=== PATIENT | female | born 1960 | race Caucasian/White ===

== ENCOUNTER 2023-05-19 09:29 | Outpatient (OUT) | payer MEDICAID, SELFPAY ==
[2023-05-19 10:49] LABS: Free T4 1.01 ng/dL (0.76-1.46)
[2023-05-19 13:00] LABS: Free T3 2.43 pg/mL (2.18-3.98); Thyroid Stimulating Hormone 0.308 uIU/mL (0.358-3.740)
[2023-05-20 04:07] LABS: Thyroid Peroxidase (TPO) Ab <9 IU/mL (0-34)
[2023-05-20 15:08] LABS: Thyroglobulin Antibody <1.0 IU/mL (0.0-0.9)
[2023-05-21 09:12] LABS: Thyrotropin Receptor Ab, Serum <1.10 IU/L (0.00-1.75)
== END 2023-05-19 09:30 | disposition home or self-care (01) ==
LOC: LAB 09:29
PROVIDERS: PCP Family Medicine; Visit Provider Family Medicine
DX: E05.90 Thyrotoxicosis, unspecified without thyrotoxic crisis or storm (principal)
CPT/HCPCS: 36415; 83520; 84439; 84443; 84481; 86376; 86800

== ENCOUNTER 2023-08-11 09:43 | Outpatient (OUT) | payer MEDICAID, SELFPAY ==
--- NOTE | 2023-08-11 09:49 | MM_ITS ---
Patient: LUCAS SON Exam Date: 08/11/2023 : 1960 Gender:F Ordering : DR Bebe Arreguin M.D. Admission #: [id number] Family : Order #: [id number] CLICK HERE TO VIEW EXAM RADIOLOGY REPORT PROCEDURE: MM TOMOSYNTHESIS SCREENING BI COMPARISON: MG MAMM SCREEN LATIA W CAD, 11/13/2019. MG MAMM SCREEN 3D LATIA CAD, 12/26/2021. INDICATIONS: Z12.31 Calculator Name NCI Breast Cancer Risk Assessment Tool 5 Year Breast Cancer Risk 1.30% Lifetime Breast Cancer Risk 5.70% Personal Breast Cancer No Personal Ovarian Cancer No Treatments None Family Cancers Cousin-maternal with breast cancer at age ~35; Cousin-maternal with breast cancer at age ~45; Cousin-maternal with breast cancer at age ~55; Aunt-maternal with ovarian cancer at age ~45; Grandmother-maternal with uterine cancer at age ~49; Uncle-maternal with brain cancer at age ~52. LOCATION: [facility] BREAST COMPOSITION: Scattered areas fibroglandular density. FINDINGS: DIAGNOSTIC CATEGORY 1--NEGATIVE. NO CHANGE FROM COMPARISON ASSESSMENT. Scattered benign-appearing calcifications are present. Scattered benign-appearing lymph nodes are present. RIGHT BREAST: No significant suspicious finding. Stable asymmetry upper outer quadrant LEFT BREAST: No significant suspicious finding. RECOMMENDATIONS: ROUTINE MAMMOGRAM AND CLINICAL EVALUATION IN 12 MONTHS. PLEASE NOTE: A NORMAL MAMMOGRAM DOES NOT EXCLUDE THE POSSIBILITY OF BREAST CANCER. A CLINICALLY SUSPICIOUS PALPABLE LUMP SHOULD BE BIOPSIED. Dictated by: Aydin Jack MD on 08/11/2023 at 13:51 Approved by: Aydin Jack MD on 08/11/2023 at 13:55
== END 2023-08-11 09:44 | disposition home or self-care (01) ==
LOC: MAMMO 09:43
PROVIDERS: PCP Family Medicine; Visit Provider Family Medicine
DX: Z12.31 Encounter for screening mammogram for malignant neoplasm of breast (principal); Z80.3 Family history of malignant neoplasm of breast; Z80.8 Family history of malignant neoplasm of other organs or systems
CPT/HCPCS: 77063; 77067

== ENCOUNTER 2024-01-10 10:33 | Outpatient (OUT) | payer MEDICAID, SELFPAY ==
[2024-01-10 11:02] LABS: Basophils Absolute Auto 0.1 10^3/uL (0.0-0.1); Basophils Percent Auto 0.7 % (0.2-2.0); Eosinophils Absolute Auto 0.2 10^3/uL (0.0-0.7); Eosinophils Percent Auto 1.9 % (0.9-7.0); Hemoglobin 14.2 g/dL (12.0-16.0); Immature Granulocytes Abs Auto 0.04 10^3/uL (0.00-0.03); Immature Granulocytes Pct Auto 0.4 % (0.0-0.5); Lymphocytes Absolute Auto 2.3 10^3/uL (1.2-3.8); Lymphocytes Percent Auto 25.4 % (20.5-60.0); Mean Corpuscular HGB Conc 31.6 g/dL (29.9-35.2); Mean Corpuscular Hemoglobin 29.5 pg (26.7-34.0); Mean Corpuscular Volume 93.6 fL (81.0-99.0); Monocytes Absolute Auto 0.7 10^3/uL (0.3-0.8); Monocytes Percent Auto 8.2 % (1.7-12.0); Neutrophils Absolute Auto 5.6 10^3/uL (1.4-6.5); Neutrophils Percent Auto 63.4 % (43.0-75.0); Platelet Count 236 10^3/uL (150-450); Red Blood Count 4.81 10^6/uL (4.20-5.40); Red Cell Distribution Width 12.8 % (11.0-15.0); White Blood Count 8.9 10^3/uL (4.0-11.0)
[2024-01-10 11:43] LABS: Alanine Aminotransferase 22 U/L (14-59); Albumin Globulin Ratio 0.9; Albumin Level 3.6 g/dL (3.4-5.0); Alkaline Phosphatase 103 U/L (46-116); Anion Gap 16.4; Aspartate Amino Transferase 14 U/L (15-37); BUN Creatinine Ratio 13.6; Bilirubin Total 0.6 mg/dL (0.2-1.0); Calcium 9.5 mg/dL (8.5-10.1); Carbon Dioxide 27.3 mmol/L (21.0-32.0); Chloride 103 mmol/L (98-107); Estimated GFR (African America 46 (>=60); Estimated GFR (Non-African Ame 38 (>=60); Glucose 100 mg/dL (74-106); Potassium 4.7 mmol/L (3.5-5.1); Sodium 142 mmol/L (136-145); Thyroid Stimulating Hormone 0.326 uIU/mL (0.358-3.740); Total Protein 7.6 g/dL (6.4-8.2)
== END 2024-01-10 10:34 | disposition home or self-care (01) ==
LOC: LAB 10:35
PROVIDERS: PCP Family Medicine; Visit Provider Family Medicine
DX: R53.83 Other fatigue (principal); E55.9 Vitamin D deficiency, unspecified
CPT/HCPCS: 36415; 80053; 82306; 84443; 85025

== ENCOUNTER 2024-02-04 13:57 | Outpatient (OUT) | payer MEDICAID, SELFPAY ==
--- NOTE | 2024-02-04 14:01 | MM_ITS ---
Patient Name: LUCAS SON MR#: [id number] : 1960 Exam Date: 02/04/2024 Ordering Doctor: CHERRIE GANDHI RESIDENTIAL COUNSELOR-C cRADIOLOGY REPORT PROCEDURE: MM TOMOSYNTHESIS DIAGNOSTIC BI COMPARISON: MM TOMOSYNTHESIS SCREENING BI, 08/11/2023. MG MAMM SCREEN 3D LATIA CAD, 12/26/2021. INDICATIONS: Rash Of Breast, Left Breast Pain Calculator Name NCI Breast Cancer Risk Assessment Tool 5 Year Breast Cancer Risk 1.40% Lifetime Breast Cancer Risk 5.60% Personal Breast Cancer No Personal Ovarian Cancer No Treatments None Family Cancers Cousin-maternal with breast cancer at age ~35; Cousin-maternal with breast cancer at age ~45; Cousin-maternal with breast cancer at age ~55; Aunt-maternal with ovarian cancer at age ~45; Grandmother-maternal with uterine cancer at age ~49; Uncle-maternal with brain cancer at age ~52. LOCATION: [facility] BREAST COMPOSITION: Scattered areas fibroglandular density. FINDINGS: DIAGNOSTIC CATEGORY 2--BENIGN FINDING: RIGHT BREAST: No significant suspicious finding. Stable asymmetric residual fibroglandular tissue within upper outer quadrant. No significant change has occurred. LEFT BREAST: No significant suspicious finding. Stable residual fibroglandular tissue within upper outer quadrant. No significant change has occurred. RECOMMENDATIONS: ROUTINE MAMMOGRAM AND CLINICAL EVALUATION IN 12 MONTHS. PLEASE NOTE: A NORMAL MAMMOGRAM DOES NOT EXCLUDE THE POSSIBILITY OF BREAST CANCER. A CLINICALLY SUSPICIOUS PALPABLE LUMP SHOULD BE BIOPSIED. Dictated by: Ramon Joe M.D. on 02/04/2024 at 14:43 Approved by: Ramon Joe M.D. on 02/04/2024 at 14:46
--- OUTSIDE RECORDS SUMMARY | 2024-02-04 14:10 | XMS_ITS | CCD ---
Author Organization [facility] Care Team Providers Care Culinary Director Name Role Phone AUBREE JUSTICE Unavailable Unavailable DUSTY MARTINS Unavailable Unavailable Gavino Roman Unavailable Unavailable Mak Collins Unavailable Unavailable None, No PCP Unavailable Unavailable None, No PCP Unavailable Unavailable Unavailable Unavailable Bebe Duncan MD Primary Care Provider UNKNOWN, PCP Referring Unavailable MD ELIJAH WILKINSON Attending Bisi vailable UNKNOWN, PCP Referring Unavailable MD ELIJAH WILKINSON Attending Bisi vailable Bill Orona Attending Unavailable Bill Orona Referring Unavailable Bill Orona Attending Unavailable Bill Orona Attending Unavailable Bebe Duncan Unavailable CORNEL MORALES Admitting Unavailable CORNEL MORALES Attending Unavailable CORNEL MORALES Consulting Unavailable PERLA, DR BEBE Paul Primary Care Unavailable DUNCAN, DR BEBE Paul Admitting Unavailable HARDINSBURG, DR ANGELINA Clemente Consulting Unavailable DUNCAN, DR BEBE Paul Attending Unavailable DUNCAN, DR BEBE Paul Primary Care Unavailable DUNCAN, DR BEBE Paul Consulting Unavailable DUNCAN, DR BEBE Paul Admitting Unavailable DUNCAN, DR BEBE Paul Attending Unavailable DUNCAN, DR BEBE Paul Consulting Unavailable DUNCAN, DR BEBE Paul Primary Care Unavailable TRESSA YU Consulting Unavailable DUNCAN, DR BEBE Paul Attending Unavailable PERLA, DR BEBE Paul Consulting Unavailable DUNCAN, DR BEBE Paul Primary Care Unavailable DUNCAN, DR BEBE Paul Admitting Unavailable DUNCAN, DR BEBE Paul Admitting Unavailable DUNCAN, DR BEBE Paul Attending Unavailable DUNCAN, DR BEBE Paul Primary Care Unavailable DUNCAN, DR BEBE Paul Admitting Unavailable DUNCAN, DR BEBE Paul Attending Unavailable DUNCAN, DR BEBE Paul Primary Care Unavailable WEST, DR ANGELINA Clemente Consulting Unavailable DUNCAN, DR BEBE Paul Consulting Unavailable DUNCAN, DR BEBE Paul Primary Care Unavailable ASHISH WRIGHT Admitting Unavailable HARDINSBURG, DR ANGELINA Clemente Consulting Unavailable ASHISH WRIGHT Attending Unavailable ASHISH WRIGHT Consulting Unavailable Allergies Allergy Classification Reported Allergen(s) Allergy Type Date of Onset Reaction(s) Facility heparin (3 sources) heparin; Translations: [heparin] Drug Allergy [facility] Work Phone: (20 sources) heparin; Translations: [heparin] Drug Allergy 06-08-[address] [facility] Medications Current Medications Medication Drug Class(es) Dates Sig (Normalized) Sig (Original) amoxicillin 875 mg / clavulanate 125 mg oral tablet (3 sources) Penicillin-class Antibacterial Start: 11-25-2022 take 1 tablet by mouth every twelve hours Amoxicillin-Pot Clavulanate 875-125 MG 1 tablet Orally every 12 hrs for 10 day(s) Nov, Active benoxinate hydrochloride 4 mg/ml / fluorescein sodium 2.5 mg/ml ophthalmic solution (1 source) Diagnostic Dye Start: 02-19-2022 End: 02-20-2022 fluorescein-benoxin ate 0.25-0.4 % 1 Drop (FLURESS) cephalexin 500 mg oral capsule (2 sources) Cephalosporin Antibacterial take 1 capsule by mouth every eight hours Cephalexin 500 MG 1 capsule Orally every 8 hrs for 7 days Active phenylephrine hydrochloride 25 mg/ml ophthalmic solution (1 source) alpha-1 Adrenergic Agonist Start: 02-19-2022 End: 02-20-2022 PHENYLephrine 2.5 % 1 Drop (AK-DILATE, JASON-SYNEPHRINE) spironolactone 50 mg oral tablet (12 sources) Aldosterone Antagonist take 1 tablet by mouth every twenty-four hours Spironolactone 50 MG 1 tablet Orally Once a day Active take 1 tablet by mouth once aldo y Spironolactone 25 MG Oral Tablet TAKE 1 TABLET DAILY. Quantity: 0 Refills: 0 Ordered: 01-Apr-2022 DO Active tropicamide 10 mg/ml ophthalmic solution (1 source) Anticholinergic Start: 02-19-2022 End: 02-20-2022 tropicamide 1 % 1 Drop (MYDRIACYL) vitamin B12 (19 sources) Vitamin B12 take 1 tablet by mouth once daily Cyanocobalamin 1000 MCG 1 tablet Orally Once a day for 90 days Active take 1 tablet by mouth once aldo y Cyanocobalamin 1000 MCG 1 tablet Orally Once a day Active Vitamin B-12 100 0 MCG Oral Tablet Quantity: 0 Refills: 0 Ordered: 08-Jan-2021 DO Active take 1 tablet by mouth once aldo y cyanocobalamin (VITAMIN B-12) 1,000 mcg tab Take 1,000 mcg by mouth once daily. 0 Active Comment on above: Take 1,000 mcg by [facility] once daily. Completed/Discontinued Medications Medication Drug Class(es) Dates Sig (Normalized) Sig (Original) acetaminophen 325 mg oral tablet (1 source) Tylenol 325 MG O ral Tablet Refills: 0 Active brexpiprazole 0.5 mg oral tablet (3 sources) Atypical Antipsychotic take 1 tablet by mouth every twenty-four hours Rexulti 0.5 MG 1 tablet Orally Once a day Not-Taking calcium citrate 1500 mg / cholecalciferol 200 unt oral tablet (1 source) Vitamin D Start: 01-25-2019 take 1 tablet by mouth once daily Calcium + D 315-200 MG-UNIT Oral Tablet TAKE 1 TABLET DAILY. Quantity: 90 Refills: 2 Gavino Roman MD Start : 25-Jan-2019 Active carbidopa 25 mg / levodopa 100 mg oral tablet (11 sources) Aromatic Amino Acid Decarboxylation Inhibitor, Aromatic Amino Acid Start: 05-20-2019 take 1 tablet by mouth three times daily carbidopa-levodopa (SINEMET 25-100) 25-100 mg per tablet Take 1 tablet by mouth three times daily. 0 05/20/2019 Active Comment on above: [facility] cholecalciferol 0.05 mg oral tablet (20 sources) Vitamin D Start: 05-20-2019 take 1 tablet by mouth once daily cholecalciferol (VITAMIN D3) 50 mcg (2,000 unit) tablet Take 1 tablet by mouth once daily. 0 05/20/2019 Active take 2 tablets by [facility] every twenty-four hours Vitamin D3 50 MCG (1999) 2 tablet Orally Once a day Active Vitamin D3 50 MC G (1999) Oral Capsule Quantity: 0 Refills: 0 Ordered: 19-Oct-2018 DO Active Comment on above: [facility] citalopram 40 mg oral tablet (20 sources) Serotonin Reuptake Inhibitor Start: 05-20-2019 take 1 tablet by mouth once daily citalopram (CELEXA) 40 mg tablet Take 40 mg by mouth once daily. 0 05/20/2019 Active Citalopram [place] bromide 40 MG Oral Tablet Quantity: 0 Refills: 0 Ordered: 19-Oct-2018 DO Active Comment on above: Take 40 mg by mouth once daily. famotidine 40 mg oral tablet (20 sources) Histamine-2 Receptor Antagonist Start: 06-01-2019 take 1 tablet by mouth every twenty-four hours as needed famotidine (PEPCID) 40 mg tablet Take 40 mg by mouth at bedtime as needed. 0 06/01/2019 Active Comment on above: Take 40 mg by mouth at bedtime as needed. melatonin 3 mg oral tablet (20 sources) Start: 06-01-2019 take 1 tablet by mouth twice daily melatonin 3 mg tablet Take 3 mg by mouth twice daily. 0 06/01/2019 Active take 2 tablets by mo [facility] every twenty-four hours Melatonin 3 MG 2 tablets at bedtime as needed Orally Once a day [facility] Melatonin 3 MG 1 tablet at bedtime as needed Orally Once a day for 90 days Active Comment on above: Take 3 mg by mouth t wice daily. naproxen 500 mg oral tablet (3 sources) Nonsteroidal Anti-inflammatory Drug Start: 1 take 1 tablet by mouth every twelve hours as needed Naproxen 500 MG Oral Tablet TAKE 1 TABLET EVERY 12 HOURS NEEDED. Quantity: 60 Refills: 0 Ordered: 25-Dec-2020 Mak Collins MD Start : 25-Dec-2020 Active predniSONE 10 mg oral tablet (5 sources) Start: 1 predniSONE 10 MG Oral Tablet Please take 2 tablets once a day with meals [id number] (TO October)THEN Take one tablet once a day with meals x 3 weeks (October 23 to )Then Half a tablet x2 weeks (November 14 - Nov 28) THEN STOP Quantity: 180 Refills: 3 Ordered: 01-Oct-2021 Elijah Wilkinson MD Start : 08-Jan-2021 Active Start: 01-08-2021 take 3 tablets by mo ut once daily at mealtime predniSONE 10 MG Oral Tablet Please take 3 tablets daily with meals. Quantity: 180 Refills: 3 Ordered: 28-May-2021 Elijah Wilkinson MD Start : 08-Jan-2021 Active thiamine 100 mg oral tablet (20 sources) Start: 08-31-2019 take 1 tablet by mouth once daily VITAMIN B-1, MONONITRATE, 100 mg tab Take 100 mg by mouth once daily. 0 08/31/2019 Active Vitamin B-1 100 MG Oral Tablet Quantity: 0 Refills: 0 Ordered: 19-Oct-2018 DO Active Comment on above: Take 100 mg by mouth once daily. Tyrvaya 0.03 MG/ACT Nasal Solution (4 sources) Tyrvaya 0.03 MG/ACT Nasal Solution Quantity: 0 Refills: 0 Ordered: 01-Apr-2022 DO Active 24 hr verapamil hydrochloride 120 mg extended release oral capsule (17 sources) Calcium Channel Alvin Start: 03-06-2020 take 3 tablets by mouth once daily Verapamil HCl ER 120 MG Oral Capsule Extended Release 24 Hour TAKE 3 TABLETS ONCE DAILY Quantity: 270 Refills: 3 Ordered: 12-Oct-2022 Adwoa FLANAGAN [facility] Start : 06-Mar-2020 Active Start: 06-01-2019 take 3 tablets by mo uth once daily in the morning verapamil (CALAN, ISOPTIN) 80 mg tablet Take 120 mg by mouth once daily. takes 3 tablets in AM 0 06/01/2019 Active take 1 tablet by emilia th every eight hours Verapamil HCl 120 MG 1 tablet Orally Three times a day Active take 1 tablet by emilia th every eight hours Verapamil HCl 80 MG 1 tablet Orally Three times a day Active Comment on above: Take 120 mg by mouth once daily. 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 of bilateral eyes; Translations: [Other secondary cataract, bilateral] Chronic Diverticulosis and diverticulitis (1 source) Diverticulosis of intestine, part unspecified, without perforation or abscess without bleeding; Translations: [Dvrtclos of intest, part unsp, w/o perf or abscess w/o bleed] Onset: 1 Chronic Encephalitis (except that caused by tuberculosis or sexually transmitted disease) (16 sources) Limbic encephalitis; Translations: [Unspecified causes of encephalitis, myelitis, and encephalomyelitis] Onset: 1 Episodic Esophageal disorders (6 sources) Gastroesophageal reflux disease without esophagitis; Translations: [Gastro-esophageal reflux disease without esophagitis] Chronic Essential hypertension (8 sources) Essential hypertension; Translations: [Essential (primary) hypertension] Chronic Headache; including migraine (12 sources) Migraine; Translations: [Migraine, unspecified, without mention of intractable migraine without mention of status migrainosus] Onset: 2 Chronic Headache; including migraine (19 sources) Headache; Translations: [Headache] Episodic Headache; including migraine (1 source) Headache; including migraine; Translations: [Headache, unspecified] Onset: 2 Malaise and fatigue (20 sources) Fatigue; Translations: [Other malaise and fatigue] Onset: 3 Chronic Malaise and fatigue (1 source) Fatigue; Translations: [Chronic fatigue] Episodic Mood disorders (14 sources) Acute depression; Translations: [Acute depression] Chronic Nutritional deficiencies (8 sources) Vitamin D deficiency; Translations: [Vitamin D deficiency, unspecified] Chronic Nutritional deficiencies (9 sources) Vitamin B deficiency; Translations: [Vitamin B deficiency, unspecified] Episodic Osteoarthritis (1 source) Degenerative joint disease involving multiple joints; 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] Onset: 0 12-15-2019 Chronic Other aftercare (8 sources) Long-term current use of systemic steroid; Translations: [bed bug exterminator (current) use of systemic steroids] Episodic Other circulatory disease (8 sources) Elevated blood-pressure reading without diagnosis of hypertension; Translations: [Elevated blood-pressure reading, without diagnosis of hypertension] Episodic Other connective tissue disease (8 sources) Trochanteric bursitis; Translations: [Trochanteric bursitis, unspecified hip] Episodic Other connective tissue disease (8 sources) Disorder of soft tissue; Translations: [Other specified soft tissue disorders] Episodic Other connective tissue disease (8 sources) Olecranon bursitis; Translations: [Olecranon bursitis, right elbow] Episodic Other connective tissue disease (9 sources) Pain in left foot; Translations: [Pain in left foot] Onset: 2 Episodic Other eye disorders (1 source) Bilateral posterior vitreous detachment; Translations: [Vitreous degeneration, bilateral] Chronic Other eye disorders (11 sources) Unspecified lagophthalmos right eye, unspecified eyelid; Translations: [Lagophthalmos of right eyelid] Episodic Other eye disorders (11 sources) Subconjunctival hemorrhage; Translations: [Conjunctival hemorrhage] Episodic Other eye disorders (11 sources) Chemosis of conjunctiva; Translations: [Conjunctival edema] Episodic Other eye disorders (1 source) Chalazion of lower eyelid of right eye; Translations: [Chalazion right lower eyelid] Episodic Other eye disorders (1 source) Tear film insufficiency of bilateral eyes; Translations: [Dry eye syndrome of bilateral lacrimal glands] Episodic Other gastrointestinal disorders (1 source) Dysphagia, oropharyngeal phase; Translations: [Dysphagia, oropharyngeal phase] Onset: 8 Episodic Other lower respiratory disease (8 sources) Dyspnea on exertion; Translations: [Other forms of dyspnea] Episodic Other nervous system disorders (1 source) Bilateral carpal tunnel syndrome; Translations: [Carpal tunnel syndrome, bilateral upper limbs] Onset: 0 12-15-2019 Chronic Other nervous system disorders (1 source) Chronic pain syndrome; Translations: [Chronic pain syndrome] Onset: 0 12-15-2019 Chronic Other nervous system disorders (1 source) Carpal tunnel syndrome of left wrist; Translations: [Carpal tunnel syndrome, left upper limb] Onset: 0 12-28-2019 Chronic Other nervous system disorders (8 sources) Chronic pain; Translations: [Other chronic pain] Chronic Other nervous system disorders (8 sources) Mononeuropathy of lower limb; Translations: [Unspecified mononeuropathy of left lower limb] Chronic Other nervous system disorders (8 sources) Disorder of brain; Translations: [Encephalopathy, unspecified] Chronic Other nervous system disorders (2 sources) Personal history of infections of the central nervous system; Translations: [Personal history of infections of the central nervous system] Onset: 1 Episodic Other nervous system disorders (8 sources) Personal history of other diseases of the nervous system and sense organs; Translations: [History of encephalopathy] Episodic Other non-traumatic joint disorders (8 sources) Arthralgia of the ankle and/or foot; Translations: [Pain in left ankle and joints of left foot] Episodic Other nutritional; endocrine; and metabolic disorders (8 sources) Obese class II; Translations: [Body mass index (BMI) 37.0-37.9, adult] Chronic Other screening for suspected conditions (not mental disorders or infectious disease) (10 sources) Blood chemistry abnormal; Translations: [Other specified abnormal findings of blood chemistry] Episodic Other skin disorders (12 sources) Localized swelling, mass and lump, right upper limb; Translations: [Mass of right forearm] Onset: 2 Episodic Other skin disorders (1 source) Ingrowing nail Episodic Other upper respiratory infections (8 sources) Bacterial sinusitis; Translations: [Chronic sinusitis, unspecified] Chronic Residual codes; unclassified (5 sources) Obstructive sleep apnea syndrome; Translations: [Obstructive sleep apnea (adult) (pediatric)] Chronic Residual codes; unclassified (5 sources) Dependence on enabling machine or device; Translations: [Dependence on other enabling machines and devices] Chronic Residual codes; unclassified (2 sources) Obstructive sleep apnea (adult) (pediatric) Chronic Residual codes; unclassified (2 sources) Dependence on other enabling machines and devices Chronic Residual codes; unclassified (8 sources) Edema; Translations: [Localized edema] Episodic Residual codes; unclassified (8 sources) Asymptomatic menopausal state; Translations: [Menopause] Episodic Residual codes; unclassified (8 sources) Insomnia; Translations: [Insomnia, unspecified] Episodic Residual codes; unclassified (3 sources) Insomnia, unspecified Episodic Skin and subcutaneous tissue infections (2 sources) Cellulitis of right toe; Translations: [Bullous impetigo] Episodic Spondylosis; intervertebral disc disorders; other back problems (16 sources) Displacement of cervical intervertebral disc; Translations: [Other cervical disc displacement at C5-C6 level] Chronic Spondylosis; intervertebral disc disorders; other back problems (11 sources) Neck pain; Translations: [Cervicalgia] Onset: 0 12-15-2019 Episodic Thyroid disorders (5 sources) Thyrotoxicosis, unspecified without thyrotoxic crisis or storm; Translations: [THYROTOXICOS UNS NO THYROTOX CRISIS] Onset: 2 Chronic Past or Other Problems Problem Classification Problem Date Documented Da te Episodic/Chronic Mood disorders (1 source) Mood disorders Other connective tissue disease (1 source) Pain of bilateral hands; Translations: [Pain in right hand] Onset: 12-15-2019 12-15-2019 Episodic Other connective tissue disease (4 sources) Pain in left foot; Translations: [PAIN IN LEFT FOOT] Onset: 05-14-2022 Episodic Other non-traumatic joint disorders (1 source) Shoulder pain; Translations: [Pain in right shoulder] Onset: 12-15-2019 12-15-2019 Episodic Other non-traumatic joint disorders (1 source) Hip pain; Translations: [Pain in right hip] Onset: 12-15-2019 12-15-2019 Episodic Other non-traumatic joint disorders (2 sources) Pain in left knee; Translations: [PAIN IN LEFT KNEE] Onset: 11-27-2022 Episodic Other non-traumatic joint disorders (4 sources) Pain in left ankle and joints of left foot; Translations: [PAIN IN LEFT ANKLE] Onset: 05-28-2022 Episodic Residual codes; unclassified (4 sources) Localized edema; Translations: [LOCALIZED EDEMA] Onset: 04-24-2022 Episodic Unclassified (5 sources) Age more than 40 years; Translations: [60 to 74 years of age] NEGATED: Highlighted row has not occurred!Residual codes; unclassified (6 sources) Disease Episodic Results Test Name Value Interpretation Reference Range Facility CBC AUTO DIFFon 11-25-2022 BASO # 0.1 103/ul Normal 0.0-0.1 [facility] Comment on above: Performed By: #### C BC #### [facility] [address] [place] [address] Dr. Simone Luna Basophils/100 WBC (Bld) 0.7 % Normal 0.2-2.0 [facility] Comment on above: Performed By: #### C BC #### [facility] [address] [place] [address] Dr. Simone Luna EO # 0.1 103/ul Normal 0.0-0.7 [facility] Comment on above: Performed By: #### C BC #### [facility] [address] [place] [address] Dr. Simone Luna Eosinophils/100 WBC (Bld) 1.7 % Normal 0.9-7.0 [facility] Comment on above: Performed By: #### C BC #### [facility] [address] [place] [address] Dr. Simone Luna Erythrocyte distribution width (RBC) [Ratio] 12.8 % Normal 11.0-15.0 [facility] Comment on above: Performed By: #### C BC #### [facility] [address] [place] [address] Dr. Simone Luna Hematocrit (Bld) [Volume fraction] 43.8 % Normal 36.0-48.0 [facility] Comment on above: Performed By: #### C BC #### [facility] [address] [place] [address] Dr. Simone Luna Hemoglobin (Bld) [Mass/Vol] 14.0 g/dL Normal 12.0-16.0 [facility] Comment on above: Performed By: #### C BC #### [facility] [address] [place] [address] Dr. Simone Luna IG # 0.03 10e3/ul Normal 0.00-0.03 [facility] Comment on above: Performed By: #### C BC #### [facility] [address] [place] [address] Dr. Simone Luna IG % 0.4 % Normal 0.0-0.5 [facility] Comment on above: Performed By: #### C BC #### [facility] [address] [place] [address] Dr. Simone Luna LYMPH # 2.2 103/ul Normal 1.2-3.8 [facility] Comment on above: Performed By: #### C BC #### [facility] [address] [place] [address] Dr. Simone Luna Lymphocytes/100 WBC (Bld) 26.4 % Normal 20.5-60.0 [facility] Comment on above: Performed By: #### C BC #### [facility] [address] [place] [address] Dr. Simone Luna MANUAL DIFF REQ NO Normal [facility] Comment on above: Performed By: #### C BC #### [facility] [address] [place] [address] Dr. Simone Luna MCH (RBC) [Entitic mass] 29.5 pg Normal 26.7-34.0 [facility] Comment on above: Performed By: #### C BC #### [facility] [address] [address] [address] Simone Luna MCHC (RBC) [Mass/Vol] 32.0 g/dL Normal 29.9-35.2 [facility] Comment on above: Performed By: #### C BC #### [facility] [address] [place] [address] Dr. Simone Luna MCV (RBC) [Entitic vol] 92.4 fL Normal 81.0-99.0 [facility] Comment on above: Performed By: #### C BC #### [facility] [address] [place] [address] Dr. Simone Luna MONO # 0.7 103/ul Normal 0.3-0.8 [facility] Comment on above: Performed By: #### C BC #### [facility] [address] [place] [address] Dr. Simone Luna Monocytes/100 WBC (Bld) 8.2 % Normal 1.7-12.0 [facility] Comment on above: Performed By: #### C BC #### [facility] [address] [place] [address] Dr. Simone Luna NEUT # 5.2 103/ul Normal 1.4-6.5 [facility] Comment on above: Performed By: #### C BC #### [facility] [address] [place] [address] Dr. Simone Luna Neutrophils/100 WBC (Bld) 62.6 % Normal 43.0-75.0 [facility] Comment on above: Performed By: #### C BC #### [facility] [address] [place] [address] Dr. Simone Luna Platelet mean volume (Bld) [Entitic vol] 9.6 fL Normal 9.5-13.5 [facility] Comment on above: Performed By: #### C BC #### [facility] [address] [place] [address] Dr. Simone Luna PLT 233 103/ul Normal 150-450 [facility] Comment on above: Performed By: #### C BC #### [facility] [address] [place] [address] Dr. Simone Luna RBC 4.74 106/ul Normal 4.20-5.40 [facility] Comment on above: Performed By: #### C BC #### [facility] [address] [place] [address] Dr. Simone Luna WBC 8.3 103/ul Normal 4.0-11.0 [facility] Comment on above: Performed By: #### C BC #### [facility] [address] [place] [address] Dr. Simone Luna FREE T4on 11-25-2022 Free T4 [Mass/Vol] 1.00 ng/dL Normal 0.76-1.46 [facility] Comment on above: Performed By: #### T HYRABT #### [facility] [address] [place] [address] Dr. Simone Luna PROF CHEM 8 (BAS METB)on Anion gap [Moles/Vol] 15.2 mmol/L Normal [facility] Comment on above: Performed By: #### T SH, BMP #### [facility] [address] [place] [address] Dr. Simone Luna Calcium [Mass/Vol] 9.3 mg/dL Normal 8.5-10.1 [facility] Comment on above: Performed By: #### T SH, BMP #### [facility] [address] [place] [address] Dr. Simone Luna Chloride [Moles/Vol] 105 mmol/L Normal 98-107 [facility] Comment on above: Performed By: #### T SH, BMP #### [facility] [address] [place] [address] Dr. Simone Luna CO2 [Moles/Vol] 23.9 mmol/L Normal 21.0-32.0 [facility] Comment on above: Performed By: #### T SH, BMP #### [facility] [address] [place] [address] Dr. Simone Luna Creatinine [Mass/Vol] 1.35 mg/dL Critically high 0.55-1.02 [facility] Comment on above: Performed By: #### T SH, BMP #### [facility] [address] [place] [address] Dr. Simone Luna EGFR-AF CITIZEN [place] 48 mL/min/1.73m2 Critically low >=60 [facility] Comment on above: Performed By: #### T SH, BMP #### [facility] [address] [place] [address] Dr. Simone Luna EGFR-NON AF CITIZEN OF [place] 40 mL/min/1.73m2 Critically low >=60 [facility] Comment on above: Performed By: #### T STEPHIE, BMP #### [facility] [address] [place] [address] Dr. Simone Luna Glucose [Mass/Vol] 142 mg/dL Critically high 74-106 [facility] Comment on above: Performed By: #### T STEPHIE, BMP #### [facility] [address] [place] [address] Dr. Simone Luna Potassium [Moles/Vol] 4.1 mmol/L Normal 3.5-5.1 [facility] Comment on above: Performed By: #### T STEPHIE, BMP #### [facility] [address] [place] [address] Dr. Simone Luna Sodium [Moles/Vol] 140 mmol/L Normal 136-145 [facility] Comment on above: Performed By: #### T STEPHIE, BMP #### [facility] [address] [place] [address] Dr. Simone Luna Urea nitrogen [Mass/Vol] 25.0 mg/dL Critically high 7.0-18.0 [facility] Comment on above: Performed By: #### T STEPHIE, BMP #### [facility] [address] [place] [address] Dr. Simone Luna Urea nitrogen/Creatini ne [Mass ratio] 18.5 mg/mg Normal [facility] Comment on above: Performed By: #### T SH, BMP #### [facility] [address] [place] [address] Dr. Simone Luna TSHon 11-25-2022 TSH 0.513 uIU/mL Normal 0.358-3.740 [facility] Comment on above: Performed By: #### T , JUWAN #### [facility] [address] [id number] Simone Luna XR KNEE LT 4V or >on 023 XR KNEE LT 4V or > EXAM: XR KNEE LT 4V or > HISTORY: Pain of left knee joint posteriorly for the past week. COMPARISON: None. TECHNIQUE: 4 views of the left knee were obtained. FINDINGS: There is no evidence of an acute fracture or dislocation. There is mild narrowing of the medial compartment. No significant osteophytes or osteochondral injury is identified. There is no subluxation of the patella at the patellofemoral joint. A tiny suprapatellar joint effusion is suggested and may be present. No abnormal soft tissue calcifications are present. IMPRESSION: No acute fracture or dislocation. No significant osseous abnormality is identified. A tiny suprapatellar joint effusion is suggested. Comparison with a previous study may be helpful in determining the chronicity of these findings. 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 She was found to have subclinical central seizures requiring keppra and depakote. She was comatosed for a prolonged period of time and underwent trach and PEG. She improved after ten sessions of PLEX and is now conversant and near baseline (trach and PEG reversed). Extensive workup in the hospital was negative including repeated brain MRIs, cancer screen (CT and PET), infectious workup, and AIE panel from the serum and CSF. Her CSF had high IGG index but negative OCBs and no cells. 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 She has evidence of parkinsonism/tremor on exam but this is likely drug-induced (lithium and depakote). Will repeat EEG and if negative we'll start slow weaning of depakote. I also instructed family to discuss getting off lithium with the patient's PCP. Will complete cancer screening with a mammogram (she has no ovaries) and then will monitor yearly after that with whole body CT and mammograms. Recurrence rate of seronegative AIE is unknown but we will have a low threshold to start equipment operator intermodal yard immunosuppressive therapy if recurrence is suspected. 10/19/2018: Presented to the hospital again in August with brain fog, difficult focusing, motor decline, and episodes of sphincteric dysfunction. No new seizures or AMS. Repeat brain MRI and CSF were unremarkable. EEG showed only generalized slowing. She was treated empirically with PLEX with subsequent improvement. Unclear if this was a true AIE relapse or worsening neurological function related to her drug-induced parkinsonism. She's now off lithium but taking high dose of depakote. We will start slow weaning of prednisone and see how she does. will plan to start a steroid sparing agent if she has a convincting relapse while weaning steroids. We will cut her depakote dose in half then start gradual weaning of depakote after increasing her keppra to 2000 mg BID. Will send valproate level, CMP, and ammonia. Follow up once she's on 10 mg of prednisone. 10/02/2021: doing well. headache improved. parkinsonism resolved after coming off depakote and lithium. Will start weaning her off prednisone and will update cancer screening. No further cancer screening will be required if the next one is negative and she remains relapse-free. 10/12/2022: no neurological symptoms currently. She is off all immunotherapy, seizures meds, and sinemet. last cancer screen in October of 2021 was negative. future follow up should be on as needed basis only. she'll continue verapamil for MEANS ppx. PLAN: Your latest cancer screening in October of 2021 was negative, which is great. Please continue to do standard cancer screening as recommended by your primary care doctor. You are currently no longer on immunotherapy or seizure medications. At this point, you can follow up in the neurology clinic on as needed basis. please report any new neurological symptoms if they happen in the future. The impression and plan were discussed with the patient and their family (if present) in detail and all questions answered. They agreed to the plan as outlined above. I spent 20 minutes with this patient. Greater than 50% of this time was spent in counseling and/or coordination of care. Bill Orona MD, PhD Nuclear Plant Operator of Neurology [facility] [employer] Director of Neuroimmunology and staff neurologist at the Movement Disorder [facility] 10/12/2022 12:13 PM Patient Discussion/Summary Your latest cancer screening in October of 2021 was negative, which is great. Please continue to do standard cancer screening as recommended by your primary care doctor. You are currently no longer on immunotherapy or seizure medications. At this point, you can follow up in the neurology clinic on as needed basis. please report any new neurological symptoms if they happen in the future. Thank you very much for coming to see me today. Bill Orona MD, PhD Nuclear Plant Operator of Neurology [facility] Director of Neuroimmunology and staff neurologist at the Movement Disorder [facility] 10/12/2022 12:02 PM Chief Complaint FUV AIE History of Present Illness Ms. 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 Disease summary: In March 2018 had cognitive decline, gait di (more content not included)... Normal [facility] Tobacco Screening.on 022 Fall risk assessment a) [facility] within the last year [facility] Work Phone: Tobacco use status CP b) No -[facility] [employer] Work Phone: US EXT NON VASC LIMITED RTon 09-16-2022 US EXT NON VASC LIMITED RT EXAMINATION: US EXT NON VASC LIMITED RT HISTORY: Localized swelling of right upper limb COMPARISON: No relevant comparison available. FINDINGS: Ultrasound demonstrates 3 focal areas of subtle hyperechogenicity within the subcutaneous fat just below the skin surface. These are well-circumscribed with smooth rounded borders oval in overall shape. The largest of these in the proximal 4 measures 2.2 x 1.6 x 0.6 cm. IMPRESSION: 3 hyperechogenic lesions in the subcutaneous fat, lipomas are favored Electronically authenticated by: ANGELINA SERVIN Date: 2022-09-16 18:28 Normal [facility] THYROID ANTIBODIESon 022 Thyroglobulin Antibody <1.0 Normal 0.0-0.9 [facility] Comment on above: Result Comment: Thyr oglobulin Antibody measured by [facility] Methodology Performed By: #### T HYRABT #### [facility] [address] [place] [address] Dr. Simone Luna Thyroid Peroxidase (TPO) Ab <8 Normal 0-34 [facility] Comment on above: Performed By: #### T HYRABT #### [facility] [address] [place] [address] Dr. Simone Luna THYROTROPIN RECEPTOR ABon Thyrotropin Receptor Ab, Serum <1.10 Normal 0.00-1.75 [facility] Comment on above: Performed By: #### T HYRABT #### [facility] [address] [place] [address] Dr. Simone Luna FREE T3on 05-28-2022 FREE T3 2.77 pg/mlL Normal 2.18-3.98 [facility] Comment on above: Performed By: #### T HYRABT #### [facility] [address] [place] [address] Dr. Simone Luna FREE T4on 05-28-2022 Free T4 [Mass/Vol] 0.86 ng/dL Normal 0.76-1.46 [facility] Comment on above: Performed By: #### T HYRABT #### [facility] [address] [place] [address] Dr. Simone Luna TSHon 05-28-2022 TSH 0.491 uIU/mL Normal 0.358-3.740 [facility] Comment on above: Performed By: #### T HYRABT #### [facility] [address] [place] [address] Dr. Simone Luna ECHOCARDIO M/2D COMPLETEon 0 04-24-2022 ECHOCARDIO M/2D COMPLETE Patient: ALINA SONStaci Exam Date: 04/24/2022 : 1960 Gender:F Ordering : DR BEBE DUNCAN M.D. Admission #: [id number] Family : Order #: [id number] CLICK HERE TO VIEW EXAM ECHOCARDIOGRAM REPORT PROCEDURE: CARDIO PULMONARY ECHOCARDIO M/2D COMP INDICATIONS: lower extremity edema COMPARISON: None. DESCRIPTION: COMPLETE ECHOCARDIOGRAM Real-time transthoracic echocardiography with 2D, M-mode, spectral and color flow Doppler performed. QUALITY: Technically difficult due to patient's condition. LEFT VENTRICLE: Normal chamber size. Normal left ventricular wall thickness. LV EF: Normal left ventricular ejection fraction, (55%). DIASTOLIC: Normal diastolic function. ATRIAL SEPTUM: Visually appears intact. LEFT ATRIUM: Normal chamber size. RIGHT ATRIUM: Normal chamber size. RIGHT VENTRICLE: Normal chamber size. TRICUSPID VALVE: Normal mobility and thickness. No stenosis with no regurgitation. MITRAL VALVE: Normal mobility and thickness. No evidence of mitral valve stenosis. There is no mitral annular calcification. No mitral regurgitation. AORTIC VALVE: Not well visualized. No evidence of aortic valve stenosis. Trivial aortic regurgitation. AORTIC ROOT: Normal diameter and appearance. PULMONIC VALVE: Normal thickness and mobility. No stenosis. No regurgitation. PERICARDIUM: No evidence of pericardial effusion. IVC: Collapses with inspirations. PLEURA: CONCLUSION: 1. Normal ventricular systolic function. LVEF is 55%. 2. Normal diastolic function. 3. No significant valvular dysfunction. 4. No pericardial effusion. Adult Echocardiography Procedure Report Left Ventricle LVEDD (3.7 - 5.6 cm): 4.48 cm LVESD (2.2 - 4.0 cm): 3.38 cm LVIVS thickness (0.6 - 1.2 cm): 9.21 mm LVPW thickness (0.5 - 1.0 cm): 9.08 mm e': 7.13 cm/s E - e': 10.30 LVOT Area (cm2): 3.46 cm2 LVOT Diameter 2.10 cm Left Ventricular Ejection Fraction: 55 % Left Atrium Left Atrium Systolic Dimension: 3.50 cm Mitral Valve MV E to A Ratio: 1.10 Mitral Valve A-Wave Peak Velocity: 69.60 cm/s Mitral Valve E-Wave Peak Velocity: 73.10 cm/s Deceleration Time: 256 ms Right Ventricle Aorta AO Root Diam: 3.00 cm Aortic Valve AoV Area (Peak Danyel): 2.56 cm2 Peak Velocity(Antegrade Flow): 138.00 cm/s Peak Gradient(Antegrade Flow): 8 mm[Hg] Tricuspid Valve Pulmonic Valve Peak Velocity: 88.70 cm/s Peak Gradient: 3 mm[Hg] Right Atrium Dictated by: Bob Nuñez M.D. on 04/24/2022 at 15:02 Approved by: Bob Nuñez M.D. on 04/24/2022 at 15:04 Normal [facility] Office Visit (Neuro-General) on 04-01-2022 Follow-up visit Provider Impressions Ms. Son is a 61 yo RH woman with seronegative autoimmune encephalitis (in March 2018, followed by Aug 2018 s/p improvement with PLEX). She presents as a follow up today in person for headaches and AIE. Doing well from neurologic stand point with several complaints (weight gain, swelling, SOB/Orthopnea and fatigue). Cognition appears stable and she has no complaints. Her headaches remain significantly improved from prior (some mild worsening over past days/weeks appears in setting of several ongoing issues such as sleep fragmentation from LE swelling discomfort at night and element of refractive error and ? new Dx glaucoma which she is working with opthalmology to manage and anxiety) mostly in morning headaches. Most importantly her headaches had dramatically improved with treatment of MARTY and hence are unlikely related to AIE. She no longer complains of slowness or tremor and will plan to wean off C/L gradually. Plan: -c/w verapamil ER 360 mg daily (reassess taper/wean once off prednisone given good control of headaches) NOT done this visit due to several ongoing confounders including sleep fragmentation and refractive issues and HTN -Wean Sinemet by 1 tab per week (currently on 1 tab TID), given instructions to call back if developes issues - FU PCP for Health screen (namely weight gain, edema and fatigue) recommend consideration of TSH, ECHO and trial lasix if indicated. - Counseled on nonpharmacologic options such as use of compression stalkings, calf stretch exercises during the day and leg elevation when possible throughout the day. These may help with her leg swelling and discomfort. - c/w CPAP for MARTY -RTC in 4-6 months or sooner if needed Patient Discussion/Summary Thank you for your visit you have been seen for Autoimmune - On your PCP follow up please ensure they perform a cardiac echo and assess need for a stronger waterpill i.e Lasix if indicated or you don?t have significant respone to spironolactone - The following medications have been added/changed Levodopa-carbidopa 25-100 DECREASE by one pill every week as follows WEEK #1: Morning take one pill, afternoon skip, evening take one pill, If no issues THEN WEEK#2 Morning skip, afternoon skip, EVENING take one pill, if NO issues THEN WEEK #3: DO NOT TAKE ANY pill - maintain healthy balanced diet and exercise - RTC in 4-6months, sooner if needed Our clinic number is , please call with any questions or concerns Attending Note I saw and evaluated the patient. I personally obtained the palencia and critical portions of the history and physical exam or was physically present for palencia and critical portions performed by the trainee. I reviewed the trainee's documentation and discussed the patient with the trainee. I agree with the trainee's medical decision making, as documented on the trainee's note. Agree with the plan and the discontinuation of Sinemet. Discussed with the patient and explained reasoning and observations she needs to make. H/A management as above, but call if headaches increase. ---ELW Diagnoses/Problems Assessed Headache (784.0) (R51.9) Limbic encephalitis (323.9) (G04.90) Orders Headache, Limbic encephalitis Follow-up visit in 6 months Outpatient Follow-up Status: Hold For - Scheduling Requested for: [id number] Migraine without status migrainosus, not intractable, unspecified migraine type Renew: Verapamil HCl ER 120 MG Oral Capsule Extended Release 24 Hour; TAKE 3 TABLETS ONCE DAILY Chief Complaint FUV AIE and headaches History of Present Illness Ms. 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 Disease summary: In March 2018 had cognitive decline, gait disturbance, subclinical seizures, and abnormal movements. She was admitted at [facility] from 04/01 - 05/10. At her worst she was comatose, not following commands, with frequent L facial clonus, and subclinical seizures. Had 3 MRIs all negative. 3 LPs, and only the 3rd LP showed mildly elevated TP. CSF cell counts were normal on all 3, however IgG index was elevated with normal OCB. Paraneoplastic and AIE panels were negative x2. Prion panel negative x2. Serologic studies including LATANYA, GAD65, anti-TG, NMDA, negative. She had subclinical seizures were controlled on LEV + VPA. She received 10 sessions of PLEX, then had a possible relapse in Aug that was treated with PLEX and again improved. Has since been weaned off prednisone and Keppra by mid-2019. Continues to take Sinemet for parkinsonism (now improved, likely secondary), and notes benefit with anxiety specifically. She is continuing her verapamil 360 mg daily for migraines with improvement. Visit 12/2020 #Trialed naproxen 10mg PRN for the past two weeks. Had some improvement. However, continued feeling fatigue and headaches. No severe migraines since being on verapamil (now 360 mg daily). Given this naproxyn was stopped and she was started on tr (more content not included)... Normal [facility] Tobacco Screening.on Fall risk assessment a) No falls within the last year -Neurology- [facility] Work Phone: Tobacco use status [facility] b) No -Neurology- [facility] Work Phone: Falls Risk Screeningon 12-24 Fall risk assessment a) No falls within the last year -Neurology- [facility] Work Phone: Tobacco use status [facility] b) No -Neurology- [facility] Work Phone: Office Visit (Neuro-General) on 12-24-2021 Follow-up visit Provider Impressions Ms. Son is a 61 yo RH woman with seronegative autoimmune encephalitis (in March 2018, followed by Aug 2018 s/p improvement with PLEX). She presents as a follow up today in person for headaches and AIE. Doing well from neurologic stand point with several complaints (weight gain, swelling, SOB/Orthopnea and fatigue). Cognition appears stable and she has no complaints. Her headaches remain significantly improved from prior (now only morning headaches when CPAP has events ) have dramatically improved with treatment of MARTY and hence are unlikely related to AIE given this will plan taper of prednisone and reassess. She had CT CAP which was negative for malignancy (screen prior was also negative). Exam is stable and will follow up closely. Plan: -c/w verapamil ER 360 mg daily (reassess taper/wean once off prednisone given good control of headaches) NOT done this visit due to several ongoing complaints and HTN -continue Sinemet (reassess weanign once off down the line) - FU PCP for Health screen (namely weight gain, edema and fatigue) recommend TSH and baseline cardiac screen - c/w CPAP for MARTY -RTC in 3 months or sooner if needed Attending Note Trainee role: Resident I saw and evaluated the patient. I personally obtained the palencia and critical portions of the history and physical exam or was physically present for palencia and critical portions performed by the trainee. I reviewed the trainee's documentation and discussed the patient with the trainee. I agree with the trainee's medical decision making, as documented on the trainee's note. 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) Migraine without status migrainosus, not intractable, unspecified migraine type (346.90) (G43.909) Orders Limbic encephalitis Renew: Carbidopa-Levodopa 25-100 MG Oral Tablet; TAKE 1 TABLET 3 TIMES DAILY Limbic encephalitis, Migraine without status migrainosus, not intractable, unspecified migraine type Follow-up visit in 3 months Outpatient Follow-up Status: Hold For - Scheduling Requested for: [id number] Migraine without status migrainosus, not intractable, unspecified migraine type Renew: Verapamil HCl ER 120 MG Oral Capsule Extended Release 24 Hour; TAKE 3 TABLETS ONCE DAILY Chief Complaint FUV AIE/headaches History of Present Illness Ms. 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 Disease summary: In March 2018 had cognitive decline, gait disturbance, subclinical seizures, and abnormal movements. She was admitted at [facility] from 04/01 - 05/10. At her worst she was comatose, not following commands, with frequent L facial clonus, and subclinical seizures. Had 3 MRIs all negative. 3 LPs, and only the 3rd LP showed mildly elevated TP. CSF cell counts were normal on all 3, however IgG index was elevated with normal OCB. Paraneoplastic and AIE panels were negative x2. Prion panel negative x2. Serologic studies including LATANYA, GAD65, anti-TG, NMDA, negative. She had subclinical seizures were controlled on LEV + VPA. She received 10 sessions of PLEX, then had a possible relapse in Oct that was treated with PLEX and again improved. Has since been weaned off prednisone and Keppra by mid-2019. Continues to take Sinemet for parkinsonism (now improved, likely secondary), and notes benefit with anxiety specifically. She is continuing her verapamil 360 mg daily for migraines with improvement. Visit 12/2020 #We started her on naproxen 10mg PRN for the past two weeks. She reports improvement with the naproxen. However, she is continuing to experience the fatigue and headaches. No severe migraines since being on verapamil (now 360 mg daily). No new symptoms. Given this naproxyn was stopped and she was started on trial of prednisone to assess response due to concern this might be related to her AIE. Visit 05/2021 - Had elevated CRP but normal ESR (prior to starting prednisone) - SHe endorses prednisone helped slighlty with her headaches but they remain present daily. And she complains of some side effects incuding weight gain, fatigue, difficulty with sleep occasionally and ?blurring occasionally. - She describes headaches are similar to her old migraines but less intense, they are reportedly present daily and are worse on waking but improve after prednisone and getting to her routine. She states when she has a constant headband/cap pattern pressure like pain which is worse in the morning which improves mid day and returns with increase intensity towards the end of the day particualry with busy days or when her anxiety is bad. SHe describes a sharp/shock like pain over her left hindu/occiputal region that is present only when she wakes up and resolves after prednisone. NO change with sneezing, position or activity. Neither of these radiate anywhere and she denies N/V/D/SOB/CP/F/C/Diplopia/ dysphagia/focal weakness/tingling/BB/LOC/v ertigo/photo or phonophobi (more content not included)... Normal [facility] BD CT CHEST ABDOMEN PELVIS W IV CONTRASTon 11-12-[address] CHEST ABDOMEN PELVIS W IV CONTRAST Patient Name: ALINA SON STUDY: CT CHEST ABDOMEN PELVIS W IV CONTRAST; 11/12/2021 11:13 am INDICATION: Cancer screen (Hx of autoimmune encephalitis) G04.90: Limbic encephalitis. 60-year-old female seronegative autoimmune encephalitis (March 2018 and August 2018) with initial chest abdomen pelvis negative for malignancy. Follow-up scan screening for underlying malignancy. COMPARISON: 06/29/2019 ACCESSION NUMBER(S): [id number] ORDERING CLINICIAN: ELIAJH WILKINSON TECHNIQUE: CT of the chest, abdomen, and pelvis was performed. Contiguous axial images were obtained at 3 mm slice thickness through the chest, abdomen and pelvis. Coronal and sagittal reconstructions at 3 mm slice thickness were performed. 90 ml of contrast Omnipaque 350 were administered intravenously without immediate complication. FINDINGS: CHEST: LUNG/PLEURA/LARGE AIRWAYS: Trachea and central airways are clear. No interval bronchial lesion. No lung masses, pulmonary nodules or consolidations are present. Mild bibasilar atelectasis. There is no pleural effusion or pneumothorax. VESSELS: Aorta and pulmonary arteries are normal caliber. No atherosclerotic changes of the aorta are identified. Mild coronary artery calcifications are present. HEART: Normal size. No pericardial effusion MEDIASTINUM AND ABELARDO: No mediastinal, hilar or axillary lymphadenopathy is present. Small hiatal hernia. CHEST WALL AND LOWER NECK: The soft tissues of the chest wall demonstrate no gross abnormality. The visualized thyroid gland appears within normal limits. ABDOMEN: LIVER: The liver is normal in size. There is redemonstration of calcification of the segment 8 of the liver that is unchanged from the prior scan. Again seen is a subtle hypodense lesion within segment 5 of the liver (series 2, image 89 of 210) that is much less conspicuous than the prior scan but appears overall stable in size, measuring 1.4 cm compared to 1.5 cm. No new focal liver lesions. BILE DUCTS: The intrahepatic and extrahepatic ducts are not dilated. GALLBLADDER: The gallbladder is surgically absent. PANCREAS: The pancreas appears unremarkable without evidence of ductal dilatation or masses. SPLEEN: The spleen is normal in size without focal lesions. ADRENAL GLANDS: Bilateral adrenal glands appear normal. KIDNEYS AND URETERS: The kidneys are normal in size and enhance symmetrically. Left anterior mid renal pole cyst is again seen, measuring 1.4 cm compared to 2.5 cm on the prior study. 0.7 cm left medial superior pole hypodensity is again seen, stable when compared to 2019. Redemonstration of multiple calcifications in the right kidney cortex that are overall stable in size and extent, suggestive of dystrophic calcification versus granulomatous disease. No hydroureteronephrosis or nephroureterolithiasis is identified. PELVIS: BLADDER: The urinary bladder appears normal without abnormal wall thickening. REPRODUCTIVE ORGANS: The uterus is surgically absent. No pelvic masses. BOWEL: The stomach is unremarkable. The small bowel is not abnormally dilated. The large bowel demonstrates multiple diverticula without inflammation. Interval resolution of previously seen diverticulitis. The appendix is surgically absent. VESSELS: There is no aneurysmal dilatation of the abdominal aorta. The IVC appears normal. PERITONEUM/RETROPERITONEUM /LYMPH NODES: There is no free or loculated fluid collection, no free intraperitoneal air. The retroperitoneum appears normal. Multiple retroperitoneal calcifications favored to represent phleboliths. No abdominopelvic lymphadenopathy is present. BONE AND SOFT TISSUE: No suspicious osseous lesions are identified. The abdominal wall soft tissues appear normal. IMPRESSION: CHEST: 1. No evidence of malignancy in the chest. ABDOMEN-PELVIS: 1. No evidence of malignancy in the abdomen or pelvis. 2. Diverticulosis without CT evidence of diverticulitis. I personally reviewed the images/study and I agree with the findings as stated. This study was interpreted at [place], [place]. Electronically signed by: HOLLY LOPEZ MD Normal [facility] COMPREHENSIVE PANELon 2020 Albumin [Mass/Vol] 3.8 g/dL Normal 3.4 - 5.0 [facility] Comment on above: Performed By: #### C MP #### [facility] [address] [place] [address] ALP [Catalytic activity/Vol] 66 U/L Normal 33 - 136 [facility] Comment on above: Performed By: #### C MP #### [facility] [address] [place] [address] ALT [Catalytic activity/Vol] 7 U/L Normal 7 - 45 [facility] Comment on above: Result Comment: Josefina ents treated with Sulfasalazine may generate falsely decreased results for ALT. Performed By: #### C MP #### [facility] [address] [place] [address] Anion gap [Moles/Vol] 15 mmol/L Normal 10 - 20 [facility] Comment on above: Performed By: #### C MP #### [facility] [address] [place] [address] AST [Catalytic activity/Vol] 15 U/L Normal 9 - 39 [facility] Comment on above: Performed By: #### C MP #### [facility] [address] [place] [address] Bilirubin [Mass/Vol] 0.6 mg/dL Normal 0.0 - 1.2 [facility] Comment on above: Performed By: #### C MP #### [facility] [address] [place] [address] Calcium [Mass/Vol] 9.7 mg/dL Normal 8.6 - 10.6 [facility] Comment on above: Performed By: #### C MP #### [facility] [address] [place] [address] Chloride [Moles/Vol] 105 mmol/L Normal 98 - 107 [facility] Comment on above: Performed By: #### C MP #### [facility] [address] [place] [address] Creatinine [Mass/Vol] 0.95 mg/dL Normal 0.50 - 1.05 [facility] Comment on above: Performed By: #### C MP #### [facility] [address] [place] [address] GFR- AM. 73 mL/min/1.73m2 Normal >60 [facility] Comment on above: Result Comment: CALC ULATIONS OF ESTIMATED GFR ARE PERFORMED USING THE MDRD STUDY EQUATION FOR THE IDMS-TRACEABLE CREATININE METHODS. CLIN CHEM 2007;53:766-72 Performed By: #### C MP #### [facility] [address] [place] [address] GFR-NON AM. 60 mL/min/1.73m2 Abnormal >60 [facility] Comment on above: Performed By: #### C MP #### [facility] [address] [place] [address] Glucose [Mass/Vol] 94 mg/dL Normal 74 - 99 [facility] Comment on above: Performed By: #### C MP #### [facility] [address] [place] [address] HCO3 (Bld) [Moles/Vol] 31 mmol/L Normal 21 - 32 [facility] Comment on above: Performed By: #### C MP #### [facility] [address] [place] [address] Potassium [Moles/Vol] 4.0 mmol/L Normal 3.5 - 5.3 [facility] Comment on above: Performed By: #### C MP #### [facility] [address] [place] [address] Protein [Mass/Vol] 5.7 g/dL Low 6.4 - 8.2 [facility] Comment on above: Performed By: #### C MP #### [facility] [address] [place] [address] Sodium [Moles/Vol] 147 mmol/L High 136 - 145 [facility] Comment on above: Performed By: #### C MP #### [facility] [address] [place] [address] Urea nitrogen [Mass/Vol] 18 mg/dL Normal 6 - 23 [facility] Comment on above: Performed By: #### C MP #### [facility] [address] [place] [address] FL MODIFIED BARIUM SWALLOW W VIDEOon 05-30-2018 [place] MODIFIED BARIUM SWALLOW W VIDEO REPORT: Modified barium swallow examination with cine/video radiography.INDICATION: Oropharyngeal dysphagia.FINDINGS: A modified barium swallow examination was performed under the direction of speech pathology. Cine fluoroscopy and video radiography was performed. The patient was given varying consistencies of contrast, including nectar consistency contrast, thin barium, applesauce with contrast, banana with contrast, and lj cracker coated with contrast. There was early entry of contrast into the hypopharynx, extending into the valleculae. This cleared with the swallow. There was an otherwise normal swallowing mechanism. There was no laryngeal penetration or tracheal aspiration with any of the consistencies of contrast. There was no retention of contrast within the valleculae or pyriform sinuses.8 sets of cine fluoroscopy/video radiography were obtained. 1.2 minutes of fluoroscopy time were utilized. The radiation dosage measured 2.26 mGy.Final report electronically signed by Roderick Fine on 05/30/2018 4:05 PMIMPRESSION: EARLY ENTRY OF CONTRAST INTO THE HYPOPHARYNX WITH ALL CONSISTENCIES OF CONTRAST. OTHERWISE NORMAL STUDY. NO LARYNGEAL PENETRATION OR TRACHEAL ASPIRATION WITH ANY OF THE CONSISTENCIES OF CONTRAST.Interpreted by:JOHN Camaraigned by:Roderick Fine MD05/30/18Edited Result - FINAL Normal [facility] Procedureon 05-30-2018 HIM IP Note OR Public Health Normal [facility] No Panel Information [facility] Vital Signs Date Time Vital Sign Value Performing Clinician Facility 12-27-2023 10:00-0500 Body height 154.94 cm Bebe [facility] 12-27-2023 10:00-0500 Body mass index (BMI) [Ratio] 35.75 kg/m2 [facility] 12-27-2023 10:00-0500 Body weight 85.82 kg Bebe Duncan [facility] 12-27-2023 10:00-0500 Diastolic blood pressure 78 mm[Hg] Bebe [facility] 12-27-2023 10:00-0500 Systolic blood pressure 126 mm[Hg] Bebe [facility] 12-14-2023 10:15-0500 Body height 154.94 cm Bebe Duncan [facility] 12-14-2023 10:15-0500 Body mass index (BMI) [Ratio] 35.71 kg/m2 Bebe [facility] 12-14-2023 10:15-0500 Body weight 85.73 kg Bebe Duncan [facility] 12-14-2023 10:15-0500 Diastolic blood pressure 77 mm[Hg] Bebe [facility] 12-14-2023 10:15-0500 Systolic blood pressure 125 mm[Hg] Bebe [facility] 07-27-2023 10:00-0400 Body height 154.94 cm Bebe Duncan [facility] 07-27-2023 10:00-0400 Body mass index (BMI) [Ratio] 36.2 kg/m2 Bebe [facility] 07-27-2023 10:00-0400 Body weight 86.91 kg Bebe Duncan [facility] 07-27-2023 10:00-0400 Diastolic blood pressure 74 mm[Hg] Bebe [facility] 07-27-2023 10:00-0400 Respiratory rate 12 /min Bebe Duncan [facility] 07-27-2023 10:00-0400 Systolic blood pressure 119 mm[Hg] Bebe [facility] 03-25-2023 09:30-0400 Body height 154.94 cm Bebe Duncan [facility] 03-25-2023 09:30-0400 Body mass index (BMI) [Ratio] 36.27 kg/m2 [facility] 03-25-2023 09:30-0400 Body weight 87.09 kg Bebe [facility] 03-25-2023 09:30-0400 Diastolic blood pressure 62 mm[Hg] Bebe [facility] 03-25-2023 09:30-0400 SaO2% (BldA) [Mass fraction] 97 % [facility]be [facility] 03-25-2023 09:30-0400 Systolic blood pressure 124 mm[Hg] Bebe [facility] 11-25-2022 12:30-0500 Body height 154.94 cm Bebe Duncan [facility] 11-25-2022 12:30-0500 Body mass index (BMI) [Ratio] 35.71 kg/m2 [facility] 11-25-2022 12:30-0500 Body weight 85.73 kg Bebe Duncan [facility] 11-25-2022 12:30-0500 Diastolic blood pressure 86 mm[Hg] Bebe [facility] 11-25-2022 12:30-0500 SaO2% (BldA) [Mass fraction] 97 % [facility]be [facility] 11-25-2022 12:30-0500 Systolic blood pressure 128 mm[Hg] [facility]be [facility] 10-12-2022 11:16-0500 Body height 154.94 cm No PCP None [place] [address] Work Phone: 10-12-2022 11:16-0500 Body mass index (BMI) [Ratio] 36.09 kg/m2 No PCP None HN-Igczrzxoc-BTDHS [facility] Work Phone: 10-12-2022 11:16-0500 Body surface area Derived from formula 1.85 m2 No PCP None MQ-Zurwkcurd-KELAM [facility] Work Phone: 10-12-2022 11:16-0500 Body weight 86.64 kg No PCP None KS-Tczlrnqxa-HWF MC [facility] Work Phone: 10-12-2022 11:16-0500 Diastolic blood pressure 71 mm[Hg] No PCP None XI-Hzcycumrf-UUAES [facility] Work Phone: 10-12-2022 11:16-0500 Heart rate 76 /min No PCP None FM-Kkykxppcu-HIW [facility] Work Phone: 10-12-2022 11:16-0500 Respiratory rate 18 /min No PCP None [place]kioawese[place] [id number] Work Phone: 10-12-2022 11:16-0500 Systolic blood pressure 135 mm[Hg] No PCP None BH-Drfwhuksq-TQJHI [facility] Work Phone: 10-12-2022 11:16-0500 0 1 No PCP None OE-Jsnwyfvze-TTD [facility] [facility] Work Phone: Comment on above: [employer] 04-01-2022 13:42-0400 Body height 154.94 cm No PCP None QK-Sosnwkjcr-Yng in [facility] Work Phone: 04-01-2022 13:42-0400 Body mass index (BMI) [Ratio] 36.85 kg/m2 No PCP None IG-Ruwaakbqo-Hcktc [facility] Work Phone: 04-01-2022 13:42-0400 Body surface area Derived from formula 1.87 m2 No PCP None QX-Ovaiyqwmb-Dvmpx [facility] Work Phone: 04-01-2022 13:42-0400 Body weight 88.45 kg No PCP None TK-Yqunqdtui-Hww in [facility] Work Phone: 04-01-2022 13:42-0400 Diastolic blood pressure 76 mm[Hg] No PCP None VL-Rpxdqeras-Sznwc [facility] Work Phone: 04-01-2022 13:42-0400 Heart rate 73 /min No PCP None JZ-Kuynhnczs-Ceo in [facility] Work Phone: 04-01-2022 13:42-0400 Respiratory rate 18 /min No PCP None YY-Tuzvmogfl-Tj min [facility] Work Phone: 04-01-2022 13:42-0400 Systolic blood pressure 147 mm[Hg] No PCP None PQ-Iufvgckkb-Kynew [facility] Work Phone: 04-01-2022 13:42-0400 4 1 No PCP None PO-Effaslkcv-Dpd in [facility] Work Phone: Comment on above: [employer] 12-24-2021 13:33-0500 Body height 154.94 cm No PCP None ML-Vnwkhdeoa-Ath in [facility] Work Phone: 12-24-2021 13:33-0500 Body mass index (BMI) [Ratio] 37.6 kg/m2 No PCP None WA-Blattqxal-Bkoqw [facility] Work Phone: 12-24-2021 13:33-0500 Body surface area Derived from formula 1.89 m2 No PCP None HB-Vzoywigmn-Kzmvb [facility] Work Phone: 12-24-2021 13:33-0500 Body weight 90.27 kg No PCP None VV-Wnyrkkhwu-Qzh in [facility] Work Phone: 12-24-2021 13:33-0500 Diastolic blood pressure 74 mm[Hg] No PCP None NB-Zxrxjymkw-Iwpip [facility] Work Phone: 12-24-2021 13:33-0500 Heart rate 83 /min No PCP None VH-Yxqnowljo-Hvc in [facility] Work Phone: 12-24-2021 13:33-0500 Respiratory rate 18 /min No PCP None RH-Mcrxthmvv-Cr min [facility] Work Phone: 12-24-2021 13:33-0500 Systolic blood pressure 149 mm[Hg] No PCP None AE-Rnxieciuf-Obybo [facility] Work Phone: 10-01-2021 14:11-0500 Body height 154.94 cm No PCP None MG-Lfsuscuda-Oez in [facility] Work Phone: 10-01-2021 14:11-0500 Body mass index (BMI) [Ratio] 36.09 kg/m2 No PCP None IX-Effumkixm-Zuhso [facility] Work Phone: 10-01-2021 14:11-0500 Body surface area Derived from formula 1.85 m2 No PCP None SH-Ezolmcryn-Lnmrz [facility] Work Phone: 10-01-2021 14:11-0500 Body weight 86.64 kg No PCP None FW-Wphyrcxjy-Etb in [facility] Work Phone: 10-01-2021 14:11-0500 Diastolic blood pressure 78 mm[Hg] No PCP None TG-Wyivkhwvs-Cstji [facility] Work Phone: 10-01-2021 14:11-0500 Heart rate 80 /min No PCP None LU-Bhynzwstu-Pox in [facility] Work Phone: 10-01-2021 14:11-0500 Respiratory rate 16 /min No PCP None ZR-Gtunfjjmk-Sr min [facility] Work Phone: 10-01-2021 14:11-0500 Systolic blood pressure 136 mm[Hg] No PCP None MT-Pisxmuppj-Evmkk [facility] Work Phone: 05-28-2021 13:57-0400 Body height 154.94 cm No PCP None HT-Xoysfhcha-Ccp in [facility] Work Phone: 05-28-2021 13:57-0400 Body mass index (BMI) [Ratio] 36.09 kg/m2 No PCP None RG-Rycxcesmn-Inytn [facility] Work Phone: 05-28-2021 13:57-0400 Body surface area Derived from formula 1.85 m2 No PCP None IK-Fwvmcgxxm-Cywaj [facility] Work Phone: 05-28-2021 13:57-0400 Body weight 86.64 kg No PCP None NN-Uxxgpxbqc-Aje in [facility] Work Phone: 05-28-2021 13:57-0400 Diastolic blood pressure 85 mm[Hg] No PCP None KG-Sbplykrql-Xcwab [facility] Work Phone: 05-28-2021 13:57-0400 Heart rate 94 /min No PCP None SI-Mvehvnvrw-Ycw in [facility] Work Phone: 05-28-2021 13:57-0400 Respiratory rate 16 /min No PCP None IH-Ldghlwryg-Md min [facility] Work Phone: 05-28-2021 13:57-0400 Systolic blood pressure 145 mm[Hg] No PCP None BL-Nkugosksw-Tqhbi [facility] Work Phone: Encounters Encounter Date Encounter Type Care Provider Facility Start: 12-27-2023 End: 12-27-2023 ambulatory [facility] Start: 12-27-2023 Office outpatient vi sit 15 minutes Bebe Duncan [facility] Start: 12-20-2023 End: 12-20-2023 ambulatory [facility] Start: 12-20-2023 Telephone encounter Bebe Duncan [facility] Start: 12-14-2023 End: 12-14-2023 ambulatory [facility] Start: 12-14-2023 Office outpatient vi sit 15 minutes Bebe Duncan [facility] Start: 07-27-2023 End: 07-27-2023 ambulatory [facility] Start: 07-27-2023 Office outpatient vi sit 25 minutes Bebe Duncan [facility] Start: 04-06-[address] BEBE DUNCAN Facil ity:[facility]1 Start: 03-25-2023 End: 03-25-2023 ambulatory [facility] Start: 03-25-2023 Office outpatient vi sit 25 minutes Bebe Duncan [facility] Start: 12-15-2022 End: 12-15-2022 ambulatory [facility] Start: 12-15-2022 Telephone encounter Bebe Duncan [facility] Start: 12-01-2022 End: 12-01-2022 ambulatory [facility]be [facility] Start: 12-01-2022 Telephone encounter Bebe Duncan [facility] Start: 11-25-2022 End: 11-26-[address] BEBE DUNCAN [facility] [employer] Other Start: 11-25-2022 Office outpatient vi sit 25 minutes Bebe Duncan [facility] Start: 11-23-2022 Annual wellness visit Bebe lazar [facility] Start: 10-12-2022 Office outpatient vi sit 15 minutes No PCP None JU-Czzbhbidj-RUJLI [facility] Work Phone: Start: 10-12-2022 ambulatory Bill [place] Facility: [facility] Start: 10-05-2022 ambulatory Bill [place] Facility: [facility] Start: 09-16-2022 End: 09-17-[address] BEBE DUNCAN Facility:[facility] Start: 05-28-2022 End: 05-29-2022 ambulatory CORNEL MORALES Facility:[facility] Start: 05-20-2022 AUDIT No PCP None MG-Neurolo gy-Admin [facility] Work Phone: Start: 05-11-2022 End: 05-12-[address] BEBE DUNCAN Facility:[facility] Start: 04-24-2022 End: 04-25-[address] BEBE DUNCAN Facility: Start: 04-01-2022 Office consultation new/estab patient 60 min No PCP None YN-Qadpcmsqr-FPURV [facility] Work Phone: Start: 04-01-2022 Patient encounter procedure No PCP None CC-Jfraiohiv-Krjuq [facility] Work Phone: Start: 04-01-2022 ambulatory PCP UNKNOWN Facility:[facility] Start: 02-19-2022 End: 02-19-2022 Patient encounter procedure Osiris Dorado MD Work Phone: Ophthalmology Comment on above: PCO (posterior capsu lar opacification), bilateral (Primary Dx); Pseudophakia, both eyes; Chalazion of right lower eyelid; Insufficiency of tear film of both eyes; PVD (posterior vitreous detachment), bilateral; Myopia with astigmatism and presbyopia, bilateral Start: 12-24-2021 Office outpatient vi sit 25 minutes No PCP None ZW-Mabduxhzu-Iebyr [facility] Work Phone: Start: 12-24-2021 ambulatory PCP UNKNOWN Facility:[facility] Start: 11-12-2021 ambulatory Bill [place]ron[place] Facility: [facility] Start: 10-01-2021 Office outpatient vi sit 25 minutes No PCP None WJ-Flvpwrbvt-CXPRT [facility] Work Phone: Start: 10-01-2021 Patient encounter procedure No PCP None UC-Enwucjkfv-Kfscs [facility] Work Phone: Start: 05-28-2021 Office outpatient vi sit 25 minutes No PCP None OZ-Bbdlanwqr-Hfmiy [facility] Work Phone: Start: 05-23-2021 Chart Update No PCP None MG-Neurolo gy-[facility] Work Phone: Start: 04-24-2021 AUDIT No PCP None MG-Neurolo gy-[facility] Work Phone: Start: 05-01-2020 Patient encounter procedure Gavino Roman XE-Nfbzqnupt-Ofvxp [facility] Work Phone: Start: 03-06-2020 Patient encounter procedure Gavino Roman WJ-Dnhqbocgm-Qnksq [facility] Work Phone: Start: 08-23-2019 Patient encounter procedure Gavino Roman OZ-Hngpmstka-Dzxij [facility] Work Phone: Start: 06-28-2019 Patient encounter procedure Gavino Roman PW-Tkdsbetma-Znscs [facility] Work Phone: Start: 05-03-2019 Patient encounter procedure Gavino Roman BF-Srmqlcpsk-Moptp [facility] Work Phone: Start: 01-25-2019 Patient encounter procedure Gavino Roman XK-Lsaerkzui-Zvsvu [facility] Work Phone: Start: 05-30-2018 End: 06-02-2018 Patient encounter [facility] l Procedures Date Procedure Procedure Detail Performing Clinician Start: 12-15-2019 Adult depression scr eening assessment Osiris Clemente MD Work Phone: Start: 05-30-2018 Swallowing funcj w/cineradiograpy/vidradiog [facility] Screening mammography Bebe Duncan Other Plan of Treatment Date Care Activity Detail Author Start: 12-15-2022 DIABETES SCREEN DIABETES SCREEN [facility] [place] [facility] Start: 07-16-2022 Influenza vaccination INFLUENZ A (Season Ended) [facility] Start: 04-01-2022 FUVPRE, Provider: Elijah Wilkinson, Status: Pen, Time: 2:00 PM FUVPRE, Provider: Elijah Wilkinson, Status: Pen, Time: 2:00 PM [facility] Work Phone: Start: 12-24-2021 FUVPRE, Provider: Elijah Wilkinson, Status: Pen, Time: 2:00 PM FUVPRE, Provider: Elijah Wilkinson, Status: Pen, Time: 2:00 PM DG-Fsiklvgmc-Imula [facility] Work Phone: Start: 12-15-2020 Adult depression screening assessment DEPRESSION SCREENING [facility] Start: 2009 SHINGRIX VACCINE (1 of 2) SHINGRIX VACCINE (1 of 2) [facility] Start: 2004 COLOGUARD (FIT-DNA) COLOGUARD (FIT-D NA) [facility] Start: [address] [facility] Start: 2004 COLORECTAL CANCER SCREENING COLORECTAL CANCER SCREENING [facility] Start: [address] COLONOGRAPHY [facility] [place] [facility] Start: 2004 FECAL OCCULT BLOOD FECAL OCCULT BLOO D [facility] Start: 2004 LIPID SCREEN LIPID SCREEN [facility] Start: 2004 SIGMOIDOSCOPY SIGMOIDOSCOPY [facility] Start: [address] [facility] Start: 1989 HPV TESTING HPV TESTING [facility] Start: 1980 PAP TESTING PAP TESTING [facility] Start: 1978 Urine microalbumin profile DTAP,TDAP,TD (1 - Tdap) [facility] Start: 1977 HIV SCREENING HIV SCREENING [facility] Start: 1964 COVID-19 VACCINE (1) COVID-19 VACCIN E (1) [facility] YM-Mchyjywsh-Df min [facility] Work Phone: NEGATED: Highlighted row has been ruled out! Planned Goals not documented CW-Dufqnbqrv-Jqfgv [facility] Work Phone: Immunizations Immunization Date Immunization Notes Care Provider Eliseo miller 09-16-2022 COVID-19 Pfizer (Pediatric) Bebe [facility] 04-02-2022 COVID-19 Vaccine Pfi zer - Documentation Purposes Only [facility] 12-26-2021 influenza virus vaccine, split virus (incl. purified surface antigen) [facility] 10-16-2021 COVID-19 Vaccine Pfi zer - Documentation Purposes Only [facility] 07-30-2020 influenza virus vaccine, split virus (incl. purified surface antigen) [facility] Other Payers Date Payer Category Payer Unknown [id number] 2021 Medicaid [employer] [id number] 2021-Present [phone] [address] [place] [address] Medicaid [id number] 2014 Unknown [id number] 1959 Unknown [id number] 1959 Unknown [id number] 1959 Unknown [id number] 1959 Unknown [id number] [id number] 1959 Unknown [id number] [id number] 1959 Unknown [id number] [id number] 1959 Unknown [id number] [id number] 1959 Unknown [id number] [id number] 1959 Unknown [id number] [id number] 1959 Unknown [id number] [id number] 1959 Unknown [id number] [id number] 1959 Unknown [id number] [id number] 1959 Unknown [id number] Unknown Social History Date Type Detail Facility Assertion Tobacco smoking consumption unknown (finding) II-Vaddylpzr-Fweol [facility] Work Phone: Start: 12-15-2019 Tobacco smoking status NHIS Never smoked tobacco [facility] Start: 12-15-2019 Tobacco use and exposure Smokeless tobacco non-user [facility] Start: 1960 Sex Assigned At Not on file C [facility] Sex Assigned At Sex Assigned At Bir th 4th aspect Other Functional Status Date Assessment Result Facility NEGATED: Highlighted row Functional performance Functional status health issues are not documented Disease [facility] Work Phone: Mental Status Date Assessment Result Facility NEGATED: Highlighted row Cognitive function [Interpretation] Cognitive status health issues are not documented Disease [facility] Work Phone: Clinical Notes 03-15-2018 to 12-27-2023 Note Date & Type Note Facility 12-27-2023 Evaluation note Encounter Date Diagnosis Assessment Notes Dec, Insomnia (ICD-10 - G47.00) Pt states melatonin is helping her sleep schedule and she is stable on present med. Dec, Essential (primary) hypertension (ICD-10 - I10) Blood pressure remains well controlled at this time. Denies cardiac symptoms. Shows no signs or symptoms or poor control. Patient to continue with above medication and we will continue to monitor. Advised to pay attention to body and symptoms. Any developing patterns. Stay well hydrated. 4th aspect Other 01-30-2024 Evaluation note* Encounter Date Diagnosis Assessment Notes Treatment Notes Treatment Clinical Notes Nov, Bullous impetigo (ICD-10 - L01.03) Take antibiotic as directed. If develop wheezing, chest tightness, itching, bad cough, blue skin color, seizures, swelling of face, lips, tongue, or throat report to ED. 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 Will increase melatonin to 2 tabs Jul, Essential (primary) hypertension (ICD-10 - I10) Blood pressure remains well controlled at this time. Denies cardiac symptoms. Shows no signs or symptoms or poor control. Patient to continue with above medication and we will continue to monitor. Advised to pay attention to body and symptoms. Any developing patterns. Stay well hydrated. 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 March, Insomnia (ICD-10 - G47.00) Requests refill. Encouraged wearing her CPAP. March, Vitamin B deficiency (ICD-10 - E53.9) Due for refill - check lab in March, Essential (primary) hypertension (ICD-10 - I10) Stable on present med - recheck lab in March, GERD without esophagitis (ICD-10 - K21.9) Requests refill. states it is adequately controlled. March, Cancer screening (ICD-10 - Z12.9) Reviewed CT from - pt requests us to order yearly CT. 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 Continue tylenol for pain. Nov, Cellulitis of right toe (ICD-10 - L03.031) new problem - start antibiotic Nov, Ingrowing nail (ICD-10 - L60.0) Nov, Chronic fatigue (ICD-10 - R53.82) Nov, Acute depression (ICD-10 - F32.A) Notes worsening - will assess labs first and consider med changes after that. 4th aspect Other 07-14-2022 NotePROCEDURE: XR FOOT LT MIN 3 VIEWS, XR ANKLE LT MIN 3 V COMPARISON: 05/11/2022 HISTORY: Pain in left foot FINDINGS: BONES:No fracture, acute abnormality, or significant arthropathy. Mild enthesopathic spurring of the calcaneus. Mild degenerative changes most significant at the first metatarsal-phalangeal joint. SOFT TISSUES:Negative. No visible soft tissue swelling. EFFUSION:None visible. OTHER: Negative. IMPRESSION: No acute abnormality of the foot or ankle Electronically authenticated by: ANGELINA SERVIN Date: 2022-05-28 18:49[facility]07-14-2022 NotePROCEDURE: XR FOOT LT MIN 3 VIEWS, XR ANKLE LT MIN 3 V COMPARISON: 05/11/2022 HISTORY: Pain in left foot FINDINGS: BONES:No fracture, acute abnormality, or significant arthropathy. Mild enthesopathic spurring of the calcaneus. Mild degenerative changes most significant at the first metatarsal-phalangeal joint. SOFT TISSUES:Negative. No visible soft tissue swelling. EFFUSION:None visible. OTHER: Negative. IMPRESSION: No acute abnormality of the foot or ankle Electronically authenticated by: ANGELINA SERVIN Date: 2022-05-28 18:49[facility]06-28-2022 NotePROCEDURE: XR FOOT LT MIN 3 VIEWS COMPARISON: None. HISTORY: Pain in left foot FINDINGS: BONES:No acute fracture or dislocation. Mild enthesopathic spurring of the calcaneus. SOFT TISSUES:Negative. No visible soft tissue swelling. EFFUSION:None visible. OTHER: Negative. IMPRESSION: No acute abnormality Electronically authenticated by: ANGELINA MALATHI Date: 2022-05-12 07:14[facility]04-07-2022 NoteHNO ID: [id number] Author: Osiris Dorado V, MD Service: ? Author Type: Physician Type: Progress Notes Filed: 02/19/2022 3:14 PM Note Text: The documentation for this note was completed by TIANA Plaza acting as a scribe for Osiris DORADO MD. 02/19/2022 3:09 PM. ASSESSMENT / PLAN: 1. Posterior capsular opacity Both eyes -YAG capsulotomy Both eyes today (-54 modifier - surgical care only) -Patient educated on posterior capsular opacity following cataract surgery. The risks, benefits, alternatives, personnel, and possible complications related to yttrium aluminum garnet (YAG) capsulotomy discussed with patient. Explained that risks include but are not limited to: increase in intraocular pressure, retinal tears/detachment, dislocation of the intraocular lens, and/or need for further procedures. Patient expresses understanding and elects to proceed with YAG capsulotomy of Both eyes performed by Dr. Dorado. Informed consent form signed by physician and patient. Literature regarding signs and symptoms of retinal detachment offered. -The patient was offered a surgery/procedure at a [facility] facility. The surgeon/proceduralist and patient have discussed in detail the risk of exposure to and/or potential harm posed by the COVID-19 virus with having a surgery/procedure at this time versus the risk of delaying the surgery/procedure. It is not possible to know either the risk of delaying the surgery or procedure or chance of getting an infection with perfect accuracy, but a joint decision was made between the patient and the surgeon/proceduralist to proceed at this time with the scheduled surgery/procedure as indicated on the consent form. -F/U [address] Carballo ([facility]) 2. Posterior chamber intraocular lens Both eyes The documentation recorded by the scribe accurately reflects the service I personally performed and the decisions made by me. I have confirmed and edited as necessary the relevant ophthalmic history, ROS, and the exam findings as obtained by others. I have seen and examined Alina Mar Santamariain. I also have reviewed and agree with the assessment and plan as stated above and agree with all of its relevant components. Osiris DORADO MD February 19, 2022 3:09 [facility]04-07-2022 NoteHNO ID: [id number] Author: Amalia Franklin OD Service: ? Author Type: VIDEO PRODUCTION COORDINATOR Type: Progress Notes Filed: 02/19/2022 3:14 PM Note Text: ASSESSMENT/PLAN: 1. PCO (posterior capsular opacification), bilateral - ICD9: 366.50, ICD10: H26.493 (primary diagnosis) Pt educated. Ref by Dr. Carballo. Eval with today. 2. Pseudophakia, both eyes - ICD9: V43.1, ICD10: Z96.1 PCIOL 2018 OU. 3. Chalazion of right lower eyelid - ICD9: 373.2, ICD10: H00.12 Improving per pt. Continue HC BID x 1 week. 4. Insufficiency of tear film of both eyes - ICD9: 375.15, ICD10: H04.123 ATs prn. 5. PVD (posterior vitreous detachment), bilateral - ICD9: 379.21, ICD10: H43.813 Longstanding and stable symptoms. 6. Myopia with astigmatism and presbyopia, bilateral - ICD9: 367.1, 367.20, 367.4, ICD10: H52.13, H52.203, H52.4 Amalia Franklin, OD I have confirmed and edited as necessary the relevant ophthalmic history, ROS, and the exam findings as obtained by others. I have seen and examined this patient. I have discussed the case and the management of this patient's care with the resident or fellow as appropriate. I also have reviewed and agree with the assessment and plan as stated above and agree with all of its relevant components. Amalia Franklin, OD February 19, 2022 2:49 [facility]04-07-2022 Instructions* Patient Instructions* Osiris Dorado V, MD - 02/19/2022 3:12 PM EDT YAG LASER POSTERIOR CAPSULOTOMY Cataract surgery is a commonly performed procedure to remove a clouded human lens and replace it with a clear lens implant known as an intra-ocular lens. During this surgery, after the clouded lens is removed, a thin portion of the lens called the capsule is left in place. This membrane, which is similar in consistency to a sandwich bag, is left in place in order to give additional support for the lens implant. Over time, this clear membrane may become cloudy or hazy, similar to a cataract, before it was removed. If this occurs, images may become blurred again or glare may be created in the vision. Common complaints when this happens are decreased vision, increased glare, or an increase in the amount of light needed to read. Although this condition will not harm the health of the eye if left untreated, i t can prove to be a nuisance. Not all patients will develop a clouded capsule, but if this occurs, the problem can be corrected with a simple, non-invasive procedure known as a YAG laser capsulotomy. If you elect to have this procedure, dilating drops are given to open the pupil. You will be asked to sit in a machine similar tothe one that is used to check you eye pressure in an eye exam. The doctor then shines a red, aiminglaser beam that can be seen by our eyes. The invisible laser light would then be activated to make a small opening in the cloudy capsule to restore a clear image to the retina. While this is being performed, the doctor will instruct you where to look and when to blink. You will hear a series of clicks when the doctor is performing the laser procedure. You should not feel any discomfort. In most cases, if the health of the eye is normal, you should see an improvement in your vision within 24 hours. Immediately afterward, you will be blurry until the dilating drops wear off, so we recommend you come with a catering truck driver. You will then be scheduled for a follow up in approximately one week. If you notice any of the following symptoms of retinal detachment, please call our office at : - Flashes of light - Increased number of floaters or large floaters - Curtains, veils, or spider web pattern over vision [facility] History of Present illness Narrative* Osiris Dorado V, MD - 02/19/2022 3:09 PM EDT The documentation for this note was completed by Norma Flowers, COA acting as a scribe for Osiris DORADO MD. 02/19/2022 3:09 PM. ASSESSMENT / PLAN: 1. Posterior capsular opacity Both eyes -YAG capsulotomy Both eyes today (-54 modifier - surgical care only) -Patient educated on posterior capsular opacity following cataract surgery. The risks, benefits, alternatives, personnel, and possible complications related to yttrium aluminum garnet (YAG) capsulotomy discussed with patient. Explained that risks include but are not limited to: increase in intraocular pressure, retinal tears/detachment, dislocation of the intraocular lens,and/or need for further procedures. Patient expresses understanding and elects to proceed with YAG capsulotomy of Both eyes performed by Dr. Dorado. Informed consent form signed by physician and patient. Literature regarding signs and symptoms of retinal detachment offered. -The patient was offered a surgery/procedure at a [facility] facility. The surgeon/proceduralist and patient have discussed in detail the risk of exposure to and/or potential harm posed by the COVID-19 virus with having a surgery/procedure at this time versus the risk of delaying the surgery/p rocedure. It is not possible to know either the risk of delaying the surgery or procedure or chanceof getting an infection with perfect accuracy, but a joint decision was made between the patient and the surgeon/proceduralist to proceed at this time with the scheduled surgery/procedure as indicated on the consent form. -F/U [address] Carballo ([facility]) 2. Posterior chamber intraocular lens Both eyes The documentation recorded by the scribe accurately reflects the service I personally performed andthe decisions made by me. I have confirmed and edited as necessary the relevant ophthalmic history,ROS, and the exam findings as obtained by others. I have seen and examined Alina Mar Santamariain. I also have reviewed and agree with the assessment and plan as stated above and agree with all of its relevant components. Osiris DORADO MD February 19, 2022 3:09 PM * Amalia Franklin, OD - 02/19/2022 2:49 PM EDT ASSESSMENT/PLAN: 1. PCO (posterior capsular opacification), bilateral - ICD9: 366.50, ICD10: H26.493 (primary diagnosis) Pt educated. Ref by Dr. Carballo. Eval with today. 2. Pseudophakia, both eyes - ICD9: V43.1, ICD10: Z96.1 PCIOL 2018 OU. 3. Chalazion of right lower eyelid - ICD9: 373.2, ICD10: H00.12 Improving per pt. Continue HC BID x 1 week. 4. Insufficiency of tear film of both eyes - ICD9: 375.15, ICD10: H04.123 ATs prn. 5. PVD (posterior vitreous detachment), bilateral - ICD9: 379.21, ICD10: H43.813 Longstanding and stable symptoms. 6. Myopia with astigmatism and presbyopia, bilateral - ICD9: 367.1, 367.20, 367.4, ICD10: H52.13, H52.203, H52.4 Amalia Franklin, OD I have confirmed and edited as necessary the relevant ophthalmic history, ROS, and the exam findings as obtained by others. I have seen and examined this patient. I have discussed the case and the management of this patient's care with the resident or fellow as appropriate. I also have reviewed andagree with the assessment and plan as stated above and agree with all of its relevant components. Amalia Franklin, JAGDISH February 19, 2022 2:49 PM documented in [facility]St[facility] History of Present illness Narrative* Ms. 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 * Visit 12/2020 * #We started her on naproxen 10mg PRN for the past two weeks. She reports improvement with the naproxen. However, she is continuing to experience the fatigue and headaches. No severe migraines since being on verapamil (now 360 mg daily). No new symptoms. * Given this naproxyn was stopped and she was started on trial of prednisone to assess response due to concern this might be related to her AIE. * Interval Hx: * - Had elevated CRP but normal ESR (prior to starting prednisone) * - SHe endorses prednisone helped slighlty with her headaches but they remain present daily. And shecomplains of some side effects incuding weight gain, fatigue, difficulty with sleep occasionally and ?blurring occasionally. * - She describes headaches are similar to her old migraines but less intense, they are reportedly present daily and are worse on waking but improve after prednisone and getting to her routine. She states when she has a constant headband/cap pattern pressure like pain which is worse in the morning which improves mid day and returns with increase intensity towards the end of the day particualry withbusy days or when her anxiety is bad. SHe describes a sharp/shock like pain over her left hindu/occiputal region that is present only when she wakes up and resolves after prednisone. NO change with sneezing, position or activity. Neither of these radiate anywhere and she denies N/V/D/SOB/CP/F/C/Diplopia/dysphagia/focal weakness/tingling/BB/LOC/vertigo/photo or phonophobia/aura/runny jm or teari ng/flushing with these headaches. * - SHe notes she has diagnosed MARTY was prescribed CPAP machine prior to her initial presentation with AIE but it was not followed through after her acute illness and she hasn t used the machine since 2018. She describes feeling contantly fatigue, knows she snores, wakes up feeling unrested (sometimes feels better sleep when she sleeps in her recliner and headaches do improve somewhat. * - SHe reports long standing left sided slight weakness mainly shoulder and hip/knee which is partially pain limited. * - SHe endorses over past 1-2 months has had some watery eyes occasionally and blurring with far vision that is associated with this. She does reprot seasonal allergies but also prescription needs an update. * - L>R tremor stable * - Worse anxiety due to headaches which in turn she feels worsens them more. * Medications; * - Prednisone 30 mg daily * - Verapmil 360mg ER * - sinnemet 25-100 TID * - Citalopram * Disease summary: * In March 2018 had cognitive decline, gait disturbance, subclinical seizures, and abnormal movements.She was admitted at [facility] from 04/01 - 05/10. At her worst she was comatose, not following commands, with frequent L facial clonus, and subclinical seizures. Had 3 MRIs all negative. 3 LPs, and only the 3rd LP showed mildly elevated TP. CSF cell counts were normal on all 3, however IgG index was elevated with normal OCB. Paraneoplastic and AIE panels were negative x2. Prion panel negative x2. Serologic studies including LATANYA, GAD65, anti-TG, NMDA, negative. She had subclinical seizures were controlled on LEV + VPA. She received 10 sessions of PLEX, then had a possible relapse in Oct that was treated with PLEX and again improved. Has since been weaned off prednisone and Keppra by mid-2019. Continues to take Sinemet for parkinsonism (now improved, likely secondary), and notes benefit with anxiety specifically. She is continuing her verapamil 360 mg daily for migraines with improvement. [id number] Work Phone: [phone]) 476-991705-01-2018 History of Present illness Narrative* Ms. 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 * Disease summary: * In March 2018 had cognitive decline, gait disturbance, subclinical seizures, and abnormal movements.She was admitted at [facility] from 04/01 - 05/10. At her worst she was comatose, not following commands, with frequent L facial clonus, and subclinical seizures. Had 3 MRIs all negative. 3 LPs, and only the 3rd LP showed mildly elevated TP. CSF cell counts were normal on all 3, however IgG index was elevated with normal OCB. Paraneoplastic and AIE panels were negative x2. Prion panel negative x2. Serologic studies including LATANYA, GAD65, anti-TG, NMDA, negative. She had subclinical seizures were controlled on LEV + VPA. She received 10 sessions of PLEX, then had a possible relapse in Oct that was treated with PLEX and again improved. Has since been weaned off prednisone and Keppra by mid-2019. Continues to take Sinemet for parkinsonism (now improved, likely secondary), and notes benefit with anxiety specifically. She is continuing her verapamil 360 mg daily for migraines with improvement. * Visit 12/2020 * #We started her on naproxen 10mg PRN for the past two weeks. She reports improvement with the naproxen. However, she is continuing to experience the fatigue and headaches. No severe migraines since being on verapamil (now 360 mg daily). No new symptoms. * Given this naproxyn was stopped and she was started on trial of prednisone to assess response due to concern this might be related to her AIE. * Visit 05/2021 * - Had elevated CRP but normal ESR (prior to starting prednisone) * - SHe endorses prednisone helped slighlty with her headaches but they remain present daily. And shecomplains of some side effects incuding weight gain, fatigue, difficulty with sleep occasionally and ?blurring occasionally. * - She describes headaches are similar to her old migraines but less intense, they are reportedly present daily and are worse on waking but improve after prednisone and getting to her routine. She states when she has a constant headband/cap pattern pressure like pain which is worse in the morning which improves mid day and returns with increase intensity towards the end of the day particualry withbusy days or when her anxiety is bad. SHe describes a sharp/shock like pain over her left hindu/occiputal region that is present only when she wakes up and resolves after prednisone. NO change with sneezing, position or activity. Neither of these radiate anywhere and she denies N/V/D/SOB/CP/F/C/Diplopia/dysphagia/focal weakness/tingling/BB/LOC/vertigo/photo or phonophobia/aura/runny jm or teari ng/flushing with these headaches. * - SHe notes she has diagnosed MARTY was prescribed CPAP machine prior to her initial presentation with AIE but it was not followed through after her acute illness and she hasn t used the machine since 2018. She describes feeling contantly fatigue, knows she snores, wakes up feeling unrested (sometimes feels better sleep when she sleeps in her recliner and headaches do improve somewhat. * - SHe reports long standing left sided slight weakness mainly shoulder and hip/knee which is partially pain limited. * - SHe endorses over past 1-2 months has had some watery eyes occasionally and blurring with far vision that is associated with this. She does reprot seasonal allergies but also prescription needs an update. * - L>R tremor stable * - Worse anxiety due to headaches which in turn she feels worsens them more. * Interval Hx: * - Completed sleep study and got fitted with new CPAP in late July. Since using the machine shereports dramatic improvement and essentially NO headaches (last headache around beginning of Aug). She feels well rested and energized and excited to do things again. * - Endorses dry eyes and occasional blurry vision (scheduled apt with opthalmology) * - No seizures or other new concerns or focal deficits. Tremors are much improved and now only with stress or exhaustion if she over exerts her self. * - Does endorse rarely feels slow before CL dose and rarely foggy for a few seconds (<1/month) * - DOES state some fraustration regarding weight gain with prednision. * Medications; * - Prednisone 30 mg daily * - Verapmil 360mg ER * - sinnemet 25-100 TID * - Citalopram [id number] [facility] Work Phone: [phone]) 585-763005-01-2018 History of Present illness Narrative* Ms. 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 * Disease summary: * In March 2018 had cognitive decline, gait disturbance, subclinical seizures, and abnormal movements.She was admitted at [facility] from 04/01 - 05/10. At her worst she was comatose, not following commands, with frequent L facial clonus, and subclinical seizures. Had 3 MRIs all negative. 3 LPs, and only the 3rd LP showed mildly elevated TP. CSF cell counts were normal on all 3, however IgG index was elevated with normal OCB. Paraneoplastic and AIE panels were negative x2. Prion panel negative x2. Serologic studies including LATANYA, GAD65, anti-TG, NMDA, negative. She had subclinical seizures were controlled on LEV + VPA. She received 10 sessions of PLEX, then had a possible relapse in Aug that was treated with PLEX and again improved. Has since been weaned off prednisone and Keppra by mid-2019. Continues to take Sinemet for parkinsonism (now improved, likely secondary), and notes benefit with anxiety specifically. She is continuing her verapamil 360 mg daily for migraines with improvement. * Visit 12/2020 * #We started her on naproxen 10mg PRN for the past two weeks. She reports improvement with the naproxen. However, she is continuing to experience the fatigue and headaches. No severe migraines since being on verapamil (now 360 mg daily). No new symptoms. * Given this naproxyn was stopped and she was started on trial of prednisone to assess response due to concern this might be related to her AIE. * Visit 05/2021 * - Had elevated CRP but normal ESR (prior to starting prednisone) * - SHe endorses prednisone helped slighlty with her headaches but they remain present daily. And shecomplains of some side effects incuding weight gain, fatigue, difficulty with sleep occasionally and ?blurring occasionally. * - She describes headaches are similar to her old migraines but less intense, they are reportedly present daily and are worse on waking but improve after prednisone and getting to her routine. She states when she has a constant headband/cap pattern pressure like pain which is worse in the morning which improves mid day and returns with increase intensity towards the end of the day particualry withbusy days or when her anxiety is bad. SHe describes a sharp/shock like pain over her left hindu/occiputal region that is present only when she wakes up and resolves after prednisone. NO change with sneezing, position or activity. Neither of these radiate anywhere and she denies N/V/D/SOB/CP/F/C/Diplopia/dysphagia/focal weakness/tingling/BB/LOC/vertigo/photo or phonophobia/aura/runny jm or teari ng/flushing with these headaches. * - SHe notes she has diagnosed MARTY was prescribed CPAP machine prior to her initial presentation with AIE but it was not followed through after her acute illness and she hasn t used the machine since 2018. She describes feeling contantly fatigue, knows she snores, wakes up feeling unrested (sometimes feels better sleep when she sleeps in her recliner and headaches do improve somewhat. * - SHe reports long standing left sided slight weakness mainly shoulder and hip/knee which is partially pain limited. * - SHe endorses over past 1-2 months has had some watery eyes occasionally and blurring with far vision that is associated with this. She does reprot seasonal allergies but also prescription needs an update. * - L>R tremor stable * - Worse anxiety due to headaches which in turn she feels worsens them more. * Interval Hx: * - Completed sleep study and got fitted with new CPAP in late July. Since using the machine shereports dramatic improvement and essentially NO headaches (last headache around beginning of Aug). She feels well rested and energized and excited to do things again. * - Endorses dry eyes and occasional blurry vision (scheduled apt with opthalmology) * - No seizures or other new concerns or focal deficits. Tremors are much improved and now only with stress or exhaustion if she over exerts her self. * - Does endorse rarely feels slow before CL dose and rarely foggy for a few seconds (<1/month) * - DOES state some fraustration regarding weight gain with prednision. * Medications; * - Prednisone 30 mg daily * - Verapmil 360mg ER * - sinnemet 25-100 TID * - Citalopram [id number] [facility] Work Phone: [phone] History of Present illness Narrative* Ms. 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 * Disease summary: * In March 2018 had cognitive decline, gait disturbance, subclinical seizures, and abnormal movements.She was admitted at [facility] from 04/01 - 05/10. At her worst she was comatose, not following commands, with frequent L facial clonus, and subclinical seizures. Had 3 MRIs all negative. 3 LPs, and only the 3rd LP showed mildly elevated TP. CSF cell counts were normal on all 3, however IgG index was elevated with normal OCB. Paraneoplastic and AIE panels were negative x2. Prion panel negative x2. Serologic studies including LATANYA, GAD65, anti-TG, NMDA, negative. She had subclinical seizures were controlled on LEV + VPA. She received 10 sessions of PLEX, then had a possible relapse in Aug that was treated with PLEX and again improved. Has since been weaned off prednisone and Keppra by mid-2018. Continues to take Sinemet for parkinsonism (now improved, likely secondary), and notes benefit with anxiety specifically. She is continuing her verapamil 360 mg daily for migraines with improvement. * Visit 12/2020 * #We started her on naproxen 10mg PRN for the past two weeks. She reports improvement with the naproxen. However, she is continuing to experience the fatigue and headaches. No severe migraines since being on verapamil (now 360 mg daily). No new symptoms. * Given this naproxyn was stopped and she was started on trial of prednisone to assess response due to concern this might be related to her AIE. * Visit 05/2021 * - Had elevated CRP but normal ESR (prior to starting prednisone) * - SHe endorses prednisone helped slighlty with her headaches but they remain present daily. And shecomplains of some side effects incuding weight gain, fatigue, difficulty with sleep occasionally and ?blurring occasionally. * - She describes headaches are similar to her old migraines but less intense, they are reportedly present daily and are worse on waking but improve after prednisone and getting to her routine. She states when she has a constant headband/cap pattern pressure like pain which is worse in the morning which improves mid day and returns with increase intensity towards the end of the day particualry withbusy days or when her anxiety is bad. SHe describes a sharp/shock like pain over her left hindu/occiputal region that is present only when she wakes up and resolves after prednisone. NO change with sneezing, position or activity. Neither of these radiate anywhere and she denies N/V/D/SOB/CP/F/C/Diplopia/dysphagia/focal weakness/tingling/BB/LOC/vertigo/photo or phonophobia/aura/runny jm or teari ng/flushing with these headaches. * - SHe notes she has diagnosed MARTY was prescribed CPAP machine prior to her initial presentation with AIE but it was not followed through after her acute illness and she hasn t used the machine since 2018. She describes feeling contantly fatigue, knows she snores, wakes up feeling unrested (sometimes feels better sleep when she sleeps in her recliner and headaches do improve somewhat. * - SHe reports long standing left sided slight weakness mainly shoulder and hip/knee which is partially pain limited. * - SHe endorses over past 1-2 months has had some watery eyes occasionally and blurring with far vision that is associated with this. She does reprot seasonal allergies but also prescription needs an update. * - L>R tremor stable * - Worse anxiety due to headaches which in turn she feels worsens them more. * Visit 09/2021 * - Completed sleep study and got fitted with new CPAP in late July. Since using the machine shereports dramatic improvement and essentially NO headaches (last headache around beginning of Aug). She feels well rested and energized and excited to do things again. * - Endorses dry eyes and occasional blurry vision (scheduled apt with opthalmology) * - No seizures or other new concerns or focal deficits. Tremors are much improved and now only with stress or exhaustion if she over exerts her self. * - Does endorse rarely feels slow before CL dose and rarely foggy for a few seconds (<1/month) * - DOES state some fraustration regarding weight gain with prednision. * Interval Hx: * - CT CAP (11/12/2021) negative for malignancy * - Mammogram Not done * - Off prednisone 11/28 , states low energy and gen fatigue * - Endorses weight gain clothes tighter * 9 pounds since october. Reprots B/L LE edema worse end of the day to below knees relieved by elevation and lying flat. Mild orthopnea and exertional dyspnea unsure of distance or how many flights, Denied chest pain, palpitions, LOC, syncope/presyncope, tunnel vision, lightheadedness, vertigo, weakness or vertigo or tingling, no dysphagia, denied recent illness, F/C/SN/V/D * - No seizures * - ENdorses occasional has had * 4 since October only brief random times but when CPAP machine has more events has a worse mornign headache * - Sleeping sangita more CPAP events * - Not noticing tremor or slowness anymore (mostly complains of fatigue and swelling/SOB occasionally) * Medications; * - Verapmil 360mg ER * - sinnemet 25-100 TID * - Citalopram [id number]-Csmkf [facility] Work Phone: [phone] History of Present illness Narrative* Ms. 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 * Disease summary: * In March 2018 had cognitive decline, gait disturbance, subclinical seizures, and abnormal movements.She was admitted at [facility] from 04/01 - 05/10. At her worst she was comatose, not following commands, with frequent L facial clonus, and subclinical seizures. Had 3 MRIs all negative. 3 LPs, and only the 3rd LP showed mildly elevated TP. CSF cell counts were normal on all 3, however IgG index was elevated with normal OCB. Paraneoplastic and AIE panels were negative x2. Prion panel negative x2. Serologic studies including LATANYA, GAD65, anti-TG, NMDA, negative. She had subclinical seizures were controlled on LEV + VPA. She received 10 sessions of PLEX, then had a possible relapse in Aug that was treated with PLEX and again improved. Has since been weaned off prednisone and Keppra by mid-2019. Continues to take Sinemet for parkinsonism (now improved, likely secondary), and notes benefit with anxiety specifically. She is continuing her verapamil 360 mg daily for migraines with improvement. * Visit 12/2020 * #Trialed naproxen 10mg PRN for the past two weeks. Had some improvement. However, continued feelingfatigue and headaches. No severe migraines since being on verapamil (now 360 mg daily). Given this naproxyn was stopped and she was started on trial of prednisone to assess response due to concern this might be related to her AIE. * #Prior to prednisone had high CRP but normal ESR * Visit 05/2021 * - Endorsed slight improvement with prednisone but headaches remained daily. Complained of side effects (weight gain, fatigue, difficulty with sleep occasionally and ?blurring occasionally.) * - She describes headaches are similar to her old migraines but less intense, present daily and are worse on waking but improve after prednisone and getting to her routine. She describes two types: * 1) constant pressure, in a headband/cap pattern worse in the morning improves mid-day &returns with increase intensity towards the end of the day more on busy days or when her anxiety is bad. * 2)A sharp/shock like pain over her left hindu/occiputal region that is present only when she wakesup and resolves after prednisone. NO change with sneezing, position or activity. Neither of these radiate anywhere and she denies N/V/D/SOB/CP/F/C/Diplopia/dysphagia/focal weakness/tingling/BB/LOC/anne tigo/photo or phonophobia/aura/runny jm or tearing/flushing with these headaches. * - SHe notes she has diagnosed MARTY was prescribed CPAP machine prior to her initial presentation with AIE but it was not followed through after her acute illness and she hasn t used the machine since 2018. She describes feeling contantly fatigue, knows she snores, wakes up feeling unrested (sometimes feels better sleep when she sleeps in her recliner and headaches do improve somewhat. * - SHe reports long standing left sided slight weakness mainly shoulder and hip/knee which is partially pain limited. * - SHe endorses over past 1-2 months has had some watery eyes occasionally and blurring with far vision that is associated with this. She does reprot seasonal allergies but also prescription needs an update. * - L>R tremor stable * - Worse anxiety due to headaches which in turn she feels worsens them more. * Visit 09/2021 * - Completed sleep study and got fitted with new CPAP in late July. Since using the machine shereports dramatic improvement and essentially NO headaches (last headache around beginning of Aug). She feels well rested and energized and excited to do things again. * - Endorses dry eyes and occasional blurry vision (scheduled apt with opthalmology) * - No seizures or other new concerns or focal deficits. * - Tremors are much improved and now only with stress or exhaustion if she over exerts her self. * - Does endorse rarely feels slow before CL dose and rarely foggy for a few seconds (<1/month) * - DOES state some fraustration regarding weight gain with prednision. * Visit 12/2021 * - CT CAP (11/12/2021) negative for malignancy * - Off prednisone 11/28 , states low energy and gen fatigue * - Endorses weight gain clothes tighter * 9 pounds since October. * - No seizures * - ENdorses occasional has had * 4 since October only brief random times but when CPAP machine has more events has a worse morning headache * - Sleeping sangita more CPAP events * - Not noticing tremor or slowness anymore (mostly complains of fatigue and swelling/SOB occasionally) * Interval Hx * - Mammogram done: NO report but she endorse was told is normal * - Dexa scan moderate fracture risk 2/2 osteopenia * - Seen by opthalmology for old cataracts had some laser for buildup , had difficulty finding appropriate refraction and now possible glaucoma changes OS>OD from her descriptions this was inferredfrom OCT like image but her IOP was normal. Is starting eye drops and following soon. Unclear as this is per her report and no documentation available. * - Referred to endocrine for thyroid and DM concerns (pending PCP notes be sent for details). * - MEANS: were ok but recently whenever she goes to sleep her swollen feet continue to ache which wakesher up frequently and sleep has been fragmented and not as crisp compliance with CPAP. * - Fatigue/Energy: Stable, continues to feel low energy, denied SI/HI/Low mood or depression * - Movement: Smooth, NO freezing or slowness. Pre or post C/L * - Tremor: Not noticing it at all * - Sz: none * - Weight: Complains of gain but weight has been stable actuallly lower than last visit but up from early 2019 * 10lb. Does state hasn t been moving or exercising too much due to low energy. * - Continued to endorse B/L LE edema worse end of the day to below knees relieved by elevation and lying flat. Mild orthopnea. Underwent Duplex which was negative for DVTs, CXR without congestion and was started on spironolactone. * Denied chest pain, palpitions, LOC, syncope/presyncope, tunnel vision, lightheadedness, vertigo, weakness or vertigo or tingling, no dysphagia, denied recent illness, F/C/SN/V/D * Medications; * - Verapmil 360mg ER * - sinnemet 25-100 TID * - Citalopram [id number]-Tnvfaiuca-Rllri [facility] Work Phone: [phone] History of Present illness Narrative* Ms. 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 * Disease summary: * In March 2018 had cognitive decline, gait disturbance, subclinical seizures, and abnormal movements.She was admitted at [facility] from 04/01 - 05/10. At her worst she was comatose, not following commands, with frequent L facial clonus, and subclinical seizures. Had 3 MRIs all negative. 3 LPs, and only the 3rd LP showed mildly elevated TP. CSF cell counts were normal on all 3, however IgG index was elevated with normal OCB. Paraneoplastic and AIE panels were negative x2. Prion panel negative x2. Serologic studies including LATANYA, GAD65, anti-TG, NMDA, negative. She had subclinical seizures were controlled on LEV + VPA. She received 10 sessions of PLEX, then had a possible relapse in Oct that was treated with PLEX and again improved. Has since been weaned off prednisone and Keppra by mid-2019. Continues to take Sinemet for parkinsonism (now improved, likely secondary), and notes benefit with anxiety specifically. She is continuing her verapamil 360 mg daily for migraines with improvement. * Visit 12/2020 * #Trialed naproxen 10mg PRN for the past two weeks. Had some improvement. However, continued feelingfatigue and headaches. No severe migraines since being on verapamil (now 360 mg daily). Given this naproxyn was stopped and she was started on trial of prednisone to assess response due to concern this might be related to her AIE. * #Prior to prednisone had high CRP but normal ESR * Visit 05/2021 * - Endorsed slight improvement with prednisone but headaches remained daily. Complained of side effects (weight gain, fatigue, difficulty with sleep occasionally and ?blurring occasionally.) * - She describes headaches are similar to her old migraines but less intense, present daily and are worse on waking but improve after prednisone and getting to her routine. She describes two types: * 1) constant pressure, in a headband/cap pattern worse in the morning improves mid-day &returns with increase intensity towards the end of the day more on busy days or when her anxiety is bad. * 2)A sharp/shock like pain over her left hindu/occiputal region that is present only when she wakesup and resolves after prednisone. NO change with sneezing, position or activity. Neither of these radiate anywhere and she denies N/V/D/SOB/CP/F/C/Diplopia/dysphagia/focal weakness/tingling/BB/LOC/anne tigo/photo or phonophobia/aura/runny jm or tearing/flushing with these headaches. * - SHe notes she has diagnosed MARTY was prescribed CPAP machine prior to her initial presentation with AIE but it was not followed through after her acute illness and she hasn t used the machine since 2018. She describes feeling contantly fatigue, knows she snores, wakes up feeling unrested (sometimes feels better sleep when she sleeps in her recliner and headaches do improve somewhat. * - SHe reports long standing left sided slight weakness mainly shoulder and hip/knee which is partially pain limited. * - SHe endorses over past 1-2 months has had some watery eyes occasionally and blurring with far vision that is associated with this. She does reprot seasonal allergies but also prescription needs an update. * - L>R tremor stable * - Worse anxiety due to headaches which in turn she feels worsens them more. * Visit 09/2021 * - Completed sleep study and got fitted with new CPAP in late July. Since using the machine shereports dramatic improvement and essentially NO headaches (last headache around beginning of Aug). She feels well rested and energized and excited to do things again. * - Endorses dry eyes and occasional blurry vision (scheduled apt with opthalmology) * - No seizures or other new concerns or focal deficits. * - Tremors are much improved and now only with stress or exhaustion if she over exerts her self. * - Does endorse rarely feels slow before CL dose and rarely foggy for a few seconds (<1/month) * - DOES state some fraustration regarding weight gain with prednision. * Visit 12/2021 * - CT CAP (11/12/2021) negative for malignancy * - Off prednisone 11/28 , states low energy and gen fatigue * - Endorses weight gain clothes tighter * 9 pounds since October. * - No seizures * - ENdorses occasional has had * 4 since October only brief random times but when CPAP machine has more events has a worse morning headache * - Sleeping sangita more CPAP events * - Not noticing tremor or slowness anymore (mostly complains of fatigue and swelling/SOB occasionally) * Interval Hx * - Mammogram done: NO report but she endorse was told is normal * - Dexa scan moderate fracture risk 2/2 osteopenia * - Seen by opthalmology for old cataracts had some laser for buildup , had difficulty finding appropriate refraction and now possible glaucoma changes OS>OD from her descriptions this was inferredfrom OCT like image but her IOP was normal. Is starting eye drops and following soon. Unclear as this is per her report and no documentation available. * - Referred to endocrine for thyroid and DM concerns (pending PCP notes be sent for details). * - MEANS: were ok but recently whenever she goes to sleep her swollen feet continue to ache which wakesher up frequently and sleep has been fragmented and not as crisp compliance with CPAP. * - Fatigue/Energy: Stable, continues to feel low energy, denied SI/HI/Low mood or depression * - Movement: Smooth, NO freezing or slowness. Pre or post C/L * - Tremor: Not noticing it at all * - Sz: none * - Weight: Complains of gain but weight has been stable actuallly lower than last visit but up from early 2019 * 10lb. Does state hasn t been moving or exercising too much due to low energy. * - Continued to endorse B/L LE edema worse end of the day to below knees relieved by elevation and lying flat. Mild orthopnea. Underwent Duplex which was negative for DVTs, CXR without congestion and was started on spironolactone. * Denied chest pain, palpitions, LOC, syncope/presyncope, tunnel vision, lightheadedness, vertigo, weakness or vertigo or tingling, no dysphagia, denied recent illness, F/C/SN/V/D * Medications; * - Verapmil 360mg ER * - sinnemet 25-100 TID * - Citalopram [id number] [facility] Work Phone: [phone] History of Present illness Narrative* Ms. 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 * Disease summary: * In March 2018 had cognitive decline, gait disturbance, subclinical seizures, and abnormal movements.She was admitted at [facility] from 04/01 - 05/10. At her worst she was comatose, not following commands, with frequent L facial clonus, and subclinical seizures. Had 3 MRIs all negative. 3 LPs, and only the 3rd LP showed mildly elevated TP. CSF cell counts were normal on all 3, however IgG index was elevated with normal OCB. Paraneoplastic and AIE panels were negative x2. Prion panel negative x2. Serologic studies including LATANYA, GAD65, anti-TG, NMDA, negative. She had subclinical seizures were controlled on LEV + VPA. She received 10 sessions of PLEX, then had a possible relapse in Aug that was treated with PLEX and again improved. Has since been weaned off prednisone and Keppra by mid-2019. Continues to take Sinemet for parkinsonism (now improved, likely secondary), and notes benefit with anxiety specifically. She is continuing her verapamil 360 mg daily for migraines with improvement. * Interval hx: * no neurological symptoms currently. She is off all immunotherapy, seizures meds, and sinemet. last cancer screen in October of 2021 was negative. future follow up should be on as needed basis only. she'll continue verapamil for MEANS ppx. [id number] [facility] Work Phone: Evaluation note* Diagnosis PCO (posterior capsular opacification), bilateral- Primary After-cataract, unspecified Pseudophakia, both eyes Lens replaced by other means Chalazion of right lower eyelid Chalazion Insufficiency of tear film of both eyes PVD (posterior vitreous detachment), bilateral Myopia with astigmatism and presbyopia, bilateral [facility] noteNo InformationNortHeritage [facility] System [employer] Other [employer] general Narrative - Reported* Type Description Date Medical History BMI 37.0-37.9, adult Medical History History of encephalopathy Medical History Mass of right forearm Medical History Acute depression Medical History Lower extremity edema Medical History Encephalopathy Medical History Bacterial sinusitis Medical History Lumbar radiculopathy Medical History Neuropathy of left lower extremi ty Medical History Left ankle pain Medical History Left foot pain Medical History Decreased thyroid stimulating ho rmone (TSH) level Medical History Left leg swelling Medical History Blood pressure increase diastoli c Medical History Encounter for wellness examinati on Medical History Current chronic use of systemic steroids Medical History Dyspnea on exertion Medical History Menopause Medical History Insomnia Medical History Vitamin B deficiency Medical History Screening mammogram, encounter f or Medical History Olecranon bursitis, right elbow Medical History Vitamin D deficiency Surgical History hysterectomy Surgical History gullbladder Surgical History lithotripsy Surgical History tube in kidney [facility] [employer] Other Hisrdue general Narrative - Reported* Type Description Date Medical History BMI 37.0-37.9, adult Medical History History of encephalopathy Medical History Mass of right forearm Medical History Acute depression Medical History Lower extremity edema Medical History Encephalopathy Medical History Bacterial sinusitis Medical History Lumbar radiculopathy Medical History Neuropathy of left lower extremi ty Medical History Left ankle pain Medical History Left foot pain Medical History Decreased thyroid stimulating ho rmone (TSH) level Medical History Left leg swelling Medical History Blood pressure increase diastoli c Medical History Encounter for wellness examinati on Medical History Current chronic use of systemic steroids Medical History Dyspnea on exertion Medical History Menopause Medical History Insomnia Medical History Vitamin B deficiency Medical History Screening mammogram, encounter f or Medical History Olecranon bursitis, right elbow Medical History Vitamin D deficiency Surgical History hysterectomy Surgical History gullbladder Surgical History lithotripsy Surgical History tube in kidney Hospitalization History see surgical hx 4th aspect Other Summary Purpose Family History Mother Name Dates Details No pertinent family history( V49.89, Z78.9) Status:Active Unknown Family Member Name Dates Details No pertinent family history: Mother(V49.89, Z78.9) Status:Active Unknown Family Member Name Dates Details No pertinent family history: Mother(V49.89, Z78.9) Status:Active Unknown Family Member Name Dates Details No pertinent family history: Mother(V49.89, Z78.9) Status:Active Unknown Family Member Name Dates Details No pertinent family history: Mother(V49.89, Z78.9) Status:Active Unknown Family Member Name Dates Details No pertinent family history: Mother(V49.89, Z78.9) Status:Active Unknown Family Member Name Dates Details No pertinent family history: Mother(V49.89, Z78.9) Status:Active Unknown Family Member Name Dates Details No pertinent family history: Mother(V49.89, Z78.9) Status:Active Unknown Family Member Name Dates Details No pertinent family history: Mother(V49.89, Z78.9) Status:Active Unknown Family Member Name Dates Details No pertinent family history: Mother(V49.89, Z78.9) Status:Active Unknown Family Member Name Dates Details No pertinent family history: Mother(V49.89, Z78.9) Status:Active Advance Directives No Advanced Directives Records FoundNo Advanced Directives Records FoundNo Advanced Directives Records FoundNo Advanced Directives Records FoundNo Advanced Directives Records Found Chief Complaint FUV AIE and HAFUV AIEFUV AIEFUV AIE/headachesFUV AIE and headachesFUV AIE and headachesFUV AIE Medications Administered Section Active Administered Medications - up to 3 most recent administrations Medication Order MAR Action Action Date Dose Rate Site fluorescein-benoxinate 0.25-0.4 % 1 Drop (FLURESS) 1 Drop, BOTH EYES, DIRECTED, Starting on Wed02/19/22 at 1400, Until Wed02/20/22 at 0159, Administer for applanation tonometry. In the event of a Fluress shortage, administer 1 drop of [place]-Fluor into both eyes as directed for applanation tonometry., OPHT CLINIC MED ORDERS Given 02/19/2022 2:00 PM EDT 1 Drop PHENYLephrine 2.5 % 1 Drop (AK-DILATE, JASON-SYNEPHRINE) 1 Drop, BOTH EYES, DIRECTED, Starting on Isabel 02/19/22 at 1400, Until Wed02/20/22 at 0159, Administer for dilation PROTECT FROM LIGHT, OPHT CLINIC MED ORDERS Given 02/19/2022 2:00 PM EDT 1 Drop tropicamide 1 % 1 Drop (MYDRIACYL) 1 Drop, BOTH EYES, DIRECTED, Starting on Isabel 02/19/22 at 1400, Until Wed02/20/22 at 0159, Administer for dilation, OPHT CLINIC MED ORDERS Given 02/19/2022 2:00 PM EDT 1 Drop Reason for Referral Reason 12/01/22 Shattuck foot/ankle with Kasey Wright [employer]PLICATIONS DEVELOPER Diagnosis 1 Ingrowing nail (L60. 0) [facility] Referring Provider First Name Bebe Referring Provider Last Name Perla Referring Provider Specialty [facility] Referred Organization [facility] Referred Provider ASHISH WRIGHT Referred Address [address], [place],[address] Referred Provider Specialty Podiatry - S urgical Chiropody Referral Priority Routine Referral Appointment Date 2022-12-01 General Notes Dayna Bonilla 03:13:43 PM >received today, notes locked, ins card attached and referral faxed Dayna Bonilla 12/02/2022 09:06:31 AM >faxed first attempt letter Dayna Bonilla 12/03/2022 02:57:18 PM >received fax with appt date. sent fax for consult notes Dayna Bonilla 12/07/2022 07:13:28 AM >received note and sent to Dr. Bebe Duncan for review. Closing referral at this time. Clinical Notes P: [id number] F: [id number] Additional Source Comments INFORMATION SOURCE (unrecogn ized section and content) DATE CREATED AUTHOR 06/03/2018 Milagros garnett DATE CREATED AUTHOR AUTHOR'S MANIZ ATION 02/22/2022 [facility] DATE CREATED AUTHOR AUTHOR'S ORGANIZ ATION 10/13/2022 [facility] DATE CREATED AUTHOR AUTHOR'S ORGANIZ ATION 10/14/2022 [facility] DATE CREATED AUTHOR AUTHOR'S ORGANIZ ATION 03/31/2023 [facility] Source Comments (unrecognize d section and content) In the event this informatio n is protected by the Federal Confidentiality of Alcohol and Drug Abuse Patient Records regulations: The Federal rules restrict any use of the information to criminally investigate or prosecute any alcohol or drug abuse patient.[facility] Reason for Visit (unrecogniz ed section and content) 5 month Follow up Reason Comments Posterior Capsule Opacification Evaluati on Care Teams (unrecognized sec tion and content) Culinary Director Relationship Specialty Start Date End Date Bebe Duncan MD [address] [place] [id number] PCP - General Family Practice 12/15/19 FOR RECORDS PERTAINING TO PATIENTS WHO ARE OR HAVE BEEN ENROLLED IN A CHEMICAL DEPENDENCY/SUBSTANCEABUSE PROGRAM, SOME INFORMATION MAY BE OMITTED. This clinical summary was aggregated from multiple sources. Caution should be exercised in using it in the provision of clinical care. This summary normalizes information from multiple sources, and as a consequence, information in this document may materially change the coding, format and clinical context of patient data. In addition, data may be omitted in some cases. CLINICAL DECISIONS SHOULD BE BASED ON THE PRIMARY CLINICAL RECORDS. [employer] provides no warranty or guarantee of the accuracy or completeness of information in this document.
== END 2024-02-04 13:58 | disposition home or self-care (01) ==
LOC: MAMMO 13:58
PROVIDERS: PCP Family Medicine; Visit Provider Nurse Practitioner Family
DX: R21 Rash and other nonspecific skin eruption (principal); N64.4 Mastodynia; Z80.3 Family history of malignant neoplasm of breast; Z80.41 Family history of malignant neoplasm of ovary; Z80.8 Family history of malignant neoplasm of other organs or systems
CPT/HCPCS: 77066; G0279

== ENCOUNTER 2024-07-04 11:07 | Outpatient (OUT) | payer MEDICAID, SELFPAY ==
--- OUTSIDE RECORDS SUMMARY | 2024-07-04 11:17 | XMS_ITS | CCD ---
Author Organization [facility] [place] Clini[facility]in Care Team Providers Care Plumbing And Heating Contractor Name Role Phone AUBREE JUSTICE Rhys Unavailable Unavailable DUSTY MARTINS Unavailable Unavailable Gavino Roman Unavailable Unavailable Mak Collins Unavailable Unavailable None, No PCP Unavailable Unavailable None, No PCP Unavailable Unavailable Unavailable Unavailable Bebe Duncan MD Primary Care Provider UNKNOWN, PCP Referring Unavailable MD ELIJAH WILKINSON Attending Bisi vailable UNKNOWN, PCP Referring Unavailable MD ELIJAH WILKINSON Attending Bisi vailable Blil Orona Attending Unavailable Bill Orona Referring Unavailable Bill Orona Attending Unavailable Bill Orona Attending Unavailable Bebe Duncan Unavailable CORNEL MORALES Admitting Unavailable CORNEL MORALES Attending Unavailable CORNEL MORALES Consulting Unavailable PERLA, DR BEBE Paul Primary Care Unavailable DUNCAN, DR BEBE Paul Admitting Unavailable NERINX, DR ANGELINA Clemente Consulting Unavailable DUNCAN, DR BEBE Paul Attending Unavailable DUNCAN, DR BEBE Paul Primary Care Unavailable DUNCAN, DR BEBE Paul Consulting Unavailable PERLA, DR BEBE Paul Admitting Unavailable DUNCAN, DR BEBE Paul Attending Unavailable DUNCAN, DR BEBE Paul Consulting Unavailable DUNCAN, DR BEBE Paul Primary Care Unavailable TRESSA YU Consulting Unavailable DUNCAN, DR BEBE Paul Attending Unavailable DUNCAN, DR BEBE Paul Consulting Unavailable PERLA, DR BEBE Paul Primary Care Unavailable DUNCAN, DR BEBE Paul Admitting Unavailable DUNCAN, DR BEBE Paul Admitting Unavailable DUNCAN, DR BEBE Paul Attending Unavailable DUNCAN, DR BEBE Paul Primary Care Unavailable DUNCAN, DR BEBE Paul Admitting Unavailable DUNCAN, DR BEBE Paul Attending Unavailable DUNCAN, DR BEBE Paul Primary Care Unavailable NERINX, DR ANGELINA Clemente Consulting Unavailable PERLA, DR BEBE Paul Consulting Unavailable DUNCAN, DR BEBE Paul Primary Care Unavailable ASHISH WRIGHT Admitting Unavailable DR ANGELINA SERVIN V Consulting Unavailable ASHISH WRIGHT Attending Unavailable ASHISH WRIGHT Consulting Unavailable Bebe Duncan MD Primary Care Provider [phone] AMALIA JORGENSEN Referring Unavailable AMALIA JORGENSEN Attending Unavailable BEBE DUNCAN Primary Care Unavailable Allergies Allergy Classification Reported Allergen(s) Allergy Type Date of Onset Reaction(s) Facility heparin (3 sources) heparin; Translations: [heparin] Drug Allergy [id number] [employer] Work Phone: (20 sources) heparin; Translations: [heparin] Drug Allergy 06-08-2019 Intolerance [facility] Medications Current Medications Medication Drug Class(es) Dates Sig (Normalized) Sig (Original) amoxicillin 875 mg / clavulanate 125 mg oral tablet (3 sources) Penicillin-class Antibacterial Start: 11-25-2022 take 1 tablet by mouth every twelve hours Amoxicillin-Pot Clavulanate 875-125 MG 1 tablet Orally every 12 hrs for 10 day(s) Nov, Active carbidopa 25 mg / levodopa 100 mg oral tablet (12 sources) Aromatic Amino Acid Decarboxylation Inhibitor, Aromatic Amino Acid Start: 05-20-2019 take 1 tablet by mouth three times daily carbidopa-levodopa (SINEMET 25-100) 25-100 mg per tablet Take 1 tablet by mouth three times daily. 0 05/20/2019 Active Comment on above: Take 1 tablet by emilia th three times daily. cephalexin 500 mg oral capsule (2 sources) Cephalosporin Antibacterial take 1 capsule by mouth every eight hours Cephalexin 500 MG 1 capsule Orally every 8 hrs for 7 days Active cholecalciferol 0.05 mg oral tablet (20 sources) Vitamin D Start: 05-20-2019 take 1 tablet by mouth once daily cholecalciferol (VITAMIN D3) 50 mcg (2,000 unit) tablet Take 1 tablet by mouth once daily. 0 05/20/2019 Active take 2 tablets by mo ut every twenty-four hours Vitamin D3 50 MCG (1999 UT) 2 tablet Orally Once a day Active Vitamin D3 50 MC G (1999 UT) Oral Capsule Quantity: 0 Refills: 0 Ordered: 19-Oct-2018 DO Active Comment on above: Take 1 tablet by emilia once daily. citalopram 40 mg oral tablet (20 sources) Serotonin Reuptake Inhibitor Start: 05-20-2019 take 1 tablet by mouth once daily citalopram (CELEXA) 40 mg tablet Take 40 mg by mouth once daily. 0 05/20/2019 Active Citalopram Carmichael bromide 40 MG Oral Tablet Quantity: 0 [...] 06/01/2019 Active take [address] [facility] every twenty-four hours Melatonin 3 MG 2 tablets at bedtime as needed Orally Once a day Active take 1 tablet by emilia every twenty-four hours Melatonin 3 MG 1 tablet at bedtime as needed Orally Once a day for 90 days Active Comment on above: Take 3 mg by mouth t wice daily. spironolactone 50 mg oral tablet (12 sources) Aldosterone Antagonist take 1 tablet by mouth every twenty-four hours Spironolactone 50 MG 1 tablet Orally Once a day Active take 1 tablet by mouth once aldo y Spironolactone 25 MG Oral Tablet TAKE 1 TABLET DAILY. Quantity: 0 Refills: 0 Ordered: 01-Apr-2022 DO Active thiamine 100 mg oral tablet (20 sources) Start: 08-31-2019 take 1 tablet by mouth once daily VITAMIN B-1, MONONITRATE, 100 mg tab Take 100 mg by mouth once daily. 0 08/31/2019 Active Vitamin B-1 100 MG Oral Tablet Quantity: 0 Refills: 0 Ordered: 19-Oct-2018 DO Active Comment on above: Take 100 mg by mouth once daily. vitamin b12 1 mg oral tablet (20 sources) Vitamin B12 take 1 tablet by mouth once daily cyanocobalamin (VITAMIN B-12) 1,000 mcg tab Take 1,000 mcg by mouth once daily. 0 Active take 1 tablet by mouth once aldo y Cyanocobalamin 1000 MCG 1 tablet Orally Once a day for 90 days Active take 1 tablet by mouth once aldo y Cyanocobalamin 1000 MCG 1 tablet Orally Once a day Active Vitamin B-12 100 0 MCG Oral Tablet Quantity: 0 Refills: 0 Ordered: 08-Jan-2021 DO Active Comment on above: Take 1,000 mcg by [facility] once daily. Completed/Discontinued Medications Medication Drug Class(es) Dates Sig (Normalized) Sig (Original) acetaminophen 325 mg oral tablet (1 source) Tylenol 325 MG Oral Tablet Refills: 0 Active benoxinate hydrochloride 4 mg/ml / fluorescein sodium 3 mg/ml ophthalmic solution (3 sources) Diagnostic Dye Start: 04-05-2024 End: 04-05-2024 fluorescein-benoxi cristian 0.3-0.4 % 1 Drop (FLURESS) Start: 02-19-2022 End: 02-20-2022 fluorescein-benoxinate 0.25- 0.4 % 1 Drop (FLURESS) brexpiprazole 0.5 mg oral tablet (3 sources) Atypical Antipsychotic take 1 tablet by mouth every twenty-four hours Rexulti 0.5 MG 1 tablet Orally Once a day Not-Taking calcium citrate 1500 mg / cholecalciferol 200 unt oral tablet (1 source) Vitamin D Start: 019 take 1 tablet by mouth once daily Calcium + D 315-200 MG-UNIT Oral Tablet TAKE 1 TABLET DAILY. Quantity: 90 Refills: 2 Gavino Roman MD Start : 25-Jan-2019 Active naproxen 500 mg oral tablet (3 sources) Nonsteroidal Anti-inflammatory Drug Start: 021 take 1 tablet by mouth every twelve hours as needed Naproxen 500 MG Oral Tablet TAKE 1 TABLET EVERY 12 HOURS NEEDED. Quantity: 60 Refills: 0 Ordered: 25-Dec-2020 Mak Collins MD Start : 25-Dec-2020 Active phenylephrine hydrochloride 25 mg/ml ophthalmic solution (3 sources) alpha-1 Adrenergic Agonist Start: End: 024 PHENYLephrine 2.5 % 1 Drop (AK-DILATE, JASON-SYNEPHRINE) Start: 02-19-2022 End: 02-20-2022 PHENYLephrine 2.5 % 1 Drop ( AK-DILATE, JASON-SYNEPHRINE) predniSONE 10 mg oral tablet (5 sources) Start: 01-08-2021 predniSONE 10 MG Oral Tablet Please take 2 tablets once a day with meals [id number] (TO October)THEN Take one tablet once a day with meals x 3 weeks (October 23 to )Then Half a tablet x2 weeks (November 14 - Nov 28) THEN STOP Quantity: 180 Refills: 3 Ordered: 01-Oct-2021 Elijah Wilkinson MD Start : 08-Jan-2021 Active Start: 01-08-2021 take 3 tablets by [facility] once daily at mealtime predniSONE 10 MG Oral Tablet Please take 3 tablets daily with meals. Quantity: 180 Refills: 3 Ordered: 28-May-2021 Elijah Wilkinson MD Start : 08-Jan-2021 Active proparacaine hydrochloride 5 mg/ml ophthalmic solution (1 source) Local Anesthetic Start: 04-05-2024 End: 04-05-2024 proparacaine 0.5 % 1 Drop (ALCAINE) tropicamide 10 mg/ml ophthalmic solution (3 sources) Anticholinergic Start: 04-05-2024 End: 04-05-2024 tropicamide 1 % 1 Drop (MYDRIACYL) Start: 02-19-2022 End: 02-20-2022 tropicamide 1 % 1 Drop (MYDR IACYL) Tyrvaya 0.03 MG/ACT Nasal Solution (4 sources) Tyrvaya 0.03 MG/ ACT Nasal Solution Quantity: 0 Refills: 0 Ordered: 01-Apr-2022 DO Active 24 hr verapamil hydrochloride 120 mg extended release oral capsule (18 sources) Calcium Channel Alvin Start: 0 take 3 tablets by mouth once daily Verapamil HCl ER 120 MG Oral Capsule Extended Release 24 Hour TAKE 3 TABLETS ONCE DAILY Quantity: 270 Refills: 3 Ordered: 12-Oct-2022 Bill Orona MD Start : 06-Mar-2020 Active Start: 06-01-2019 take 3 tablets by [facility] once daily in the morning verapamil (CALAN, ISOPTIN) 80 mg tablet Take 120 mg by mouth once daily. takes 3 tablets in AM 0 06/01/2019 Active take 1 tablet by emilia every eight hours Verapamil HCl 120 MG 1 tablet Orally Three times a day Active take 1 tablet by emilia every eight hours Verapamil HCl 80 MG 1 tablet Orally Three times a day Active Comment on above: Take 120 mg by mouth once daily. 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] Onset: 0 12-15-2019 Chronic Other aftercare (8 sources) Long-term current use of systemic steroid; Translations: [assisted (current) use of systemic steroids] Episodic Other [...] foot] Onset: 2 Episodic Other eye disorders (2 sources) Bilateral posterior vitreous detachment; Translations: [Vitreous degeneration, [...] right lower eyelid] Episodic Other eye disorders (2 sources) Tear film insufficiency of bilateral eyes; Translations: [Dry eye syndrome of bilateral lacrimal glands] Episodic Other eye disorders (1 source) Dermatochalasis of right upper eyelid; Translations: [Dermatochalasis] 04-05-2024 Episodic Other gastrointestinal disorders (1 source) Dysphagia, oropharyngeal phase; Translations: [Dysphagia, oropharyngeal phase] Onset: 8 Episodic Other lower respiratory disease (8 sources) Dyspnea on exertion; Translations: [Other forms of dyspnea] Episodic Other nervous system disorders (2 sources) Bilateral carpal tunnel syndrome; Translations: [Carpal tunnel syndrome, bilateral upper limbs] Onset: 0 12-15-2019 Chronic Other nervous system disorders (2 sources) Chronic pain syndrome; Translations: [Chronic pain syndrome] Onset: 0 12-15-2019 Chronic Other nervous system disorders (2 sources) Carpal tunnel syndrome of left wrist; Translations: [...] cervical disc displacement at C5-C6 level] Chronic Thyroid disorders (5 sources) Thyrotoxicosis, unspecified without thyrotoxic crisis or storm; Translations: [THYROTOXICOS UNS NO THYROTOX CRISIS] Onset: 2 Chronic Past or Other Problems Problem Classification Problem Date Documented Da te Episodic/Chronic Mood disorders (1 source) Mood disorders Other connective tissue disease (2 sources) Pain of bilateral hands; Translations: [Pain in right hand] Onset: 12-15-2019 12-15-2019 Episodic Other connective tissue disease (4 sources) Pain in left foot; Translations: [PAIN IN LEFT FOOT] Onset: 05-14-2022 Episodic Other non-traumatic joint disorders (1 source) Shoulder pain; Translations: [Pain in right shoulder] Onset: 12-15-2019 12-15-2019 Episodic Other non-traumatic joint disorders (2 sources) Hip pain; Translations: [Pain in right hip] Onset: 12-15-2019 12-15-2019 Episodic Other non-traumatic joint disorders (2 sources) Pain in left knee; Translations: [PAIN IN LEFT KNEE] Onset: 11-27-2022 Episodic Other non-traumatic joint disorders (4 sources) Pain in left ankle and joints of left foot; Translations: [PAIN IN LEFT ANKLE] Onset: 05-28-2022 Episodic Other non-traumatic joint disorders (1 source) Bilateral chronic pain of upper limbs; Translations: [Pain in right shoulder] Onset: 12-15-2019 12-15-2019 Episodic Residual codes; unclassified (4 sources) Localized edema; Translations: [LOCALIZED EDEMA] Onset: 04-24-2022 Episodic Spondylosis; intervertebral disc disorders; other back problems (14 sources) Neck pain; Translations: [Cervicalgia] Onset: 12-15-2019 12-15-2019 Episodic Unclassified (5 sources) Age more than 40 years; Translations: [60 to 74 years of age] NEGATED: Highlighted row has not occurred!Residual codes; unclassified (6 sources) Disease Episodic Results Test Name Value Interpretation Reference Range Facility CBC AUTO DIFFon 11-25-2022 BASO # 0.1 103/ul Normal 0.0-0.1 [facility] Comment on above: Performed By: #### C BC #### [facility] [address] [place] [address] Dr. Simone Luna Basophils/100 WBC (Bld) 0.7 % Normal 0.2-2.0 [facility] Comment on above: Performed By: #### C BC #### [facility] [address] [place] [address] Dr. Simone Luna EO # 0.1 103/ul Normal 0.0-0.7 [facility] Comment on above: Performed By: #### C BC #### [facility] [address] [place] [address] Dr. Simone Luna Eosinophils/100 WBC (Bld) 1.7 % Normal 0.9-7.0 [facility] Comment on above: Performed By: #### C BC #### [facility] [address] [place] [address] Dr. Simone Luna Erythrocyte distribution width (RBC) [Ratio] 12.8 % Normal 11.0-15.0 [facility] Comment on above: Performed By: #### C BC #### [facility] [address] [place] [address] Dr. Simone Luna Hematocrit (Bld) [Volume fraction] 43.8 % Normal 36.0-48.0 [facility] Comment on above: Performed By: #### C BC #### [facility] [address] [place] [address] Dr. Simone Luna Hemoglobin (Bld) [Mass/Vol] 14.0 g/dL Normal 12.0-16.0 [facility] Comment on above: Performed By: #### C BC #### [facility] [address] [place] [address] Dr. Simone Luna IG # 0.03 10e3/ul Normal 0.00-0.03 [facility] Comment on above: Performed By: #### C BC #### [facility] [address] [place] [address] Dr. Simone Luna IG % 0.4 % Normal 0.0-0.5 [facility] Comment on above: Performed By: #### C BC #### [facility] [address] [place] [address] Dr. Simone Luna LYMPH # 2.2 103/ul Normal 1.2-3.8 [facility] Comment on above: Performed By: #### C BC #### [facility] [address] [place] [address] Dr. Simone Luna Lymphocytes/100 WBC (Bld) 26.4 % Normal 20.5-60.0 [facility] Comment on above: Performed By: #### C BC #### [facility] [address] [place] [address] Dr. Simone Luna MANUAL DIFF REQ NO Normal [facility] Comment on above: Performed By: #### C BC #### [facility] [address] [place] [address] Dr. Simone Luna MCH (RBC) [Entitic mass] 29.5 pg Normal 26.7-34.0 [facility] Comment on above: Performed By: #### C BC #### [facility] [address] [place] [address] Dr. Simone Luna MCHC (RBC) [Mass/Vol] 32.0 g/dL Normal 29.9-35.2 [facility] Comment on above: Performed By: #### C BC #### [facility] [address] [place] [address] Dr. Simone Luna MCV (RBC) [Entitic vol] 92.4 fL Normal 81.0-99.0 [facility] Comment on above: Performed By: #### C BC #### [facility] [address] [place] [address] Dr. Simone Luna MONO # 0.7 103/ul Normal 0.3-0.8 [facility] Comment on above: Performed By: #### C BC #### [facility] [address] [place] [address] Dr. Simone Luna Monocytes/100 WBC (Bld) 8.2 % Normal 1.7-12.0 [facility] Comment on above: Performed By: #### C BC #### [facility] [address] [place] [address] Dr. Simone Luna NEUT # 5.2 103/ul Normal 1.4-6.5 [facility] Comment on above: Performed By: #### C BC #### [facility] [address] [place] [address] Dr. Simone Luna Neutrophils/100 WBC (Bld) 62.6 % Normal 43.0-75.0 [facility] Comment on above: Performed By: #### C BC #### [facility] [address] [place] [address] Dr. Simone Luna Platelet mean volume (Bld) [Entitic vol] 9.6 fL Normal 9.5-13.5 [facility] Comment on above: Performed By: #### C BC #### [facility] [address] [place] [address] Dr. Simone Luna PLT 233 103/ul Normal 150-450 [facility] Comment on above: Performed By: #### C BC #### [facility] [address] [place] [address] Dr. Simone Luna RBC 4.74 106/ul Normal 4.20-5.40 [facility] Comment on above: Performed By: #### C BC #### [facility] [address] [place] [address] Dr. Simone Luna WBC 8.3 103/ul Normal 4.0-11.0 [facility] Comment on above: Performed By: #### C BC #### [facility] [address] [place] [address] Dr. Simone Luna FREE T4on 11-25-2022 Free T4 [Mass/Vol] 1.00 ng/dL Normal 0.76-1.46 [facility] Comment on above: Performed By: #### T HYRABT #### [facility] [address] [place] [address] Dr. Simone Luna PROF CHEM 8 (BAS METB)on Anion gap [Moles/Vol] 15.2 mmol/L Normal [facility] Comment on above: Performed By: #### T SH, BMP #### [facility] [address] [place] [address] Dr. Simone Luna Calcium [Mass/Vol] 9.3 mg/dL Normal 8.5-10.1 [facility] Comment on above: Performed By: #### T SH, BMP #### [facility] [address] [place] [address] Dr. Simone Luna Chloride [Moles/Vol] 105 mmol/L Normal 98-107 [facility] Comment on above: Performed By: #### T SH, BMP #### [facility] [address] [place] [address] Dr. Simone Luna CO2 [Moles/Vol] 23.9 mmol/L Normal 21.0-32.0 [facility] Comment on above: Performed By: #### T SH, BMP #### [facility] [address] [place] [address] Dr. Simone Luna Creatinine [Mass/Vol] 1.35 mg/dL Critically high 0.55-1.02 [facility] Comment on above: Performed By: #### T SH, BMP #### [facility] [address] [place] [address] Dr. Simone Luna EGFR-AF THAI 48 mL/min/1.73m2 Critically low >=60 [facility] Comment on above: Performed By: #### T SH, BMP #### [facility] [address] [place] [address] Dr. Simone Luna EGFR-NON AF THAI 40 mL/min/1.73m2 Critically low >=60 [facility] Comment on above: Performed By: #### T SH, BMP #### [facility] [address] [place] [address] Dr. Simone Luna Glucose [Mass/Vol] 142 mg/dL Critically high 74-106 [facility] Comment on above: Performed By: #### T SH, BMP #### [facility] [address] [place] [address] Dr. Simone Luna Potassium [Moles/Vol] 4.1 mmol/L Normal 3.5-5.1 [facility] Comment on above: Performed By: #### T STEPHIE, BMP #### [facility] [address] [place] [address] Dr. Simone Luna Sodium [Moles/Vol] 140 mmol/L Normal 136-145 [facility] Comment on above: Performed By: #### T STEPHIE, BMP #### [facility] [address] [place] [address] Dr. Simone Luna Urea nitrogen [Mass/Vol] 25.0 mg/dL Critically high 7.0-18.0 [facility] Comment on above: Performed By: #### T STEPHIE, BMP #### [facility] [address] [place] [address] Dr. Simone Luna Urea nitrogen/Creatini ne [Mass ratio] 18.5 mg/mg Normal [facility] Comment on above: Performed By: #### T STEPHIE, BMP #### [facility] [address] [place] [address] Dr. Simone Luna TSHon 11-25-2022 TSH 0.513 uIU/mL Normal 0.358-3.740 [facility] Comment on above: Performed By: #### T STEPHIE, BMP #### [facility] [address] [place] [address] Dr. Simone Luna XR KNEE LT 4V [...] TRESSA YU Date: 2022-11-25 13:18 Normal [facility] Office Visit (Neuro - Immuno logy)on 10-12-2022 [...] will have a low threshold to start nursing home immunosuppressive therapy if recurrence is suspected. 10/19/2018: [...] coordination of care. Bill Orona MD, PhD [employer] Officer of Neurology [facility] Director of Neuroimmunology and staff neurologist at the Movement Disorder [facility] 10/12/2022 12:13 PM Patient Discussion/Summary Your latest [...] see me today. Bill Orona MD, PhD [employer] Officer of Neurology [facility] Director of Neuroimmunology and staff neurologist at the Movement Disorder [facility] 10/12/2022 12:02 PM Chief Complaint FUV AIE History of Present Illness Ms. 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 Disease summary: In March 2018 had cognitive decline, gait di (more content not included)... Normal [facility] Tobacco Screening.on Fall risk assessment a) No falls within the last year -Neurology- [facility] [employer] Work Phone: Tobacco use status [facility] b) [facility] [employer] Work Phone: US EXT NON VASC LIMITED [...] ANGELINA SERVIN Date: 2022-09-16 18:28 Normal [facility] THYROID ANTIBODIESon Thyroglobulin Antibody <1.0 Normal 0.0-0.9 [facility] Comment on above: Result Comment: Thyr oglobulin Antibody measured by beatlab Methodology Performed By: #### T HYRABT #### [facility] [address] [place] [address] Dr. Simone Luna Thyroid Peroxidase (TPO) Ab <8 Normal 0-34 [facility] Comment on above: Performed By: #### T HYRABT #### [facility] [address] [address] [address] Simone Luna THYROTROPIN RECEPTOR ABon Thyrotropin Receptor Ab, Serum <1.10 Normal 0.00-1.75 [facility] Comment on above: Performed By: #### T HYRABT #### [facility] [address] [address] [address] Simone Luna FREE T3on 05-28-2022 FREE T3 2.77 pg/mlL Normal 2.18-3.98 [facility] Comment on above: Performed By: #### T HYRABT #### [facility] [address] [place] [address] Dr. Simone Luna FREE T4on 05-28-2022 Free T4 [Mass/Vol] 0.86 ng/dL Normal 0.76-1.46 [facility] Comment on above: Performed By: #### T HYRABT #### [facility] [address] [place] [address] Dr. Simone Luna TSHon 05-28-2022 TSH 0.491 uIU/mL Normal 0.358-3.740 [facility] Comment on above: Performed By: #### T HYRABT #### [facility] [address] [place] [address] Dr. Simone Luna ECHOCARDIO M/2D COMPLETEon 0 04-24-2022 ECHOCARDIO M/2D COMPLETE Patient: ALINA SON Exam Date: 04/24/2022 : 1960 Gender:F Ordering : DR BEBE DUNCAN M.D. Admission #: [id number] Family : Order #: [id number] CLICK HERE TO VIEW EXAM ECHOCARDIOGRAM REPORT [...] M.D. on 04/24/2022 at 15:04 Normal [facility] [place] Office Visit (Neuro-General) on 04-01-2022 Follow-up visit [...] as above, but call if headaches increase. 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 She was admitted at [facility] from 04/01 - 05/10. At her worst [...] on tr (more content not included)... Normal [facility] Tobacco Screening.on 022 Fall risk assessment a) No falls within the last year MG-Neurology- Admin [facility] Work Phone: Tobacco use status [facility] b) No -Neurology- Admin [facility] Work Phone: Falls Risk Screeningon 12-24 Fall risk assessment a) No falls within the last year MG-Neurology- Admin [facility] Work Phone: Tobacco use status [facility] b) No -Neurology- Admin [facility] Work Phone: Office Visit (Neuro-General) on 12-24-2021 [...] Status: Hold For - Scheduling Requested for: [id number] Migraine without status migrainosus, not intractable, unspecified [...] and abnormal movements. She was admitted at [facility] from 04/01 - 05/10. At her worst [...] a sharp/shock like pain over her left islam/occiputal region that is present only when she wakes up and resolves after prednisone. NO change with sneezing, position or activity. Neither of these radiate anywhere and she denies N/V/D/SOB/CP/F/C/Diplopia/ dysphagia/focal weakness/tingling/BB/LOC/v ertigo/photo or phonophobi (more content not included)... Normal [facility] BD CT CHEST ABDOMEN PELVIS W IV [...] for underlying malignancy. COMPARISON: 06/29/2019 ACCESSION NUMBER(S): [id number] ORDERING CLINICIAN: ELIJAH WILKINSON TECHNIQUE: CT of the chest, abdomen, [...] as stated. This study was interpreted at [facility], [place], [place]. Electronically signed by: HOLLY LOPEZ MD [facility] COMPREHENSIVE PANELon 2020 Albumin [Mass/Vol] 3.8 g/dL Normal 3.4 - 5.0 [facility] Comment on above: Performed By: #### C MP #### [facility] [address] [place] [address] ALP [Catalytic activity/Vol] 66 U/L Normal 33 - 136 [facility] Comment on above: Performed By: #### C MP #### [facility] [address] [place] [address] ALT [Catalytic activity/Vol] 7 U/L Normal 7 - 45 [facility] Comment on above: Result Comment: Josefina ents treated with Sulfasalazine may generate falsely decreased results for ALT. Performed By: #### C MP #### [facility] [address] [place] [address] Anion gap [Moles/Vol] 15 mmol/L Normal 10 - 20 [facility] Comment on above: Performed By: #### C MP #### [facility] [address] [place] [address] AST [Catalytic activity/Vol] 15 U/L Normal 9 - 39 [facility] Comment on above: Performed By: #### C MP #### [facility] [address] [place] [address] Bilirubin [Mass/Vol] 0.6 mg/dL Normal 0.0 - 1.2 [facility] Comment on above: Performed By: #### C MP #### [facility] [address] [place] [address] Calcium [Mass/Vol] 9.7 mg/dL Normal 8.6 - 10.6 [facility] Comment on above: Performed By: #### C MP #### [facility] [address] [place] [address] Chloride [Moles/Vol] 105 mmol/L Normal 98 - 107 [facility] Comment on above: Performed By: #### C MP #### [facility] [address] [place] [address] Creatinine [Mass/Vol] 0.95 mg/dL Normal 0.50 - 1.05 [facility] Comment on above: Performed By: #### C MP #### [facility] [address] [place] [address] GFR- AM. 73 mL/min/1.73m2 Normal >60 [facility] Comment on above: Result Comment: CALC ULATIONS OF ESTIMATED GFR ARE PERFORMED USING THE MDRD STUDY EQUATION FOR THE IDMS-TRACEABLE CREATININE METHODS. CLIN CHEM 2007;53:766-72 Performed By: #### C MP #### [facility] [address] [place] [address] GFR-NON AM. 60 mL/min/1.73m2 Abnormal >60 [facility] Comment on above: Performed By: #### C MP #### [facility] [address] [place] [address] Glucose [Mass/Vol] 94 mg/dL Normal 74 - 99 [facility] Comment on above: Performed By: #### C MP #### [facility] [address] [place] [address] HCO3 (Bld) [Moles/Vol] 31 mmol/L Normal 21 - 32 [facility] Comment on above: Performed By: #### C MP #### [facility] [address] [place] [address] Potassium [Moles/Vol] 4.0 mmol/L Normal 3.5 - 5.3 [facility] Comment on above: Performed By: #### C MP #### [facility] [address] [place] [address] Protein [Mass/Vol] 5.7 g/dL Low 6.4 - 8.2 [facility] Comment on above: Performed By: #### C MP #### [facility] [address] [place] [address] Sodium [Moles/Vol] 147 mmol/L High 136 - 145 [facility] Comment on above: Performed By: #### C MP #### [facility] [address] [place] [address] Urea nitrogen [Mass/Vol] 18 mg/dL Normal 6 - 23 [facility] Comment on above: Performed By: #### C MP #### [facility] [address] [place] [address] [place] MODIFIED BARIUM SWALLOW W VIDEOon 05-30-2018 [...] by:Roderick Fine MD05/30/18Edited Result - FINAL Normal [facility] Procedureon 05-30-2018 HIM IP Note OR [employer] Normal [facility] No Panel Information [facility] Vital Signs Date Time Vital Sign Value Performing Clinician Facility 12-27-2023 10:00-0500 Body height 154.94 cm Bebe Duncan Other [facility] Other 12-27-2023 10:00-0500 Body mass index (BMI) [Ratio] 35.75 kg/m2 Bebe Duncan Other [facility] Other 12-27-2023 10:00-0500 Body weight 85.82 kg Bebe Duncan Other [facility] Other 12-27-2023 10:00-0500 Diastolic blood pressure 78 mm[Hg] Bebe Duncan Other [facility] Other 12-27-2023 10:00-0500 Systolic blood pressure 126 mm[Hg] Bebe Duncan Other [facility] Other 12-14-2023 10:15-0500 Body height 154.94 cm Bebe Duncan Other [facility] Other 12-14-2023 10:15-0500 Body mass index (BMI) [Ratio] 35.71 kg/m2 Bebe Duncan Other [facility] Other 12-14-2023 10:15-0500 Body weight 85.73 kg Bebe Duncan Other [facility] Other 12-14-2023 10:15-0500 Diastolic blood pressure 77 mm[Hg] Bebe Duncan Other [facility] Other 12-14-2023 10:15-0500 Systolic blood pressure 125 mm[Hg] Bebe Duncan Other [facility] Other 07-27-2023 10:00-0400 Body height 154.94 cm Bebe Duncan Other [facility] Other 07-27-2023 10:00-0400 Body mass index (BMI) [Ratio] 36.2 kg/m2 Bebe Duncan Other [facility] Other 07-27-2023 10:00-0400 Body weight 86.91 kg Bebe Duncan Other [facility] Other 07-27-2023 10:00-0400 Diastolic blood pressure 74 mm[Hg] Bebe Duncan Other [facility] Other 07-27-2023 10:00-0400 Respiratory rate 12 /min Bebe Duncan Other [facility] Other 07-27-2023 10:00-0400 Systolic blood pressure 119 mm[Hg] Bebe Duncan Other [facility] Other 03-25-2023 09:30-0400 Body height 154.94 cm Bebe Duncan Other [facility] Other 03-25-2023 09:30-0400 Body mass index (BMI) [Ratio] 36.27 kg/m2 Bebe Duncan Other [facility] Other 03-25-2023 09:30-0400 Body weight 87.09 kg Bebe Duncan Other [facility] Other 03-25-2023 09:30-0400 Diastolic blood pressure 62 mm[Hg] Bebe Duncan Other [facility] Other 03-25-2023 09:30-0400 SaO2% (BldA) [Mass fraction] 97 % Bebe Duncan Other [facility] Other 03-25-2023 09:30-0400 Systolic blood pressure 124 mm[Hg] Bebe Duncan Other [facility] Other 11-25-2022 12:30-0500 Body height 154.94 cm Bebe Duncan Other [facility] Other 11-25-2022 12:30-0500 Body mass index (BMI) [Ratio] 35.71 kg/m2 Bebe Duncan Other [facility] Other 11-25-2022 12:30-0500 Body weight 85.73 kg Bebe Duncan Other [facility] Other 11-25-2022 12:30-0500 Diastolic blood pressure 86 mm[Hg] Bebe Duncan Other [facility] Other 11-25-2022 12:30-0500 SaO2% (BldA) [Mass fraction] 97 % Bebe Duncan Other [facility] Other 11-25-2022 12:30-0500 Systolic blood pressure 128 mm[Hg] Bebe Duncan Other [facility] Other 10-12-2022 11:16-0500 Body height 154.94 cm No PCP None JS-Mjgjjainh-PFH [facility] Work Phone: 10-12-2022 11:16-0500 Body mass index (BMI) [Ratio] 36.09 kg/m2 No PCP None PS-Cmgvqnrfj-YBVJM [facility] Work Phone: 10-12-2022 11:16-0500 Body surface area Derived from formula 1.85 m2 No PCP None RC-Vcvexfjfl-JTRMO [facility] Work Phone: 10-12-2022 11:16-0500 Body weight 86.64 kg No PCP None FO-Qjisgqqmp-RSD [facility] Work Phone: 10-12-2022 11:16-0500 Diastolic blood pressure 71 mm[Hg] No PCP None UR-Xxtwejnsj-LBIPP [facility] Work Phone: 10-12-2022 11:16-0500 Heart rate 76 /min No PCP None AP-Giljdbfpd-KEL [facility] Work Phone: 10-12-2022 11:16-0500 Respiratory rate 18 /min No PCP None ID-Cghhlpyeg-BD [facility] Work Phone: 10-12-2022 11:16-0500 Systolic blood pressure 135 mm[Hg] No PCP None LF-Yzewexnqd-YFHPR [facility] Work Phone: 10-12-2022 11:16-0500 0 1 No PCP None EE-Lsstdvvcs-GEY [facility] Work Phone: Comment on above: [employer] 04-01-2022 13:42-0400 Body height 154.94 cm No PCP None JD-Zowqhplru-Iom in [facility] Work Phone: 04-01-2022 13:42-0400 Body mass index (BMI) [Ratio] 36.85 kg/m2 No PCP None PS-Csrkuociy-Krlrw [facility] Work Phone: 04-01-2022 13:42-0400 Body surface area Derived from formula 1.87 m2 No PCP None OZ-Egtbxpnop-Oztqq [facility] Work Phone: 04-01-2022 13:42-0400 Body weight 88.45 kg No PCP None YQ-Wglnzwbxq-Avx in [facility] Work Phone: 04-01-2022 13:42-0400 Diastolic blood pressure 76 mm[Hg] No PCP None KW-Hvezbdqcj-Ypeax [facility] Work Phone: 04-01-2022 13:42-0400 Heart rate 73 /min No PCP None IX-Sxllnbpuo-Ncm in [facility] Work Phone: 04-01-2022 13:42-0400 Respiratory rate 18 /min No PCP None ON-Xtqbyutby-Pq min [facility] Work Phone: 04-01-2022 13:42-0400 Systolic blood pressure 147 mm[Hg] No PCP None NA-Pmimfnuju-Bmmrw [facility] Work Phone: 04-01-2022 13:42-0400 4 1 No PCP None NX-Tepezjfzd-Mfy in [facility] Work Phone: Comment on above: [employer] 12-24-2021 13:33-0500 Body height 154.94 cm No PCP None XL-Iaypdrroy-Eyr in [facility] Work Phone: 12-24-2021 13:33-0500 Body mass index (BMI) [Ratio] 37.6 kg/m2 No PCP None UX-Krhnfnmxl-Seymd [facility] Work Phone: 12-24-2021 13:33-0500 Body surface area Derived from formula 1.89 m2 No PCP None YT-Psqqleyxp-Wuvku [facility] Work Phone: 12-24-2021 13:33-0500 Body weight 90.27 kg No PCP None CY-Oxdstqvnq-Utg in [facility] Work Phone: 12-24-2021 13:33-0500 Diastolic blood pressure 74 mm[Hg] No PCP None TA-Jlhsqrkwo-Ydxlm [facility] Work Phone: 12-24-2021 13:33-0500 Heart rate 83 /min No PCP None NN-Msauohuxg-Aqj in [facility] Work Phone: 12-24-2021 13:33-0500 Respiratory rate 18 /min No PCP None ES-Ekkiocojg-Ps min [facility] Work Phone: 12-24-2021 13:33-0500 Systolic blood pressure 149 mm[Hg] No PCP None IQ-Jayghxbjj-Rnjey [facility] Work Phone: 10-01-2021 14:11-0500 Body height 154.94 cm No PCP None AL-Bwiubxnud-Yvy in [facility] Work Phone: 10-01-2021 14:11-0500 Body mass index (BMI) [Ratio] 36.09 kg/m2 No PCP None VG-Vcdcyuypf-Iadho [facility] Work Phone: 10-01-2021 14:11-0500 Body surface area Derived from formula 1.85 m2 No PCP None DS-Rekwmrmfq-Vvxot [facility] Work Phone: 10-01-2021 14:11-0500 Body weight 86.64 kg No PCP None UP-Boqciizys-Kkv in [facility] Work Phone: 10-01-2021 14:11-0500 Diastolic blood pressure 78 mm[Hg] No PCP None IY-Bdzdhasqw-Tvllt [facility] Work Phone: 10-01-2021 14:11-0500 Heart rate 80 /min No PCP None UI-Znaziwvss-Cjz in [facility] Work Phone: 10-01-2021 14:11-0500 Respiratory rate 16 /min No PCP None HO-Filacfumc-Dx min [facility] Work Phone: 10-01-2021 14:11-0500 Systolic blood pressure 136 mm[Hg] No PCP None JT-Kzxtrvwfu-Hlhub [facility] Work Phone: 05-28-2021 13:57-0400 Body height 154.94 cm No PCP None VB-Imjouktmh-Sqs in [facility] Work Phone: 05-28-2021 13:57-0400 Body mass index (BMI) [Ratio] 36.09 kg/m2 No PCP None LG-Lgmipcutv-Wrozn [facility] Work Phone: 05-28-2021 13:57-0400 Body surface area Derived from formula 1.85 m2 No PCP None AI-Uyowfbfpf-Puyxi [facility] Work Phone: 05-28-2021 13:57-0400 Body weight 86.64 kg No PCP None QM-Xsdbopqel-Gae in [facility] Work Phone: 05-28-2021 13:57-0400 Diastolic blood pressure 85 mm[Hg] No PCP None AH-Qxbqwubcq-Oxpkg [facility] Work Phone: 05-28-2021 13:57-0400 Heart rate 94 /min No PCP None SD-Qkqzjalpc-Fhs in [facility] Work Phone: 05-28-2021 13:57-0400 Respiratory rate 16 /min No PCP None MB-Zerbnnjrk-Kg min [facility] Work Phone: 05-28-2021 13:57-0400 Systolic blood pressure 145 mm[Hg] No PCP None SC-Zyfxmnxqy-Kijrw [facility] Work Phone: Encounters Encounter Date Encounter Type Care Provider Facility Start: 04-05-2024 End: 04-05-2024 ambulatory AMALIA JORGENSEN Facility:[facility] Start: 04-05-2024 End: 04-05-2024 Patient encounter procedure Amalia Jorgensen OD Work Phone: Ophthalmology Comment on above: Pseudophakia, both e yes (Primary Dx); Insufficiency of tear film of both eyes; PVD (posterior vitreous detachment), bilateral; Dermatochalasis of both upper eyelids; Myopia with astigmatism and presbyopia, bilateral Start: 12-27-2023 End: 12-27-2023 ambulatory Bebe Duncan Other [facility] Other Start: 12-27-2023 Office outpatient vi sit 15 minutes Bebe Duncan [facility] Start: 12-20-2023 End: 12-20-2023 ambulatory Bebe Duncan Other [facility] Other Start: 12-20-2023 Telephone encounter Bebe Duncan [facility] Start: 12-14-2023 End: 12-14-2023 ambulatory Bebe Duncan Other [facility] Other Start: 12-14-2023 Office outpatient vi sit 15 minutes Bebe Duncan [facility] Start: 07-27-2023 End: 07-27-2023 ambulatory Bebe Duncan Other [facility] Other Start: 07-27-2023 Office outpatient vi sit 25 minutes Bebe Duncan [facility] Start: 04-06-[address] BEBE DUNCAN Facil ity:[facility]1 Start: 03-25-2023 End: 03-25-2023 ambulatory Bebe Duncan Other [facility] Other Start: 03-25-2023 Office outpatient vi sit 25 minutes Bebe Duncan [facility] Start: 12-15-2022 End: 12-15-2022 ambulatory Bebe Duncan Other [facility] Other Start: 12-15-2022 Telephone encounter Bebe Duncan [facility] Start: 12-01-2022 End: 12-01-2022 ambulatory Bebe Duncan Other [facility] Other Start: 12-01-2022 Telephone encounter Bebe Duncan [facility] Start: 11-25-2022 End: 11-26-[address] BEBE DUNCAN [facility] [employer] Other Start: 11-25-2022 Office outpatient vi sit 25 minutes Bebe Duncan [facility] Start: 11-23-2022 Annual wellness visit Bebe lazar Other [facility] Other Start: 10-12-2022 Office outpatient vi sit 15 minutes No PCP None IE-Mwhwjpudn-JPBSU [facility] Work Phone: Start: 10-12-2022 ambulatory Bill Orona Facility: [facility] Start: 10-05-2022 ambulatory Bill Orona Facility: [facility] Start: 09-16-2022 End: 09-17-[address] BEBE DUNCAN Facility: Start: 05-28-2022 End: 05-29-2022 ambulatory CORNEL MORALES Facility: Start: 05-20-2022 AUDIT No PCP None MG-Neurolo gy-Admin [facility] Work Phone: Start: 05-11-2022 End: 05-12-[address] BEBE DUNCAN Facility: Start: 04-24-2022 End: 04-25-[address] BEBE DUNCAN Facility: Start: 04-01-2022 Office consultation new/estab patient 60 min No PCP None MB-Uxpmusrav-NIYKZ [facility] Work Phone: Start: 04-01-2022 Patient encounter procedure No PCP None TF-Ycsgzewxr-Mzahx [facility] Work Phone: Start: 04-01-2022 ambulatory PCP UNKNOWN Facility:[facility] Start: 02-19-2022 End: 02-19-2022 Patient encounter procedure Osiris Dorado MD Work Phone: Ophthalmology Comment on above: PCO (posterior capsu lar opacification), bilateral (Primary Dx); Pseudophakia, both eyes; Chalazion of right lower eyelid; Insufficiency of tear film of both eyes; PVD (posterior vitreous detachment), bilateral; Myopia with astigmatism and presbyopia, bilateral Start: 12-24-2021 Office outpatient vi sit 25 minutes No PCP None DM-Opocgmhlv-Eequp [facility] Work Phone: Start: 12-24-2021 ambulatory PCP UNKNOWN Facility:[facility] Start: 11-12-2021 ambulatory Bill Adwoa Facility: [facility] Start: 10-01-2021 Office outpatient vi sit 25 minutes No PCP None MP-Gyblblfni-PWSXC [facility] Work Phone: Start: 10-01-2021 Patient encounter procedure No PCP None LC-Otauszgir-Ysnzf [facility] Work Phone: Start: 05-28-2021 Office outpatient vi sit 25 minutes No PCP None GX-Eejjuqrjn-Rpvuk [facility] Work Phone: Start: 05-23-2021 Chart Update No PCP None MG-Neurolo gy-[facility] Work Phone: Start: 04-24-2021 AUDIT No PCP None MG-Neurolo gy-[facility] Work Phone: Start: 05-01-2020 Patient encounter procedure Gavino Roman WD-Uhsjbuavm-Fvroz [facility] Work Phone: Start: 03-06-2020 Patient encounter procedure Gavino Roman BC-Whvnlifoy-Bcoga [facility] Work Phone: Start: 08-23-2019 Patient encounter procedure Gavino Roman BB-Eumpidrsj-Faimi [facility] Work Phone: Start: 06-28-2019 Patient encounter procedure Gavino Roman RD-Ylnzqafkc-Opujw [facility] Work Phone: Start: 05-03-2019 Patient encounter procedure Gavino Roman UT-Nskfjsfkt-Yhbmd [facility] Work Phone: Start: 01-25-2019 Patient encounter procedure Gavino Roman DO-Soxkmydxd-Xsqog [facility] Work Phone: Start: 05-30-2018 End: 06-02-2018 Patient encounter [facility] [employer] Procedures Date Procedure Procedure Detail Performing Clinician Start: 12-15-2019 Adult depression scr eening assessment Osiris Clemente MD Work Phone: Start: 05-30-2018 Swallowing funcj w/cineradiograpy/vidradiog [employer] Screening mammography Bebe Duncan Other Plan of Treatment Date Care Activity Detail Author Start: 04-11-2025 End: 04-11-2025 Patient encounter procedure 04/11/2025 10:15 AM EDT Office Visit [facility] Ophthalmology [address] [place], [place] [id number] Amalia Jorgensen, OD [address] [place] [address] 1 year full exam Ophthalmology Comment on above: 1 year full exam Start: 11-06-2024 Diabetes Screening Diabetes Screenin g [facility] Start: 11-15-2023 Behavioral Health Screening Behavioral Health Screening [facility] Start: 12-15-2022 DIABETES SCREEN DIABETES SCREEN [facility] Start: 07-16-2022 Influenza vaccination INFLUENZ A (Season Ended) [facility] Start: 04-01-2022 FUVPRE, Provider: Elijah Wilkinson, Status: Pen, Time: 2:00 PM FUVPRE, Provider: Elijah Wilkinson, Status: Pen, Time: 2:00 PM FO-Yfjvevlpo-Xllay [facility] Work Phone: Start: 12-24-2021 FUVPRE, Provider: Elijah Wilkinson, Status: Pen, Time: 2:00 PM FUVPRE, Provider: Elijah Wilkinson, Status: Pen, Time: 2:00 PM NK-Yznqcchnl-Ngmpu [facility] Work Phone: Start: 12-15-2020 Adult depression screening assessment DEPRESSION SCREENING [facility] Start: 2019 RSV Vaccine (1 - 1-dose 60+ series) RSV Vaccine (1 - 1-dose 60+ series) [facility] Start: 2009 SHINGRIX VACCINE (1 of 2) SHINGRIX VACCINE (1 of 2) [facility] Start: 2004 COLOGUARD (FIT-DNA) COLOGUARD (FIT-D NA) [facility] Start: 2004 Colonoscopy COLONOSCOPY [facility] Start: 2004 COLORECTAL CANCER SCREENING COLORECTAL CANCER SCREENING [facility] Start: [address] COLONOGRAPHY [facility] Start: 2004 FECAL OCCULT BLOOD FECAL OCCULT BLOO D [facility] Start: 2004 Lipid panel Lipid Screening [facility] Start: 2004 LIPID SCREEN LIPID SCREEN [facility] Start: 2004 Screening for malignant neoplasm of colon [facility] Start: 2004 SIGMOIDOSCOPY SIGMOIDOSCOPY [facility] Start: 1999 Mammography MAMMOGRAM [facility] Start: 1999 Screening for malignant neoplasm of breast Mammogram Screening [facility] Start: 1989 HPV TESTING HPV TESTING [facility] Start: 1989 Screening for malignant neoplasm of cervix HPV Testing [facility] Start: 1980 PAP TESTING PAP TESTING [facility] Start: 1980 Screening for malignant neoplasm of cervix Pap Testing [facility] Start: 1978 Urine microalbumin profile [facility] Start: 1977 HIV SCREENING HIV SCREENING [facility] Start: 1977 HIV screening HIV Screening [facility] Start: 1964 COVID-19 VACCINE (1) COVID-19 VACCIN E (1) [facility] QG-Zphfiseua-Lf min [facility] Work Phone: NEGATED: Highlighted row has been ruled out! Planned Goals not documented JC-Hvdnlnakx-Anywc [facility] Work Phone: Immunizations Immunization Date Immunization Notes Care Provider Fa cilithanh 09-16-2022 COVID-19 Pfizer (Pediatric) Bebe Duncan Other [facility] Other 04-02-2022 COVID-19 Vaccine Pfi zer - Documentation Purposes Only Bebe Duncan Other [facility] Other 12-26-2021 influenza virus vaccine, split virus (incl. purified surface antigen) Bebe Duncan Other [facility] Other 10-16-2021 COVID-19 Vaccine Pfi zer - Documentation Purposes Only Bebe Duncan Other [facility] Other 07-30-2020 influenza virus vaccine, split virus (incl. purified surface antigen) Bebe Duncan Other [facility] Other Payers Date Payer Category Payer Medicaid ANTH MEDICAID [employer] [employer] [place] [id number] 2022-Present [phone] [address] [place] [address] Medicaid [id number] 2022 Unknown [id number] 2021 Medicaid [employer] MEDICAID [id number] 2021-Present [phone] [address] [place] [address] Medicaid [id number] 2014 Unknown [id number] 1959 Unknown [id number] 1959 Unknown [id number] 1959 Unknown [id number] 1959 Unknown [id number] 1959 Unknown [id number] 1959 Unknown [id number] 1959 Unknown [id number] 1960 Unknown [id number] 1960 Unknown [id number] 1960 Unknown [id number] 1960 Unknown [id number] 1960 Unknown [id number] 1960 Unknown [id number] Unknown Social History Date Type Detail Facility Assertion Tobacco smoking consumption unknown (finding) [facility] Work Phone: Start: 12-15-2019 End: 04-05-2024 Tobacco smoking status NHIS Never smoked tobacco [facility] Start: 12-15-2019 End: 04-05-2024 Tobacco use and exposure Smokeless tobacco non-user [facility] Start: 1960 Sex Assigned At Not on file [facility] Start: 02-19-2022 End: 04-05-2024 Sex Assigned At [facility] Start: 02-19-2022 End: 04-05-2024 History of Social function [facility] Adult Depression Screening Assessment 0 [facility] Functional Status Date Assessment Result Facility NEGATED: Highlighted row Functional performance Functional status health issues are not documented Disease [facility] Work Phone: Mental Status Date Assessment Result Facility NEGATED: Highlighted row Cognitive function [Interpretation] Cognitive status health issues are not documented Disease BL-Jhbpieeby-Uatrp [facility] Work Phone: Clinical Notes 03-15-2018 to 04-05-2024 Patient InstructionsAmalia Jorgensen OD - 04/05/2024 10:00 AM EDT Note Date & Type Note Facility 04-05-2024 Note HNO ID: [id number] Author: AMALIA JORGENSEN OD Service: ? Author Type: CONSULTING PRACTICE MANAGER Type: Progress Notes Filed: 04/05/2024 10:02 Note Text: ASSESSMENT/PLAN: 1. Pseudophakia, both eyes - ICD9: V43.1, ICD10: Z96.1 (primary diagnosis) S/p yag OU. Doing well. 2. Insufficiency of tear film of both eyes - ICD9: 375.15, ICD10: H04.123 Pt ed. ATs prn - list of pref brands given 3. PVD (posterior vitreous detachment), bilateral - ICD9: 379.21, ICD10: H43.813 Longstanding and stable. 4. Dermatochalasis of both upper eyelids - ICD9: 374.87, ICD10: H02.831, H02.834 Pt ed. Observe at this time. Oculoplastics consult if worse. 5. Myopia with astigmatism and presbyopia, bilateral - ICD9: 367.1, 367.20, 367.4, ICD10: H52.13, H52.203, H52.4 Happy with current specs. Minimal Rx change, NC optional update. Amalia Jorgensen, JAGDISH I have confirmed and edited as necessary [...] with all of its relevant components. Amalia Jorgensen OD April 05, 2024 10:00 AM [facility] 04-05-2024 Instructions Amalia Jorgensen OD - 04/05/2024 10:14 AM EDT Refresh Tears Refresh Relieva Systane Balance Systane Complete Thera Tears Genteal documented in this encounter [facility] 04-05-2024 History of Presen t illness Narrative ASSESSMENT/PLAN: 1. Pseudophakia, both eyes - ICD9: V43.1, ICD10: Z96.1 (primary diagnosis) S/p yag OU. Doing well. 2. Insufficiency of tear film of both eyes - ICD9: 375.15, ICD10: H04.123 Pt ed. ATs prn - list of pref brands given 3. PVD (posterior vitreous detachment), bilateral - ICD9: 379.21, ICD10: H43.813 Longstanding and stable. 4. Dermatochalasis of both upper eyelids - ICD9: 374.87, ICD10: H02.831, H02.834 Pt ed. Observe at this time. Oculoplastics consult if worse. 5. Myopia with astigmatism and presbyopia, bilateral - ICD9: 367.1, 367.20, 367.4, ICD10: H52.13, H52.203, H52.4 Happy with current specs. Minimal Rx change, NC optional update. Amalia Jorgensen, JAGDISH I have confirmed and edited as necessary [...] with all of its relevant components. Amalia Jorgensen OD April 05, 2024 10:00 AM documented in this encounter [facility] 12-27-2023 Evaluation note Encounter Date Diagnosis Assessment [...] symptoms. Any developing patterns. Stay well hydrated. [facility] Other 01-30-2024 Evaluation note* Encounter Date Diagnosis Assessment Notes Treatment Notes Treatment Clinical Notes Nov, Bullous impetigo (ICD-10 - L01.03) Take antibiotic as directed. If develop wheezing, chest tightness, itching, bad cough, blue skin color, seizures, swelling of face, lips, tongue, or throat report to ED. Nov, Other staphylococcus as the cause of diseases classified elsewhere (ICD-10 - B95.7) [facility] Other 09-12-2023 Evaluation note* Encounter Date Diagnosis [...] mammogram for breast cancer (ICD-10 - Z12.31) [facility] Other 05-11-2023 Evaluation note* Encounter Date Diagnosis [...] enabling machines and devices (ICD-10 - Z99.89) [facility] Other 01-11-2023 Evaluation note* Encounter Date Diagnosis [...] first and consider med changes after that. [facility] Other 07-14-2022 NotePROCEDURE: XR FOOT LT MIN [...] Electronically authenticated by: ANGELINA SERVIN Date: 2022-05-28 18:49[facility]07-14-2022 NotePROCEDURE: XR FOOT LT MIN 3 [...] Electronically authenticated by: ANGELINA SERVIN Date: 2022-05-28 18:49[facility]06-28-2022 NotePROCEDURE: XR FOOT LT MIN 3 VIEWS COMPARISON: None. HISTORY: Pain in left foot FINDINGS: BONES:No acute fracture or dislocation. Mild enthesopathic spurring of the calcaneus. SOFT TISSUES:Negative. No visible soft tissue swelling. EFFUSION:None visible. OTHER: Negative. IMPRESSION: No acute abnormality Electronically authenticated by: ANGELINA SERVIN Date: 2022-05-12 07:14[facility]04-07-2022 Instructions* Patient Instructions* Osiris Dorado V, [...] so we recommend you come with a motor bus driver. You will then be scheduled for a follow up in approximately one week. If you notice any of the following symptoms of retinal detachment, please call our office at : - Flashes of light - Increased number of floaters or large floaters - Curtains, veils, or spider web pattern over vision [facility] History of Present illness Narrative* Osiris [...] patient was offered a surgery/procedure at a [facility] facility. The surgeon/proceduralist and patient have [...] form. -F/U [address] Carballo ([facility]) 2. Posterior chamber intraocular lens Both eyes The documentation recorded by the scribe accurately reflects the service I personally performed andthe decisions made by me. I have confirmed and edited as necessary the relevant ophthalmic history,ROS, and the exam findings as obtained by others. I have seen and examined Alina Son. I also have reviewed and agree with the assessment and plan as stated above and agree with all of its relevant components. Osiris DORADO MD February 19, 2022 3:09 PM * Amalia Jorgensen, JAGDISH - 02/19/2022 2:49 PM EDT ASSESSMENT/PLAN: 1. [...] 367.20, 367.4, ICD10: H52.13, H52.203, H52.4 Amalia Jorgensen, OD I have confirmed and edited as [...] with all of its relevant components. Amalia Jorgensen OD February 19, 2022 2:49 PM [facility] History of Present illness Narrative* Ms. [...] a sharp/shock like pain over her left islam/occiputal region that is present only when she [...] seizures, and abnormal movements.She was admitted at [facility] from 04/01 - 05/10. At her worst [...] 360 mg daily for migraines with improvement. XU-Kpktyxfmx-Kdclo [facility] Work Phone: 1(577) 747-911705-01-2018 History of Present illness Narrative* Ms. 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 * Disease summary: * In March 2018 had cognitive decline, gait disturbance, subclinical seizures, and abnormal movements.She was admitted at [facility] from 04/01 - 05/10. At her worst [...] a sharp/shock like pain over her left islam/occiputal region that is present only when she [...] - sinnemet 25-100 TID * - Citalopram TU-Josswyzlx-Mottr [facility] Work Phone: 1(508) 934-748405-01-2018 History of Present illness Narrative* Ms. 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 * Disease summary: * In March 2018 had cognitive decline, gait disturbance, subclinical seizures, and abnormal movements.She was admitted at [facility] from 04/01 - 05/10. At her worst [...] a sharp/shock like pain over her left islam/occiputal region that is present only when she [...] - sinnemet 25-100 TID * - Citalopram SD-Mnhtcualb-[facility] Work Phone: 1(150) 235-972905-01-2018 History of Present illness Narrative* Ms. 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 * Disease summary: * In March 2018 had cognitive decline, gait disturbance, subclinical seizures, and abnormal movements.She was admitted at [facility] from 04/01 - 6/26. At her worst she was comatose, not [...] a sharp/shock like pain over her left islam/occiputal region that is present only when she [...] - sinnemet 25-100 TID * - Citalopram JI-Hphevrjdd-Zwppu [facility] Work Phone: 1([phone]) 985-895405-01-2018 History of Present illness Narrative* Ms. 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 * Disease summary: * In March 2018 had cognitive decline, gait disturbance, subclinical seizures, and abnormal movements.She was admitted at [facility] from 04/01 - 05/10. At her worst [...] 2)A sharp/shock like pain over her left islam/occiputal region that is present only when she [...] - sinnemet 25-100 TID * - Citalopram TF-Fysjowjui-Zdcfi [facility] Work Phone: 1([phone]) [phone] History of Present illness Narrative* Ms. 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 * Disease summary: * In March 2018 had cognitive decline, gait disturbance, subclinical seizures, and abnormal movements.She was admitted at [facility] from 04/01 - 05/10. At her worst [...] 2)A sharp/shock like pain over her left islam/occiputal region that is present only when she [...] than last visit but up from early 2018 * 10lb. Does state hasn t been [...] - sinnemet 25-100 TID * - Citalopram ZX-Nmbyrylym-CUZFK [facility] Work Phone: [phone] 327-891405-01-2018 History of Present illness Narrative* Ms. 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 * Disease summary: * In March 2018 had cognitive decline, gait disturbance, subclinical seizures, and abnormal movements.She was admitted at [facility] from 04/01 - 05/10. At her worst [...] only. she'll continue verapamil for MEANS ppx. XY-Qeblgprzo-YRTLC [facility] Work Phone: Evaluation note* Diagnosis PCO (posterior capsular opacification), bilateral- Primary After-cataract, unspecified Pseudophakia, both eyes Lens replaced by other means Chalazion of right lower eyelid Chalazion Insufficiency of tear film of both eyes PVD (posterior vitreous detachment), bilateral Myopia with astigmatism and presbyopia, bilateral documented in this encounter [facility] noteNo Eversnap[facility]ist Other Evaluation note* Diagnosis Pseudophakia, both eyes- Primary Lens replaced by other means Insufficiency of tear film of both eyes PVD (posterior vitreous detachment), bilateral Dermatochalasis of both upper eyelids Myopia with astigmatism and presbyopia, bilateral [facility] - [facility]orted* Type Description Date [...] History lithotripsy Surgical History tube in kidney [facility] Other History general Narrative - Reported* Type Description Date [...] in kidney Hospitalization History see surgical hx [facility] Other Summary Purpose Family History No Family History Records Found Mother Name Dates Details No pertinent family [...] a Fluress shortage, administer 1 drop of Maggie-Fluor into both eyes as directed for applanation [...] 1 Drop Reason for Referral Reason 12/01/22 Berna foot/ankle with Kasey Wright S[employer]IOR J[employer] ARCHITECT Diagnosis 1 Ingrowing nail (L60. 0) [facility] Referring Provider First Name Bebe Referring Provider Last Name Perla Referring Provider Specialty Family [facility] Referred Organization [facility] Referred Provider LILIA,ASHISH Referred Address [address] [place], [place],[address] Referred Provider Specialty Podiatry - S urgical [...] referral at this time. Clinical Notes P: [id number] F: [id number] Additional Source Comments INFORMATION SOURCE (unrecogn ized section and content) DATE CREATED AUTHOR 06/03/2018 [facility] DATE CREATED AUTHOR AUTHOR'S ORGANIZ ATION 10/13/2022 [employer] DATE CREATED AUTHOR AUTHOR'S ORGANIZ ATION 10/14/2022 [facility] DATE CREATED AUTHOR AUTHOR'S ORGANIZ ATION 03/31/2023 [facility] DATE CREATED AUTHOR AUTHOR'S ORGANIZ ATION 04/07/2024 [facility] Source Comments (unrecognize d section and content) In the event this informatio n is protected by the Federal Confidentiality of Alcohol and Drug Abuse Patient Records regulations: The Federal rules restrict any use of the information to criminally investigate or prosecute any alcohol or drug abuse patient.[facility] the event this information is protected by the Federal Confidentiality of Alcohol and Drug Abuse Patient Records regulations: The Federal rules restrict any use of the information to criminally investigate or prosecute any alcohol or drug abuse patient.[facility] Reason for Visit (unrecogniz ed section and content) Reason Comments Posterior Capsule Opacification Evaluati on Reason Comments Yearly Exam Care Teams (unrecognized sec tion and content) [employer] Relationship Specialty Start Date End Date Bebe Duncan MD [address] [place] [id number] PCP - General Family Practice 12/15/19 [employer] Relationship Specialty Start Date End Date Bebe Duncan MD [address] [place] [id number] PCP - General Family Medicine 12/15/19 FOR RECORDS PERTAINING TO PATIENTS WHO [...] BE BASED ON THE PRIMARY CLINICAL RECORDS. [facility]. provides no warranty or guarantee of the accuracy or completeness of information in this document.
[2024-07-04 11:30] LABS: Basophils Percent Auto 0.6 % (0.2-2.0); Eosinophils Absolute Auto 0.1 10^3/uL (0.0-0.7); Eosinophils Percent Auto 1.8 % (0.9-7.0); Hematocrit 39.8 % (36.0-48.0); Hemoglobin 13.1 g/dL (12.0-16.0); Immature Granulocytes Abs Auto 0.03 10^3/uL (0.00-0.03); Immature Granulocytes Pct Auto 0.4 % (0.0-0.5); Lymphocytes Percent Auto 29.1 % (20.5-60.0); Mean Corpuscular HGB Conc 32.9 g/dL (29.9-35.2); Mean Corpuscular Hemoglobin 30.5 pg (26.7-34.0); Mean Corpuscular Volume 92.6 fL (81.0-99.0); Mean Platelet Volume 10.1 fL (9.5-13.5); Monocytes Absolute Auto 0.6 10^3/uL (0.3-0.8); Monocytes Percent Auto 8.2 % (1.7-12.0); Neutrophils Percent Auto 59.9 % (43.0-75.0); Platelet Count 214 10^3/uL (150-450); Red Cell Distribution Width 13.2 % (11.0-15.0); White Blood Count 6.7 10^3/uL (4.0-11.0)
[2024-07-04 12:19] LABS: Anion Gap 15.6; BUN Creatinine Ratio 11.9; Calcium 9.3 mg/dL (8.5-10.1); Chloride 104 mmol/L (98-107); Estimated GFR (African America 52 (>=60); Estimated GFR (Non-African Ame 43 (>=60); Glucose 91 mg/dL (74-106); Potassium 4.6 mmol/L (3.5-5.1); Sodium 141 mmol/L (136-145); Thyroid Stimulating Hormone 0.511 uIU/mL (0.358-3.740)
[2024-07-04 13:10] LABS: Free T4 0.95 ng/dL (0.76-1.46)
== END 2024-07-04 11:08 | disposition home or self-care (01) ==
LOC: LAB 11:09
PROVIDERS: PCP Family Medicine; Visit Provider Family Medicine
DX: R53.83 Other fatigue (principal); I10 Essential (primary) hypertension; R79.89 Other specified abnormal findings of blood chemistry
CPT/HCPCS: 36415; 80048; 82607; 82746; 84439; 84443; 85025

== ENCOUNTER 2025-01-18 10:44 | Outpatient (OUT) | payer MEDICARE, SELFPAY ==
--- NOTE | 2025-01-18 10:50 | MM_ITS ---
Patient Name: LUCAS SON MR#: [id number] : 1960 Exam Date: 01/18/2025 Ordering Doctor: DR Bebe Arreguin M.D. RADIOLOGY REPORT PROCEDURE: MM TOMOSYNTHESIS SCREENING BI COMPARISON: MM TOMOSYNTHESIS DIAGNOSTIC BI, 02/04/2024. MM TOMOSYNTHESIS SCREENING BI, 08/11/2023. MG MAMM SCREEN 3D LATIA CAD, 12/26/2021. MG MAMM LATIA SCRN W CAD DIG, 01/11/2015. INDICATIONS: Screening Calculator Name NCI Breast Cancer Risk Assessment Tool 5 Year Breast Cancer Risk 1.40% Lifetime Breast Cancer Risk 5.40% Personal Breast Cancer No Personal Ovarian Cancer No Treatments None Family Cancers Cousin-maternal with breast cancer at age ~35; Cousin-maternal with breast cancer at age ~45; Cousin-maternal with breast cancer at age ~55; Aunt-maternal with ovarian cancer at age ~45; Grandmother-maternal with uterine cancer at age ~49; Uncle-maternal with brain cancer at age ~52. LOCATION: [facility] BREAST COMPOSITION: There are scattered areas of fibroglandular density. FINDINGS: DIAGNOSTIC CATEGORY 1--NEGATIVE. RIGHT BREAST: No significant suspicious finding. LEFT BREAST: No significant suspicious finding. RECOMMENDATIONS: ROUTINE MAMMOGRAM AND CLINICAL EVALUATION IN 12 MONTHS. PLEASE NOTE: A NORMAL MAMMOGRAM DOES NOT EXCLUDE THE POSSIBILITY OF BREAST CANCER. A CLINICALLY SUSPICIOUS PALPABLE LUMP SHOULD BE BIOPSIED. Dictated by: Moise Adkins DO on 01/18/2025 at 15:59 Approved by: Moise Adkins DO on 01/18/2025 at 16:01
--- OUTSIDE RECORDS SUMMARY | 2025-01-18 11:06 | XMS_ITS | CCD ---
Author Organization [facility] CliniSyct Care Team Providers Care Felled Seam Operator Name Role Phone AUBREE JUSTICE Rhys Unavailable Unavailable DUSTY MARTINS Unavailable Unavailable Gavino Roman Unavailable Unavailable Mak Collins Unavailable Unavailable None, No PCP Unavailable Unavailable None, No PCP Unavailable Unavailable Unavailable Unavailable Bebe Duncan MD Primary Care Provider [phone] UNKNOWN, PCP Referring Unavailable MD ELIJAH WILKINSON Attending Bisi vailable UNKNOWN, PCP Referring Unavailable MD ELIJAH WILKINSON Attending Bisi vailable Bill Orona Attending Unavailable Bill Orona Referring Unavailable Bill Orona Attending Unavailable Bill Orona Attending Unavailable Bebe Duncan Unavailable CORNEL MORALES Admitting Unavailable CORNEL MORALES Attending Unavailable CORNEL MORALES Consulting Unavailable DUNCAN, DR BEBE Paul Primary Care Unavailable DUNCAN, DR BEBE Paul Admitting Unavailable WEST, DR ANGELINA Clemente Consulting Unavailable [...] Primary Care Unavailable ASHISH WRIGHT Admitting Unavailable WEST, DR ANGELINA V Consulting Unavailable ASHISH WRIGHT Attending Unavailable ASHISH WRIGHT Consulting Unavailable Bebe Duncan MD Primary Care Provider AMALIA JORGENSEN Referring Unavailable AMALIA JORGENSEN Attending Unavailable BEBE DUNCAN Primary Care Unavailable MD Ricardo Deng Attending Provider Ricardo Deng Attending Unavailable Ricardo Deng Admitting Unavailable Allergies Allergy Classification Reported Allergen(s) Allergy Type Date of Onset Reaction(s) Facility heparin (3 sources) heparin; Translations: [heparin] Drug Allergy [id number] [employer] Work Phone: (20 sources) heparin; Translations: [heparin] Drug Allergy 06-08-2019 Intolerance [facility] Comment on above: low PLT, HIT positiv e (3 sources) heparin Drug Allergy 01-10-2024 [facility] Medications Current Medications Medication Drug Class(es) Dates Sig (Normalized) Sig (Original) amoxicillin 875 mg / clavulanate 125 mg oral tablet (3 sources) Penicillin-class Antibacterial Start: 11-25-2022 take 1 tablet by mouth every twelve hours Amoxicillin-Pot Clavulanate 875-125 MG 1 tablet Orally every 12 hrs for 10 day(s) Nov, Active cholecalciferol 0.05 mg oral tablet (20 sources) Vitamin D Start: 03-20-2024 End: 01-16-2025 take 2 tablets by mouth once daily Cholecalciferol (Vitamin D3) (Vitamin D3) 50 mcg (2,000 unit) tablet Active 0 .ROUTE .COMPLEX 180 90 January 16, 2025 9:58am TAKE 2 TABLETS BY MOUTH EVERY DAY Start: 01-13-2024 End: 03-20-2024 take 1 tablet by mouth once daily Cholecalciferol (Vitamin D3) (Vitamin D3) 25 mcg (1,000 unit) tablet Discontinued 2000 UNIT PO Daily January 13, 2024 9:54am March 20, 2024 2:18pm Start: 05-20-2019 take 1 tablet by emilia th once daily cholecalciferol (VITAMIN D3) 50 mcg (2,000 unit) tablet Take 1 tablet by mouth once daily. 0 05/20/2019 Active Start: 09-27-2018 End: 01-13-2024 take 2 tablets by mouth once daily Cholecalciferol (Vitamin D3) (Vitamin D3) 1,000 unit Tablet Discontinued 2000 UNIT PO DAILY@0900 30 September 27, 2018 12:00am January 13, 2024 9:54am Start: 09-07-2018 End: 09-27-2018 take 1 tablet by mouth once daily Cholecalciferol (Vitamin D3) (Vitamin D3) 2,000 unit Tablet Discontinued 2000 UNIT PO DAILY@0900 September 06, 2018 11:00pm September 27, 2018 2:30pm take 2 tablets by mo ut every twenty-four hours Vitamin D3 50 MCG (1999) 2 tablet Orally Once a day Active Vitamin D3 50 MC G (1999) Oral Capsule Quantity: 0 Refills: 0 Ordered: 19-Oct-2018 DO Active Comment on above: Take 1 tablet by emilia th once daily. citalopram 40 mg oral tablet (20 sources) Serotonin Reuptake Inhibitor Start: 05-09-2024 End: 01-16-2025 take 1 tablet by mouth once daily Citalopram 40 mg tablet Active 0 .ROUTE .COMPLEX January 16, 2025 9:59am TAKE 1 TABLET BY MOUTH EVERY DAY FOR 90 DAYS Start: 12-28-2017 End: 05-09-2024 take 1 tablet by mouth once daily Citalopram 40 mg tablet Discontinued 40 MG PO Daily January 13, 2024 9:52am May 09, 2024 7:33am Citalopram Ol[place] bromide 40 MG Oral Tablet Quantity: 0 Refills: 0 Ordered: 19-Oct-2018 DO Active Comment on above: Take 40 mg by mouth once daily. famotidine 40 mg oral tablet (20 sources) Histamine-2 Receptor Antagonist Start: 03-20-2024 End: 01-16-2025 take 1 tablet by mouth once daily at bedtime Famotidine 40 mg tablet Active 0 .ROUTE .COMPLEX January 16, 2025 9:59am TAKE 1 TABLET BY MOUTH EVERY DAY AT BEDTIME FOR 90 DAYS Start: 06-01-2019 End: 03-20-2024 take 1 tablet by mouth once daily at bedtime Famotidine 40 mg tablet Discontinued 40 MG PO Daily at bedtime January 13, 2024 12:00am May 6th, 2024 2:02pm Start: 09-27-2018 End: 01-13-2024 take 2 tablets by mouth once daily at bedtime Famotidine 20 mg Tablet Discontinued 40 MG PO Daily at bedtime 60 September 27, 2018 12:00am January 13, 2024 9:53am Start: 09-27-2018 End: 01-13-2024 take 40 mg by mouth once daily at bedtime Famotidine Discontinued 40 MG PO Daily at bedtime 60 September 27, 2018 1:00am January 13, 2024 10:53am Start: 09-07-2018 End: 09-27-2018 take 1 tablet by mouth once daily at bedtime Famotidine 40 mg Tablet Discontinued 40 MG PO Daily at bedtime September 06, 2018 11:00pm September 27, 2018 2:31pm Comment on above: Take 40 mg by mouth at bedtime as needed. melatonin 3 mg oral tablet (20 sources) Start: 01-13-2024 End: 01-16-2025 take 2 tablets by mouth once daily at bedtime Melatonin 3 mg tablet Active 6 MG PO Daily at bedtime 180 90 January 16, 2025 9:59am Start: 01-13-2024 End: 07-04-2024 take 6 mg by mouth once daily at bedtime Melatonin Active 6 MG PO Daily at bedtime 60 July 04, 2024 10:39am Start: 06-01-2019 take 1 tablet by emilia th twice daily melatonin 3 mg tablet Take 3 mg by mouth twice daily. 0 06/01/2019 Active Start: 09-07-2018 End: 09-27-2018 take 2 tablets by mouth at bedtime as needed for sleep Melatonin 3 mg Tablet Discontinued 6 MG PO Bedtime as needed for Sleep September 06, 2018 11:00pm September 27, 2018 2:30pm Start: 09-07-2018 End: 09-27-2018 take 6 mg by mouth at bedtime Melatonin Discontinued 6 MG PO Bedtime September 07, 2018 12:00am September 27, 2018 3:30pm take 1 tablet by emilia th every twenty-four hours Melatonin 3 MG 1 tablet at bedtime as needed Orally Once a day for 90 days Active Comment on above: Take 3 mg by mouth t wice daily. nystatin 117951 unt/ml topical cream (3 sources) Polyene Antifungal Start: 01-10-20 Nystatin 100,000 unit/gram cream Active 1 APPLIC TOPICAL Twice daily January 10, 2024 12:00am spironolactone 50 mg oral tablet (20 sources) Aldosterone Antagonist Start: 05-09-20 End: 07-04-20 take 1 tablet by mouth once daily Spironolactone 50 mg tablet Active 0 .ROUTE .COMPLEX July 04, 2024 9:39am TAKE 1 TABLET BY MOUTH EVERY DAY FOR 90 DAYS Start: 01-13-2024 End: 05-09-2024 take 1 tablet by mouth once daily Spironolactone 50 mg tablet Discontinued 50 MG PO Daily January 13, 2024 12:00am May 09, 2024 7:33am take 1 tablet by emilia th every twenty-four hours Spironolactone 50 MG 1 tablet Orally Once a day Active take 1 tablet by emilia th once daily Spironolactone 25 MG Oral Tablet TAKE 1 TABLET DAILY. Quantity: 0 Refills: 0 Ordered: 01-Apr-2022 DO Active thiamine 100 mg oral tablet (20 sources) Start: 05-09-2024 take 1 tablet by mouth once daily Thiamine Mononitrate (Vit B1) (Vitamin B-1 (Mononitrate)) 100 mg tablet Active 0 .ROUTE .COMPLEX May 09, 2024 7:33am TAKE 1 TABLET BY MOUTH EVERY DAY FOR 90 DAYS Start: 09-21-2018 End: 05-09-2024 take 1 tablet by mouth once daily Thiamine Hcl (Vitamin B1) 100 mg Tablet Discontinued 100 MG PO Daily September 27, 2018 12:00am May 09, 2024 7:33am Vitamin B-1 100 MG Oral Tablet Quantity: 0 Refills: 0 Ordered: 19-Oct-2018 DO Active Comment on above: Take 100 mg by mouth once daily. verapamil hydrochloride 120 mg extended release oral tablet (20 sources) Calcium Channel Alvin Start: 07-14-2024 take 3 tablets by mouth once daily Verapamil 120 mg tablet extended release Active 360 MG PO Daily July 13, 2024 11:00pm Start: 07-14-2024 take 360 mg by mouth once aldo y Verapamil Active 360 MG PO Daily July 14, 2024 12:00am Start: 01-13-2024 End: 07-14-2024 take 1 tablet by mouth three times daily Verapamil 120 mg tablet Discontinued 120 MG PO Three times daily 270 July 04, 2024 9:38am July 14, 2024 9:20pm Start: 03-06-2020 take 3 tablets by mo [facility] once daily Verapamil HCl ER 120 MG Oral Capsule Extended Release 24 Hour TAKE 3 TABLETS ONCE DAILY Quantity: 270 Refills: 3 Ordered: 12-Oct-2022 Bill Orona MD Start : 06-Mar-2020 Active Start: 06-01-2019 take 3 tablets by mo [facility] once daily in the morning verapamil (CALAN, [...] once daily. takes 3 tablets in AM vitamin b12 1 mg oral tablet (20 sources) Vitamin B12 Start: 03-20-2024 take 1 tablet by mouth once daily Cyanocobalamin (Vitamin B-12) 1,000 mcg tablet Active 0 .ROUTE .COMPLEX 90 March 20, 2024 2:02pm TAKE 1 TABLET BY MOUTH EVERY DAY FOR 90 DAYS Start: 01-13-2024 End: 03-20-2024 take 1 tablet by mouth once daily Cyanocobalamin (Vitamin B-12) 1,000 mcg tablet Discontinued 1000 MCG PO Daily January 13, 2024 12:00am March 20, 2024 2:02pm take 1 tablet by emilia once daily Cyanocobalamin 1000 MCG 1 tablet Orally Once a day for 90 days Active take 1 tablet by emilia once daily Cyanocobalamin 1000 MCG 1 tablet Orally Once a day Active Vitamin B-12 100 0 MCG Oral Tablet Quantity: 0 Refills: 0 Ordered: 08-Jan-2021 DO Active Comment on above: Take 1,000 mcg by mo [facility] once daily. Completed/Discontinued Medications Medication Drug Class(es) Dates Sig (Normalized) Sig (Original) acetaminophen 325 mg oral tablet (4 sources) Start: 09-27-2018 End: 01-10-2024 take 2 tablets by mouth every four hours as needed for pain Acetaminophen 325 mg Tablet Discontinued 650 MG PO Q4H as needed for Pain 0 September 27, 2018 12:00am January 10, 2024 10:16am Start: 09-27-2018 End: 01-10-2024 take 650 mg by mouth every four hours Acetaminophen Discontinued 650 MG PO Q4H 0 September 27, 2018 1:00am January 10, 2024 11:16am Tylenol 325 MG O ral Tablet Refills: 0 Active benoxinate hydrochloride 4 mg/ml / fluorescein sodium 3 mg/ml ophthalmic solution (3 sources) Diagnostic Dye Start: 04-05-2024 End: 04-05-2024 fluorescein-benoxinate 0.3-0.4 % 1 Drop (FLURESS) Start: 02-19-2022 End: 02-20-2022 fluorescein-benoxinate 0.25- 0.4 % 1 Drop (FLURESS) benzonatate 200 mg oral capsule (1 source) Non-narcotic Antitussive Start: 11-09-2024 End: 01-16-2025 Benzonatate 200 mg capsule Discontinued 200 MG PO 2-3 TIMES PER DAY as needed for cough November 09, 2024 12:00am January 16, 2025 9:37am betamethasone 0.5 mg/ml / clotrimazole 10 mg/ml topical cream (3 sources) Azole Antifungal, Corticosteroid Start: 01-21-2024 End: 01-16-2025 Clotrimazole-Beta methasone 1-0.05 % cream Discontinued 1 APPLIC TOPICAL Twice daily 45 14 January 21, 2024 12:00am January 16, 2025 10:00am biotin 10 mg oral capsule (3 sources) Start: 01-27-2018 End: 09-07-2018 take 1 capsule by mouth twice daily Biotin 10,000 mcg capsule Discontinued 46061 MCG PO Twice daily January 26, 2018 11:00pm September 07, 2018 10:15am brexpiprazole 0.5 mg oral tablet (3 sources) Atypical Antipsychotic take 1 tablet by mouth every twenty-four hours Rexulti 0.5 MG 1 tablet Orally Once a day Not-Taking buPROPion hydrochloride 100 mg oral tablet (6 sources) Aminoketone Start: 03-23-2018 End: 09-07-2018 take 2 tablets by mouth twice daily Bupropion Hcl 100 mg tablet Discontinued 200 MG PO Twice daily March 22, 2018 11:00pm September 07, 2018 10:15am Start: 03-23-2018 End: 09-07-2018 take 200 mg by mouth twice daily Bupropion Hcl Discontinued 200 MG PO Twice daily March 23, 2018 12:00am September 07, 2018 11:15am Start: 12-28-2017 End: 03-23-2018 take 3 tablets by mouth once daily Bupropion Hcl 100 mg tablet Discontinued 300 MG PO Daily December 28, 2017 12:00am March 23, 2018 10:35am Start: 12-28-2017 End: 03-23-2018 take 300 mg by mouth once daily Bupropion Hcl Disconti nued 300 MG PO Daily December 28, 2017 1:00am March 23, 2018 11:35am calcium citrate 1500 mg / cholecalciferol 200 unt oral tablet (1 source) Vitamin D Start: 01-25-2019 take 1 tablet by mouth once daily Calcium + D 315-200 MG-UNIT Oral Tablet TAKE 1 TABLET DAILY. Quantity: 90 Refills: 2 Gavino Roman MD Start : 25-Jan-2019 Active carbidopa 25 mg / levodopa 100 mg oral tablet (20 sources) Aromatic Amino Acid Decarboxylation Inhibitor, Aromatic Amino Acid Start: 09-07-2018 End: 01-10-2024 take 1 tablet by mouth three times daily Carbidopa-Levodop a 25-100 mg Tablet Discontinued 1 TAB PO TID@0600,1400,220 0 90 30 September 27, 2018 12:00am January 10, 2024 10:17am Start: 03-23-2018 End: 09-07-2018 take 0.5 tablet by mouth three times daily Carbidopa-Levodopa 10-100 mg tablet Discontinued 0.5 TAB PO Three times daily March 22, 2018 11:00pm September 07, 2018 10:15am Start: 03-22-2018 End: 03-23-2018 Carbidopa-Levodopa 10-100 mg tablet Discontinued 0 .ROUTE .COMPLEX March 21, 2018 11:00pm March 23, 2018 10:38am 1/2 tab TID Comment on above: Take 1 tablet by emilia th three times daily. cefdinir 300 mg oral capsule (1 source) Cephalosporin Antibacterial Start: End: take 1 capsule by mouth twice daily Cefdinir 300 mg capsule Discontinued 300 MG PO Twice daily November 09, 2024 12:00am January 16, 2025 9:38am cephalexin 500 mg oral capsule (5 sources) Cephalosporin Antibacterial Start: 4 End: 4 take 1 capsule by mouth every eight hours Cephalexin 500 mg capsule Discontinued 500 MG PO Every 8 hours December 30, 2023 12:00am January 10, 2024 10:18am take 1 capsule by mo ut every eight hours Cephalexin 500 MG 1 capsule Orally every 8 hrs for 7 days Active clonazePAM 1 mg oral tablet (6 sources) Benzodiazepine Start: 03-23-2018 End: 09-07-2018 take 1 tablet by mouth once daily at bedtime Clonazepam 1 mg tablet Discontinued 1 MG PO Daily at bedtime March 22, 2018 11:00pm September 07, 2018 10:15am Start: 12-28-2017 End: 03-23-2018 take 1 tablet by mouth once daily at bedtime Clonazepam 0.5 mg tablet Discontinued 0.5 MG PO Daily at bedtime December 28, 2017 12:00am March 23, 2018 10:34am 0.5 ml fondaparinux sodium 5 mg/ml prefilled syringe (3 sources) Factor Xa Inhibitor Start: 09-21-2018 End: 09-27-2018 Fondaparinux 2.5 mg/0.5 mL Syringe Discontinued 2.5 MG SUBCUT DAILY@2100 September 21, 2018 12:00am September 27, 2018 2:31pm levETIRAcetam 1000 mg oral tablet (6 sources) Start: 09-27-2018 End: 10-27-2018 Levetiracetam 1,000 mg tablet Discontinued 1500 MG PO Twice daily September 27, 2018 12:00am October 26, 2018 12:00am October 27, 2018 12:02am Start: 09-27-2018 End: 10-27-2018 take 1500 mg by mouth twice daily Levetiracetam Discontinued 1500 MG PO Twice daily September 27, 2018 1:00am October 27, 2018 1:02am Start: 09-07-2018 End: 09-27-2018 take 3 tablets by mouth twice daily Levetiracetam 500 mg Tablet Discontinued 1500 MG PO Twice daily September 06, 2018 11:00pm September 27, 2018 2:31pm Start: 09-07-2018 End: 09-27-2018 take 1500 mg by mouth twice daily Levetiracetam Discontinued 1500 MG PO Twice daily September 07, 2018 12:00am September 27, 2018 3:31pm lisinopril 2.5 mg oral tablet (6 sources) Angiotensin Converting Enzyme Inhibitor Start: 09-27-2018 End: 01-10-2024 take 1 tablet by mouth once daily Lisinopril 2.5 mg Tablet Discontinued 2.5 MG PO DAILY@0900 30 September 27, 2018 12:00am January 10, 2024 10:18am Start: 12-28-2017 End: 09-27-2018 take 2.5 mg by mouth once daily Lisinopril 10 mg tablet Discontinued 2.5 MG PO DAILY@09December 28, 2017 12:00am September 27, 2018 2:32pm Start: 12-28-2017 End: 09-27-2018 take 2.5 mg by mouth once daily Lisinopril Discontinued 2.5 MG PO DAILY@09December 28, 2017 1:00am September 27, 2018 3:32pm lithium carbonate 300 mg oral tablet (3 sources) Start: 12-28-2017 End: 09-27-2018 take 1 tablet by mouth twice daily [place] Carbonate 300 mg tablet Discontinued 300 MG PO Twice daily December 28, 2017 12:00am September 27, 2018 2:30pm methylPREDNISolone 4 mg oral tablet (3 sources) Corticosteroid Start: 01-13-2024 End: 01-21-2024 take 1 tablet by mouth once Methylprednisolone (Medrol (Gui)) 4 mg tablets,dose pack Discontinued 0 PO per package directions 21 January 13, 2024 12:00am January 21, 2024 11:14am PO PER PKG DIR Multivitamin preparation (2 sources) Start: 12-28-2017 End: 09-07-2018 take 1 tablet by mouth once daily Multivitamin Discontinued 1 TAB PO Daily December 28, 2017 1:00am September 07, 2018 11:16am Multivitamin tablet (1 source) Start: 12-28-2017 End: 09-07-2018 take 1 tablet by mouth once daily Multivitamin tablet Discontinued 1 TAB PO Daily December 28, 2017 12:00am September 07, 2018 10:16am naproxen 500 mg oral tablet (3 sources) Nonsteroidal Anti-inflammator y Drug Start: 02-10-2021 take 1 tablet by mouth every twelve hours as needed Naproxen 500 MG Oral Tablet TAKE 1 TABLET EVERY 12 HOURS NEEDED. Quantity: 60 Refills: 0 Ordered: 25-Dec-2020 Mak Collins MD Start : 25-Dec-2020 Active omeprazole 40 mg delayed release oral capsule (3 sources) Proton Pump Inhibitor Start: 12-28-2017 End: 09-07-2018 take 1 capsule by mouth once daily as needed for gastroesophageal reflux disease Omeprazole 40 mg capsule,delayed release(DR/EC) Discontinued 40 MG PO Daily as needed for GERD December 28, 2017 12:00am September 07, 2018 10:16am phenylephrine hydrochloride 25 mg/ml ophthalmic solution (3 sources) alpha-1 Adrenergic Agonist Start: 04-05-2024 End: 04-05-2024 PHENYLephrine 2.5 % 1 Drop (AK-DILATE, JASON-SYNEPHRINE) Start: 02-19-2022 End: 02-20-2022 PHENYLephrine 2.5 % 1 Drop ( AK-DILATE, JASON-SYNEPHRINE) predniSONE 10 mg oral tablet (11 sources) Start: 01-08-2021 predniSONE 10 MG Oral Tablet Please take 2 tablets once a day with meals [id number] (TO October)THEN Take one tablet once a day with meals x 3 weeks (October 23 to )Then Half a tablet x2 weeks (November 14 - Nov 28) THEN STOP Quantity: 180 Refills: 3 Ordered: 01-Oct-2021 Elijah Wilkinson MD Start : 08-Jan-2021 Active Start: 01-08-2021 take 3 tablets by [facility] once daily at mealtime predniSONE 10 MG Oral Tablet Please take 3 tablets daily with meals. Quantity: 180 Refills: 3 Ordered: 28-May-2021 Elijah Wilkinson MD Start : 08-Jan-2021 Active Start: 09-21-2018 End: 01-10-2024 take 3 tablets by mouth once daily Prednisone 20 mg Tablet Discontinued 60 MG PO DAILY@0900 120 September 27, 2018 12:00am January 10, 2024 10:15am Start: 09-21-2018 End: 01-10-2024 take 60 mg by mouth once daily Prednisone Discontinued 60 MG PO DAILY@0900 120 September 27, 2018 1:00January 10, 2024 11:15am proparacaine hydrochloride 5 mg/ml ophthalmic solution (1 source) Local Anesthetic Start: 04-05-2024 End: 04-05-2024 proparacaine 0.5 % 1 Drop (ALCAINE) sulfamethoxazole 800 mg / trimethoprim 160 mg oral tablet (3 sources) Dihydrofolate Reductase Inhibitor Antibacterial, Sulfonamide Antimicrobial Start: 01-13-2024 End: 01-21-2024 take 1 tablet by mouth twice daily Sulfamethoxazole- Trimethoprim (Bactrim Ds) 800-160 mg tablet Discontinued 1 TAB PO Twice daily 20 January 13, 2024 12:00am January 21, 2024 11:14am tropicamide 10 mg/ml ophthalmic solution (3 sources) Anticholinergic Start: 04-05-2024 End: 04-05-2024 tropicamide 1 % 1 Drop (MYDRIACYL) Start: 02-19-2022 End: 02-20-2022 tropicamide 1 % 1 Drop (MYDR IACYL) Tyrvaya 0.03 MG/ACT Nasal Solution (4 sources) Tyrvaya 0.03 MG/ ACT Nasal Solution Quantity: 0 Refills: 0 Ordered: 01-Apr-2022 DO Active valproic acid 250 mg oral capsule (3 sources) Mood Stabilizer, Anti-epileptic Agent Start: 09-07-2018 End: 09-27-2018 take 2 capsules by mouth every six hours Valproic Acid 250 mg Capsule Discontinued 500 MG PO Q6H September 06, 2018 11:00pm September 27, 2018 2:30pm Start: 09-07-2018 End: 09-27-2018 take 500 mg by mouth every six hours Valproic Acid Discontinued 500 MG PO Q6H September 07, 2018 12:00am September 27, 2018 3:30pm Valproic Acid Capule (3 sources) Start: 09-27-2018 End: 01-10-2024 take 500 mg by mouth every six hours Valproic Acid Capule Discontinued 500 MG PO Every 6 hours 120 September 27, 2018 12:00am January 10, 2024 10:17am Start: 09-27-2018 End: 01-10-2024 take 500 mg by mouth every six hours Valproic Acid Capule Discontinued 500 MG PO Every 6 hours 120 September 27, 2018 1:00am January 10, 2024 11:17am Problems Active Problems Problem Classification Problem Date Documented Da te Episodic/Chronic Acute and unspecified renal failure (3 sources) Acute renal failure syndrome; Translations: [Acute kidney failure, unspecified] 10-27-2023 Episodic Comment on above: Problem List clean-u p per request of Phys. EHR Cmte Administrative/social admission (3 sources) Other reduced mobility; Translations: [Impaired mobility and activities of daily living] 10-27-2023 Episodic Comment on above: Problem List clean-u p per request of Phys. EHR Cmte Bacterial infection; unspecified site (1 source) Other staphylococcus as the cause of diseases classified elsewhere Episodic Blindness and vision defects (2 sources) Bilateral myopia of eyes; Translations: [Myopia, bilateral] Episodic Cataract (3 sources) After-cataract of bilateral eyes; Translations: [Other secondary cataract, bilateral] Chronic Chronic obstructive pulmonary disease and bronchiectasis (2 sources) Bronchitis; Translations: [Bronchitis, not specified as acute or chronic] 11-09-2024 Episodic Conduction disorders (3 sources) Long QT syndrome; Translations: [Long QT syndrome] 10-27-2023 Chronic Comment on above: Problem List clean-u p per request of Phys. EHR Cmte Diabetes mellitus without complication (3 sources) Hyperglycemia; Translations: [Hyperglycemia, unspecified] 10-27-2023 Episodic Comment on above: Problem List clean-u p per request of Phys. EHR Cmte Diverticulosis and diverticulitis (1 source) Diverticulosis of intestine, part unspecified, without perforation or abscess without bleeding; Translations: [Dvrtclos of intest, part unsp, w/o perf or abscess w/o bleed] Onset: 1 Chronic Encephalitis (except that caused by tuberculosis or sexually transmitted disease) (19 sources) Limbic encephalitis; Translations: [Unspecified causes of encephalitis, myelitis, and encephalomyelitis] Onset: 1 Episodic Comment on above: Problem List clean-u p per request of Phys. EHR Cmte Epilepsy; convulsions (3 sources) Seizure; Translations: [Epilepsy, unspecified, intractable, without status epilepticus] 10-27-2023 Chronic Comment on above: Problem List clean-u p per request of Phys. EHR Cmte Epilepsy; convulsions (3 sources) Seizure; Translations: [Unspecified convulsions] 09-22-2018 Episodic Esophageal disorders (12 sources) Gastroesophageal reflux disease without esophagitis; Translations: [Gastro-esophageal reflux disease without esophagitis] Chronic Essential hypertension (16 sources) Essential hypertension; Translations: [Essential (primary) hypertension] Chronic Fluid and electrolyte disorders (3 sources) Dehydration; Translations: [Dehydration] 10-27-2023 Episodic Comment on above: Problem List clean-u p per request of Phys. EHR Cmte Headache; including migraine (12 sources) Migraine; Translations: [Migraine, unspecified, without mention of intractable migraine without mention of status migrainosus] Onset: 2 Chronic Headache; including migraine (19 sources) Headache; Translations: [Headache] Episodic Headache; including migraine (1 source) Headache; including migraine; Translations: [Headache, unspecified] Onset: 2 Malaise and fatigue (20 sources) Fatigue; Translations: [Other malaise and fatigue] Onset: 3 Chronic Malaise and fatigue (6 sources) Fatigue; Translations: [Other fatigue] 01-10-2024 Episodic Mood disorders (20 sources) Acute depression; Translations: [Acute depression] Chronic Mycoses (3 sources) Candidiasis of skin; Translations: [Candidiasis of skin and nail] 01-10-2024 Episodic Nonmalignant breast conditions (6 sources) Mastodynia; Translations: [Pain of left breast] 01-21-2024 Episodic Nutritional deficiencies (14 sources) Vitamin D deficiency; Translations: [Vitamin D deficiency, unspecified] 10-27-2023 Chronic Comment on above: Problem List clean-u p per request of Phys. EHR [facility] [facility] Nutritional deficiencies (12 sources) Vitamin B deficiency; Translations: [Vitamin B deficiency, unspecified] Episodic Comment on above: Problem List clean-u p per request of Phys. 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] Onset: 0 12-15-2019 Chronic Other aftercare (8 sources) Long-term current use of systemic steroid; Translations: [long term care phlebotomist (current) use of systemic steroids] Episodic Other aftercare (3 sources) On lithium; Translations: [Other group home (current) drug therapy] 09-22-2018 Episodic Other circulatory disease (8 sources) Elevated [...] [Dysphagia, oropharyngeal phase] Onset: 8 Episodic Other injuries and conditions due to external causes (3 sources) Aspiration into respiratory tract; Translations: [Unspecified foreign body in respiratory tract, part unspecified causing other injury, initial encounter] 10-27-2023 Episodic Comment on above: Problem List clean-u p per request of Phys. EHR Cmte Other lower respiratory disease (8 sources) Dyspnea [...] 0 12-28-2019 Chronic Other nervous system disorders (11 sources) Chronic pain; Translations: [Other chronic pain] 01-13-2024 Chronic Other nervous system disorders (8 sources) Mononeuropathy of lower limb; Translations: [Unspecified mononeuropathy of left lower limb] Chronic Other nervous system disorders (8 sources) Disorder of brain; Translations: [Encephalopathy, unspecified] Chronic Other nervous system disorders (3 sources) Metabolic encephalopathy; Translations: [Metabolic encephalopathy] 10-27-2023 Chronic Comment on above: Problem List clean-u p per request of Phys. EHR Cmte Other nervous system disorders (2 sources) Personal [...] mass index (BMI) 37.0-37.9, adult] Chronic Other nutritional; endocrine; and metabolic disorders (3 sources) Hypomagnesemia; Translations: [Hypomagnesemia] 10-27-2023 Chronic Comment on above: Problem List clean-u p per request of Phys. EHR Cmte Other screening for suspected conditions (not mental disorders or infectious disease) (20 sources) Blood chemistry abnormal; Translations: [Other specified abnormal findings of blood chemistry] Episodic Comment on above: Problem List clean-u p per request of Phys. EHR Cmte Other skin disorders (12 sources) Localized swelling, mass and lump, right upper limb; Translations: [Mass of right forearm] Onset: 2 Episodic Other skin disorders (1 source) Ingrowing nail Episodic Other skin disorders (3 sources) Eruption; Translations: [Rash and other nonspecific skin eruption] 03-08-2024 Episodic Other upper respiratory infections (8 sources) Bacterial sinusitis; Translations: [Chronic sinusitis, unspecified] Chronic Residual codes; unclassified (8 sources) Obstructive sleep apnea syndrome; Translations: [Obstructive sleep apnea (adult) (pediatric)] 01-13-2024 Chronic Residual codes; unclassified (5 sources) Dependence [...] state; Translations: [Menopause] Episodic Residual codes; unclassified (11 sources) Insomnia; Translations: [Insomnia, unspecified] 01-13-2024 Episodic Residual codes; unclassified (3 sources) Insomnia, unspecified Episodic Residual codes; unclassified (3 sources) Patient encounter status; Translations: [Encounter for prophylactic measures, unspecified] 10-27-2023 Episodic Comment on above: Problem List clean-u p per request of Phys. EHR Cmte Respiratory failure; insufficiency; arrest (adult) (3 sources) Respiratory failure; Translations: [Respiratory failure, unspecified, unspecified whether with hypoxia or hypercapnia] 10-27-2023 Episodic Comment on above: Problem List clean-u p per request of Phys. EHR Cmte Skin and subcutaneous tissue infections (2 sources) Cellulitis of right toe; Translations: [Bullous impetigo] Episodic Spondylosis; intervertebral disc disorders; other back problems (16 sources) Displacement of cervical intervertebral disc; Translations: [Other cervical disc displacement at C5-C6 level] Chronic Thyroid disorders (5 sources) Thyrotoxicosis, unspecified without thyrotoxic crisis or storm; Translations: [THYROTOXICOS UNS NO THYROTOX CRISIS] Onset: 2 Chronic Unclassified (3 sources) Parkinsonism; Translations: [Parkinsonism] 09-22-2018 Chronic Past or Other Problems Problem Classification [...] Test Name Value Interpretation Reference Range Facility Superficial Wound Cultureon 07-27-2024 Superficial Wound Culture RIGHT VENTRAL DISTAL FOREARM ORGANISM: Methicillin Resis Staph Aureus (O:MRSA) Quantity of Growth Heavy Growth Aerobic CASANDRA Charge (PCMIC38) SUSCEPTIBILITY ORGANISM: O:MRSA ANTIBIOTIC INTERPRETATION CASANDRA Azithromycin R >4 Ceftaroline S <0.5 Clindamycin S <0.25 Daptomycin S 1 Linezolid S 2 Oxacillin R >2 Penicillin R >2 Tetracycline S <4 Trimethoprim/Sulfamethoxa zole S <0.5 Vancomycin S 1 S = SUSCEPTIBLE I = INTERMEDIATE R = RESISTANT BLANK = DATA NOT AVAILABLE, OR DRUG NOT ADVISABLE OR TESTED R* = RESISTANCE DUE TO EXTENDED SPECTRUM BETA-LACTAMASES ESBL = EXTENDED SPECTRUM BETA-LACTAMASE TFG = THYMIDINE-DEPENDENT STRAIN UMANG = BETA-LACTAMASE POSITIVE IB = INDUCIBLE BETA-LACTAMASE. APPEARS IN PLACE OF 'S' WITH SPECIES KNOWN TO POSSESS INDUCIBLE BETA-LACTAMASES. POTENTIALLY THEY MAY BECOME RESISTANT TO ALL B-LACTAM DRUGS. PERFORMED BY: [facility] [address] [place] [address] PATHOLOGIST 3RD GR[employer] READING TEACHER NANDO MCKEON M.D. Normal [facility] Comment on above: Performed By: #### C USUP #### [facility] [address] Basophils Auto (Bld) [#/Vol] on 07-04-2024 Basophils (Bld) [#/Vol] 0.0 10 3/uL 0.0-0.1 [facility] Basophils/100 WBC Auto (Bld) on 07-04-2024 Basophils/100 WBC (Bld) 0.6 % 0.2-2.0 [facility] Eosinophils/100 WBC Auto (Bl d)on 07-04-2024 Eosinophils/100 WBC (Bld) 1.8 % 0.9-7.0 [facility] Erythrocyte distribution wid th Auto (RBC) [Ratio]on 07-04-2024 Erythrocyte distribution width (RBC) [Ratio] 13.2 % 11.0-15.0 [facility] Estimated glomerular filtrat ion rate (GFR) non- Americanon 07-04-2024 GFR/1.73 sq M.predicted among non-blacks MDRD (S/P/Bld) [Vol rate/Area] 43 mL/min/{1.73_m2} Low >=60 [facility] Hematocrit Auto (Bld) [Volum e fraction]on 07-04-2024 Hematocrit (Bld) [Volume fraction] 39.8 % 36.0-48.0 [facility] Hemoglobin [Mass/volume] in Bloodon 07-04-2024 Hemoglobin (Bld) [Mass/Vol] 13.1 g/dL 12.0-16.0 [facility] Laboratory - Chemistry and C hemistry - challengeon 07-04-2024 Calcium [Mass/Vol] 9.3 mg/dL 8.5-10.1 [facility] Chloride [Moles/Vol] 104 mmol/L 98-107 [facility] CO2 [Moles/Vol] 26.0 mmol/L 21.0-32.0 [facility] Cobalamin (Vitamin B12) [Mass/Vol] 1469.0 pg/mL High 193.0-986.0 [facility] Creatinine [Mass/Vol] 1.26 mg/dL High 0.55-1.02 [facility] Free T4 [Mass/Vol] 0.95 ng/dL 0.76-1.46 [facility] GFR/1.73 sq M.predicted MDRD (S/P/Bld) [Vol rate/Area] 52 mL/min/{1.73_m2} Low >=60 [facility] Glucose [Mass/Vol] 91 mg/dL 74-106 [facility] Potassium [Moles/Vol] 4.6 mmol/L 3.5-5.1 [facility] Sodium [Moles/Vol] 141 mmol/L 136-145 [facility] TSH Qn 0.511 m[IU]/L 0.358-3.740 [facility] Urea nitrogen [Mass/Vol] 15.0 mg/dL 7.0-18.0 [facility] Urea nitrogen/Creatinine [Mass ratio] 11.9 mg/mg [facility] Laboratory - Hematology and Cell countson 07-04-2024 Immature granulocytes/100 WBC (Bld) 0.4 % 0.0-0.5 [facility] Leukocytes [#/volume] correc cierra for nucleated erythrocytes in Blood by Automated counon 07-04-2024 WBC corrected for nucl RBC Auto (Bld) [#/Vol] 6.7 10 3/uL 4.0-11.0 [facility] Lymphocytes Auto (Bld) [#/Vo l]on 07-04-2024 Lymphocytes (Bld) [#/Vol] 2.0 10 3/uL 1.2-3.8 [facility] Lymphocytes/100 WBC Auto (Bl d)on 07-04-2024 Lymphocytes/100 WBC (Bld) 29.1 % 20.5-60.0 [facility] MCH Auto (RBC) [Entitic mass ]on 07-04-2024 MCH (RBC) [Entitic mass] 30.5 pg 26.7-34.0 [facility] MCHC Auto (RBC) [Mass/Vol]on 07-04-2024 MCHC (RBC) [Mass/Vol] 32.9 g/dL 29.9-35.2 [facility] MCV Auto (RBC) [Entitic vol] on 07-04-2024 MCV (RBC) [Entitic vol] 92.6 fL 81.0-99.0 [facility] Monocytes Auto (Bld) [#/Vol] on 07-04-2024 Monocytes (Bld) [#/Vol] 0.6 10 3/uL 0.3-0.8 [facility] Monocytes/100 WBC Auto (Bld) on 07-04-2024 Monocytes/100 WBC (Bld) 8.2 % 1.7-12.0 [facility] Neutrophils Auto (Bld) [#/Vo l]on 07-04-2024 Neutrophils (Bld) [#/Vol] 4.0 10 3/uL 1.4-6.5 [facility] Neutrophils/100 WBC Auto (Bl d)on 07-04-2024 Neutrophils/100 WBC (Bld) 59.9 % 43.0-75.0 [facility] No Panel Informationon 07-04 Eosinophils # (Auto) 0.1 10 3/uL 0.0-0.7 [facility] Folate 15.90 ng/mL 8.60-58.90 [facility] Immature Granulocyte # (Auto) 0.03 10 3/uL 0.00-0.03 [facility] Platelet mean volume Auto (B ld) [Entitic vol]on 07-04-2024 Platelet mean volume (Bld) [Entitic vol] 10.1 fL 9.5-13.5 [facility] Platelets Auto (Bld) [#/Vol] on 07-04-2024 Platelets (Bld) [#/Vol] 214 10 3/uL 150-450 [facility] RBC Auto (Bld) [#/Vol]on RBC (Bld) [#/Vol] 4.30 10 6/uL 4.20-5.40 [facility] Serum or plasma anion gap de terminationon 07-04-2024 Anion gap [Moles/Vol] 15.6 mmol/L [facility] CBC AUTO DIFFon 11-25-2022 BASO # 0.1 103/ul Normal 0.0-0.1 [facility] Comment on above: Performed By: #### C BC #### [facility] [address] [address] [address] Simone Luna Basophils/100 WBC (Bld) 0.7 % Normal 0.2-2.0 [facility] Comment on above: Performed By: #### C BC #### [facility] [address] [place] [address] Dr. Simone Luna EO # 0.1 103/ul Normal 0.0-0.7 [facility] Comment on above: Performed By: #### C BC #### [facility] [address] [place] [address] Dr. Simone Luna Eosinophils/100 WBC (Bld) 1.7 % Normal 0.9-7.0 [facility] Comment on above: Performed By: #### C BC #### [facility] [address] [place] [address] Dr. Simone Luna Erythrocyte distribution width (RBC) [Ratio] 12.8 % Normal 11.0-15.0 [facility] Comment on above: Performed By: #### C BC #### [facility] [address] [place] [address] Dr. Simone Luna Hematocrit (Bld) [Volume fraction] 43.8 % Normal 36.0-48.0 [facility] Comment on above: Performed By: #### C BC #### [facility] [address] [place] [address] Dr. Simone Luna Hemoglobin (Bld) [Mass/Vol] 14.0 g/dL Normal 12.0-16.0 [facility] Comment on above: Performed By: #### C BC #### [facility] [address] [place] [address] Dr. Simone Luna IG # 0.03 10e3/ul Normal 0.00-0.03 [facility] Comment on above: Performed By: #### C BC #### [facility] [address] [place] [address] Dr. Simone Luna IG % 0.4 % Normal 0.0-0.5 [facility] Comment on above: Performed By: #### C BC #### [facility] [address] [place] [address] Dr. Simone Luna LYMPH # 2.2 103/ul Normal 1.2-3.8 [facility] Comment on above: Performed By: #### C BC #### [facility] [address] [place] [address] Dr. Simone Luna Lymphocytes/100 WBC (Bld) 26.4 % Normal 20.5-60.0 [facility] Comment on above: Performed By: #### C BC #### [facility] [address] [place] [address] Dr. Simone Luna MANUAL DIFF REQ NO Normal [facility] Comment on above: Performed By: #### C BC #### [facility] [address] [place] [address] Dr. Simone Luna MCH (RBC) [Entitic mass] 29.5 pg Normal 26.7-34.0 [facility] Comment on above: Performed By: #### C BC #### [facility] [address] [place] [address] Dr. Simone Luna MCHC (RBC) [Mass/Vol] 32.0 g/dL Normal 29.9-35.2 [facility] Comment on above: Performed By: #### C BC #### [facility] [address] [place] [address] Dr. Simone Luna MCV (RBC) [Entitic vol] 92.4 fL Normal 81.0-99.0 [facility] Comment on above: Performed By: #### C BC #### [facility] [address] [place] [address] Dr. Simone Luna MONO # 0.7 103/ul Normal 0.3-0.8 [facility] Comment on above: Performed By: #### C BC #### [facility] [address] [place] [address] Dr. Simone Luna Monocytes/100 WBC (Bld) 8.2 % Normal 1.7-12.0 [facility] Comment on above: Performed By: #### C BC #### [facility] [address] [place] [address] Dr. Simone Luna NEUT # 5.2 103/ul Normal 1.4-6.5 [facility] Comment on above: Performed By: #### C BC #### [facility] [address] [place] [address] Dr. Simone Luna Neutrophils/100 WBC (Bld) 62.6 % Normal 43.0-75.0 [facility] Comment on above: Performed By: #### C BC #### [facility] [address] [place] [address] Dr. Simone Luna Platelet mean volume (Bld) [Entitic vol] 9.6 fL Normal 9.5-13.5 [facility] Comment on above: Performed By: #### C BC #### [facility] [address] [place] [address] Dr. Simone Luna PLT 233 103/ul Normal 150-450 [facility] Comment on above: Performed By: #### C BC #### [facility] [address] [place] [address] Dr. Simone Luna RBC 4.74 106/ul Normal 4.20-5.40 [facility] Comment on above: Performed By: #### C BC #### [facility] [address] [place] [address] Dr. Simone Luan WBC 8.3 103/ul Normal 4.0-11.0 [facility] Comment on above: Performed By: #### C BC #### [facility] [address] [place] [address] Dr. Simone Luna FREE T4on 11-25-2022 Free T4 [Mass/Vol] 1.00 ng/dL Normal 0.76-1.46 [facility] Comment on above: Performed By: #### T HYRABT #### [facility] [address] [place] [address] Dr. Simone Luna PROF CHEM 8 (BAS METB)on Anion gap [Moles/Vol] 15.2 mmol/L Normal [facility] Comment on above: Performed By: #### T SH, BMP #### [facility] [address] [place] [address] Dr. Simone Luna Calcium [Mass/Vol] 9.3 mg/dL Normal 8.5-10.1 [facility] Comment on above: Performed By: #### T SH, BMP #### [facility] [address] [place] [address] Dr. Simone Luna Chloride [Moles/Vol] 105 mmol/L Normal 98-107 [facility] Comment on above: Performed By: #### T SH, BMP #### [facility] [address] [place] [address] Dr. Simone Luna CO2 [Moles/Vol] 23.9 mmol/L Normal 21.0-32.0 [facility] Comment on above: Performed By: #### T SH, BMP #### [facility] [address] [place] [address] Dr. Simone Luna Creatinine [Mass/Vol] 1.35 mg/dL Critically high 0.55-1.02 [facility] Comment on above: Performed By: #### T SH, BMP #### [facility] [address] [place] [address] Dr. Simone Luna EGFR-AF PALAUAN 48 mL/min/1.73m2 Critically low >=60 [facility] Comment on above: Performed By: #### T SH, BMP #### [facility] [address] [place] [address] Dr. Simone Luna EGFR-NON AF PALAUAN 40 mL/min/1.73m2 Critically low >=60 [facility] Comment on above: Performed By: #### T SH, BMP #### [facility] [address] [address] [address] Simone Luna Glucose [Mass/Vol] 142 mg/dL Critically high 74-106 [facility] Comment on above: Performed By: #### T SH, BMP #### [facility] [address] [place] [address] Dr. Simone Luna Potassium [Moles/Vol] 4.1 mmol/L Normal 3.5-5.1 [facility] Comment on above: Performed By: #### T SH, BMP #### [facility] [address] [place] [address] Dr. Simone Luna Sodium [Moles/Vol] 140 mmol/L Normal 136-145 [facility] Comment on above: Performed By: #### T STEPHIE, BMP #### [facility] [address] [place] [address] Dr. Simone Luna Urea nitrogen [Mass/Vol] 25.0 mg/dL Critically high 7.0-18.0 [facility] Comment on above: Performed By: #### T STEPHIE, BMP #### [facility] [address] [place] [address] Dr. Simone Luna Urea nitrogen/Creatinine [Mass ratio] 18.5 mg/mg Normal [facility] Comment on above: Performed By: #### T SH, BMP #### [facility] [address] [place] [address] Dr. Simone Luna TSHon 11-25-2022 TSH 0.513 uIU/mL Normal 0.358-3.740 [facility] Comment on above: Performed By: #### T STEPHIE, BMP #### [facility] [address] [place] [address] Dr. Simone Luna XR KNEE LT 4V [...] TRESSA YU Date: 2022-11-25 13:18 Normal The [facility] Office Visit (Neuro - Immuno logy)on 10-12-2022 [...] will have a low threshold to start buttermaker immunosuppressive therapy if recurrence is suspected. 10/19/2018: [...] coordination of care. Bill Orona MD, PhD Supervisor [employer] of Neurology [facility] [employer] Director of Neuroimmunology and staff neurologist at the [facility] 10/12/2022 12:13 PM Patient Discussion/Summary [...] see me today. Bill Orona MD, PhD Supervisor Plate Pasting of Neurology [facility] [employer] Director of Neuroimmunology and staff neurologist at the [facility] 10/12/2022 12:02 PM Chief Complaint FUV AIE History of Present Illness Ms. 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 Disease summary: In March 2018 had cognitive decline, gait di (more content not included)... Normal [employer] Tobacco Screening.on Fall risk assessment a) No falls within the last year [facility] [employer] Work Phone: Tobacco use status [facility] b) No -[facility] [employer] Work Phone: US EXT NON VASC LIMITED [...] by: ANGELINA SERVIN Date: 2022-09-16 18:28 Normal [facility] THYROID ANTIBODIESon 022 Thyroglobulin Antibody <1.0 Normal 0.0-0.9 [facility] Comment on above: Result Comment: Thyr oglobulin Antibody measured by [employer] Methodology Performed By: #### T HYRABT #### [facility] [address] [address] [address] Simone Luna Thyroid Peroxidase (TPO) Ab <8 Normal 0-34 [facility] Comment on above: Performed By: #### T HYRABT #### [facility] [address] [address] [address] Simone Luna THYROTROPIN RECEPTOR ABon Thyrotropin Receptor Ab, Serum <1.10 Normal 0.00-1.75 [facility] Comment on above: Performed By: #### T HYRABT #### [facility] [address] [place] [address] Dr. Simone Luna FREE T3on 05-28-2022 FREE T3 2.77 pg/mlL Normal 2.18-3.98 [facility] Comment on above: Performed By: #### T HYRABT #### [facility] [address] [address] [address] Simone Luna FREE T4on 05-28-2022 Free T4 [Mass/Vol] 0.86 ng/dL Normal 0.76-1.46 [facility] Comment on above: Performed By: #### T HYRABT #### [facility] [address] [place] [address] Dr. Simone Luna TSHon 05-28-2022 TSH 0.491 uIU/mL Normal 0.358-3.740 [facility] Comment on above: Performed By: #### T HYRABT #### [facility] [address] [place] [address] Dr. Simone Luna ECHOCARDIO M/2D COMPLETEon 0 04-24-2022 ECHOCARDIO M/2D COMPLETE Patient: ALINA SON Exam Date: 04/24/2022 : 1960 Gender:F Ordering : DR BEBE DUNCAN M.D. Admission #: [id number] Family : Order #: [id number] CLICK HERE TO VIEW EXAM ECHOCARDIOGRAM REPORT [...] M.D. on 04/24/2022 at 15:04 Normal [facility] Office Visit (Neuro-General) on 04-01-2022 Follow-up visit [...] and abnormal movements. She was admitted at [facility] from 04/01 - 05/10. At her [...] on tr (more content not included)... Normal [facility] Tobacco Screening.on 022 Fall risk assessment a) No falls within the last year [facility]-Neurology- Admin [facility] Work Phone: Tobacco use status [facility] b) No [facility]-Neurology- Admin [facility] Work Phone: Falls Risk Screeningon 12-24 Fall risk assessment a) No falls within the last year [facility]Neurology- Admin [facility] Work Phone: Tobacco use status [facility] b) No [facility]-Neurology- Admin [facility] Work Phone: Office Visit (Neuro-General) on [...] Status: Hold For - Scheduling Requested for: [id number] Migraine without status migrainosus, not intractable, unspecified [...] and abnormal movements. She was admitted at [facility] from 04/01 - 05/10. At her [...] of these radiate anywhere and she denies N/V/D/SOB/CP/F/C/Diplopia /dysphagia/focal weakness/tingling/BB/LOC/ vertigo/photo or phonophobi (more content not included)... Normal [employer] BD CT CHEST ABDOMEN PELVIS W IV [...] for underlying malignancy. COMPARISON: 06/29/2019 ACCESSION NUMBER(S): [id number] ORDERING CLINICIAN: ELIJAH WILKINSON TECHNIQUE: CT of [...] the abdominal aorta. The IVC appears normal. PERITONEUM/RETROPERITONEU M/LYMPH NODES: There is no free or loculated [...] as stated. This study was interpreted at [facility], [place], [place]. Electronically signed by: HOLLY LOPEZ MD Normal [facility] COMPREHENSIVE PANELon 2020 Albumin [Mass/Vol] 3.8 g/dL Normal 3.4 - 5.0 [facility] Comment on above: Performed By: #### C MP #### [facility] [address] [place] [address] ALP [Catalytic activity/Vol] 66 U/L Normal 33 - 136 [facility] Comment on above: Performed By: #### C MP #### [facility] [address] [place] [address] ALT [Catalytic activity/Vol] 7 U/L Normal 7 - 45 [facility] Comment on above: Result Comment: Josefina ents treated with Sulfasalazine may generate falsely decreased results for ALT. Performed By: #### C MP #### [facility] [address] [place] [address] Anion gap [Moles/Vol] 15 mmol/L Normal 10 - 20 [facility] Comment on above: Performed By: #### C MP #### [facility] [address] [place] [address] AST [Catalytic activity/Vol] 15 U/L Normal 9 - 39 [facility] Comment on above: Performed By: #### C MP #### [facility] [address] [place] [address] Bilirubin [Mass/Vol] 0.6 mg/dL Normal 0.0 - 1.2 [facility] Comment on above: Performed By: #### C MP #### [facility] [address] [place] [address] Calcium [Mass/Vol] 9.7 mg/dL Normal 8.6 - 10.6 [facility] Comment on above: Performed By: #### C MP #### [facility] [address] [place] [address] Chloride [Moles/Vol] 105 mmol/L Normal 98 - 107 [facility] Comment on above: Performed By: #### C MP #### [facility] [address] [place] [address] Creatinine [Mass/Vol] 0.95 mg/dL Normal 0.50 - 1.05 [facility] Comment on above: Performed By: #### C MP #### [facility] [address] [place] [address] GFR- AM. 73 mL/min/1.73m2 Normal >60 [facility] Comment on above: Result Comment: CALC ULATIONS OF ESTIMATED GFR ARE PERFORMED USING THE MDRD STUDY EQUATION FOR THE IDMS-TRACEABLE CREATININE METHODS. CLIN CHEM 2007;53:766-72 Performed By: #### C MP #### [facility] [address] [place] [address] GFR-NON AM. 60 mL/min/1.73m2 Abnormal >60 [facility] Comment on above: Performed By: #### C MP #### [facility] [address] [place] [address] Glucose [Mass/Vol] 94 mg/dL Normal 74 - 99 [facility] Comment on above: Performed By: #### C MP #### [facility] [address] [place] [address] HCO3 (Bld) [Moles/Vol] 31 mmol/L Normal 21 - 32 [facility] Comment on above: Performed By: #### C MP #### [facility] [address] [place] [address] Potassium [Moles/Vol] 4.0 mmol/L Normal 3.5 - 5.3 [facility] Comment on above: Performed By: #### C MP #### [facility] [address] [place] [address] Protein [Mass/Vol] 5.7 g/dL Low 6.4 - 8.2 [facility] Comment on above: Performed By: #### C MP #### [facility] [address] [place] [address] Sodium [Moles/Vol] 147 mmol/L High 136 - 145 [facility] Comment on above: Performed By: #### C MP #### [facility] [address] [place] [address] Urea nitrogen [Mass/Vol] 18 mg/dL Normal 6 - 23 [facility] Comment on above: Performed By: #### C MP #### [facility] [address] [place] [address] FL MODIFIED BARIUM SWALLOW W VIDEOon 05-30-2018 [...] by:Roderick Fine MD05/30/18Edited Result - FINAL Normal [facility] Procedureon 05-30-2018 HIM IP Note OR Laser Engraver Normal [facility] No Panel Information [facility] Vital Signs Date Time Vital Sign Value Performing Clinician Facility 01-16-2025 09:32-0500 Body height 154.94 cm [facility] 01-16-2025 09:32-0500 Body mass index (BMI) [Ratio] 35.3 kg/m2 [facility] 01-16-2025 09:32-0500 Body weight 84.82 kg [facility] 01-16-2025 09:32-0500 Diastolic blood pressure 81 mm[Hg] [facility] 01-16-2025 09:32-0500 Heart rate 90 /min [facility] 01-16-2025 09:32-0500 Systolic blood pressure 115 mm[Hg] [facility] 11-09-2024 11:46-0500 Body height 154.94 cm [facility] 11-09-2024 11:46-0500 Body mass index (BMI) [Ratio] 34.9 kg/m2 [facility] 11-09-2024 11:46-0500 Body temperature 100.6 [degF] [facility] 11-09-2024 11:46-0500 Body weight 83.91 kg [facility] 11-09-2024 11:46-0500 Diastolic blood pressure 66 mm[Hg] [facility] 11-09-2024 11:46-0500 Heart rate 85 /min [facility] 11-09-2024 11:46-0500 SaO2% (BldA) [Mass fraction] 95 % [facility] 11-09-2024 11:46-0500 Systolic blood pressure 107 mm[Hg] [facility] 07-04-2024 10:04-0400 Body height 154.94 cm [facility] 07-04-2024 10:04-0400 Body mass index (BMI) [Ratio] 35.6 kg/m2 [facility] 07-04-2024 10:04-0400 Body weight 85.72 kg [facility] 07-04-2024 10:04-0400 Diastolic blood pressure 71 mm[Hg] [facility] 07-04-2024 10:04-0400 Heart rate 67 /min [facility] 07-04-2024 10:04-0400 Systolic blood pressure 120 mm[Hg] [facility] 12-27-2023 10:00-0500 Body height 154.94 cm Bebe Duncan Other [facility] Other 12-27-2023 10:00-0500 Body mass index (BMI) [Ratio] 35.75 kg/m2 Bebe Duncan Other [facility] Other 12-27-2023 10:00-0500 Body weight 85.82 kg Bebe Duncan Other [facility] Other 12-27-2023 10:00-0500 Diastolic blood pressure 78 mm[Hg] Bebe Duncan Other [facility] Other 12-27-2023 10:00-0500 Systolic blood pressure 126 mm[Hg] Bebe Duncan Other [facility] Other 12-14-2023 10:15-0500 Body height 154.94 cm Bebe Duncan Other [facility] Other 12-14-2023 10:15-0500 Body mass index (BMI) [Ratio] 35.71 kg/m2 Bebe Duncan Other [facility] Other 12-14-2023 10:15-0500 Body weight 85.73 kg Bebe Duncan Other [facility] Other 12-14-2023 10:15-0500 Diastolic blood pressure 77 mm[Hg] Bebe Duncan Other [facility] Other 12-14-2023 10:15-0500 Systolic blood pressure 125 mm[Hg] Bebe Duncan Other [facility] Other 07-27-2023 10:00-0400 Body height 154.94 cm Bebe Duncan Other [facility] Other 07-27-2023 10:00-0400 Body mass index (BMI) [Ratio] 36.2 kg/m2 Bebe Duncan Other [facility] Other 07-27-2023 10:00-0400 Body weight 86.91 kg Bebe Duncan Other [facility] Other 07-27-2023 10:00-0400 Diastolic blood pressure 74 mm[Hg] Bebe Duncan Other [facility] Other 07-27-2023 10:00-0400 Respiratory rate 12 /min Bebe Duncan Other [facility] Other 07-27-2023 10:00-0400 Systolic blood pressure 119 mm[Hg] Bebe Duncan Other [facility] Other 03-25-2023 09:30-0400 Body height 154.94 cm Bebe Duncan Other [facility] Other 03-25-2023 09:30-0400 Body mass index (BMI) [Ratio] 36.27 kg/m2 Bebe Duncan Other [facility] Other 03-25-2023 09:30-0400 Body weight 87.09 kg Bebe Duncna Other [facility] Other 03-25-2023 09:30-0400 Diastolic blood pressure 62 mm[Hg] Bebe Duncan Other [facility] Other 03-25-2023 09:30-0400 SaO2% (BldA) [Mass fraction] 97 % Bebe Duncan Other [facility] Other 03-25-2023 09:30-0400 Systolic blood pressure 124 mm[Hg] Bebe Duncan Other [facility] Other 11-25-2022 12:30-0500 Body height 154.94 cm Bebe Duncan Other [facility] Other 11-25-2022 12:30-0500 Body mass index (BMI) [Ratio] 35.71 kg/m2 Bebe Duncan Other [facility] Other 11-25-2022 12:30-0500 Body weight 85.73 kg Bebe Duncan Other [facility] Other 11-25-2022 12:30-0500 Diastolic blood pressure 86 mm[Hg] Bebe Duncan Other [facility] Other 11-25-2022 12:30-0500 SaO2% (BldA) [Mass fraction] 97 % Bebe Duncan Other [facility] Other 11-25-2022 12:30-0500 Systolic blood pressure 128 mm[Hg] Bebe Duncan Other [facility] Other 10-12-2022 11:16-0500 Body height 154.94 cm No PCP None HL-Hxascuzvc-NSN [facility] Work Phone: 10-12-2022 11:16-0500 Body mass index (BMI) [Ratio] 36.09 kg/m2 No PCP None QA-Xknhsdkaa-JUPLR [facility] Work Phone: 10-12-2022 11:16-0500 Body surface area Derived from formula 1.85 m2 No PCP None BN-Jlxgiajzy-QDXZF [facility] Work Phone: 10-12-2022 11:16-0500 Body weight 86.64 kg No PCP None FH-Mrsqrrkup-IMW [facility] Work Phone: 10-12-2022 11:16-0500 Diastolic blood pressure 71 mm[Hg] No PCP None JP-Qaqddammj-AGYLL [facility] Work Phone: 10-12-2022 11:16-0500 Heart rate 76 /min No PCP None QI-Jgqmxoqmd-KWZ [facility] Work Phone: 10-12-2022 11:16-0500 Respiratory rate 18 /min No PCP None PA-Bdlfyqpbg-FH [facility] Work Phone: 10-12-2022 11:16-0500 Systolic blood pressure 135 mm[Hg] No PCP None YN-Ndwngasho-HCQDR [facility] Work Phone: 10-12-2022 11:16-0500 0 1 No PCP None PI-Neglfsqgn-VCR [facility] Work Phone: Comment on above: [facility] 04-01-2022 13:42-0400 Body height 154.94 cm No PCP None SS-Dnuueublk-Zhd in [facility] Work Phone: 04-01-2022 13:42-0400 Body mass index (BMI) [Ratio] 36.85 kg/m2 No PCP None BV-Tlosewgum-Pqfpr [facility] Work Phone: 04-01-2022 13:42-0400 Body surface area Derived from formula 1.87 m2 No PCP None YB-Fpcrfnnhh-Minus [facility] Work Phone: 04-01-2022 13:42-0400 Body weight 88.45 kg No PCP None CI-Ebsdvewiy-Tgl in [facility] Work Phone: 04-01-2022 13:42-0400 Diastolic blood pressure 76 mm[Hg] No PCP None EL-Rwqfuapcd-Dfxuy [facility] Work Phone: 04-01-2022 13:42-0400 Heart rate 73 /min No PCP None IO-Onpjgcuwv-Ezm in [facility] Work Phone: 04-01-2022 13:42-0400 Respiratory rate 18 /min No PCP None YY-Mmharytje-Od min [facility] Work Phone: 04-01-2022 13:42-0400 Systolic blood pressure 147 mm[Hg] No PCP None YQ-Ifgbizptn-Wsuft [facility] Work Phone: 04-01-2022 13:42-0400 4 1 No PCP None HF-Dzyiwvxog-Ovl in [facility] Work Phone: Comment on above: [employer] 12-24-2021 13:33-0500 Body height 154.94 cm No PCP None JD-Nntsegyon-Slc in [facility] Work Phone: 12-24-2021 13:33-0500 Body mass index (BMI) [Ratio] 37.6 kg/m2 No PCP None AR-Vyvtnanmm-Yuxtd [facility] Work Phone: 12-24-2021 13:33-0500 Body surface area Derived from formula 1.89 m2 No PCP None HJ-Sjoahrsxq-Hvyxv [facility] Work Phone: 12-24-2021 13:33-0500 Body weight 90.27 kg No PCP None YP-Bznrtuygy-Iqz in [facility] Work Phone: 12-24-2021 13:33-0500 Diastolic blood pressure 74 mm[Hg] No PCP None YP-Lpxqtdiid-Dwxye [facility] Work Phone: 12-24-2021 13:33-0500 Heart rate 83 /min No PCP None RT-Wnjsqkucy-Spi in [facility] Work Phone: 12-24-2021 13:33-0500 Respiratory rate 18 /min No PCP None VT-Iisiqqoln-Qo min [facility] Work Phone: 12-24-2021 13:33-0500 Systolic blood pressure 149 mm[Hg] No PCP None CY-Ildioqxbp-Okjnt [facility] Work Phone: 10-01-2021 14:11-0500 Body height 154.94 cm No PCP None ZY-Zpxspcjdr-Obq in [facility] Work Phone: 10-01-2021 14:11-0500 Body mass index (BMI) [Ratio] 36.09 kg/m2 No PCP None TG-Rzewswyay-Lwuzq [facility] Work Phone: 10-01-2021 14:11-0500 Body surface area Derived from formula 1.85 m2 No PCP None GG-Ypeugvczx-Vnixx [facility] Work Phone: 10-01-2021 14:11-0500 Body weight 86.64 kg No PCP None GT-Vaonnfjbi-Ury in [facility] Work Phone: 10-01-2021 14:11-0500 Diastolic blood pressure 78 mm[Hg] No PCP None HN-Pzuojzdqy-Pvjeb [facility] Work Phone: 10-01-2021 14:11-0500 Heart rate 80 /min No PCP None PW-Sqroewzwq-Ehn in [facility] Work Phone: 10-01-2021 14:11-0500 Respiratory rate 16 /min No PCP None QF-Krcmbzfud-Qd min [facility] Work Phone: 10-01-2021 14:11-0500 Systolic blood pressure 136 mm[Hg] No PCP None FN-Ombkznqgy-Gbwct [facility] Work Phone: 05-28-2021 13:57-0400 Body height 154.94 cm No PCP None HF-Iwkyikqzo-Hfp in [facility] Work Phone: 05-28-2021 13:57-0400 Body mass index (BMI) [Ratio] 36.09 kg/m2 No PCP None FK-Gqbbxwlgn-Elzzj [facility] Work Phone: 05-28-2021 13:57-0400 Body surface area Derived from formula 1.85 m2 No PCP None MH-Hrpsurlmf-Orlzp [facility] Work Phone: 05-28-2021 13:57-0400 Body weight 86.64 kg No PCP None JT-Ltejnijly-Rka in [facility] Work Phone: 05-28-2021 13:57-0400 Diastolic blood pressure 85 mm[Hg] No PCP None WM-Qinceciso-Dudpi [facility] Work Phone: 05-28-2021 13:57-0400 Heart rate 94 /min No PCP None IX-Btczokocz-Tnf in [facility] Work Phone: 05-28-2021 13:57-0400 Respiratory rate 16 /min No PCP None IB-Yqhgaihxh-Tn min [facility] Work Phone: 05-28-2021 13:57-0400 Systolic blood pressure 145 mm[Hg] No PCP None RL-Dqourrncn-Awcvm [facility] Work Phone: Encounters Encounter Date Encounter Type Care Provider Facility Start: 01-16-2025 End: 01-16-2025 ambulatory [facility] Work Phone: Start: 01-16-2025 End: 01-16-2025 Patient encounter procedure [facility] Work Phone: Start: 11-09-2024 End: 11-09-2024 Patient encounter procedure [facility] Work Phone: Start: 07-27-2024 End: 07-27-2024 ambulatory Ricardo Deng [facility] Work Phone: Start: 07-27-2024 End: 07-27-2024 Departed Referred MD Ricardo Deng Work Phone: [facility] [place] Work Phone: Start: 07-04-2024 End: 07-04-2024 ambulatory [facility] Work Phone: Start: 07-04-2024 End: 07-04-2024 Patient encounter procedure [facility] Work Phone: Start: 04-05-2024 End: 04-05-2024 ambulatory AMALIA JORGENSEN Facility:[facility] Start: 04-05-2024 End: 04-05-2024 Patient encounter procedure Amalia Jorgensen OD Work Phone: Ophthalmology Comment on above: Pseudophakia, both e yes (Primary Dx); Insufficiency of tear film of both eyes; PVD (posterior vitreous detachment), bilateral; Dermatochalasis of both upper eyelids; Myopia with astigmatism and presbyopia, bilateral Start: 12-27-2023 End: 12-27-2023 ambulatory Bebe Duncan Other [facility] Other Start: 12-27-2023 Office outpatient vi sit 15 minutes Bebe Duncan [facility] Start: 12-20-2023 End: 12-20-2023 ambulatory Bebe Duncan Other [facility] Other Start: 12-20-2023 Telephone encounter Bebe Duncan [facility] Start: 12-14-2023 End: 12-14-2023 ambulatory Bebe Duncan Other [facility] Other Start: 12-14-2023 Office outpatient vi sit 15 minutes Bebe Duncan [facility] Start: 07-27-2023 End: 07-27-2023 ambulatory Bebe Duncan Other [facility] Other Start: 07-27-2023 Office outpatient vi sit 25 minutes Bebe Duncan [facility] Start: 04-06-[address] BEBE DUNCAN Facil ity:[facility] Start: 03-25-2023 End: 03-25-2023 ambulatory Bebe Duncan Other [facility] Other Start: 03-25-2023 Office outpatient vi sit 25 minutes Bebe Duncan [facility] Start: 12-15-2022 End: 12-15-2022 ambulatory Bebe Duncan Other [facility] Other Start: 12-15-2022 Telephone encounter Bebe Duncan [facility] Start: 12-01-2022 End: 12-01-2022 ambulatory Bebe Duncan Other [facility] Other Start: 12-01-2022 Telephone encounter Bebe Duncan [facility] Start: 11-25-2022 End: 11-26-[address] BEBE DUNCAN [facility] [employer] Other Start: 11-25-2022 Office outpatient vi sit 25 minutes Bebe Duncan [facility] Start: 11-23-2022 Annual wellness visit Bebe lazar Other [facility] Other Start: 10-12-2022 Office outpatient vi sit 15 minutes No PCP None VP-Ycoaqmjxt-DDLNF [facility] Work Phone: Start: 10-12-2022 ambulatory Billcintia Orona Facility: [facility] Start: 10-05-2022 ambulatory Bill [place] Facility: [facility] Start: 09-16-2022 End: 09-17-[address] BEBE DUNCAN Facility:[facility] Start: 05-28-2022 End: 05-29-2022 ambulatory CORNEL MORALES Facility: Start: 05-20-2022 AUDIT No PCP None MG-Neurolo gy-Admin [facility] Work Phone: Start: 05-11-2022 End: 05-12-[address] BEBE DUNCAN Facility:[facility] Start: 04-24-2022 End: 04-25-[address] BEBE DUNCAN Facility: Start: 04-01-2022 Office consultation new/estab patient 60 min No PCP None RB-Euhvuneza-PZHWN [facility] Work Phone: Start: 04-01-2022 Patient encounter procedure No PCP None OI-Xvlzdmtzg-Wcbpm [facility] Work Phone: Start: 04-01-2022 ambulatory PCP UNKNOWN Facility:[facility] Start: 02-19-2022 End: 02-19-2022 Patient encounter procedure Osiris Dorado MD Work Phone: Ophthalmology Comment on above: PCO (posterior capsu lar opacification), bilateral (Primary Dx); Pseudophakia, both eyes; Chalazion of right lower eyelid; Insufficiency of tear film of both eyes; PVD (posterior vitreous detachment), bilateral; Myopia with astigmatism and presbyopia, bilateral Start: 12-24-2021 Office outpatient vi sit 25 minutes No PCP None OY-Rcnzsexem-Ydqmz [facility] Work Phone: Start: 12-24-2021 ambulatory PCP UNKNOWN Facility:[facility] Start: 11-12-2021 ambulatory Bill Adwoa Facility: [facility] Start: 10-01-2021 Office outpatient vi sit 25 minutes No PCP None BU-Vzwclnwbd-ISUMS [facility] Work Phone: Start: 10-01-2021 Patient encounter procedure No PCP None AE-Vstqujkhe-Fqcbv [facility] Work Phone: Start: 05-28-2021 Office outpatient vi sit 25 minutes No PCP None ZX-Pffphisfs-Hnqea [facility] Work Phone: Start: 05-23-2021 Chart Update No PCP None MG-Neurolo gy-[facility] Work Phone: Start: 04-24-2021 AUDIT No PCP None MG-Neurolo gy-[facility] Work Phone: Start: 05-01-2020 Patient encounter procedure Gavino Roman RC-Mkqubikcf-Jpewe [facility] Work Phone: Start: 03-06-2020 Patient encounter procedure Gavino Roman LM-Fniajjjts-Ujipb [facility] Work Phone: Start: 08-23-2019 Patient encounter procedure Gavino Roman YT-Zwrrhkirn-Hvufu [facility] Work Phone: Start: 06-28-2019 Patient encounter procedure Gavino Roman TA-Uamgonlcy-Pjgob [facility] Work Phone: Start: 05-03-2019 Patient encounter procedure Gavino Roman CK-Qytxleiqb-Jhswu [facility] Work Phone: Start: 01-25-2019 Patient encounter procedure Gavino Roman OR-Tcxfgcqyx-Hgyrg [facility] Work Phone: Start: 05-30-2018 End: 06-02-2018 Patient encounter [facility] Procedures Date Procedure Procedure Detail Performing Clinician Start: 12-15-2019 Adult depression scr eening assessment Osiris Clemente MD Work Phone: Start: 05-30-2018 Swallowing funcj w/cineradiograpy/vidradiog [facility] Screening mammography Bebe Duncan Other Plan of Treatment Date Care Activity Detail Author Start: 04-11-2025 End: 04-11-2025 Patient encounter procedure 04/11/2025 10:15 AM EDT Office Visit [facility] [address] [place], [place] [id number] RigobertoAmalia nolen Gael, OD [address] [place], [place] [id number] 1 year full exam Ophthalmology Comment on above: 1 year full exam Start: 11-06-2024 Diabetes Screening Diabetes Screenin g [facility] Start: 07-27-2024 Superficial Wound Culture Superficial Wound Culture [facility] Start: 11-15-2023 Behavioral Health Screening Behavioral Health Screening [facility] Start: 12-15-2022 DIABETES SCREEN DIABETES SCREEN [facility] Start: 07-16-2022 Influenza vaccination INFLUENZ A (Season Ended) [facility] Start: 04-01-2022 FUVPRE, Provider: Elijah Wilkinson, Status: Pen, Time: 2:00 PM FUVPRE, Provider: Elijah Wilkinson, Status: Pen, Time: 2:00 PM EQ-Ygkxltgtr-Zsafl [facility] Work Phone: Start: 12-24-2021 FUVPRE, Provider: Elijah Wilkinson, Status: Pen, Time: 2:00 PM FUVPRE, Provider: Elijah Wilkinson, Status: Pen, Time: 2:00 PM HS-Fucqzdnww-Gwswx [facility] Work Phone: Start: 12-15-2020 Adult depression screening assessment DEPRESSION SCREENING [facility] Start: 2019 RSV Vaccine (1 - 1-dose 60+ series) RSV Vaccine (1 - 1-dose 60+ series) [facility] Start: 2009 SHINGRIX VACCINE (1 of 2) SHINGRIX VACCINE (1 of 2) [facility] Start: 2004 COLOGUARD (FIT-DNA) COLOGUARD (FIT-D NA) [facility] Start: 2004 Colonoscopy COLONOSCOPY [facility] Start: 2004 COLORECTAL CANCER SCREENING COLORECTAL CANCER SCREENING [facility] Start: [address] COLONOGRAPHY [facility] Start: 2004 FECAL OCCULT BLOOD FECAL OCCULT BLOO D [facility] Start: 2004 Lipid panel Lipid Screening [facility] Start: 2004 LIPID SCREEN LIPID SCREEN [facility] Start: 2004 Screening for malignant neoplasm of colon [facility] Start: 2004 SIGMOIDOSCOPY SIGMOIDOSCOPY [facility] Start: 1999 Mammography MAMMOGRAM [facility] Start: 1999 Screening for malignant neoplasm of breast Mammogram Screening [facility] Start: 1989 HPV TESTING HPV TESTING [facility] Start: 1989 Screening for malignant neoplasm of cervix HPV Testing [facility] Start: 1980 PAP TESTING PAP TESTING [facility] Start: 1980 Screening for malignant neoplasm of cervix Pap Testing [facility] Start: 1978 Urine microalbumin profile [facility] Start: 1977 HIV SCREENING HIV SCREENING [facility] Start: 1977 HIV screening HIV Screening [facility] Start: 1964 COVID-19 VACCINE (1) COVID-19 VACCIN E (1) [facility] Bacteria identified in Unspecified specimen by Aerobe culture [facility] MG Breast - bilatera l Screening [facility] OG-Eptcitmfg-Hm min [facility] Work Phone: [facility] NEGATED: Highlighted row has been ruled out! Planned Goals not documented JB-Hqmmxqsoj-Qjqmv [facility] Work Phone: Immunizations Immunization Date Immunization Notes Care Provider Fa cility 09-16-2022 COVID-19 Pfizer (Pediatric) Bebe Duncan Other [facility] 04-02-2022 COVID-19 Vaccine Pfi zer - Documentation Purposes Only Bebe Duncan Other [facility] 12-26-2021 influenza virus vaccine, split virus (incl. purified surface antigen) Bebe Duncan Other [facility] Other 12-26-2021 influenza virus vaccine, unspecified formulation [facility] 10-16-2021 COVID-19 Vaccine Pfi zer - Documentation Purposes Only Bebe Duncan Other [facility] 07-30-2020 influenza virus vaccine, split virus (incl. purified surface antigen) Bebe Duncan Other [facility] Other 07-30-2020 influenza virus vaccine, unspecified formulation [facility] Payers Date Payer Category Payer Medicaid [employer] MEDICAID AN[employer] [employer] [place] [id number] 2022-Present [phone] [address] [place] [address] Medicaid [id number] 2022 Unknown [id number] 2021 Medicaid [employer] [id number] 2021-Present [phone] [address] [place] [address] Medicaid [id number] 2014 Unknown [id number] 1959 Unknown [id number] 1959 Unknown [id number] 1959 Unknown [id number] 1959 Unknown [id number] 1959 Unknown [id number] 1959 Unknown [id number] 1959 Unknown [id number] 1959 Unknown [id number] 1959 Unknown [id number] 1959 Unknown [id number] 1960 Unknown [id number] 1960 Unknown [id number] 1960 Unknown [id number] Medicare Medicare [id number] Self-pay Self Pay [id number] Unknown Social History Date Type Detail Facility Assertion Tobacco smoking consumption unknown (finding) SL-Gorxhzkdq-Lpuzr [facility] Work Phone: Start: 12-15-2019 End: 01-21-2024 Tobacco smoking status NHIS Never smoked tobacco [facility] Start: 12-15-2019 End: 04-05-2024 Tobacco use and exposure Smokeless tobacco non-user [facility] Start: 1960 Sex Assigned At Not on file [facility] Start: 02-19-2022 End: 04-05-2024 Sex Assigned At [facility] Start: 02-19-2022 End: 04-05-2024 History of Social function [facility] Adult Depression Screening Assessment 0 [facility] Start: 1960 Sex Assigned At Female F [facility] Start: 01-16-2025 Sex Female (finding) [facility] Medical Equipment Procedure Code Equipment Code Equipment Original Text Equipment Identifier Dates Phacoemulsification of cataract with intraocular lens implantation LENS ACRYSOF IOL [id number] FDA Start: 12-30-2017 Phacoemulsification of cataract with intraocular lens implantation LENS ACRYSOF IOL [id number] FDA Start: 01-27-2018 Phacoemulsification of cataract with intraocular lens implantation LENS ACRYSOF IOL [id number] FDA Start: 12-30-2017 Phacoemulsification of cataract with intraocular lens implantation LENS ACRYSOF IOL [id number] FDA Start: 01-27-2018 Phacoemulsification of cataract with intraocular lens implantation LENS ACRYSOF IOL [id number] FDA Start: 12-30-2017 Phacoemulsification of cataract with intraocular lens implantation LENS ACRYSOF IOL [id number] FDA Start: 01-27-2018 Functional Status Date Assessment Result Facility NEGATED: Highlighted row Functional performance Functional status health issues are not documented Disease NE-Nschljviq-Cfxat [facility] Work Phone: Mental Status Date Assessment Result Facility NEGATED: Highlighted row Cognitive function [Interpretation] Cognitive status health issues are not documented Disease YY-Hmquhvhxd-Ycght [facility] Work Phone: Clinical Notes 03-15-2018 to 11-09-2024 Note Date & Type Note Facility 11-09-2024 Evaluation note Diagnosis Onset Date Resolution Bronchitis acute November 09, 2024 11:43am Screening mammogram for breast cancer acute January 16 9:29am [facility] Work Phone: 1(361) 355-268805-22-2024 NoteHNO ID: [id number] Author: AMALIA JORGENSEN OD Service: ? Author Type: TRAVELIFT OPERATOR Type: Progress Notes Filed: 04/05/2024 10:02 Note [...] Rx change, NC optional update. Amalia Jorgensen, OD I have confirmed and [...] with all of its relevant components. Amalia Jorgensen, JAGDISH April 05, 2024 10:00 [facility]05-22-2024 Instructions* Patient Instructions* Amalia Jorgensen OD - 04/05/2024 10:14 AM EDT Refresh Tears Refresh Relieva Systane Balance Systane Complete Thera Tears Genteal [facility] History of Present illness Narrative* Amalia Jorgensen OD - 04/05/2024 10:00 AM EDT ASSESSMENT/PLAN: 1. Pseudophakia, both eyes - ICD9: [...] 05, 2024 10:00 AM [facility] Evaluation note* Encounter Date Diagnosis Assessment Notes Treatment Notes Treatment Clinical Notes Dec, Insomnia (ICD-10 - G47.00) Pt [...] symptoms. Any developing patterns. Stay well hydrated. [facility] Other 01-30-2024 Evaluation note* Encounter Date Diagnosis Assessment Notes Treatment Notes Treatment Clinical Notes Nov, Bullous impetigo (ICD-10 - L01.03) Take antibiotic as directed. If develop wheezing, chest tightness, itching, bad cough, blue skin color, seizures, swelling of face, lips, tongue, or throat report to ED. Nov, Other staphylococcus as the cause of diseases classified elsewhere (ICD-10 - B95.7) [facility] Other 09-12-2023 Evaluation note* Encounter Date Diagnosis [...] mammogram for breast cancer (ICD-10 - Z12.31) [facility] Other 05-11-2023 Evaluation note* Encounter Date Diagnosis [...] enabling machines and devices (ICD-10 - Z99.89) [facility] Other 01-11-2023 Evaluation note* Encounter Date Diagnosis [...] first and consider med changes after that. [facility] Other 07-14-2022 NotePROCEDURE: XR FOOT LT MIN [...] Electronically authenticated by: ANGELINA SERVIN Date: 2022-05-28 18:49[facility]07-14-2022 NotePROCEDURE: XR FOOT LT MIN 3 VIEWS, [...] Electronically authenticated by: ANGELINA SERVIN Date: 2022-05-28 18:49[facility]06-28-2022 NotePROCEDURE: XR FOOT LT MIN 3 VIEWS COMPARISON: None. HISTORY: Pain in left foot FINDINGS: BONES:No acute fracture or dislocation. Mild enthesopathic spurring of the calcaneus. SOFT TISSUES:Negative. No visible soft tissue swelling. EFFUSION:None visible. OTHER: Negative. IMPRESSION: No acute abnormality Electronically authenticated by: ANGELINA SERVIN Date: 2022-05-12 07:14[facility]04-07-2022 Instructions* Patient Instructions* Osiris Dorado V, MD [...] so we recommend you come with a special education bus driver. You will then be scheduled for a follow up in approximately one week. If you notice any of the following symptoms of retinal detachment, please call our office at : - Flashes of light - Increased number of floaters or large floaters - Curtains, veils, or spider web pattern over vision documented [place] encounterJohn [place] [address]491-07-2022 History of Present illness Narrative* Osiris Dorado [...] patient was offered a surgery/procedure at a [facility] facility. The surgeon/proceduralist and patient have discussed [...] form. -F/U [address] Carballo ([facility]) 2. Posterior chamber intraocular lens Both [...] 367.4, ICD10: H52.13, H52.203, H52.4 Amalia Jorgensen, JAGDISH I have confirmed and [...] 19, 2022 2:49 PM documented in this encounterK[facility]02-[facility]21 History of Present illness Narrative* Ms. Son [...] seizures, and abnormal movements.She was admitted at [facility] from 04/01 - 05/10. At her [...] 360 mg daily for migraines with improvement. DC-Nyowndzji-Jxopz [facility] Work Phone: 1(492) 396-440605-01-2018 History of Present illness Narrative* Ms. 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 * Disease summary: * In March 2018 had cognitive decline, gait disturbance, subclinical seizures, and abnormal movements.She was admitted at [facility] from 04/01 - 05/10. At her [...] - sinnemet 25-100 TID * - Citalopram DU-Bpfajsutb-Xrbtu [facility] Work Phone: [phone]) 899-991605-01-2018 History of Present illness Narrative* Ms. 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 * Disease summary: * In March 2018 had cognitive decline, gait disturbance, subclinical seizures, and abnormal movements.She was admitted at [facility] from 04/01 - 05/10. At her [...] - sinnemet 25-100 TID * - Citalopram IL-Yyajbuegf-SOLEG [facility] Work Phone: 1([phone]) 185-196605-01-2018 History of Present illness Narrative* Ms. 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 * Disease summary: * In March 2018 had cognitive decline, gait disturbance, subclinical seizures, and abnormal movements.She was admitted at [facility] from 04/01 - 05/10. At her [...] - sinnemet 25-100 TID * - Citalopram FY-Tgdjkpmdi-Xlmaa [facility] Work Phone: [phone]) 329-749205-01-2018 History of Present illness Narrative* Ms. 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 * Disease summary: * In March 2018 had cognitive decline, gait disturbance, subclinical seizures, and abnormal movements.She was admitted at [facility] from 04/01 - 05/10. At her [...] machine prior to her initial presentation with CHIQUI but it was not followed through after [...] - sinnemet 25-100 TID * - Citalopram MB-Bipxfbfsx-Qhpno [facility] Work Phone: 1(230) 541-994205-01-2018 History of Present illness Narrative* Ms. 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 * Disease summary: * In March 2018 had cognitive decline, gait disturbance, subclinical seizures, and abnormal movements.She was admitted at [facility] from 04/01 - 05/10. At her [...] - sinnemet 25-100 TID * - Citalopram DR-Frqhaqzpx-XTPGF [facility] Work Phone: 1([phone]) 868-896205-01-2018 History of Present illness Narrative* Ms. 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 * Disease summary: * In March 2018 had cognitive decline, gait disturbance, subclinical seizures, and abnormal movements.She was admitted at [facility] from 04/01 - 05/10. At her [...] only. she'll continue verapamil for MEANS ppx. FW-Wbuhrnlsi-PVOBG [facility] Work Phone: Evaluation note* Diagnosis PCO (posterior capsular opacification), bilateral- Primary After-cataract, unspecified Pseudophakia, both eyes Lens replaced by other means Chalazion of right lower eyelid Chalazion Insufficiency of tear film of both eyes PVD (posterior vitreous detachment), bilateral Myopia with astigmatism and presbyopia, bilateral [facility] this encounter [facility] Add2paperNoPokitDok Other Evaluation note* Diagnosis Pseudophakia, both eyes- Primary Lens replaced by other means Insufficiency of tear film of both eyes PVD (posterior vitreous detachment), bilateral Dermatochalasis of both upper eyelids Myopia with astigmatism and presbyopia, bilateral documented in this encounter [facility]* Diagnosis Onset Date Resolution Status Abnormal TSH acute Essential (primary) hypertension acute Fatigue acute [facility] Work Phone: History general Narrative - Reported* Type Description [...] History lithotripsy Surgical History tube in kidney [facility] Other History general Narrative - Reported* Type [...] in kidney Hospitalization History see surgical hx [facility] Other Summary Purpose Family History Mother Name [...] No pertinent family history: Mother(V49.89, Z78.9) Status:Active Relationship Condition Age at Onset Recorded Date/T leslie father Hypertension Unknown mother Heart disease Unknown Diabetes mellitus Unknown son Multiple sclerosis Unknown Advance Directives Advance Directive Response Recorded Date/ Time Advance Directives No December 23, 2017 9:47am Advance Directive Response Recorded Date/ Time Advance Directives No December 23, 2017 8:47am Chief Complaint FUV AIE and HAFUV AIEFUV [...] a Fluress shortage, administer 1 drop of Medanales-Fluor into both eyes as directed for applanation [...] 1 Drop Reason for Referral Reason 12/01/22 [place] foot/ankle with Kasey Wright TOOTH CUTTER Diagnosis 1 Ingrowing nail (L60. 0) Referral Organization [facility] Jovanny back Referring Provider First Name Bebe Referring Provider Last Name Rodríguez Referring Provider Specialty [facility] Referred Organization [facility] Referred Provider ASHISH WRIGHT Referred Address [address] [place], [place],[address] Referred Provider Specialty Podiatry - S urgical [...] referral at this time. Clinical Notes P: [id number] F: [id number] Chief Complaint and Reason for Visit Chief Complaint 6 MONTH CHECK UP Reason for Visit Abnormal TSH Essential (primary) hypertension Fatigue Chief Complaint Admit Date sore throat, headache, sinus congestion November 09, 2024 11:43am 6 month f/u January 16, 2025 9:29 am Reason for Visit Admit Date [facility] November 09, 2024 11:43am Screening mammogram for breast cancer [facility] 2024 9:29am Additional Source Comments INFORMATION SOURCE (unrecogn ized section and content) DATE CREATED AUTHOR 06/03/2018 [facility] DATE CREATED AUTHOR AUTHOR'S ORGANIZ ATION 10/13/2022 [facility] DATE CREATED AUTHOR AUTHOR'S ORGANIZ ATION 10/14/2022 [facility] DATE CREATED AUTHOR AUTHOR'S ORGANIZ ATION 03/31/2023 [facility] DATE CREATED AUTHOR AUTHOR'S ORGANIZ ATION 04/07/2024 [facility] DATE CREATED AUTHOR AUTHOR'S ORGANIZ ATION 07/30/2024 [facility] Source Comments (unrecognize d section and content) In the event this informatio n is protected by the Federal Confidentiality of Alcohol and Drug Abuse Patient Records regulations: The Federal rules restrict any use of the information to criminally investigate or prosecute any alcohol or drug abuse patient.[facility] the event this information is protected by the Federal Confidentiality of Alcohol and Drug Abuse Patient Records regulations: The Federal rules restrict any use of the information to criminally investigate or prosecute any alcohol or drug abuse patient.[facility] Reason for Visit (unrecogniz ed section and content) Reason Comments Posterior Capsule Opacification Evaluati on Reason Comments Yearly Exam Care Teams (unrecognized sec tion and content) Felled Seam Operator Relationship Specialty Start Date End Date Bebe Duncan MD [address] [place] [address] PCP - General Family Practice 12/15/19 Felled Seam Operator Relationship Specialty Start Date End Date Bebe Duncan MD [address] [place] [address] PCP - General Family Medicine 12/15/19 Team Status: Active Member Role Status Dates PHYSICIAN NO FAMILY Primary Care Provider Active Team Status: Inactive Member Role Status Dates PHYSICIAN NO FAMILY Primary Care Provider Active Start: July 04, 2024 End: July 04, 2024 Bebe Duncan MD Attending Provider Active St art: July 04, 2024 End: July 04, 2024 Team Status: Inactive Member Role Status Dates Ricardo Deng MD Attending Provider Active Start: July 27, 2024 End: July 27, 2024 Team Status: Active Member Role Status Dates Bebe Duncan MD Primary Care Provider Active Team Status: Inactive Member Role Status Dates Bebe Duncan MD Primary Care Provide r, Attending Provider Active Start: November 09, 2024 End: November 09, 2024 Team Status: Inactive Member Role Status Dates Bebe Duncan MD Primary Care Provide r, Attending Provider Active Start: January 16, 2025 End: January 16, 2025 Goals (unrecognized section and content) Goals may be documented in a n alternate section FOR RECORDS PERTAINING TO PATIENTS WHO ARE [...] BE BASED ON THE PRIMARY CLINICAL RECORDS. [facility] [employer] [facility]. provides no warranty or guarantee of the accuracy or completeness of information in this document.
== END 2025-01-18 10:45 | disposition home or self-care (01) ==
LOC: MAMMO 10:46
PROVIDERS: PCP Family Medicine; Visit Provider Family Medicine
DX: Z12.31 Encounter for screening mammogram for malignant neoplasm of breast (principal); Z80.3 Family history of malignant neoplasm of breast; Z80.41 Family history of malignant neoplasm of ovary; Z80.8 Family history of malignant neoplasm of other organs or systems
CPT/HCPCS: 77063; 77067

== ENCOUNTER 2025-08-17 09:02 | Outpatient (OUT) | payer MEDICARE, SELFPAY ==
--- OUTSIDE RECORDS SUMMARY | 2025-08-17 09:12 | XMS_ITS | Clinical Summary ---
Author Organization [facility] Address [address] [place] [address] Phone Care Team Providers Care Cost Controller Name Role Phone Unavailable Primary Care Provider Unavailabl e Medications verapamil ER (Veralan PM) 120 mg 24 hr capsuleIndicatio ns:Migraine, unspecified, not intractable, without status migrainosus TAKE 3 CAPSULES BY MOUTH EVERY DAY 270 capsule 3 4 Active Social History Tobacco Use Types Packs/Day Years Used Date Smoking Tobacco: Never Assessed Comments Unknown Sex and Gender Information Value Date Recorded Sex Assigned at Not on file Legal Sex Female 1:29 PM EST Gender Identity Not on file Sexual Orientation Not on file Last Filed Vital Signs Vital Sign Reading Time Taken Comments Blood Pressure 135/71 10/12/2022 11:16 AM EST Pulse 76 10/12/2022 11:16 AM EST Temperature - - Respiratory Rate 18 10/12/2022 11:16 AM EST Oxygen Saturation - - Inhaled Oxygen Concentration - - Weight 86.6 kg (191 lb) 10/12/2022 11:16 AM EST Height 154.9 cm (5' 1 ) 10/12/2022 11:16 AM EST Body Mass Index 36.09 10/12/2022 11:16 AM EST Plan of Treatment Health Maintenance Due Date Last Done Comments CT Colonography 1959 Colonoscopy 1959 Colorectal Cancer Screening 1959 FIT-DNA (Cologuard) 1959 FIT 1959 Lipid Panel 1959 Sigmoidoscopy 1959 Yearly Adult Physical 1959 MMR Vaccines (1 of 1 - Standard series) 1960 Hepatitis C Screening 1977 Cervical Cancer Screening 1980 HPV/Cotest 1980 Pap Smear 1980 DTaP/Tdap/Td Vaccines (1 - Tdap) 1981 Mammogram 1999 Pneumococcal Vaccine (1 of 1 - PCV) 2009 Zoster Vaccines (1 of 2) 2009 Bone Density Scan 2024 COVID-19 Vaccine (3 - 2024-2 6 season) 2025 02/26/2021, 02/04/2021 Influenza Vaccine (#1) 2025 09/09/2018 RSV High Risk: (Elderly (60+ ) or Population) (1 - 1-dose 75+ series) 2034 Irritable Bowel Syndrome Discontinued 018, 04/15/2018 HIB Vaccines Aged Out No longer eligi ble based on patient's age to complete this topic HPV Vaccines Aged Out No longer eligi ble based on patient's age to complete this topic Hepatitis A Vaccines Aged Out No long er eligible based on patient's age to complete this topic Hepatitis B Vaccines Aged Out No long er eligible based on patient's age to complete this topic IPV Vaccines Aged Out No longer eligi ble based on patient's age to complete this topic Meningococcal Vaccine Aged Out No kacie amanda eligible based on patient's age to complete this topic Rotavirus Vaccines Aged Out No longer eligible based on patient's age to complete this topic Procedures Procedure Name Priority Date/Time Associated Diagnosis Comments EGD Routine 04/21/2018 4:19 PM EDT from Last 3 Months or Most Recently Relevant to Health Maintenance Results * Esophagogastroduodenoscopy (EGD) (04/21/2018 4:19 PM EDT) Anatomical Region Laterality Modality Endoscopy 04/21/2018 4:19 PM EDT Narrative 11/02/2022 10:52 AM EST Patient Name: Alina Mendes Procedure Date: 04/21/2018 4:19 PM Date of : 1960 Admit Type: Inpatient Site: Travel Ethnicity: Not or Race: White Attending MD: Ryan Hernandez DO, [id number] Procedure: Upper GI endoscopy Indications: altered mental status Comorbidities: neurological disorder NOS Patient Profile: This is a 57 year old female. Providers: Ryan Hernandez DO (Doctor), Juanita Hodgson RN (Nurse), Althea Baumann MD (Fellow) Referring: Izaiah Reyes MD Medicines: Sedation per ICU team Complications: No immediate complications. Procedure: Pre-Anesthesia Assessment: - Prior to the procedure, a History and Physical was performed, and patient medications and allergies were reviewed. The patient is unable to give consent secondary to the patient's altered mental status. The risks and benefits of the procedure and the sedation options and risks were discussed with the patient's spouse. All questions were answered and informed consent was obtained. Patient identification and proposed procedure were verified by the physician and the nurse ICU. Mental Status Examination: altered. Airway Examination: normal oropharyngeal airway and neck mobility. Respiratory Examination: clear to auscultation. CV Examination: normal. Prophylactic Antibiotics: The patient requires prophylactic antibiotics for planned PEG placement. The patient received antibiotic therapy today, before the procedure started. Prior Anticoagulants: The patient has taken no previous anticoagulant or antiplatelet agents. ASA Grade Assessment: IV - A patient with severe systemic disease that is a constant threat to life. After reviewing the risks and benefits, the patient was deemed in satisfactory condition to undergo the procedure. The anesthesia plan was to use monitored anesthesia care (MAC). Immediately prior to administration of medications, the patient was re-assessed for adequacy to receive sedatives. The heart rate, respiratory rate, oxygen saturations, blood pressure, adequacy of pulmonary ventilation, and response to care were monitored throughout the procedure. The physical status of the patient was re-assessed after the procedure. After obtaining informed consent, the endoscope was passed under direct vision. Throughout the procedure, the patient's blood pressure, pulse, and oxygen saturations were monitored continuously. The endoscope was introduced through the mouth, and advanced to the second part of duodenum. The upper GI endoscopy was accomplished without difficulty. The patient tolerated the procedure well. Findings: The examined esophagus was normal. One small non-bleeding superficial gastric ulcer was found on the lesser curvature of the stomach. A few fundic gland polyps were found in the stomach. The duodenal bulb and second portion of the duodenum were normal. The patient was placed in the supine position for PEG placement. The stomach was insufflated to appose gastric and abdominal johnson. A site was located in the body of the stomach with excellent transillumination for placement. The abdominal wall was marked and prepped in a sterile manner. The area was anesthetized with 5 mL of 0.5% lidocaine. The trocar needle was introduced through the abdominal wall and into the stomach under direct endoscopic view. A snare was introduced through the endoscope and opened in the gastric lumen. The guide wire was passed through the trocar and into the open snare. The snare was closed around the guide wire. The endoscope and snare were removed, pulling the wire out through the mouth. A skin incision was made at the site of needle insertion. The externally removable 20 Fr EndoVive Safety gastrostomy tube was lubricated. The G-tube was passed over the guide wire through the mouth, and into the stomach. The trocar needle was removed, and the gastrostomy tube was pulled out from the stomach through the skin. The guide wire was removed, and the external bumper attached to the gastrostomy tube. The feeding tube was then cut to an appropriate length. The final position of the gastrostomy tube was confirmed by relook endoscopy, and skin marking noted to be 3 cm at the external bumper. The final tension and compression of the abdominal wall by the PEG tube and external bumper were checked and revealed that the bumper was loose and lightly touching the skin. The feeding tube was capped, and the tube site was cleaned and dressed. Moderate Sedation: N/A Impression: - Normal esophagus. - Non-bleeding gastric ulcer. - A few gastric polyps. - Normal duodenal bulb and second portion of the duodenum. - An externally removable PEG placement was successfully completed. - No specimens collected. Estimated Blood Loss: Estimated blood loss: none. Recommendation: - Return patient to ICU for ongoing care. - Please follow the post-PEG recommendations including: may use PEG today for meds and water and may use PEG tomorrow for feedings after PEG check by team. Procedure Code(s): --- Professional --- 98512, Esophagogastroduodenoscopy, flexible, transoral; with directed placement of percutaneous gastrostomy tube Diagnosis Code(s): --- Professional --- K25.9, Gastric ulcer, unspecified as acute or chronic, without hemorrhage or perforation K31.7, Polyp of stomach and duodenum CPT copyright 2021 [employer]. All rights reserved. The codes documented in this report are preliminary and upon washer operator review may be revised to meet current compliance requirements. Attending Participation: I personally performed the entire procedure. Ryan Hernandez DO 10/31/2018 9:04:26 AM This report has been signed electronically. Althea Carpenter MD Number of Addenda: 0 Note Initiated On: 04/21/2018 4:19 PM Total Procedure Duration Time 0 hours 11 minutes 49 seconds Procedure Note Ryan Hernandez DO - 05/07/2025 Patient Name: Alina Mendes Procedure Date: 04/21/2018 4:19 PM Date of : 1960 Admit Type: Inpatient Site: Travel Ethnicity: Not or Race: White Attending MD: Ryan Hernandez DO, [id number] Procedure: Upper GI endoscopy Indications: altered mental status Comorbidities: neurological disorder NOS Patient Profile: This is a 57 year old female. Providers: Ryan Hernandez DO (Doctor), Juanita Hodgson RN (Nurse), Althea Baumann MD (Fellow) Referring: Izaiah Reyes MD Medicines: Sedation per ICU team Complications: No immediate complications. Procedure: Pre-Anesthesia Assessment: - Prior to the procedure, a History and Physicalwas performed, and patient medications and allergieswere reviewed. The patient is unable to give consent secondary to the patient's altered mental status.The risks and benefits of the procedure and thesedation options and risks were discussed with the patient's spouse. All questions were answered and informed consent was obtained. Patient identification and proposed procedure were verified by the physicianand the nurse ICU. Mental Status Examination: altered. Airway Examination: normal oropharyngeal airway and neck mobility. Respiratory Examination: clear to auscultation. CV Examination: normal. Prophylactic Antibiotics: The patient requires prophylactic antibiotics for planned PEG placement. The patient received antibiotic therapy today, before the procedure started. Prior Anticoagulants: Thepatient has taken no previous anticoagulant or antiplatelet agents. ASA Grade Assessment: IV - A patient with severe systemic disease that is a constant threatto life. After reviewing the risks and benefits, the patient was deemed in satisfactory condition to undergo the procedure. The anesthesia plan was touse monitored anesthesia care (MAC). Immediately priorto administration of medications, the patient was re-assessed for adequacy to receive sedatives. The heart rate, respiratory rate, oxygen saturations, blood pressure, adequacy of pulmonary ventilation,and response to care were monitored throughout the procedure. The physical status of the patient was re-assessed after the procedure. After obtaining informed consent, the endoscope was passed under direct vision. Throughout theprocedure, the patient's blood pressure, pulse, and oxygen saturations were monitored continuously. Theendoscope was introduced through the mouth, and advanced tothe second part of duodenum. The upper GI endoscopy was accomplished without difficulty. The patienttolerated the procedure well. Findings: The examined esophagus was normal. One small non-bleeding superficial gastric ulcer was found on thelesser curvature of the stomach. A few fundic gland polyps were found in the stomach. The duodenal bulb and second portion of the duodenum were normal. The patient was placed in the supine position for PEG placement. The stomach was insufflated to appose gastric and abdominal johnson. A site was located in the body of the stomach with excellenttransillumination for placement. The abdominal wall was marked and prepped in a sterile manner. The area was anesthetized with 5 mL of 0.5% lidocaine. The trocar needle was introduced through the abdominal wall and into the stomach under direct endoscopic view. A snare was introduced throughthe endoscope and opened in the gastric lumen. The guide wire was passed through the trocar and into the open snare. The snare was closedaround the guide wire. The endoscope and snare were removed, pulling thewire out through the mouth. A skin incision was made at the site of needle insertion. The externally removable 20 Fr EndoVive Safety gastrostomy tube was lubricated. The G-tube was passed over the guide wirethrough the mouth, and into the stomach. The trocar needle was removed, andthe gastrostomy tube was pulled out from the stomach through the skin.The guide wire was removed, and the external bumper attached to the gastrostomy tube. The feeding tube was then cut to an appropriate length. The final position of the gastrostomy tube was confirmed by relook endoscopy, and skin marking noted to be 3 cm at the external bumper. The final tension and compression of the abdominal wall bythe PEG tube and external bumper were checked and revealed that thebumper was loose and lightly touching the skin. The feeding tube was capped, and the tube site was cleaned and dressed. Moderate Sedation: N/A Impression: - Normal esophagus. - Non-bleeding gastric ulcer. - A few gastric polyps. - Normal duodenal bulb and second portion of the duodenum. - An externally removable PEG placement was successfully completed. - No specimens collected. Estimated Blood Loss: Estimated blood loss: none. Recommendation: - Return patient to ICU for ongoing care. - Please follow the post-PEG recommendations including: may use PEG today for meds and water and may use PEG tomorrow for feedings after PEG checkby team. Procedure Code(s): --- Professional --- 37668, Esophagogastroduodenoscopy, flexible, transoral; with directed placement of percutaneous gastrostomy tube Diagnosis Code(s): --- Professional --- K25.9, Gastric ulcer, unspecified as acute orchronic, without hemorrhage or perforation K31.7, Polyp of stomach and duodenum CPT copyright 2021 [employer]. All rights reserved. The codes documented in this report are preliminary and upon washer operator reviewmay be revised to meet current compliance requirements. Attending Participation: I personally performed the entire procedure. Ryan Hernandez DO 10/31/2018 9:04:26 AM This report has been signed electronically. Althea Carpenter MD Number of Addenda: 0 Note Initiated On: 04/21/2018 4:19 PM Total Procedure Duration Time 0 hours 11 minutes 49 seconds us Izaiah Reyes MD ENDOSCOPY PROCEDURE ORDE GAVIN Edited Result - Final from Last 3 Months or Most Recently Relevant to Health Maintenance
--- OUTSIDE RECORDS SUMMARY | 2025-08-17 09:12 | XMS_ITS | Encounter Summary ---
Author Organization [facility] Address [address] [place] [address] Phone Care Team Providers Care Booster Assembler Name Role Phone Unavailable Primary Care Provider Unavailabl e Encounter Details Date Type Department Care Team (Late st Contact Info) Description 08/25/2023 Scanned Document [facility] [address] [place] [address] Conversion, Onbase Social History Tobacco Use Types Packs/Day Years Used Date Smoking Tobacco: Never Assessed Comments Unknown Sex and Gender Information Value Date Recorded Sex Assigned at Not on file Legal Sex Female 1:29 PM EST Gender Identity Not on file Sexual Orientation Not on file documented as of this encounter Plan of Treatment Not on file documented as of this encounter Visit Diagnoses Not on filedocumented in this encounter
--- OUTSIDE RECORDS SUMMARY | 2025-08-17 09:12 | XMS_ITS | Clinical Summary ---
Author Organization [facility] Address [id number] [address] [place] [address] Care Team Providers Care Lead Project Engineer Name Role Phone Bebe Arreguin MD Primary Care Provider [phone] Allergies Active Allergy Reactions Criticality Noted Date Comments Heparin 06/08/2019 Medications carbidopa-levodo pa (SINEMET) 25-100 mg per tablet Take 1 tablet by mouth 3 (three) times a day. 3 05/20/2019 Active lisinopril (PRINIVIL,ZESTRI L) 2.5 mg tablet Take 2.5 mg by mouth daily. 3 05/20/2019 Active citalopram (CeleXA) 40 mg tablet Take 40 mg by mouth daily. 3 05/20/2019 Active verapamil (CALAN) 80 mg tablet Take 1 tablet by mouth 3 (three) times a day. 2 06/01/2019 Active calcium citrate-vitamin D3 (CITRACAL MAXIMUM) 315-250 mg-units per tablet Take 1 tablet by mouth daily. 2 03/07/2019 Active cholecalciferol, vitamin D3, 2,000 units tablet Take 1 tablet by mouth daily. 2 05/20/2019 Active VITAMIN B-1 100 MG tablet Take 100 mg by mouth daily. 3 03/05/2019 Active melatonin (CIRCADIN) tablet Take 6 mg by mouth nightly. 3 06/01/2019 Active famotidine (PEPCID) 40 mg tablet Take 40 mg by mouth nightly. 1 06/01/2019 Active Social History Tobacco Use Types Packs/Day Years Used Date Smoking Tobacco: Never Smokeless Tobacco: Never Alcohol Use Standard Drinks/Week Comments Defer 0 (1 standard drink = 0.6 oz pur e alcohol) Childcare Answer Date Recorded Childcare Unknown 04/26/2019 Employment Answer Date Recorded Employment Unknown 04/26/2019 Purpose - Life Answer Date Recorded Purpose and direction in life Unknown Comments Unknown Sex and Gender Information Value Date Recorded Sex Assigned at Not on file Legal Sex Female 12:01 PM EDT Gender Identity Not on file Sexual Orientation Not on file Last Filed Vital Signs Vital Sign Reading Time Taken Comments Blood Pressure 138/78 11/23/2019 9:53 AM EST Pulse 88 11/23/2019 9:53 AM EST Temperature - - Respiratory Rate - - Oxygen Saturation - - Inhaled Oxygen Concentration - - Weight 85.5 kg (188 lb 9.6 oz) 11/23/2019 9:53 A M EST Height 156.2 cm (5' 1.5 ) 11/23/2019 9:53 AM EST Body Mass Index 35.06 11/23/2019 9:53 AM EST Plan of Treatment Health Maintenance Due Date Last Done Comments Depression Screening 1971 Tobacco Screening 1971 Adult BMI Screening 1977 DTaP,Tdap and Td Vaccines (1 - Tdap) 1978 Zoster (Shingles) Vaccine (1 of 2) 2009 Fall Risk Screening 2024 Influenza Vaccine 07/16/2025 Medical Devices Not on file Insurance [facility] MEDICAID Care Teams Lead Project Engineer Relationship Specialty Start Date End Date Bebe Arreguin MD [address] [place], [place] [id number] PCP - General Family Medicine 06/08/19
--- OUTSIDE RECORDS SUMMARY | 2025-08-17 09:12 | XMS_ITS | Clinical Summary ---
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 Active Immunizations Immunization Administration Dates Next Due Influenza, seasonal, injectable, preservative fr ee 10/27/2017 Family History Medical History Relation Name Comments Hypertension Father Kidney disease Father Diabetes Mother Heart disease Mother Relation Name Status Comments Father Mother Social History Tobacco Use Types Packs/Day Years Used Date Smoking Tobacco: Never Tobacco Cessation:Counseling Given: Not Answered Alcohol Use Standard Drinks/Week Comments Not Currently 0 (1 standard drink = 0.6 oz pur e alcohol) Comments Unknown Sex and Gender Information Value Date Recorded Sex Assigned at Not on file Legal Sex Female 6:38 PM EDT Gender Identity Not on file Sexual Orientation Not on file Last Filed Vital Signs Vital Sign Reading Time Taken Comments Blood Pressure 122/64 05/26/2023 11:15 AM EDT Pulse 65 05/26/2023 11:15 AM EDT Temperature - - Respiratory Rate 16 05/26/2023 11:15 AM EDT Oxygen Saturation - - Inhaled Oxygen Concentration - - Weight 87.1 kg (192 lb) 05/26/2023 11:15 AM EDT Height 152.4 cm (5') 05/26/2023 11:15 AM EDT Body Mass Index 37.5 05/26/2023 11:15 AM EDT Plan of Treatment Not on file
--- OUTSIDE RECORDS SUMMARY | 2025-08-17 09:13 | XMS_ITS | Clinical Summary ---
Author Organization [facility] Address [address] [place] [address] Care Team Providers Care Client Relationship Consultant Name Role Phone Bebe Arreguin MD Primary Care Provider [phone] Allergies Active Allergy Reactions Criticality Noted Date Comments Heparin Intolerance 06/08/2019 Medications carbidopa-levod opa (SINEMET 25-100) 25-100 mg per tablet Take 1 tablet by mouth three times daily. 05/20/2019 Active cholecalciferol (VITAMIN D3) 50 mcg (2,000 unit) tablet Take 1 tablet by mouth once daily. 05/20/2019 Active citalopram (CELEXA) 40 mg tablet Take 40 mg by mouth once daily. 05/20/2019 Active verapamil (CALAN, ISOPTIN) 80 mg tablet Take 120 mg by mouth once daily. takes 3 tablets in AM 06/01/2019 Active VITAMIN B-1, MONONITRATE, 100 mg tab Take 100 mg by mouth once daily. 08/31/2019 Active melatonin 3 mg tablet Take 3 mg by mouth twice daily. 06/01/2019 Active famotidine (PEPCID) 40 mg tablet Take 40 mg by mouth at bedtime as needed. 06/01/2019 Active cyanocobalamin (VITAMIN B-12) 1,000 mcg tab Take 1,000 mcg by mouth once daily. Active spironolactone (ALDACTONE) 50 mg tablet Take 50 mg by mouth once daily. Active pyridoxine, vitamin B6, (VITAMIN B-6) 100 mg tablet Take 100 mg by mouth once daily. Taking 2x 100 mg Active Active Problems Problem Noted Date Diagnosed Date Lumbar radiculopathy 12/28/2019 Carpal tunnel syndrome of left wrist 12/28/2019 Cervicalgia 12/15/2019 Chronic pain of both shoulders 12/15/2019 Chronic hip pain, bilateral 12/15/2019 Chronic bilateral low back pain without sciatica 12/15/2019 Secondary osteoarthritis of multiple sites 12/15 Bilateral hand pain 12/15/2019 Bilateral carpal tunnel syndrome 12/15/2019 Chronic pain syndrome 12/15/2019 Family History Medical History Relation Comments Cataract Father Cataract Mother Diabetes Mother Glaucoma Mother Relation Status Comments Father Mother Social History Tobacco Use Types Packs/Day Years Used Date Smoking Tobacco: Never Smokeless Tobacco: Never Tobacco Cessation:Counseling Given: Not Answered PHQ-2 Answer Date Recorded PHQ-2 score 0 12/15/2019 Area Deprivation Index Answer Date Yoni rded National Score (1-100), lower number is lower ri sk 87 04/05/2024 State Score (1-10), lower number is lower risk 8 04/05/2024 Data from: https://www.neighborhoodatlas.medicine.[facility].edu/. Last address used for calculation [address] [place] [address] [address] 04/05/2024 Comments No Sex and Gender Information Value Date Recorded Sex Assigned at Not on file Legal Sex Female 1:20 PM EDT Gender Identity Not on file Sexual Orientation Not on file Last Filed Vital Signs Vital Sign Reading Time Taken Comments Blood Pressure 146/85 06/10/2020 1:01 PM EDT Pulse 74 06/10/2020 1:01 PM EDT Temperature - - Respiratory Rate - - Oxygen Saturation - - Inhaled Oxygen Concentration - - Weight 84.4 kg (186 lb) 06/10/2020 1:01 PM EDT Height 152.4 cm (5') 12/15/2019 10:30 AM EST Body Mass Index 36.33 12/15/2019 10:30 AM EST Plan of Treatment Upcoming Encounters Date Type Department Care Team (Late st Contact Info) Description 04/12/2026 10:45 AM EDT Office Visit [facility] Ophthalmology [address] [place] [address] Amalia Franklin OD [address] [place] [address] 1 year full exam Health Maintenance Due Date Last Done Comments Anxiety Screening 1977 Depression Screening 1977 HIV Screening 1977 DTaP,Tdap,Td Vaccine (1 - Tdap) [address] Colonography 2004 Cologuard (FIT-DNA) 2004 Colonoscopy 2004 Colorectal Cancer Screening 2004 Fecal Occult Blood 2004 Lipid Screening 2004 Sigmoidoscopy 2004 Pneumococcal Vaccine: 50+ (1 of 1 - PCV) 2009 Shingrix Vaccine (1 of 2) 2009 Diabetes Screening 11/06/2024 11/06/2021, 0 01/08/2021, 12/15/2019, Additional history exists Advance Directive Discussion 2024 Bone Density Screening 2024 Covid-19 Vaccine (2024-2 6 season) 2025 10/23/2024, 10/11/2023, 09/16/2022, Additional history exists Influenza Vaccine (#1) 2025 , 10/11/2023, 12/26/2021, Additional history exists RSV Vaccine (1 - 1-dose 75+ series) 2034 Hepatitis C Screening Completed 12/15/2019 Procedures Procedure Name Priority Date/Time Associated Diagnosis Comments *HEP C AB Routine 12/15/2019 12:42 PM EST Elevated LFTs COMPREHENSIVE METABOLIC PANEL Routine 12/15/2019 12:42 PM EST Elevated LFTs from Last 3 Months or Most Recently Relevant to Health Maintenance Results * HEP REMOTE PANEL BL (12/15/2019 12:42 PM EST) Hep B Core Ab, Total Negative Negative 12/16/2019 7:21 PM EST [facility] Hep C Antibody IA Negative Negative 12/16/2019 7:22 PM EST [facility] HBsAg Negative Negative 12/16/2019 7:21 PM EST [facility] Hep B Surface Ab, Qual Negative Negative 12/16/2019 7:21 PM EST [facility] Comment:NEGATIVE Blood specimen (specimen) BLOOD SPECIMEN / Unknown 12/15/2019 12:42 PM EST 12/15/2019 12:44 PM EST Heaven Lemon MD LABORATORY Final Result [facility] [address] [place] [address] [facility] [address] [place] [address] * (ABNORMAL) COMP METABOLIC PANEL (12/15/2019 12:42 PM EST) Pathologist [facility] Protein, Total 6.6 6.3 - 8.0 g/dL 12/15/2019 8:47 PM EST [facility] Albumin 4.2 3.9 - 4.9 g/dL 12/15/2019 8:47 PM EST [facility] Calcium 9.5 8.5 - 10.2 mg/dL 12/15/2019 8:47 PM EST [facility] Bilirubin, Total 0.3 0.2 - 1.3 mg/dL 12/15/2019 8:47 PM EST [facility] Alkaline Phosphatase 145(H) 34 - 123 U/L 12/15/2019 8:47 PM EST [facility] AST 16 13 - 35 U/L 12/15/2019 8:47 PM EST [facility] Glucose 102(H) 74 - 99 mg/dL 12/15/2019 8:47 PM EST [facility] Comment: The [place] [employer] (ADA) provides guidance for cutoff values for fasting glucose and random glucose. The ADA defines fasting as no caloric intake for at least 8 hours. Fasting plasma glucose results between 100 to 125 mg/dL indicate increased risk for diabetes (prediabetes). Fasting plasma glucose results greater than or equal to 126 mg/dL meet the criteria for diagnosis of diabetes. In the absence of unequivocal hyperglycemia, results should be confirmed by repeat testing. In a patient with classic symptoms of hyperglycemia or hyperglycemic crisis, random plasma glucose results greater than or equal to 200 mg/dL meet the criteria for diagnosis of diabetes. Reference: Standards of Medical Care in Diabetes 2016, [place] [employer]. Diabetes Care. 2016.39(Suppl 1). BUN 18 7 - 21 mg/dL 12/15/2019 8:47 PM EST [facility] Creatinine 1.02(H) 0.58 - 0.96 mg/dL 12/15/2019 8:47 PM [facility] Sodium 144 136 - 144 mmol/L 12/15/2019 8:47 PM EST [facility] Potassium 4.4 3.7 - 5.1 mmol/L 12/15/2019 8:47 PM [facility] Chloride 104 97 - 105 mmol/L 12/15/2019 8:47 PM [facility] CO2 27 22 - 30 mmol/L 12/15/2019 8:47 PM [facility] Anion Gap 13 9 - 18 mmol/L 12/15/2019 8:47 PM [facility] ALT <5(L) 7 - 38 U/L 12/15/2019 8:47 PM [facility] Comment:Result rechecked. eGFR- >60 12/15/2019 8:47 PM [facility] eGFR-All Other Races 55 . 12/15/2019 8:47 PM [facility] Comment: eGFR (Estimated GFR) Units of measure: mL/min/1.73 meters squared eGFR is derived from the reexpressed MDRD Study equation using the following parameters: serum creatinine, age, gender and race. The creatinine assay has been calibrated to be traceable to IDMS. An eGFR <60 mL/min/1.73m2 for >3 months is consistent with chronic kidney disease. Refer to KDOQI guidelines for clinical interpretation. In patients with unstable renal function, e.g. those with acute kidney injury, the eGFR may not accurately reflect actual GFR. Blood specimen (specimen) BLOOD SPECIMEN / Unknown 12/15/2019 12:42 PM EST 12/15/2019 12:44 PM EST Heaven Lemon MD LABORATORY Final Result [facility] [address] [place] [address] [facility] [address] [place] [address] from Last 3 Months or Most Recently Relevant to Health Maintenance Insurance [address] [place] [id number] [facility] MEDICARE ADVANTAGE HMO MEDICAID [place] Care Teams Client Relationship Consultant Relationship Specialty Start Date End Date Bebe Arreguin MD [address] [place] [id number] PCP - General Family Medicine 12/15/19
--- OUTSIDE RECORDS SUMMARY | 2025-08-17 09:16 | XMS_ITS | CCD ---
Author Organization [facility] CliniSyar Care Team Providers Care Eap Specialist Name Role Phone AUBREE JUSTICE Rhys Unavailable [...] Primary Care Unavailable TRESSA YU Consulting Unavailable UDNCAN, DR BEBE Paul Attending Unavailable DUNCAN, DR [...] Care Unavailable ASHISH WRIGHT Admitting Unavailable WEST, ANGELINA V Consulting Unavailable ASHISH WRIGHT Attending Unavailable ASHISH WRIGHT Consulting Unavailable Bebe Duncan MD Primary Care Provider MD Ricardo Deng Attending Provider Ricardo Deng Attending Unavailable Ricardo Deng Admitting Unavailable AMALIA JORGENSEN Attending Unavailable AMALIA JORGENSEN Referring Unavailable BEBE DUNCAN Primary Care Unavailable Bebe Duncan MD Primary Care Provider [phone] Bebe Duncan MD Attending Provider Allergies Allergy Classification Reported Allergen(s) Allergy Type Date of Onset Reaction(s) Facility heparin (3 sources) heparin; Translations: [heparin] Drug Allergy [id number] Work Phone: (20 sources) heparin; Translations: [heparin] Drug Allergy 06-08-2019 Intolerance [facility] Comment on above: low PLT, HIT positiv e (4 sources) heparin Drug Allergy 01-10-2024 [facility] Medications Current Medications Medication Drug Class(es) Dates Sig (Normalized) Sig (Original) amoxicillin 875 mg / clavulanate 125 mg oral tablet (3 sources) Penicillin-class Antibacterial Start: 11-25-2022 take 1 tablet by mouth every twelve hours Amoxicillin-Pot Clavulanate 875-125 MG 1 tablet Orally every 12 hrs for 10 day(s) Nov, Active benoxinate hydrochloride 4 mg/ml / fluorescein sodium 3 mg/ml ophthalmic solution (5 sources) Diagnostic Dye Start: 04-11-2025 End: 04-11-2025 fluorescein-benox inate 0.3-0.4 % 1 drop (FLURESS) Start: 04-05-2024 End: 04-05-2024 fluorescein-benoxinate 0.3-0 .4 % 1 Drop (FLURESS) Start: 02-19-2022 End: 02-20-2022 fluorescein-benoxinate 0.25- 0.4 % 1 Drop (FLURESS) citalopram 40 mg oral tablet (20 sources) Serotonin Reuptake Inhibitor Start: 05-09-2024 End: 03-04-2025 take 1 tablet by mouth once daily Citalopram 40 mg tablet Active 0 .ROUTE .COMPLEX January 16, 2025 10:59am TAKE 1 TABLET BY MOUTH EVERY DAY FOR 90 DAYS Complies with drug therapy Start: 12-28-2017 End: 05-09-2024 take 1 tablet by mouth once daily Citalopram 40 mg tablet Discontinued 40 MG PO Daily January 13, 2024 10:52am May 09, 2024 8:33am Citalopram [place] bromide 40 MG Oral Tablet Quantity: 0 Refills: 0 Ordered: 19-Oct-2018 DO Active Comment on above: Take 40 mg by mouth once daily. famotidine 40 mg oral tablet (20 sources) Histamine-2 Receptor Antagonist Start: 03-20-2024 End: 01-16-2025 take 1 tablet by mouth once daily at bedtime Famotidine 40 mg tablet Active 0 .ROUTE .COMPLEX January 16, 2025 10:59am TAKE 1 TABLET BY MOUTH EVERY DAY AT BEDTIME FOR 90 DAYS Complies with drug therapy Start: 06-01-2019 End: 03-20-2024 take 1 tablet by mouth once daily at bedtime Famotidine 40 mg tablet Discontinued 40 MG PO Daily at bedtime January 13, 2024 1:00am March 20, 2024 3:02pm Start: 09-27-2018 End: 01-13-2024 take 2 tablets by mouth once daily at bedtime Famotidine 20 mg Tablet Discontinued 40 MG PO Daily at bedtime 60 September 27, 2018 1:00am January 13, 2024 10:53am Start: 09-27-2018 End: 01-13-2024 take 40 mg by mouth once daily at bedtime Famotidine Discontinued 40 MG PO Daily at bedtime 60 September 27, 2018 1:00am January 13, 2024 10:53am Start: 09-07-2018 End: 09-27-2018 take 1 tablet by mouth once daily at bedtime Famotidine 40 mg Tablet Discontinued 40 MG PO Daily at bedtime September 07, 2018 12:00am September 27, 2018 3:31pm Comment on above: Take 40 mg by mouth at bedtime as needed. nystatin [id number] unt/ml topical cream (4 sources) Polyene Antifungal Start: 01-10-2024 Nystatin 100,000 unit/gram cream Active 1 APPLIC TOPICAL Twice daily January 10, 2024 1:00am Complies with drug therapy phenylephrine hydrochloride 25 mg/ml ophthalmic solution (6 sources) alpha-1 Adrenergic Agonist Start: 04-11-2025 End: 04-11-2025 1 drop, BOTH EYES, DIRECTED, Starting on Wed04/11/25 at 1100, Until Wed04/11/25 at 2259, Administer for dilation PROTECT FROM LIGHT Start: 04-11-2025 End: 04-11-2025 PHENYLephrine 2.5 % 1 drop ( AK-DILATE, JASON-SYNEPHRINE) Start: 04-05-2024 End: 04-05-2024 PHENYLephrine 2.5 % 1 Drop ( AK-DILATE, JASON-SYNEPHRINE) Start: 02-19-2022 End: 02-20-2022 PHENYLephrine 2.5 % 1 Drop ( AK-DILATE, JASON-SYNEPHRINE) proparacaine hydrochloride 5 mg/ml ophthalmic solution (3 sources) Local Anesthetic Start: 04-11-2025 End: 04-11-2025 proparacaine 0.5 % 1 drop (ALCAINE) Start: 04-05-2024 End: 04-05-2024 proparacaine 0.5 % 1 Drop (A LCAINE) spironolactone 50 mg oral tablet (20 sources) Aldosterone Antagonist Start: 05-09-2024 End: 08-09-2025 take 1 tablet by mouth once daily Spironolactone 50 mg tablet Active 0 .ROUTE .COMPLEX August 09, 2025 10:11am TAKE 1 TABLET BY MOUTH EVERY DAY FOR 90 DAYS Complies with drug therapy Start: 01-13-2024 End: 05-09-2024 take 1 tablet by mouth once daily Spironolactone 50 mg tablet Discontinued 50 MG PO Daily January 13, 2024 1:00am May 09, 2024 8:33am take 1 tablet by emilia th once daily Spironolactone 25 MG Oral Tablet TAKE 1 TABLET DAILY. Quantity: 0 Refills: 0 Ordered: 01-Apr-2022 DO Active thiamine 100 mg oral tablet (20 sources) Start: 05-09-2024 take 1 tablet by mouth once daily Thiamine Mononitrate (Vit B1) (Vitamin B-1 (Mononitrate)) 100 mg tablet Active 0 .ROUTE .COMPLEX May 09, 2024 8:33am TAKE 1 TABLET BY MOUTH EVERY DAY FOR 90 DAYS Complies with drug therapy Start: 09-21-2018 End: 05-09-2024 take 1 tablet by mouth once daily Thiamine Hcl (Vitamin B1) 100 mg Tablet Discontinued 100 MG PO Daily September 27, 2018 1:00am May 09, 2024 8:33am Vitamin B-1 100 MG Oral Tablet Quantity: 0 Refills: 0 Ordered: 19-Oct-2018 DO Active Comment on above: Take 100 mg by mouth once daily. tropicamide 10 mg/ml ophthalmic solution (6 sources) Anticholinergic Start: 04-11-2025 End: 04-11-2025 1 drop, BOTH EYES, DIRECTED, Starting on Wed04/11/25 at 1100, Until Wed04/11/25 at 2259, Administer for dilation Start: 04-11-2025 End: 04-11-2025 tropicamide 1 % 1 drop (MYDR IACYL) Start: 04-05-2024 End: 04-05-2024 tropicamide 1 % 1 Drop (MYDR IACYL) Start: 02-19-2022 End: 02-20-2022 tropicamide 1 % 1 Drop (MYDR IACYL) 24 hr verapamil hydrochloride 120 mg extended release oral capsule (20 sources) Calcium Channel Alvin Start: 08-09-2025 End: 08-09-2025 take 1 capsule by mouth once daily Verapamil 120 mg capsule,ext rel. pellets 24 hr Active 360 MG PO daily August 09, 2025 10:11am Complies with drug therapy Start: 07-14-2024 End: 08-09-2025 take 3 tablets by mouth once daily Verapamil 120 mg tablet extended release Discontinued 360 MG PO Daily July 14, 2024 12:00am August 09, 2025 9:27am Start: 07-14-2024 take 360 mg by mouth once aldo y Verapamil Active 360 MG PO Daily July 14, 2024 12:00am Start: 01-13-2024 End: 07-14-2024 take 1 tablet by mouth three times daily Verapamil 120 mg tablet Discontinued 120 MG PO Three times daily July 04, 2024 10:38am July 14, 2024 10:20pm Start: 03-06-2020 take 3 tablets by mo [facility] once daily Verapamil HCl ER 120 MG Oral Capsule Extended Release 24 Hour TAKE 3 TABLETS ONCE DAILY Quantity: 270 Refills: 3 Ordered: 12-Oct-2022 Bill Orona MD Start : 06-Mar-2020 Active Start: 06-01-2019 take 3 tablets by [facility] once daily in the morning verapamil (CALAN, ISOPTIN) 80 mg tablet Take 120 mg by mouth once daily. takes 3 tablets in AM 06/01/2019 Active take 1 tablet by emilia [...] 1,000 mcg tablet Active 0 .ROUTE .COMPLEX March 20, 2024 3:02pm TAKE 1 TABLET BY MOUTH EVERY DAY FOR 90 DAYS Complies with drug therapy Start: 01-13-2024 End: 03-20-2024 take 1 tablet by mouth once daily Cyanocobalamin (Vitamin B-12) 1,000 mcg tablet Discontinued 1000 MCG PO Daily January 13, 2024 1:00am March 20, 2024 3:02pm take 1 tablet by emilia once daily Cyanocobalamin 1000 MCG 1 tablet Orally Once a day for 90 days Active take 1 tablet by emilia once daily Cyanocobalamin 1000 MCG 1 tablet Orally Once a day Active Vitamin B-12 100 0 MCG Oral Tablet Quantity: 0 Refills: 0 Ordered: 08-Jan-2021 DO Active Comment on above: Take 1,000 mcg by [facility] once daily. vitamin b6 100 mg oral tablet (1 source) take 1 tablet by mouth once daily pyridoxine, vitamin B6, (VITAMIN B-6) 100 mg tablet Take 100 mg by mouth once daily. Taking 2x 100 mg Active Completed/Discontinued Medications Medication Drug Class(es) Dates Sig (Normalized) Sig (Original) acetaminophen 325 mg oral tablet (5 sources) Start: 09-27-2018 End: 01-10-2024 take 2 tablets by mouth every four hours as needed for pain Acetaminophen 325 mg Tablet Discontinued 650 MG PO Q4H as needed for Pain 0 September 27, 2018 1:00am January 10, 2024 11:16am Start: 09-27-2018 End: 01-10-2024 take 650 mg by mouth every four hours Acetaminophen Discontinued 650 MG PO Q4H 0 September 27, 2018 1:00am January 10, 2024 11:16am Tylenol 325 MG O ral Tablet Refills: 0 Active benzonatate 200 mg oral capsule (2 sources) Non-narcotic Antitussive Start: 11-09-2024 End: 01-16-2025 Benzonatate 200 mg capsule Discontinued 200 MG PO 2-3 TIMES PER DAY as needed for cough November 09, 2024 1:00am January 16, 2025 10:37am betamethasone 0.5 mg/ml / clotrimazole 10 mg/ml topical cream (4 sources) Azole Antifungal, Corticosteroid Start: 01-21-2024 End: 01-16-2025 Clotrimazole-Beta methasone 1-0.05 % cream Discontinued 1 APPLIC TOPICAL Twice daily 45 January 21, 2024 1:00am January 16, 2025 11:00am biotin 10 mg oral capsule (4 sources) Start: 01-27-2018 End: 09-07-2018 take 1 capsule by mouth twice daily Biotin 10,000 mcg capsule Discontinued 44933 MCG PO Twice daily January 27, 2018 12:00am September 07, 2018 11:15am brexpiprazole 0.5 mg oral tablet (3 sources) Atypical Antipsychotic take 1 tablet by mouth every twenty-four hours Rexulti 0.5 MG 1 tablet Orally Once a day Not-Taking buPROPion hydrochloride 100 mg oral tablet (8 sources) Aminoketone Start: 03-23-2018 End: 09-07-2018 take 2 tablets by mouth twice daily Bupropion Hcl 100 mg tablet Discontinued 200 MG PO Twice daily March 23, 2018 12:00am September 07, 2018 11:15am Start: 03-23-2018 End: 09-07-2018 take 200 mg by mouth twice daily Bupropion Hcl Discontinued 200 MG PO Twice daily March 23, 2018 12:00am September 07, 2018 11:15am Start: 12-28-2017 End: 03-23-2018 take 3 tablets by mouth once daily Bupropion Hcl 100 mg tablet Discontinued 300 MG PO Daily December 28, 2017 1:00am March 23, 2018 11:35am Start: 12-28-2017 End: 03-23-2018 take 300 mg [...] TID@0600,1400,220 0 90 30 September 27, 2018 1:00am January 10, 2024 11:17am Start: 03-23-2018 End: 09-07-2018 take 0.5 tablet by mouth three times daily Carbidopa-Levodopa 10-100 mg tablet Discontinued 0.5 TAB PO Three times daily March 23, 2018 12:00am September 07, 2018 11:15am Start: 03-22-2018 End: 03-23-2018 Carbidopa-Levodopa 10-100 mg tablet Discontinued 0 .ROUTE .COMPLEX March 22, 2018 12:00am March 23, 2018 11:38am 1/2 tab TID Comment on above: Take 1 tablet by emilia three times daily. cefdinir 300 mg oral capsule (2 sources) Cephalosporin Antibacterial Start: 4 End: 5 take 1 capsule by mouth twice daily Cefdinir 300 mg capsule Discontinued 300 MG PO Twice daily November 09, 2024 1:00am January 16, 2025 10:38am cephalexin 500 mg oral capsule (6 sources) Cephalosporin Antibacterial Start: 4 End: 4 take 1 capsule by mouth every eight hours Cephalexin 500 mg capsule Discontinued 500 MG PO Every 8 hours December 30, 2023 1:00am January 10, 2024 11:18am take 1 capsule by mo [facility] every eight hours Cephalexin 500 MG 1 capsule Orally every 8 hrs for 7 days Active cholecalciferol 0.05 mg oral tablet (20 sources) Vitamin D Start: 03-20-2024 End: 01-16-2025 take 2 tablets by mouth once daily Cholecalciferol (Vitamin D3) (Vitamin D3) 50 mcg (2,000 unit) tablet Discontinued 0 .ROUTE .COMPLEX 60 October 05, 2024 9:15am January 16, 2025 11:00am TAKE 2 TABLETS BY MOUTH EVERY DAY Start: 01-13-2024 End: 03-20-2024 take 1 tablet by mouth once daily Cholecalciferol (Vitamin D3) (Vitamin D3) 25 mcg (1,000 unit) tablet Discontinued 2000 UNIT PO Daily January 13, 2024 10:54am March 20, 2024 3:18pm Start: 05-20-2019 take 1 tablet by emilia once daily cholecalciferol (VITAMIN D3) 50 mcg (2,000 unit) tablet Take 1 tablet by mouth once daily. 05/20/2019 Active Start: 09-27-2018 End: 01-13-2024 take 2 tablets by mouth once daily Cholecalciferol (Vitamin D3) (Vitamin D3) 1,000 unit Tablet Discontinued 2000 UNIT PO DAILY@0900 30 September 27, 2018 1:00am January 13, 2024 10:54am Start: 09-07-2018 End: 09-27-2018 take 1 tablet by mouth once daily Cholecalciferol (Vitamin D3) (Vitamin D3) 2,000 unit Tablet Discontinued 2000 UNIT PO DAILY@09September 07, 2018 12:00am September 27, 2018 3:30pm take 2 tablets by mo [facility] every twenty-four hours Vitamin D3 50 MCG (1999 UT) 2 tablet Orally Once a day Active Vitamin D3 50 MC G (1999 UT) Oral Capsule Quantity: 0 Refills: 0 Ordered: 19-Oct-2018 DO Active Comment on above: Take 1 tablet by emilia th once daily. clonazePAM 1 mg oral tablet (8 sources) Benzodiazepine Start: 03-23-20 End: 09-07-20 take 1 tablet by mouth once daily at bedtime Clonazepam 1 mg tablet Discontinued 1 MG PO Daily at bedtime March 23, 2018 12:00am September 07, 2018 11:15am Start: 12-28-2017 End: 03-23-2018 take 1 tablet by mouth once daily at bedtime Clonazepam 0.5 mg tablet Discontinued 0.5 MG PO Daily at bedtime December 28, 2017 1:00am March 23, 2018 11:34am 0.5 ml fondaparinux sodium 5 mg/ml prefilled syringe (4 sources) Factor Xa Inhibitor Start: 09-21-2018 End: 09-27-2018 Fondaparinux 2.5 mg/0.5 mL Syringe Discontinued 2.5 MG SUBCUT DAILY@2099September 21, 2018 1:00am September 27, 2018 3:31pm levETIRAcetam 1000 mg oral tablet (8 sources) Start: 09-27-2018 End: 10-27-2018 Levetiracetam 1,000 mg tablet Discontinued 1500 MG PO Twice daily September 27, 2018 1:00am October 26, 2018 1:00am October 27, 2018 1:02am Start: 09-27-2018 End: 10-27-2018 take 1500 mg by mouth twice daily Levetiracetam Discontinued 1500 MG PO Twice daily September 27, 2018 1:00am October 27, 2018 1:02am Start: 09-07-2018 End: 09-27-2018 take 3 tablets by mouth twice daily Levetiracetam 500 mg Tablet Discontinued 1500 MG PO Twice daily September 07, 2018 12:00am September 27, 2018 3:31pm Start: 09-07-2018 End: 09-27-2018 take 1500 mg by mouth twice daily Levetiracetam Discontinued 1500 MG PO Twice daily September 07, 2018 12:00am September 27, 2018 3:31pm lisinopril 2.5 mg oral tablet (8 sources) Angiotensin Converting Enzyme Inhibitor Start: 09-27-2018 End: 01-10-2024 take 1 tablet by mouth once daily Lisinopril 2.5 mg Tablet Discontinued 2.5 MG PO DAILY@0900 30 September 27, 2018 1:00am January 10, 2024 11:18am Start: 12-28-2017 End: 09-27-2018 take 2.5 mg by mouth once daily Lisinopril 10 mg tablet Discontinued 2.5 MG PO DAILY@0900 December 28, 2017 1:00am September 27, 2018 3:32pm Start: 12-28-2017 End: 09-27-2018 take 2.5 mg by mouth once daily Lisinopril Discontinued 2.5 MG PO DAILY@0900 December 28, 2017 1:00am September 27, 2018 3:32pm lithium carbonate 300 mg oral tablet (4 sources) Start: 12-28-2017 End: 09-27-2018 take 1 tablet by mouth twice daily Dahlgren Carbonate 300 mg tablet Discontinued 300 MG PO Twice daily December 28, 2017 1:00am September 27, 2018 3:30pm melatonin 3 mg oral tablet (20 sources) Start: 01-13-2024 End: 01-16-2025 take 2 tablets by mouth once daily at bedtime Melatonin 3 mg tablet Discontinued 6 MG PO Daily at bedtime 60 July 04, 2024 10:39am January 16, 2025 11:00am Start: 01-13-2024 End: 07-04-2024 take 6 mg by mouth once daily at bedtime Melatonin Active 6 MG PO Daily at bedtime 60 July 04, 2024 10:39am Start: 06-01-2019 take 1 tablet by emilia th twice daily melatonin 3 mg tablet Take 3 mg by mouth twice daily. 06/01/2019 Active Start: 09-07-2018 End: 09-27-2018 take 2 tablets by mouth at bedtime as needed for sleep Melatonin 3 mg Tablet Discontinued 6 MG PO Bedtime as needed for Sleep September 07, 2018 12:00am September 27, 2018 3:30pm Start: 09-07-2018 End: 09-27-2018 take 6 mg by mouth at bedtime Melatonin Discontinued 6 MG PO Bedtime September 07, 2018 12:00am September 27, 2018 3:30pm take 1 tablet by emilia th every twenty-four hours Melatonin 3 MG 1 tablet at bedtime as needed Orally Once a day for 90 days Active Comment on above: Take 3 mg by mouth t wice daily. methylPREDNISolone 4 mg oral tablet (4 sources) Corticosteroid Start: 2023 End: 2023 take 1 tablet by mouth once Methylprednisolone (Medrol (Gui)) 4 mg tablets,dose pack Discontinued 0 PO per package directions 05 05January 13, 2024 1:00am January 21, 2024 12:14pm PO PER PKG DIR Multivitamin preparation (2 sources) Start: 2017 End: 2017 take 1 tablet by mouth once daily Multivitamin Discontinued 1 TAB PO Daily December 28, 2017 1:00am September 07, 2018 11:16am Multivitamin tablet (2 sources) Start: 2017 End: 2017 take 1 tablet by mouth once daily Multivitamin tablet Discontinued 1 TAB PO Daily December 28, 2017 1:00am September 07, 2018 11:16am Start: 12-28-2017 End: 09-07-2018 take 1 tablet by mouth once daily Multivitamin tablet Discontinued 1 TAB PO Daily December 28, 2017 12:00am September 07, 2018 10:16am naproxen 500 mg oral tablet (3 sources) Nonsteroidal Anti-inflammatory Drug Start: 12-25-2020 take 1 tablet by mouth every twelve hours as needed Naproxen 500 MG Oral Tablet TAKE 1 TABLET EVERY 12 HOURS NEEDED. Quantity: 60 Refills: 0 Ordered: 25-Dec-2020 Mak Collins MD Start : 25-Dec-2020 Active omeprazole 40 mg delayed release oral capsule (4 sources) Proton Pump Inhibitor Start: 12-28-2017 End: 09-07-2018 take 1 capsule by mouth once daily as needed for gastroesophageal reflux disease Omeprazole 40 mg capsule,delayed release(DR/EC) Discontinued 40 MG PO Daily as needed for GERD December 28, 2017 1:00am September 07, 2018 11:16am predniSONE 10 mg oral tablet (13 sources) Start: 01-08-2021 predniSONE 10 MG Oral Tablet Please take 2 tablets once a day with meals [id number] (TO October)THEN Take one tablet once a day with meals x 3 weeks (October 23 to )Then Half a tablet x2 weeks (November 14 - Nov 28) THEN STOP Quantity: 180 Refills: 3 Ordered: 01-Oct-2021 Elijah Wilkinson MD Start : 08-Jan-2021 Active Start: 01-08-2021 take 3 tablets by mo [facility] once daily at mealtime predniSONE 10 MG Oral Tablet Please take 3 tablets daily with meals. Quantity: 180 Refills: 3 Ordered: 28-May-2021 Elijah Wilkinson MD Start : 08-Jan-2021 Active Start: 09-21-2018 End: 01-10-2024 take 3 tablets by mouth once daily Prednisone 20 mg Tablet Discontinued 60 MG PO DAILY@0900 120 September 27, 2018 1:00am January 10, 2024 11:15am Start: 09-21-2018 End: 01-10-2024 take 60 mg by mouth once daily Prednisone Discontinued 60 MG PO DAILY@0900 120 September 27, 2018 1:00am January 10, 2024 11:15am sulfamethoxazole 800 mg / trimethoprim 160 mg oral tablet (4 sources) Dihydrofolate Reductase Inhibitor Antibacterial, Sulfonamide Antimicrobial Start: 01-13-2024 End: 01-21-2024 take 1 tablet by mouth twice daily Sulfamethoxazole-Trimethoprim (Bactrim Ds) 800-160 mg tablet Discontinued 1 TAB PO Twice daily 20 January 13, 2024 1:00am January 21, 2024 12:14pm Tyrvaya 0.03 MG/ACT Nasal Solution (4 sources) Tyrvaya 0.03 MG/ ACT Nasal Solution Quantity: 0 Refills: 0 Ordered: 01-Apr-2022 DO Active valproic acid 250 mg oral capsule (4 sources) Mood Stabilizer, Anti-epileptic Agent Start: 09-07-2018 End: 09-27-2018 take 2 capsules by mouth every six hours Valproic Acid 250 mg Capsule Discontinued 500 MG PO Q6H September 07, 2018 12:00am September 27, 2018 3:30pm Start: 09-07-2018 End: 09-27-2018 take 500 mg by mouth every six hours Valproic Acid Discontinued 500 MG PO Q6H September 07, 2018 12:00am September 27, 2018 3:30pm Valproic Acid Capule (4 sources) Start: 09-27-2018 End: 01-10-2024 take 500 [...] te Episodic/Chronic Acute and unspecified renal failure (4 sources) Acute renal failure syndrome; Translations: [Acute kidney failure, unspecified] 10-27-2023 Episodic Comment on above: Problem List clean-u p per request of Phys. EHR Cmte Administrative/social admission (4 sources) Other reduced mobility; Translations: [Impaired mobility and activities of daily living] 10-27-2023 Episodic Comment on above: Problem List clean-u p per request of Phys. 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 EHR Cmte Diabetes mellitus without complication (4 sources) Hyperglycemia; Translations: [Hyperglycemia, unspecified] 10-27-2023 Episodic Comment on above: Problem List clean-u p per request of Phys. EHR Cmte Diverticulosis and diverticulitis (1 source) Diverticulosis of intestine, part unspecified, without perforation or abscess without bleeding; Translations: [Dvrtclos of intest, part unsp, w/o perf or abscess w/o bleed] Onset: 1 Chronic Encephalitis (except that caused by tuberculosis or sexually transmitted disease) (20 sources) Limbic encephalitis; Translations: [Unspecified causes of encephalitis, myelitis, and encephalomyelitis] Onset: 1 Episodic Comment on above: Problem List clean-u p per request of Phys. EHR Cmte Epilepsy; convulsions (4 sources) Seizure; Translations: [Epilepsy, unspecified, intractable, without status epilepticus] 10-27-2023 Chronic Comment on above: Problem List clean-u p per request of Phys. EHR Cmte Epilepsy; convulsions (4 sources) Seizure; Translations: [Unspecified convulsions] 09-22-2018 Episodic Esophageal disorders (14 sources) Gastroesophageal reflux disease without esophagitis; Translations: [Gastro-esophageal reflux disease without esophagitis] Chronic Essential hypertension (19 sources) Essential hypertension; Translations: [Essential (primary) hypertension] Chronic Fluid and electrolyte disorders (4 sources) Dehydration; Translations: [Dehydration] 10-27-2023 Episodic Comment on above: Problem List clean-u p per request of Phys. EHR Cmte Headache; including migraine (14 sources) Migraine; Translations: [Migraine, unspecified, without mention of intractable migraine without mention of status migrainosus] Onset: 2 04-11-2025 Chronic Headache; including migraine (19 sources) Headache; Translations: [Headache] Episodic Headache; including migraine (1 source) Headache; including migraine; Translations: [Headache, unspecified] Onset: 2 Malaise and fatigue (20 sources) Fatigue; Translations: [Other malaise and fatigue] Onset: 3 Chronic Malaise and fatigue (8 sources) Fatigue; Translations: [Other fatigue] 01-10-2024 Episodic Mood disorders (20 sources) Acute depression; Translations: [Acute depression] Chronic Mycoses (4 sources) Candidiasis of skin; Translations: [Candidiasis of skin and nail] 01-10-2024 Episodic Nonmalignant breast conditions (8 sources) Mastodynia; Translations: [Pain of left breast] 01-21-2024 Episodic Nutritional deficiencies (17 sources) Vitamin D deficiency; Translations: [Vitamin D deficiency, unspecified] 10-27-2023 Chronic Comment on above: Problem List clean-u p per request of Phys. EHR Cmte Nutritional deficiencies (13 sources) Vitamin B deficiency; Translations: [Vitamin B deficiency, unspecified] Episodic Comment on above: Problem List clean-u p per request of Phys. 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] Onset: 0 12-15-2019 Chronic Other aftercare (8 sources) Long-term current use of systemic steroid; Translations: [intermediate manager (current) use of systemic steroids] Episodic Other aftercare (4 sources) On lithium; Translations: [Other fdc (current) drug therapy] 09-22-2018 Episodic Other circulatory [...] foot] Onset: 2 Episodic Other eye disorders (3 sources) Bilateral posterior vitreous detachment; Translations: [Vitreous degeneration, bilateral] Chronic Other eye disorders (1 source) Vitreous degeneration, bilateral; Translations: [PVD (posterior vitreous detachment), bilateral] Onset: 5 Chronic Other eye disorders (11 sources) Unspecified [...] injuries and conditions due to external causes (4 sources) Aspiration into respiratory tract; Translations: [Unspecified foreign body in respiratory tract, part unspecified causing other injury, initial encounter] 10-27-2023 Episodic Comment on above: Problem List clean-u p per request of Phys. EHR Cmte Other lower respiratory disease (8 sources) Dyspnea on exertion; Translations: [Other forms of dyspnea] Episodic Other nervous system disorders (3 sources) Bilateral carpal tunnel syndrome; Translations: [Carpal tunnel syndrome, bilateral upper limbs] Onset: 0 12-15-2019 Chronic Other nervous system disorders (3 sources) Chronic pain syndrome; Translations: [Chronic pain syndrome] Onset: 0 12-15-2019 Chronic Other nervous system disorders (3 sources) Carpal tunnel syndrome of left wrist; Translations: [Carpal tunnel syndrome, left upper limb] Onset: 0 12-28-2019 Chronic Other nervous system disorders (12 sources) Chronic pain; Translations: [Other chronic pain] 01-13-2024 Chronic Other nervous system disorders (8 sources) Mononeuropathy of lower limb; Translations: [Unspecified mononeuropathy of left lower limb] Chronic Other nervous system disorders (8 sources) Disorder of brain; Translations: [Encephalopathy, unspecified] Chronic Other nervous system disorders (4 sources) Metabolic encephalopathy; Translations: [Metabolic encephalopathy] 10-27-2023 [...] organs; Translations: [History of encephalopathy] Episodic Other nervous system disorders (1 source) Myokymia of eyelid; Translations: [Facial myokymia] 04-11-2025 Episodic Other nervous system disorders (1 source) Facial myokymia; Translations: [Eyelid myokymia] Onset: 5 Episodic Other non-traumatic joint disorders (8 sources) Arthralgia of the ankle and/or foot; Translations: [Pain in left ankle and joints of left foot] Episodic Other nutritional; endocrine; and metabolic disorders (8 sources) Obese class II; Translations: [Body mass index (BMI) 37.0-37.9, adult] Chronic Other nutritional; endocrine; and metabolic disorders (4 sources) Hypomagnesemia; Translations: [Hypomagnesemia] 10-27-2023 Chronic Comment [...] source) Ingrowing nail Episodic Other skin disorders (4 sources) Eruption; Translations: [Rash and other nonspecific skin eruption] 01-21-2024 Episodic Other upper respiratory infections (8 sources) Bacterial sinusitis; Translations: [Chronic sinusitis, unspecified] Chronic Residual codes; unclassified (9 sources) Obstructive sleep apnea syndrome; Translations: [Obstructive [...] state; Translations: [Menopause] Episodic Residual codes; unclassified (12 sources) Insomnia; Translations: [Insomnia, unspecified] 01-13-2024 Episodic Residual codes; unclassified (3 sources) Insomnia, unspecified Episodic Residual codes; unclassified (4 sources) Patient encounter status; Translations: [Encounter for prophylactic measures, unspecified] 10-27-2023 Episodic Comment on above: Problem List clean-u p per request of Phys. EHR Cmte Respiratory failure; insufficiency; arrest (adult) (4 sources) Respiratory failure; Translations: [Respiratory failure, unspecified, [...] NO THYROTOX CRISIS] Onset: 2 Chronic Unclassified (4 sources) Parkinsonism; Translations: [Parkinsonism] 09-22-2018 Chronic Past or Other Problems Problem Classification Problem Date Documented Da te Episodic/Chronic Mood disorders (1 source) Mood disorders Other connective tissue disease (3 sources) Pain of bilateral hands; Translations: [Pain in right hand] Onset: 12-15-2019 12-15-2019 Episodic Other connective tissue disease (4 sources) Pain in left foot; Translations: [PAIN IN LEFT FOOT] Onset: 05-14-2022 Episodic Other non-traumatic joint disorders (1 source) Shoulder pain; Translations: [Pain in right shoulder] Onset: 12-15-2019 12-15-2019 Episodic Other non-traumatic joint disorders (3 sources) Hip pain; Translations: [Pain in right hip] Onset: 12-15-2019 12-15-2019 Episodic Other non-traumatic joint disorders (2 sources) Pain in left knee; Translations: [PAIN IN LEFT KNEE] Onset: 11-27-2022 Episodic Other non-traumatic joint disorders (4 sources) Pain in left ankle and joints of left foot; Translations: [PAIN IN LEFT ANKLE] Onset: 05-28-2022 Episodic Other non-traumatic joint disorders (2 sources) Bilateral chronic pain of upper limbs; Translations: [Pain in right shoulder] Onset: 12-15-2019 12-15-2019 Episodic Residual codes; unclassified (4 sources) Localized edema; Translations: [LOCALIZED EDEMA] Onset: 04-24-2022 Episodic Spondylosis; intervertebral disc disorders; other back problems (17 sources) Neck pain; Translations: [Cervicalgia] Onset: 12-15-2019 [...] RESISTANT TO ALL B-LACTAM DRUGS. PERFORMED BY: [place] [address] PATHOLOGIST [employer] TR[employer] DRIVER NANDO MCKEON M.D. Normal [facility] Comment on above: Performed By: #### C USUP #### [address] Basophils Auto (Bld) [#/Vol] on 07-04-2024 Basophils (Bld) [#/Vol] 0.0 10 3/uL 0.0-0.1 [facility] Basophils/100 WBC Auto (Bld) on 07-04-2024 Basophils/100 WBC (Bld) 0.6 % 0.2-2.0 [facility] Eosinophils/100 WBC Auto (Bl d)on 07-04-2024 Eosinophils/100 WBC (Bld) 1.8 % 0.9-7.0 [facility] Erythrocyte distribution wid th Auto (RBC) [Ratio]on 07-04-2024 Erythrocyte distribution width (RBC) [Ratio] 13.2 % 11.0-15.0 [facility] Estimated glomerular filtrat ion rate (GFR) non- Americanon 07-04-2024 GFR/1.73 sq M.predicted among non-blacks MDRD (S/P/Bld) [Vol rate/Area] 43 mL/min/{1.73_m2} Low >=60 [facility] Hematocrit Auto (Bld) [Volum e fraction]on 07-04-2024 Hematocrit (Bld) [Volume fraction] 39.8 % 36.0-48.0 [facility] Hemoglobin [Mass/volume] in Bloodon 07-04-2024 Hemoglobin (Bld) [Mass/Vol] 13.1 g/dL 12.0-16.0 [facility] Laboratory - Chemistry and C hemistry - challengeon 07-04-2024 Calcium [Mass/Vol] 9.3 mg/dL 8.5-10.1 [facility] Chloride [Moles/Vol] 104 mmol/L 98-107 [facility] CO2 [Moles/Vol] 26.0 mmol/L 21.0-32.0 [facility] Cobalamin (Vitamin B12) [Mass/Vol] 1469.0 pg/mL High 193.0-986.0 [facility] Creatinine [Mass/Vol] 1.26 mg/dL High 0.55-1.02 [facility] Free T4 [Mass/Vol] 0.95 ng/dL 0.76-1.46 [facility] GFR/1.73 sq M.predicted MDRD (S/P/Bld) [Vol rate/Area] 52 mL/min/{1.73_m2} Low >=60 [facility] Glucose [Mass/Vol] 91 mg/dL 74-106 [facility] Potassium [Moles/Vol] 4.6 mmol/L 3.5-5.1 [facility] Sodium [Moles/Vol] 141 mmol/L 136-145 [facility] TSH Qn 0.511 m[IU]/L 0.358-3.740 [facility] Urea nitrogen [Mass/Vol] 15.0 mg/dL 7.0-18.0 [facility] Urea nitrogen/Creatinine [Mass ratio] 11.9 mg/mg [facility] Laboratory - Hematology and Cell countson 07-04-2024 Immature granulocytes/100 WBC (Bld) 0.4 % 0.0-0.5 [facility] Leukocytes [#/volume] correc cierra for nucleated erythrocytes in Blood by Automated counon 07-04-2024 WBC corrected for nucl RBC Auto (Bld) [#/Vol] 6.7 10 3/uL 4.0-11.0 [facility] Lymphocytes Auto (Bld) [#/Vo l]on 07-04-2024 Lymphocytes (Bld) [#/Vol] 2.0 10 3/uL 1.2-3.8 [facility] Lymphocytes/100 WBC Auto (Bl d)on 07-04-2024 Lymphocytes/100 WBC (Bld) 29.1 % 20.5-60.0 [facility] MCH Auto (RBC) [Entitic mass ]on 07-04-2024 MCH (RBC) [Entitic mass] 30.5 pg 26.7-34.0 [facility] MCHC Auto (RBC) [Mass/Vol]on 07-04-2024 MCHC (RBC) [Mass/Vol] 32.9 g/dL 29.9-35.2 [facility] MCV Auto (RBC) [Entitic vol] on 07-04-2024 MCV (RBC) [Entitic vol] 92.6 fL 81.0-99.0 [facility] Monocytes Auto (Bld) [#/Vol] on 07-04-2024 Monocytes (Bld) [#/Vol] 0.6 10 3/uL 0.3-0.8 [facility] Monocytes/100 WBC Auto (Bld) on 07-04-2024 Monocytes/100 WBC (Bld) 8.2 % 1.7-12.0 [facility] Neutrophils Auto (Bld) [#/Vo l]on 07-04-2024 Neutrophils (Bld) [#/Vol] 4.0 10 3/uL 1.4-6.5 [facility] Neutrophils/100 WBC Auto (Bl d)on 07-04-2024 Neutrophils/100 WBC (Bld) 59.9 % 43.0-75.0 [facility] No Panel Informationon 07-04 Eosinophils # (Auto) 0.1 10 3/uL 0.0-0.7 [facility] Folate 15.90 ng/mL 8.60-58.90 [facility] Immature Granulocyte # (Auto) 0.03 10 3/uL 0.00-0.03 [facility] Platelet mean volume Auto (B ld) [Entitic vol]on 07-04-2024 Platelet mean volume (Bld) [Entitic vol] 10.1 fL 9.5-13.5 [facility] Platelets Auto (Bld) [#/Vol] on 07-04-2024 Platelets (Bld) [#/Vol] 214 10 3/uL 150-450 [facility] RBC Auto (Bld) [#/Vol]on RBC (Bld) [#/Vol] 4.30 10 6/uL 4.20-5.40 [facility] Serum or plasma anion gap de terminationon 07-04-2024 Anion gap [Moles/Vol] 15.6 mmol/L [facility] CBC AUTO DIFFon 11-25-2022 BASO # 0.1 103/ul Normal 0.0-0.1 [facility] Comment on above: Performed By: #### C BC #### [facility] [address] [place] [address] Dr. Simone Luna Basophils/100 WBC (Bld) 0.7 % Normal 0.2-2.0 [facility] Comment on above: Performed By: #### C BC #### [facility] [address] [place] [address] Dr. Simone Luna EO # 0.1 103/ul Normal 0.0-0.7 [facility] Comment on above: Performed By: #### C BC #### [facility] [address] [place] [address] Dr. Simone Luna Eosinophils/100 WBC (Bld) 1.7 % Normal 0.9-7.0 [facility] Comment on above: Performed By: #### C BC #### [facility] [address] [place] [address] Dr. Simone Luna Erythrocyte distribution width (RBC) [Ratio] 12.8 % Normal 11.0-15.0 [facility] Comment on above: Performed By: #### C BC #### [facility] [address] [place] [address] Dr. Simone Luna Hematocrit (Bld) [Volume fraction] 43.8 % Normal 36.0-48.0 [facility] Comment on above: Performed By: #### C BC #### [facility] [address] [place] [address] Dr. Simone Luna Hemoglobin (Bld) [Mass/Vol] 14.0 g/dL Normal 12.0-16.0 [facility] Comment on above: Performed By: #### C BC #### [facility] [address] [place] [address] Dr. Simone Luna IG # 0.03 10e3/ul Normal 0.00-0.03 [facility] Comment on above: Performed By: #### C BC #### [facility] [address] [place] [address] Dr. Simone Luna IG % 0.4 % Normal 0.0-0.5 [facility] Comment on above: Performed By: #### C BC #### [facility] [address] [place] [address] Dr. Simone Luna LYMPH # 2.2 103/ul Normal 1.2-3.8 [facility] Comment on above: Performed By: #### C BC #### [facility] [address] [place] [address] Dr. Simone Luna Lymphocytes/100 WBC (Bld) 26.4 % Normal 20.5-60.0 [facility] Comment on above: Performed By: #### C BC #### [facility] [address] [place] [address] Dr. Simone Luna MANUAL DIFF REQ NO Normal [facility] Comment on above: Performed By: #### C BC #### [facility] [address] [place] [address] Dr. Simone Luna MCH (RBC) [Entitic mass] 29.5 pg Normal 26.7-34.0 [facility] Comment on above: Performed By: #### C BC #### [facility] [address] [place] [address] Dr. Simone Luna MCHC (RBC) [Mass/Vol] 32.0 g/dL Normal 29.9-35.2 [facility] Comment on above: Performed By: #### C BC #### [facility] [address] [address] [address] Simone Luna MCV (RBC) [Entitic vol] 92.4 fL Normal 81.0-99.0 [facility] Comment on above: Performed By: #### C BC #### [facility] [address] [address] [address] Simone Luna MONO # 0.7 103/ul Normal 0.3-0.8 [facility] Comment on above: Performed By: #### C BC #### [facility] [address] [address] [address] Simone Luna Monocytes/100 WBC (Bld) 8.2 % Normal 1.7-12.0 [facility] Comment on above: Performed By: #### C BC #### [facility] [address] [place] [address] Dr. Simone Luna NEUT # 5.2 103/ul Normal 1.4-6.5 [facility] Comment on above: Performed By: #### C BC #### [facility] [address] [place] [address] Dr. Simone Luna Neutrophils/100 WBC (Bld) 62.6 % Normal 43.0-75.0 [facility] Comment on above: Performed By: #### C BC #### [facility] [address] [place] [address] Dr. Simone Luna Platelet mean volume (Bld) [Entitic vol] 9.6 fL Normal 9.5-13.5 [facility] Comment on above: Performed By: #### C BC #### [facility] [address] [address] [address] Simone Luna PLT 233 103/ul Normal 150-450 [facility] Comment on above: Performed By: #### C BC #### [facility] [address] [address] [address] Simone Luna RBC 4.74 106/ul Normal 4.20-5.40 [facility] Comment on above: Performed By: #### C BC #### [facility] [address] [place] [address] Dr. Simone Luna WBC 8.3 103/ul Normal 4.0-11.0 [facility] Comment on above: Performed By: #### C BC #### [facility] [address] [place] [address] Dr. Simone Luna FREE T4on 11-25-2022 Free T4 [Mass/Vol] 1.00 ng/dL Normal 0.76-1.46 [facility] Comment on above: Performed By: #### T HYRABT #### [facility] [address] [place] [address] Dr. Simone Luna PROF CHEM 8 (BAS METB)on Anion gap [Moles/Vol] 15.2 mmol/L Normal [facility] Comment on above: Performed By: #### T SH, BMP #### [facility] [address] [place] [address] Dr. Simone Luna Calcium [Mass/Vol] 9.3 mg/dL Normal 8.5-10.1 [facility] Comment on above: Performed By: #### T SH, BMP #### [facility] [address] [place] [address] Dr. Simone Luna Chloride [Moles/Vol] 105 mmol/L Normal 98-107 [facility] Comment on above: Performed By: #### T SH, BMP #### [facility] [address] [place] [address] Dr. Simone Luna CO2 [Moles/Vol] 23.9 mmol/L Normal 21.0-32.0 [facility] Comment on above: Performed By: #### T SH, BMP #### [facility] [address] [place] [address] Dr. Simone Luna Creatinine [Mass/Vol] 1.35 mg/dL Critically high 0.55-1.02 [facility] Comment on above: Performed By: #### T SH, BMP #### [facility] [address] [place] [address] Dr. Simone Luna EGFR-AF SLOVENIAN 48 mL/min/1.73m2 Critically low >=60 [facility] Comment on above: Performed By: #### T SH, BMP #### [facility] [address] [place] [address] Dr. Simone Luna EGFR-NON AF SLOVENIAN 40 mL/min/1.73m2 Critically low >=60 [facility] Comment on above: Performed By: #### T SH, BMP #### [facility] [address] [place] [address] Dr. Simone Luna Glucose [Mass/Vol] 142 mg/dL Critically high 74-106 [facility] Comment on above: Performed By: #### T SH, BMP #### [facility] [address] [place] [address] Dr. Simone Luna Potassium [Moles/Vol] 4.1 mmol/L Normal 3.5-5.1 [facility] Comment on above: Performed By: #### T SH, BMP #### [facility] [address] [place] [address] Dr. Simone Luna Sodium [Moles/Vol] 140 mmol/L Normal 136-145 [facility] Comment on above: Performed By: #### T SH, BMP #### [facility] [address] [place] [address] Dr. Simone Luna Urea nitrogen [Mass/Vol] 25.0 mg/dL Critically high 7.0-18.0 [facility] Comment on above: Performed By: #### T SH, BMP #### [facility] [address] [place] [address] Dr. Simone Luna Urea nitrogen/Creatinine [Mass ratio] 18.5 mg/mg Normal [facility] Comment on above: Performed By: #### T SH, BMP #### [facility] [address] [place] [address] Dr. Simone Luna TSHon 11-25-2022 TSH 0.513 uIU/mL Normal 0.358-3.740 [facility] Comment on above: Performed By: #### T SH, BMP #### [facility] [address] [place] [address] Dr. Simone Luna XR KNEE LT 4V [...] TRESSA YU Date: 2022-11-25 13:18 Normal [facility] Office Visit (Neuro - Immuno logy)on 10-12-2022 [...] will have a low threshold to start fdc immunosuppressive therapy if recurrence is suspected. 10/19/2018: [...] coordination of care. Bill Orona MD, PhD [employer] Observer of Neurology [facility] [employer] Director of Neuroimmunology and staff neurologist at the [facility] 10/12/2022 12:13 PM Patient Discussion/Summary Your latest [...] see me today. Bill Orona MD, PhD [employer] Observer of Neurology [facility] Director of Neuroimmunology and staff neurologist at the [facility] 10/12/2022 12:02 PM Chief Complaint FUV AIE History of Present Illness Ms. 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 Disease summary: In March 2018 had cognitive decline, gait di (more content not included)... Normal [employer] Tobacco Screening.on Fall risk assessment a) No falls within the last year -Neurology- [facility] [employer] Work Phone: Tobacco use status [facility] b) No -[facility]- [facility] [employer] Work Phone: US EXT NON VASC LIMITED [...] ANGELINA SERVIN Date: 2022-09-16 18:28 Normal [facility] THYROID ANTIBODIESon 022 Thyroglobulin Antibody <1.0 Normal 0.0-0.9 [facility] Comment on above: Result Comment: Thyr oglobulin Antibody measured by [employer] Performed By: #### T HYRABT #### [facility] [address] [place] [address] Dr. Simone Luna Thyroid Peroxidase (TPO) Ab <8 Normal 0-34 [facility] Comment on above: Performed By: #### T HYRABT #### [facility] [address] [place] [address] Dr. Simone Luna THYROTROPIN RECEPTOR ABon Thyrotropin Receptor Ab, Serum <1.10 Normal 0.00-1.75 [facility] Comment on above: Performed By: #### T HYRABT #### [facility] [address] [place] [address] Dr. Simone Luna FREE T3on 05-28-2022 FREE T3 2.77 pg/mlL Normal 2.18-3.98 [facility] Comment on above: Performed By: #### T HYRABT #### [facility] [address] [place] [address] Dr. Simone Luna FREE T4on 05-28-2022 Free T4 [Mass/Vol] 0.86 ng/dL Normal 0.76-1.46 [facility] Comment on above: Performed By: #### T HYRABT #### [facility] [address] [place] [address] Dr. Simone Luna TSHon 05-28-2022 TSH 0.491 uIU/mL Normal 0.358-3.740 [facility] Comment on above: Performed By: #### T HYRABT #### [facility] [address] [place] [address] Dr. Simone Luna ECHOCARDIO M/2D COMPLETEon 0 04-24-2022 ECHOCARDIO M/2D COMPLETE Patient: ALINA SON Exam Date: 04/24/2022 : 1960 Gender:F Ordering : DR BEBE DUNCAN M.D. Admission #: [id number] Family : Order #: [id number] CLICK HERE TO VIEW EXAM ECHOCARDIOGRAM REPORT [...] M.D. on 04/24/2022 at 15:04 Normal [facility] Office Visit (Neuro-General) on 04-01-2022 Follow-up visit [...] Status: Hold For - Scheduling Requested for: [id number] Migraine without status migrainosus, not intractable, unspecified [...] and abnormal movements. She was admitted at [facility] from 04/01 - 05/10. At [...] on tr (more content not included)... Normal [facility] Tobacco Screening.on 022 Fall risk assessment a) No falls within the last year -Neurology- Admin [facility] Work Phone: Tobacco use status CP b) No -Neurology- [facility] Work Phone: Falls Risk Screeningon 12-24 Fall risk assessment a) No falls within the last year -Neurology- [facility] Work Phone: Tobacco use status CP b) No -Neurology- [facility] Work Phone: Office Visit (Neuro-General) on [...] Status: Hold For - Scheduling Requested for: [id number] Migraine without status migrainosus, not intractable, unspecified [...] and abnormal movements. She was admitted at [facility] from 04/01 - 05/10. At [...] a sharp/shock like pain over her left uatsdin/occiputal region that is present only when she wakes up and resolves after prednisone. NO change with sneezing, position or activity. Neither of these radiate anywhere and she denies N/V/D/SOB/CP/F/C/Diplopia /dysphagia/focal weakness/tingling/BB/LOC/ vertigo/photo or phonophobi (more content not included)... Normal [employer] BD CT CHEST ABDOMEN PELVIS W IV [...] for underlying malignancy. COMPARISON: 06/29/2019 ACCESSION NUMBER(S): [id number] ORDERING CLINICIAN: ELIJAH WILKINSON TECHNIQUE: CT of [...] as stated. This study was interpreted at [facility], [place], [place]. Electronically signed by: HOLLY LOPEZ MD Normal [facility] COMPREHENSIVE PANELon 2020 Albumin [Mass/Vol] 3.8 g/dL Normal 3.4 - 5.0 [facility] Comment on above: Performed By: #### C MP #### [facility] [id number] [place] [address] ALP [Catalytic activity/Vol] 66 U/L Normal 33 - 136 [facility] Comment on above: Performed By: #### C MP #### [facility] [address] [place] [address] ALT [Catalytic activity/Vol] 7 U/L Normal 7 - 45 [facility] Comment on above: Result Comment: Josefina ents treated with Sulfasalazine may generate falsely decreased results for ALT. Performed By: #### C MP #### [facility] [address] [place] [address] Anion gap [Moles/Vol] 15 mmol/L Normal 10 - 20 [facility] Comment on above: Performed By: #### C MP #### [facility] [address] [place] [address] AST [Catalytic activity/Vol] 15 U/L Normal 9 - 39 [facility] Comment on above: Performed By: #### C MP #### [facility] [address] [place] [address] Bilirubin [Mass/Vol] 0.6 mg/dL Normal 0.0 - 1.2 [facility] Comment on above: Performed By: #### C MP #### [facility] [address] [place] [address] Calcium [Mass/Vol] 9.7 mg/dL Normal 8.6 - 10.6 [facility] Comment on above: Performed By: #### C MP #### [facility] [address] [place] [address] Chloride [Moles/Vol] 105 mmol/L Normal 98 - 107 [facility] Comment on above: Performed By: #### C MP #### [place] [address] [place] [address] Creatinine [Mass/Vol] 0.95 mg/dL Normal 0.50 - 1.05 [facility] Comment on above: Performed By: #### C MP #### [facility] [address] [place] [address] GFR- AM. 73 mL/min/1.73m2 Normal >60 [facility] Comment on above: Result Comment: CALC ULATIONS OF ESTIMATED GFR ARE PERFORMED USING THE MDRD STUDY EQUATION FOR THE IDMS-TRACEABLE CREATININE METHODS. CLIN CHEM 2007;53:766-72 Performed By: #### C MP #### [facility] [address] [place] [address] GFR-NON AM. 60 mL/min/1.73m2 Abnormal >60 [facility] Comment on above: Performed By: #### C MP #### [facility] [address] [place] [address] Glucose [Mass/Vol] 94 mg/dL Normal 74 - 99 [facility] Comment on above: Performed By: #### C MP #### [facility] [address] [place] [address] HCO3 (Bld) [Moles/Vol] 31 mmol/L Normal 21 - 32 [facility] Comment on above: Performed By: #### C MP #### [facility] [address] [place] [address] Potassium [Moles/Vol] 4.0 mmol/L Normal 3.5 - 5.3 [facility] Comment on above: Performed By: #### C MP #### [facility] [address] [place] [address] Protein [Mass/Vol] 5.7 g/dL Low 6.4 - 8.2 [facility] Comment on above: Performed By: #### C MP #### [facility] [address] [place] [address] Sodium [Moles/Vol] 147 mmol/L High 136 - 145 [facility] Comment on above: Performed By: #### C MP #### [facility] [address] [place] [address] Urea nitrogen [Mass/Vol] 18 mg/dL Normal 6 - 23 [facility] Comment on above: Performed By: #### C MP #### [facility] [address] [place] [address] [place] MODIFIED BARIUM SWALLOW W VIDEOon 05-30-2018 [...] by:Roderick Fine MD05/30/18Edited Result - FINAL Normal [facility] Procedureon 05-30-2018 HIM IP Note OR Taker Off Normal [facility] No Panel Information [facility] Vital Signs Date Time Vital Sign Value Performing Clinician Facility 08-09-2025 09:26-0400 Body height 154.94 cm Bebe Duncan MD Work Phone: [facility] 08-09-2025 09:26-0400 Body mass index (BMI) [Ratio] 32.9 kg/m2 Bebe Duncan MD Work Phone: [facility] 08-09-2025 09:26-0400 Body weight 79.09 kg Bebe Duncan MD Work Phone: [facility] 08-09-2025 09:26-0400 Diastolic blood pressure 71 mm[Hg] Bebe Duncan MD Work Phone: [facility] 08-09-2025 09:26-0400 Heart rate 74 /min Bebe Duncan MD Work Phone: [facility] 08-09-2025 09:26-0400 Respiratory rate 14 /min Bebe Duncan MD Work Phone: [facility] 08-09-2025 09:26-0400 SaO2% (BldA) [Mass fraction] 98 % Bebe Duncan MD Work Phone: [facility] 08-09-2025 09:26-0400 Systolic blood pressure 114 mm[Hg] Bebe Duncan MD Work Phone: [facility] 01-16-2025 09:32-0500 Body height 154.94 cm [facility] 01-16-2025 09:32-0500 Body mass index (BMI) [Ratio] 35.3 kg/m2 [facility] 01-16-2025 09:32-0500 Body weight 84.82 kg [facility] 01-16-2025 09:32-0500 Diastolic blood pressure 81 mm[Hg] [facility] 01-16-2025 09:32-0500 Heart rate 90 /min [facility] 01-16-2025 09:32-0500 Systolic blood pressure 115 mm[Hg] [facility] 11-09-2024 11:46-0500 Body height 154.94 cm [facility] 11-09-2024 11:46-0500 Body mass index (BMI) [Ratio] 34.9 kg/m2 [facility] 11-09-2024 11:46-0500 Body temperature 100.6 [degF] [facility] 11-09-2024 11:46-0500 Body weight 83.91 kg [facility] 11-09-2024 11:46-0500 Diastolic blood pressure 66 mm[Hg] [facility] 11-09-2024 11:46-0500 Heart rate 85 /min [facility] 11-09-2024 11:46-0500 SaO2% (BldA) [Mass fraction] 95 % [facility] 11-09-2024 11:46-0500 Systolic blood pressure 107 mm[Hg] [facility] 07-04-2024 10:04-0400 Body height 154.94 cm [facility] 07-04-2024 10:04-0400 Body mass index (BMI) [Ratio] 35.6 kg/m2 [facility] 07-04-2024 10:04-0400 Body weight 85.72 kg [facility] 07-04-2024 10:04-0400 Diastolic blood pressure 71 mm[Hg] [facility] 07-04-2024 10:04-0400 Heart rate 67 /min [facility] 07-04-2024 10:04-0400 Systolic blood pressure 120 mm[Hg] [facility] 12-27-2023 10:00-0500 Body height 154.94 cm Bebe Duncan Other [employer] Other 12-27-2023 10:00-0500 Body mass index (BMI) [Ratio] 35.75 kg/m2 Bebe Duncan Other [employer] Other 12-27-2023 10:00-0500 Body weight 85.82 kg Bebe Duncan Other [employer] Other 12-27-2023 10:00-0500 Diastolic blood pressure 78 mm[Hg] Bebe Duncan Other [employer] Other 12-27-2023 10:00-0500 Systolic blood pressure 126 mm[Hg] Bebe Duncan Other [employer] Other 12-14-2023 10:15-0500 Body height 154.94 cm Bebe Duncan Other [employer] Other 12-14-2023 10:15-0500 Body mass index (BMI) [Ratio] 35.71 kg/m2 Bebe Duncan Other [employer] Other 12-14-2023 10:15-0500 Body weight 85.73 kg Bebe Duncan Other [employer] Other 12-14-2023 10:15-0500 Diastolic blood pressure 77 mm[Hg] Bebe Duncan Other [employer] Other 12-14-2023 10:15-0500 Systolic blood pressure 125 mm[Hg] Bebe Duncan Other [employer] Other 07-27-2023 10:00-0400 Body height 154.94 cm Bebe Duncan Other [employer] Other 07-27-2023 10:00-0400 Body mass index (BMI) [Ratio] 36.2 kg/m2 Bebe Duncan Other [employer] Other 07-27-2023 10:00-0400 Body weight 86.91 kg Bebe Duncan Other [employer] Other 07-27-2023 10:00-0400 Diastolic blood pressure 74 mm[Hg] Bebe Duncan Other [employer] Other 07-27-2023 10:00-0400 Respiratory rate 12 /min Bebe Duncan Other [employer] Other 07-27-2023 10:00-0400 Systolic blood pressure 119 mm[Hg] Bebe Duncan Other [employer] Other 03-25-2023 09:30-0400 Body height 154.94 cm Bebe Duncan Other [employer] Other 03-25-2023 09:30-0400 Body mass index (BMI) [Ratio] 36.27 kg/m2 Bebe Duncan Other [employer] Other 03-25-2023 09:30-0400 Body weight 87.09 kg Bebe Duncan Other [employer] Other 03-25-2023 09:30-0400 Diastolic blood pressure 62 mm[Hg] Bebe Duncan Other [employer] Other 03-25-2023 09:30-0400 SaO2% (BldA) [Mass fraction] 97 % Bebe Duncan Other [employer] Other 03-25-2023 09:30-0400 Systolic blood pressure 124 mm[Hg] Bebe Duncan Other [employer] Other 11-25-2022 12:30-0500 Body height 154.94 cm Bebe Duncan Other [employer] Other 11-25-2022 12:30-0500 Body mass index (BMI) [Ratio] 35.71 kg/m2 Bebe Duncan Other [employer] Other 11-25-2022 12:30-0500 Body weight 85.73 kg Bebe Duncan Other [employer] Other 11-25-2022 12:30-0500 Diastolic blood pressure 86 mm[Hg] Bebe Duncan Other [employer] Other 11-25-2022 12:30-0500 SaO2% (BldA) [Mass fraction] 97 % Bebe Duncan Other [employer] Other 11-25-2022 12:30-0500 Systolic blood pressure 128 mm[Hg] Bebe Duncan Other [employer] Other 10-12-2022 11:16-0500 Body height 154.94 cm No PCP None QG-Csysctesg-CBJ [facility] Work Phone: 10-12-2022 11:16-0500 Body mass index (BMI) [Ratio] 36.09 kg/m2 No PCP None PA-Kpkgllqxv-UJGYS [facility] Work Phone: 10-12-2022 11:16-0500 Body surface area Derived from formula 1.85 m2 No PCP None OT-Wngogqbuu-FMOQU [facility] Work Phone: 10-12-2022 11:16-0500 Body weight 86.64 kg No PCP None CZ-Eeelvlyex-PEY [facility] Work Phone: 10-12-2022 11:16-0500 Diastolic blood pressure 71 mm[Hg] No PCP None WH-Aulfjtsrh-IMRFX [facility] Work Phone: 10-12-2022 11:16-0500 Heart rate 76 /min No PCP None IN-Zwqoqaqzq-WUT [facility] Work Phone: 10-12-2022 11:16-0500 Respiratory rate 18 /min No PCP None OQ-Kblpwumhi-SC [facility] Work Phone: 10-12-2022 11:16-0500 Systolic blood pressure 135 mm[Hg] No PCP None KF-Xzvdfajua-PKIWJ [facility] Work Phone: 10-12-2022 11:16-0500 0 1 No PCP None WX-Ibnyosxhi-IRE [facility] Work Phone: Comment on above: [employer] 04-01-2022 13:42-0400 Body height 154.94 cm No PCP None UU-Zrmxoejbw-Ojq in [facility] Work Phone: 04-01-2022 13:42-0400 Body mass index (BMI) [Ratio] 36.85 kg/m2 No PCP None EY-Lfxaxctti-Iwdye [facility] Work Phone: 04-01-2022 13:42-0400 Body surface area Derived from formula 1.87 m2 No PCP None UO-Yhwmzribq-Xczwk [facility] Work Phone: 04-01-2022 13:42-0400 Body weight 88.45 kg No PCP None CD-Oskevhfnx-Dtr in [facility] Work Phone: 04-01-2022 13:42-0400 Diastolic blood pressure 76 mm[Hg] No PCP None NL-Zgltumhcz-Qxaap [facility] Work Phone: 04-01-2022 13:42-0400 Heart rate 73 /min No PCP None MU-Aqfcxdhce-Ifl in [facility] Work Phone: 04-01-2022 13:42-0400 Respiratory rate 18 /min No PCP None XC-Zmwnkpntf-Zd min [facility] Work Phone: 04-01-2022 13:42-0400 Systolic blood pressure 147 mm[Hg] No PCP None YU-Arybndbyy-Yoddw [facility] Work Phone: 04-01-2022 13:42-0400 4 1 No PCP None SK-Knsddaquz-Oqi in [facility] Work Phone: Comment on above: [employer] 12-24-2021 13:33-0500 Body height 154.94 cm No PCP None QW-Mjlwjoohw-Jmc in [facility] Work Phone: 12-24-2021 13:33-0500 Body mass index (BMI) [Ratio] 37.6 kg/m2 No PCP None MR-Cfgkiujpm-Uijmq [facility] Work Phone: 12-24-2021 13:33-0500 Body surface area Derived from formula 1.89 m2 No PCP None DH-Nbplopxkf-Ecdob [facility] Work Phone: 12-24-2021 13:33-0500 Body weight 90.27 kg No PCP None QI-Gxqmefnxu-Vbb in [facility] Work Phone: 12-24-2021 13:33-0500 Diastolic blood pressure 74 mm[Hg] No PCP None NK-Sldbmktig-Tkkrd [facility] Work Phone: 12-24-2021 13:33-0500 Heart rate 83 /min No PCP None DZ-Vzpbdartz-Bjm in [facility] Work Phone: 12-24-2021 13:33-0500 Respiratory rate 18 /min No PCP None XT-Cbnkovilt-Io min [facility] Work Phone: 12-24-2021 13:33-0500 Systolic blood pressure 149 mm[Hg] No PCP None HC-Gdstcaful-Pjfwh [facility] Work Phone: 10-01-2021 14:11-0500 Body height 154.94 cm No PCP None LP-Oewjhqhag-Ebm in [facility] Work Phone: 10-01-2021 14:11-0500 Body mass index (BMI) [Ratio] 36.09 kg/m2 No PCP None JE-Zzxmueiaf-Mnrbo [facility] Work Phone: 10-01-2021 14:11-0500 Body surface area Derived from formula 1.85 m2 No PCP None VX-Ezqmkbujq-Lqwzv [facility] Work Phone: 10-01-2021 14:11-0500 Body weight 86.64 kg No PCP None BP-Mbwbgesdy-Sun in [facility] Work Phone: 10-01-2021 14:11-0500 Diastolic blood pressure 78 mm[Hg] No PCP None BX-Nasmyszgm-Ffowe [facility] Work Phone: 10-01-2021 14:11-0500 Heart rate 80 /min No PCP None ZF-Wvfjwgheb-Kwf in [facility] Work Phone: 10-01-2021 14:11-0500 Respiratory rate 16 /min No PCP None LW-Uxofxobxv-Vt min [facility] Work Phone: 10-01-2021 14:11-0500 Systolic blood pressure 136 mm[Hg] No PCP None KW-Wkzjbhhoj-Ooxzo [facility] Work Phone: 05-28-2021 13:57-0400 Body height 154.94 cm No PCP None WI-Zuixsiyku-Lvn in [facility] Work Phone: 05-28-2021 13:57-0400 Body mass index (BMI) [Ratio] 36.09 kg/m2 No PCP None JI-Bhkoeqtng-Lwfdk [facility] Work Phone: 05-28-2021 13:57-0400 Body surface area Derived from formula 1.85 m2 No PCP None DN-Lbbpfvnjf-Kklnj [facility] Work Phone: 05-28-2021 13:57-0400 Body weight 86.64 kg No PCP None IK-Vqlhitxpj-Ndp in [facility] Work Phone: 05-28-2021 13:57-0400 Diastolic blood pressure 85 mm[Hg] No PCP None SS-Lanliibbo-Vylws [facility] Work Phone: 05-28-2021 13:57-0400 Heart rate 94 /min No PCP None JI-Ascpmtozu-Mep in [facility] Work Phone: 05-28-2021 13:57-0400 Respiratory rate 16 /min No PCP None ST-Gnaubbdbf-Oz min [facility] Work Phone: 05-28-2021 13:57-0400 Systolic blood pressure 145 mm[Hg] No PCP None UP-Iikbavjkn-Tmjdr [facility] Work Phone: Encounters Encounter Date Encounter Type Care Provider Facility Start: 08-09-2025 End: 08-09-2025 ambulatory Bebe Duncan MD Work Phone: [facility] Work Phone: Start: 08-09-2025 End: 08-09-2025 Patient encounter procedure Bebe Duncan MD -[facility] Work Phone: Start: 04-11-2025 End: 04-11-2025 ambulatory AMALIA JORGENSEN Facility:[facility] Start: 04-11-2025 End: 04-11-2025 Patient encounter procedure Amalia Jorgensen OD Work Phone: Ophthalmology Comment on above: Pseudophakia, both e yes (Primary Dx); Eyelid myokymia; Ocular migraine; PVD (posterior vitreous detachment), bilateral; Myopia with astigmatism and presbyopia, bilateral Start: 01-16-2025 End: 01-16-2025 ambulatory [facility] Work Phone: Start: 01-16-2025 End: 01-16-2025 Patient encounter procedure [facility] Work Phone: Start: 11-09-2024 End: 11-09-2024 Patient encounter procedure [facility] Work Phone: Start: 07-27-2024 End: 07-27-2024 ambulatory Ricardo Deng [facility] Work Phone: Start: 07-27-2024 End: 07-27-2024 Departed Referred MD Ricardo Deng Work Phone: [facility] [place] Work Phone: Start: 07-04-2024 End: 07-04-2024 ambulatory [facility] Work Phone: Start: 07-04-2024 End: 07-04-2024 Patient encounter procedure [facility] Work Phone: Start: 04-05-2024 End: 04-05-2024 Patient encounter procedure Amalia Jorgensen OD Work Phone: Ophthalmology Comment on above: Pseudophakia, both e yes (Primary Dx); Insufficiency of tear film of both eyes; PVD (posterior vitreous detachment), bilateral; Dermatochalasis of both upper eyelids; Myopia with astigmatism and presbyopia, bilateral Start: 12-27-2023 End: 12-27-2023 ambulatory Bebe Duncan Other [employer] Other Start: 12-27-2023 Office outpatient vi sit 15 minutes Bebe Duncan [facility] Start: 12-20-2023 End: 12-20-2023 ambulatory Bebe Duncan Other [employer] Other Start: 12-20-2023 Telephone encounter Bebe Duncan [facility] Start: 12-14-2023 End: 12-14-2023 ambulatory Bebe Duncan Other [employer] Other Start: 12-14-2023 Office outpatient vi sit 15 minutes Bebe Duncan [facility] Start: 07-27-2023 End: 07-27-2023 ambulatory Bebe Duncan Other [employer] Other Start: 07-27-2023 Office outpatient vi sit 25 minutes Bebe Duncan [facility] Start: 04-06-[address] BEBE DUNCAN Facil ity:H1 Start: 03-25-2023 End: 03-25-2023 ambulatory Bebe Duncan Other [employer] Other Start: 03-25-2023 Office outpatient vi sit 25 minutes Bebe Duncan [facility] Start: 12-15-2022 End: 12-15-2022 ambulatory Bebe Duncan Other [employer] Other Start: 12-15-2022 Telephone encounter Bebe Duncan [facility] Start: 12-01-2022 End: 12-01-2022 ambulatory Bebe Duncan Other [employer] Other Start: 12-01-2022 Telephone encounter Bebe Duncan [facility] Start: 11-25-2022 End: 11-26-[address] BEBE DUNCAN [facility] Other Start: 11-25-2022 Office outpatient vi sit 25 minutes Bebe Duncan [facility] Start: 11-23-2022 Annual wellness visit Bebe lazar Other [employer] Other Start: 10-12-2022 Office outpatient vi sit 15 minutes No PCP None QL-Oxgwgewaq-LFASP [facility] Work Phone: Start: 10-12-2022 ambulatory Bill Orona Facility: [facility] Start: 10-05-2022 ambulatory Bill Orona Facility: [facility] Start: 09-16-2022 End: 09-17-[address] BEBE DUNCAN Facility: Start: 05-28-2022 End: 05-29-2022 ambulatory CORNEL MORALES Facility: Start: 05-20-2022 AUDIT No PCP None MG-Neurolo gy-Admin [facility] Work Phone: Start: 05-11-2022 End: 05-12-[address] BEBE DUNCAN Facility: Start: 04-24-2022 End: 04-25-[address] BEBE DUNCAN Facility: Start: 04-01-2022 Office consultation new/estab patient 60 min No PCP None VD-Tvauclvnp-DGNRA [facility] Work Phone: Start: 04-01-2022 Patient encounter procedure No PCP None UJ-Qcgacoroy-Wdfqt [facility] Work Phone: Start: 04-01-2022 ambulatory PCP UNKNOWN Facility:[facility] Start: 02-19-2022 End: 02-19-2022 Patient encounter procedure Osiris Dorado MD Work Phone: Ophthalmology Comment on above: PCO (posterior capsu lar opacification), bilateral (Primary Dx); Pseudophakia, both eyes; Chalazion of right lower eyelid; Insufficiency of tear film of both eyes; PVD (posterior vitreous detachment), bilateral; Myopia with astigmatism and presbyopia, bilateral Start: 12-24-2021 Office outpatient vi sit 25 minutes No PCP None MJ-Mjuibwafk-Puwuq [facility] Work Phone: Start: 12-24-2021 ambulatory PCP UNKNOWN Facility:[facility] Start: 11-12-2021 ambulatory [facility] Facility: [facility] Start: 10-01-2021 Office outpatient vi sit 25 minutes No PCP None RV-Rusctvjwg-TTMKM [facility] Work Phone: Start: 10-01-2021 Patient encounter procedure No PCP None JM-Njujftxuj-Xbkvm [facility] Work Phone: Start: 05-28-2021 Office outpatient vi sit 25 minutes No PCP None HL-Qwlaaleju-Whqdt [facility] Work Phone: Start: 05-23-2021 Chart Update No PCP None MG-Neurolo gy-[facility] Work Phone: Start: 04-24-2021 AUDIT No PCP None MG-Neurolo gy-[facility] Work Phone: Start: 05-01-2020 Patient encounter procedure Gavino Roman FX-Joqgodzmd-Abhlo [facility] Work Phone: Start: 03-06-2020 Patient encounter procedure Gavino Roman ON-Fwhwbldrb-Xuexl [facility] Work Phone: Start: 08-23-2019 Patient encounter procedure Gavino Roman FI-Qpartatck-Qaeod [facility] Work Phone: Start: 06-28-2019 Patient encounter procedure Gavino Roman SY-Djhjhrkux-Vfgsb [facility] Work Phone: Start: 05-03-2019 Patient encounter procedure Gavino Roman PD-Audclrbck-Dghsh [facility] Work Phone: Start: 01-25-2019 Patient encounter procedure Gavino Roman HI-Pyzimzvxl-Cdyfx [facility] Work Phone: Start: 05-30-2018 End: 06-02-2018 Patient encounter [facility] l Procedures Date Procedure Procedure Detail Performing Clinician Start: 12-15-2019 Adult depression scr eening assessment Osiris Clemente MD Work Phone: Start: 05-30-2018 Swallowing funcj w/cineradiograpy/vidradiog [facility] Screening mammography Bebe Duncan Other Plan of Treatment Date Care Activity Detail Author Start: 2034 RSV Vaccine (1 - 1-dose 75+ series) RSV Vaccine (1 - 1-dose 75+ series) [facility] Start: 04-12-2026 End: 04-12-2026 Patient encounter procedure 04/12/2026 10:45 AM EDT Office Visit [facility] [address] [place] [address] Amalia Jorgensen, OD [address] [place] [address] 1 year full exam Ophthalmology Comment on above: 1 year full exam Start: 04-23-2025 Covid-19 Vaccine ( season) Covid-19 Vaccine ( season) [facility] Start: 04-11-2025 End: 04-11-2025 Patient encounter procedure 04/11/2025 10:15 AM EDT Office Visit [facility] [address] [place] [address] Amalia Jorgensen, OD [address] [place] [address] 1 year full exam Ophthalmology Comment on above: 1 year full exam Start: 2024 Advance Directive Discussion Advance Directive Discussion [facility] Start: 2024 Screening for osteoporosis Bone Density Screening [facility] Start: 11-06-2024 Diabetes Screening Diabetes Screenin g [facility] Start: 07-27-2024 Superficial Wound Culture Superficial Wound Culture [facility] Start: 11-15-2023 Behavioral Health Screening Behavioral Health Screening [facility] Start: 12-15-2022 DIABETES SCREEN DIABETES SCREEN [facility] Start: 07-16-2022 Influenza vaccination INFLUENZ A (Season Ended) [facility] Start: 04-01-2022 FUVPRE, Provider: Elijah Wilkinson, Status: Pen, Time: 2:00 PM FUVPRE, Provider: Elijah Wilkinson, Status: Pen, Time: 2:00 PM UQ-Fxvzdzzub-Pzkou [facility] Work Phone: Start: 12-24-2021 FUVPRE, Provider: Elijah Wilkinson, Status: Pen, Time: 2:00 PM FUVPRE, Provider: Elijah Wilkinson, Status: Pen, Time: 2:00 PM MU-Thnvgahlf-Qmypp [facility] Work Phone: Start: 12-15-2020 Adult depression screening assessment DEPRESSION SCREENING [facility] Start: 2019 RSV Vaccine (1 - 1-dose 60+ series) RSV Vaccine (1 - 1-dose 60+ series) [facility] Start: 2009 Pneumococcal Vaccine : 50+ (1 of 1 - PCV) Pneumococcal Vaccine: 50+ (1 of 1 - PCV) [facility] Start: 2009 SHINGRIX VACCINE (1 of 2) SHINGRIX VACCINE (1 of 2) [facility] Start: 2004 COLOGUARD (FIT-DNA) COLOGUARD (FIT-D NA) [facility] Start: 2004 Colonoscopy COLONOSCOPY [facility] Start: 2004 COLORECTAL CANCER SCREENING COLORECTAL CANCER SCREENING [facility] Start: [address] COLONOGRAPHY [facility] Start: 2004 FECAL OCCULT BLOOD FECAL OCCULT BLOO D [facility] Start: 2004 Lipid panel Lipid Screening [facility] Start: 2004 LIPID SCREEN LIPID SCREEN [facility] Start: 2004 Screening for malignant neoplasm of colon [facility] Start: 2004 SIGMOIDOSCOPY SIGMOIDOSCOPY [facility] Start: 1999 Mammography MAMMOGRAM [facility] Start: 1999 Screening for malignant neoplasm of breast Mammogram Screening [facility] Start: 1989 HPV TESTING HPV TESTING [facility] Start: 1989 Screening for malignant neoplasm of cervix HPV Testing [facility] Start: 1980 PAP TESTING PAP TESTING [facility] Start: 1980 Screening for malignant neoplasm of cervix Pap Testing [facility] Start: 1978 Urine microalbumin profile [facility] Start: 1977 Anxiety Screening Anxiety Screening [facility] Start: 1977 Depression Screening Depression Scre ening [facility] Start: 1977 HIV SCREENING HIV SCREENING [facility] Start: 1977 HIV screening HIV Screening [facility] Start: 1964 COVID-19 VACCINE (1) COVID-19 VACCIN E (1) [facility] Bacteria identified in Unspecified specimen by Aerobe culture [facility] Comprehensive metabolic 2000 panel - Serum or Plasma [facility] MG Breast - bilatera l Screening [facility] Thiamine [Moles/volume] in Blood [facility] GI-Lvqzdlfpg-Ie min [facility] Work Phone: [facility] NEGATED: Highlighted row has been ruled out! Planned Goals not documented VC-Skzwfvvks-Lnnac [facility] Work Phone: Immunizations Immunization Date Immunization Notes Care Provider Fa cility 09-16-2022 COVID-19 Pfizer (Pediatric) Bebe Duncan Other [facility] 04-02-2022 COVID-19 Vaccine Pfi zer - Documentation Purposes Only Bebe Duncan Other [facility] 12-26-2021 influenza virus vaccine, split virus (incl. purified surface antigen) Bebe Duncan Other [facility] Other 12-26-2021 influenza virus vaccine, unspecified formulation [facility] 10-16-2021 COVID-19 Vaccine Pfi zer - Documentation Purposes Only Bebe Duncan Other [facility] 07-30-2020 influenza virus vaccine, split virus (incl. purified surface antigen) Bebe Duncan Other [employer] Other 07-30-2020 influenza virus vaccine, unspecified formulation [facility] Payers Date Payer Category Payer Medicare (Managed Care) [employer] [id number] 2025 Medicare [id number] 2022 Medicaid [id number] 2022 Unknown [id number] 2021 Medicaid [employer]ICA[employer] [id number] 2021-Present [phone] [address] [place] [address] Medicaid [id number] 2014 Unknown [id number] 1959 Unknown [id number] [id number]. 356 1959 Unknown [id number] 2.16.840.1.424840.3.579.2. 356 1959 Unknown [id number] 2.16.840.1.496340.3.579.2. 356 1959 Unknown [id number] 2.16.840.1.485469.3.579.2. 356 1959 Unknown [id number] 2.16840.1.621490.3.579.2. 356 1959 Unknown [id number] 2.16.840.1.218871.3.579.2. 593 1959 Unknown [id number] 2.16.840.1.275832.3.579.2. 593 1959 Unknown [id number] 2.16.840.1.204814.3.579.2. 593 1959 Unknown [id number] 2.16.840.1.127988.3.579.2. 593 1959 Unknown [id number] 2.16.840.1.844372.3.579.2. 593 1959 Unknown [id number] 2.16.840.1.909124.3.579.2. 593 1959 Unknown [id number] 2.16.840.1.817964.3.579.2. 593 1959 Unknown [id number] Medicare Medicare [id number] Self-pay Self Pay [id number] Unknown Social History Date Type Detail Facility Assertion Tobacco smoking consumption unknown (finding) JT-Iruuzsnja-Vimck [facility] Work Phone: Start: 12-15-2019 End: 01-21-2024 Tobacco smoking status NHIS Never smoked tobacco [facility] Start: 12-15-2019 End: 04-05-2024 Tobacco use and exposure Smokeless tobacco non-user [facility] Start: 1960 Sex Assigned At Not on file C [facility] Start: 02-19-2022 End: 04-05-2024 Sex Assigned At [facility] Start: 02-19-2022 End: 04-05-2024 History of Social function [facility] Adult Depression Screening Assessment 0 [facility] Start: 1960 Sex Assigned At Female F [facility] Start: 01-16-2025 Sex Female (finding) Diomedes [facility] Procedure Code Equipment Code Equipment [...] status health issues are not documented Disease IP-Mgesybeto-Amkcl [facility] Work Phone: Mental Status Date Assessment Result Facility NEGATED: Highlighted row Cognitive function [Interpretation] Cognitive status health issues are not documented Disease UC-Zsijgttor-Xqezc [facility] Work Phone: Clinical Notes 03-15-2018 to 08-09-2025 Note Date & Type Note Facility 08-09-2025 Evaluation note Diagnosis Onset Date Resolution Abnormal TSH acute August 092024 9:10am CKD stage 3a, GFR 45-59 ml/min acute August 09, 2025 9:10am Colon cancer screening acute Se ptember 2024 9:10am Essential (primary) hypertension acute August 09, 2025 9:10am Fatigue acute July 9:10am Vitamin D deficiency acute Jul 9:10am [facility] Work Phone: 1(527) 311-781805-28-2025 NoteHNO ID: [id number] Author: AMALIA JORGENSEN OD Service: ? 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 Pseudophakia, both eyes - ICD9: V43.1, ICD10: Z96.1 (primary diagnosis) PCIOL 2018 outside [facility]. S/p yag OU 2. 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 Ocular migraine - ICD9: 346.80, ICD10: G43.109 ++stress Pt has typical ocular migraine symptoms. No need for further work-up. Discussed typical pattern and common triggers - call if any changes. Observe. 4. PVD (posterior vitreous detachment), bilateral - ICD9: 379.21, ICD10: H43.813 Stable, observe. 5. Myopia with astigmatism and presbyopia, bilateral - ICD9: 367.1, 367.20, 367.4, ICD10: H52.13, H52.203, H52.4 Happy with current 1 year old specs. Amalia Jorgensen, OD I have confirmed and [...] all of its relevant components. Amalia Jorgensen, OD April 11, 2025 11:[address] [facility]05-28-2025 History of Present illness Narrative* Amalia Jorgensen, OD - 04/11/2025 11:34 AM EDT ASSESSMENT/PLAN: 1. Pseudophakia, both eyes - ICD9: V43.1, ICD10: Z96.1 (primary diagnosis) PCIOL 2018 outside [facility]. S/p yag OU 2. 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 Ocular migraine - ICD9: 346.80, ICD10: G43.109 ++stress Pt has typical ocular migraine symptoms. No need for further work-up. Discussed typical pattern and common triggers - call if any changes. Observe. 4. PVD (posterior vitreous detachment), bilateral - ICD9: 379.21, ICD10: H43.813 Stable, observe. 5. Myopia with astigmatism and presbyopia, bilateral - ICD9: 367.1, 367.20, 367.4, ICD10: H52.13, H52.203, H52.4 Happy with current 1 year old specs. Amalia Jorgensen, OD I have confirmed and [...] its relevant components. Amalia Jorgensen OD April 11, 2025 11:34 AM documented in [facility] Evaluation note* Diagnosis Onset Date Resolution Status Admit Date Bronchitis acute November 09, 2024 11:43am Screening mammogram for breast cancer acute January 16, 2025 9:29am [facility] Work Phone: 1(115) 477-827405-22-2024 Instructions* Patient Instructions* Amalia Jorgensen OD - 04/05/2024 10:14 AM EDT Refresh Tears Refresh Relieva Systane Balance Systane Complete Thera Tears Genteal documented in this encounterPrem[facility]05-22-2024 History of Present illness Narrative* Amalia Jorgensen [...] Minimal Rx change, NC optional update. Amalia Jorgensen OD I have confirmed and edited as [...] 05, 2024 10:00 AM documented in this encounterPrem[facility]02-12-2024 Evaluation note* Encounter Date Diagnosis Assessment Notes [...] symptoms. Any developing patterns. Stay well hydrated. [employer] Other 01-30-2024 Evaluation note* Encounter Date Diagnosis Assessment Notes Treatment Notes Treatment Clinical Notes Nov, Bullous impetigo (ICD-10 - L01.03) Take antibiotic as directed. If develop wheezing, chest tightness, itching, bad cough, blue skin color, seizures, swelling of face, lips, tongue, or throat report to ED. Nov, Other staphylococcus as the cause of diseases classified elsewhere (ICD-10 - B95.7) [employer] Other 09-12-2023 Evaluation note* Encounter Date Diagnosis [...] mammogram for breast cancer (ICD-10 - Z12.31) [employer] Other 05-11-2023 Evaluation note* Encounter Date Diagnosis [...] enabling machines and devices (ICD-10 - Z99.89) [employer] Other 01-11-2023 Evaluation note* Encounter Date Diagnosis [...] first and consider med changes after that. [employer] Other 07-14-2022 NotePROCEDURE: XR FOOT LT MIN [...] Electronically authenticated by: ANGELINA SERVIN Date: 2022-05-28 18:49[facility]07-14-2022 NotePROCEDURE: XR FOOT LT MIN 3 [...] Electronically authenticated by: ANGELINA SERVIN Date: 2022-05-28 18:49[facility]06-28-2022 NotePROCEDURE: XR FOOT LT MIN 3 VIEWS COMPARISON: None. HISTORY: Pain in left foot FINDINGS: BONES:No acute fracture or dislocation. Mild enthesopathic spurring of the calcaneus. SOFT TISSUES:Negative. No visible soft tissue swelling. EFFUSION:None visible. OTHER: Negative. IMPRESSION: No acute abnormality Electronically authenticated by: ANGELINA MALATHI Date: 2022-05-12 07:14[facility]04-07-2022 Instructions* Patient Instructions* Osiris Dorado V, [...] so we recommend you come with a driver engineer. You will then be scheduled for a follow up in approximately one week. If you notice any of the following symptoms of retinal detachment, please call our office at : - Flashes of light - Increased number of floaters or large floaters - Curtains, veils, or spider web pattern over vision documented in this encounterPrem[facility]04-07-2022 History of Present illness Narrative* Osiris Dorado [...] patient was offered a surgery/procedure at a [facility] facility. The surgeon/proceduralist and patient have discussed [...] form. -F/U [address] Carballo ([facility]) 2. Posterior chamber intraocular lens [...] diagnosis) Pt educated. Ref by Dr. Carballo. Miri with today. 2. Pseudophakia, both eyes - [...] 19, 2022 2:49 PM documented in this encounterPrem[facility]02-01-2021 History of Present illness Narrative* Ms. Son [...] a sharp/shock like pain over her left uatsdin/occiputal region that is present only when she [...] seizures, and abnormal movements.She was admitted at [facility] from 04/01 - 05/10. At [...] 360 mg daily for migraines with improvement. KL-Xiwqninjj-Umepo [facility] Work Phone: 1(138) 577-587305-01-2018 History of Present illness Narrative* Ms. 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 * Disease summary: * In March 2018 had cognitive decline, gait disturbance, subclinical seizures, and abnormal movements.She was admitted at [facility] from 04/01 - 05/10. At [...] a sharp/shock like pain over her left uatsdin/occiputal region that is present only when she [...] - sinnemet 25-100 TID * - Citalopram HG-Zqppicczm-Wqgzk [facility] Work Phone: 1(705) 952-641805-01-2018 History of Present illness Narrative* Ms. 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 * Disease summary: * In March 2018 had cognitive decline, gait disturbance, subclinical seizures, and abnormal movements.She was admitted at [facility] from 04/01 - 05/10. At [...] a sharp/shock like pain over her left uatsdin/occiputal region that is present only when she [...] - sinnemet 25-100 TID * - Citalopram VN-Oxeqtpmgm-JOXVC [facility] Work Phone: 1(255) 171-784905-01-2018 History of Present illness Narrative* Ms. 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 * Disease summary: * In March 2018 had cognitive decline, gait disturbance, subclinical seizures, and abnormal movements.She was admitted at [facility] from 04/01 - 05/10. At [...] a sharp/shock like pain over her left uatsdin/occiputal region that is present only when she [...] - sinnemet 25-100 TID * - Citalopram VD-Zwsdauxwa-Kvpuh [facility] Work Phone: 1([phone]) 721-697305-01-2018 History of Present illness Narrative* Ms. 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 * Disease summary: * In March 2018 had cognitive decline, gait disturbance, subclinical seizures, and abnormal movements.She was admitted at [facility] from 04/01 - 05/10. At [...] 2)A sharp/shock like pain over her left uatsdin/occiputal region that is present only when she [...] - sinnemet 25-100 TID * - Citalopram VA-Dkjvjosgt-Yulsi [facility] Work Phone: 1(925) 840-979305-01-2018 History of Present illness Narrative* Ms. 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 * Disease summary: * In March 2018 had cognitive decline, gait disturbance, subclinical seizures, and abnormal movements.She was admitted at [facility] from 5/18 - 05/10. At her worst she was [...] 2)A sharp/shock like pain over her left uatsdin/occiputal region that is present only when she [...] - sinnemet 25-100 TID * - Citalopram XL-Yliuhtpdv-GYVMF [facility] Work Phone: 1([phone]) 286-165505-01-2018 History of Present illness Narrative* Ms. 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 * Disease summary: * In March 2018 had cognitive decline, gait disturbance, subclinical seizures, and abnormal movements.She was admitted at [facility] from 04/01 - 05/10. At [...] only. she'll continue verapamil for MEANS ppx. DN-Yifnrlaqc-OBDXJ [facility] Work Phone: Evaluation note* Diagnosis PCO (posterior capsular opacification), bilateral- Primary After-cataract, unspecified Pseudophakia, both eyes Lens replaced by other means Chalazion of right lower eyelid Chalazion Insufficiency of tear film of both eyes PVD (posterior vitreous detachment), bilateral Myopia with astigmatism and presbyopia, bilateral documented in this encounter [facility] noteNo [employer] Other Evaluation note* Diagnosis Pseudophakia, both eyes- Primary Lens replaced by other means Insufficiency of tear film of both eyes PVD (posterior vitreous detachment), bilateral Dermatochalasis of both upper eyelids Myopia with astigmatism and presbyopia, bilateral documented in this encounter [facility]* Diagnosis Onset Date Resolution Status Abnormal TSH acute Essential (primary) hypertension acute Fatigue acute [facility] Work Phone: Evaluation note* Diagnosis Pseudophakia, both eyes- Primary Lens replaced by other means Eyelid myokymia Other facial nerve disorders Ocular migraine Other forms of migraine, without mention of intractable migraine without mention of status migrainosus PVD (posterior vitreous detachment), bilateral Myopia with astigmatism and presbyopia, bilateral documented in this encounter [facility] general Narrative - Reported* Type Description Date [...] History lithotripsy Surgical History tube in kidney [employer] Other History general Narrative - Reported* Type [...] in kidney Hospitalization History see surgical hx [employer] Other Reason for referral (narrative)No reason for referral information availablePaulding [facility] Work Phone: Summary Purpose Family History Mother Name Dates [...] 1 Drop Reason for Referral Reason 12/01/22 [facility] foot/ankle with Kasey Wright DIRECTOR CHECK Diagnosis 1 Ingrowing nail (L60. 0) Referral Organization [facility] nazanin Referring Provider First Name Bebe Referring Provider Last Name Rodríguez Referring Provider Specialty Family [facility] Referred Organization [facility] Referred Provider ASHISH WRIGHT Referred Address [address] [place], [place],[address] Referred Provider Specialty Podiatry - S urgical [...] referral at this time. Clinical Notes P: [id number] F: [id number] Chief Complaint and Reason for Visit Chief Complaint 6 MONTH CHECK UP Reason for Visit Abnormal TSH Essential (primary) hypertension Fatigue Chief Complaint Admit Date sore throat, headache, sinus congestion November 09, 2024 11:43am 6 month f/u January 16, 2025 9:29 am Reason for Visit Admit Date Bronchitis November 09, 2024 11:43am Screening mammogram for breast cancer [facility] 2024 9:29am Chief Complaint Admit Date Wellness August 09, 2025 9:10am Reason for Visit Admit Date Abnormal TSH August 09, 2025 9:10am CKD stage 3a, GFR 45-59 ml/min August 09, 2025 9:10am Colon cancer screening August 09, 2 025 9:10am Essential (primary) hypertension Septemb 2024 9:10am Fatigue August 09, 2025 9:10am Vitamin D deficiency August 09 9:10am Additional Source Comments INFORMATION SOURCE (unrecogn ized section and content) DATE CREATED AUTHOR 06/03/2018 [facility] DATE CREATED AUTHOR AUTHOR'S ORGANIZ ATION 10/13/2022 [employer] DATE CREATED AUTHOR AUTHOR'S ORGANIZ ATION 10/14/2022 [facility] DATE CREATED AUTHOR AUTHOR'S ORGANIZ ATION 03/31/2023 [facility] DATE CREATED AUTHOR AUTHOR'S ORGANIZ ATION 07/30/2024 [facility] DATE CREATED AUTHOR AUTHOR'S ORGANIZ ATION 04/14/2025 [facility] Source Comments (unrecognize d section and content) In the event this informatio n is protected by the Federal Confidentiality of Alcohol and Drug Abuse Patient Records regulations: The Federal rules restrict any use of the information to criminally investigate or prosecute any alcohol or drug abuse patient.[facility] CenterIn the event this information is protected by the Federal Confidentiality of Alcohol and Drug Abuse Patient Records regulations: The Federal rules restrict any use of the information to criminally investigate or prosecute any alcohol or drug abuse patient.[facility] CenterIn the event this information is protected by the Federal Confidentiality of Alcohol and Drug Abuse Patient Records regulations: The Federal rules restrict any use of the information to criminally investigate or prosecute any alcohol or drug abuse patient.[facility] Reason for Visit (unrecogniz ed section and content) Reason Comments Posterior Capsule Opacification Evaluati on Reason Comments Yearly Exam Reason Comments Pseudophakia Care Teams (unrecognized sec tion and content) Eap Specialist Relationship Specialty Start Date End Date Bebe Duncan MD [address] [place] [id number] PCP - General Family Practice 12/15/19 Eap Specialist Relationship Specialty Start Date End Date Bebe Duncan MD [address] [place] [address] PCP - General Family Medicine [...] January 16, 2025 End: January 16, 2025 Eap Specialist Relationship Specialty Start Date End Date Bebe Duncan MD [address] [place] [facility] [place] [address] PCP - General Family Medicine 12/15/19 Team Status: Inactive Member Role Status Dates Bebe Duncan MD Primary Care Provider Active Start: August 09, 2025 End: August 09, 2025 Bebe Duncan MD Attending Provider Active St art: August 09, 2025 End: August 09, 2025 Goals (unrecognized section and content) Goals [...] BE BASED ON THE PRIMARY CLINICAL RECORDS. [facility] [employer] provides no warranty or guarantee of the accuracy or completeness of information in this document.
[2025-08-17 09:45] LABS: Hematocrit 42.8 % (36.0-48.0); Hemoglobin 14.2 g/dL (12.0-16.0); Immature Granulocytes Abs Auto 0.03 10^3/uL (0.00-0.03); Immature Granulocytes Pct Auto 0.4 % (0.0-0.5); Lymphocytes Absolute Auto 2.4 10^3/uL (1.2-3.8); Mean Corpuscular HGB Conc 33.2 g/dL (29.9-35.2); Mean Corpuscular Hemoglobin 30.6 pg (26.7-34.0); Mean Corpuscular Volume 92.2 fL (81.0-99.0); Platelet Count 225 10^3/uL (150-450); Red Blood Count 4.64 10^6/uL (4.20-5.40); White Blood Count 8.0 10^3/uL (4.0-11.0)
[2025-08-17 10:27] LABS: Alanine Aminotransferase 17 U/L (14-59); Albumin Globulin Ratio 1.0; Albumin Level 3.9 g/dL (3.4-5.0); Alkaline Phosphatase 89 U/L (46-116); Anion Gap 13.4; Aspartate Amino Transferase 21 U/L (15-37); Blood Urea Nitrogen 20.0 mg/dL (7.0-18.0); Calcium 9.6 mg/dL (8.5-10.1); Carbon Dioxide 27.3 mmol/L (21.0-32.0); Chloride 104 mmol/L (98-107); Cholesterol 213 mg/dL (<=200); Estimated GFR (African America 52 (>=60 mL/min/1.73m^2); Estimated GFR (Non-African Ame 43 (>=60 mL/min/1.73m^2); Globulin 3.8 g/dL; Glucose 87 mg/dL (74-106); HDL Cholesterol 63 mg/dL (40-60); Potassium 4.7 mmol/L (3.5-5.1); Sodium 140 mmol/L (136-145); Thyroid Stimulating Hormone 0.405 uIU/mL (0.358-3.740); Total Protein 7.7 g/dL (6.4-8.2); Triglycerides 86 mg/dL (<=150); VLDL CHOLESTEROL 17.2 mg/dL
[2025-08-17 11:33] LABS: Folate 16.70 ng/mL (8.60-58.90)
[2025-08-18 07:09] LABS: Vitamin B12 1885 pg/mL (232-1245)
== END 2025-08-17 09:03 | disposition home or self-care (01) ==
LOC: LAB 09:10
PROVIDERS: PCP Family Medicine; Visit Provider Family Medicine
DX: R79.89 Other specified abnormal findings of blood chemistry (principal); E55.9 Vitamin D deficiency, unspecified; R53.82 Chronic fatigue, unspecified; N18.31 Chronic kidney disease, stage 3a; I12.9 Hypertensive chronic kidney disease with stage 1 through stage 4 chronic kidney disease, or unspecified chronic kidney disease
CPT/HCPCS: 36415; 80053; 80061; 82043; 82306; 82533; 82570; 82607; 82746; 84425; 84439; 84443; 85025